=== PATIENT | female | born 1960 | race Two or more races ===

== ENCOUNTER → 2020-04-10 13:41 | Outpatient (BNVA) | payer OTHER, SELFPAY | PROVIDERS: PCP Family Medicine; Visit Provider Student in an Organized Health Care Education/Training Program | DX: Z76.89 Persons encountering health services in other specified circumstances (principal) ==

== ENCOUNTER 2020-05-01 14:16 | Outpatient (REF) | payer OTHER, SELFPAY ==
[2020-05-01 14:59] LABS: Basophils Percent Auto 0.2 % (0-2); Eosinophils Percent Auto 0.7 % (0-4); Hematocrit 28.5 % (37-47); Imm Gran Abs Auto 0.01 X10*3/uL (0.00-0.03); Imm Gran Pct Auto 0.2 % (0.0-0.4); Lymphocytes Absolute Auto 1.6 X10*3/uL (1.2-4.9); Lymphocytes Percent Auto 40.5 % (20-40); MANUAL DIFF FLAG NO; Mean Corpuscular HGB Conc 28.1 g/dl (31.0-35.0); Mean Corpuscular Hemoglobin 19.1 pg (27.0-33.0); Mean Platelet Volume 10.7 fL (9.4-12.3); Monocytes Absolute Auto 0.2 X10*3/uL (0.1-1.2); Neutrophils Absolute Auto 2.1 X10*3/uL (2.0-8.3); Neutrophils Percent Auto 52.4 % (45-73); Platelet Count 246 X10*3/uL (160-400); Red Blood Count 4.19 X10*6/uL (4.20-5.50); Red Cell Distribution Width 19.3 % (11.0-16.0)
[2020-05-01 15:06] LABS: Glucose Urine UA NEG (NEG); Leukocyte Esterase Urine NEG (NEG); Nitrite Urine NEG (NEG); PH 6.5 (5.0-8.0); Specific Gravity - Urine 1.015 (1.005-1.025); Urine Blood NEG (NEG); Urine Ketones NEG (NEG); Urine Protein NEG (NEG-TRACE)
[2020-05-01 15:12] LABS: Appearance Urine CLEAR; Color Urine YELLOW
[2020-05-01 15:22] LABS: RBC Urine 0 /HPF (0); Squamous Epithelial Cell Urine 1+ /LPF; WBC Urine 0 /HPF (0-4)
[2020-05-01 15:23] LABS: Bacteria Urine 1+ /LPF
[2020-05-01 15:27] LABS: Alanine Aminotransferase 16 U/L (0-31); Albumin Level 4.1 g/dL (3.5-5.0); Alkaline Phosphatase 62 U/L (39-117); Anion Gap 14 (12-20); Aspartate Amino Transferase 18 U/L (5-31); Bilirubin Total 0.3 mg/dL (0.0-1.0); Blood Urea Nitrogen 8 mg/dL (9-16); C Reactive Protein 0.12 mg/dL (< or = 0.50); Calcium 8.9 mg/dL (8.4-10.2); Carbon Dioxide 23 mmol/L (22-29); Chloride 107 mmol/L (96-108); Estimated Glomerular Filt Rate > 60; Glucose Random 98 mg/dL (60-115); Potassium 3.6 mmol/l (3.3-5.1); Sodium 140 mmol/L (135-145); Total Protein 7.9 g/dL (6.5-8.0)
[2020-05-01 15:58] LABS: Erythrocyte Sedimentation Rate 23 MM/HR (0-20)
[2020-05-02 14:42] LABS: Complement C3 115 mg/dL (83-193)
[2020-05-03 11:17] LABS: Anti DNA DS Antibody <1 IU/mL
== END 2020-05-01 14:17 | disposition home or self-care (01) ==
LOC: HO.LAB 14:16
PROVIDERS: PCP Family Medicine; Visit Provider Student in an Organized Health Care Education/Training Program
DX: M35.00 Sjogren syndrome, unspecified (principal)
CPT/HCPCS: 36415; 80053; 81001; 85025; 85652; 86140; 86160; 86225

== ENCOUNTER → 2020-05-16 09:19 | Outpatient (BNVA) | payer OTHER, SELFPAY | PROVIDERS: PCP Family Medicine; Visit Provider Internal Medicine Gastroenterology | DX: Z76.89 Persons encountering health services in other specified circumstances (principal) ==

== ENCOUNTER 2020-05-23 16:05 | Outpatient (REF) | payer OTHER, SELFPAY ==
[2020-05-23 17:34] LABS: MANUAL DIFF FLAG NO
[2020-05-23 17:48] LABS: Basophils Percent Auto 0.3 % (0-2); Hematocrit 30.9 % (37-47); Hemoglobin 8.6 g/dl (12.0-16.0); Lymphocytes Absolute Auto 1.7 X10*3/uL (1.2-4.9); Lymphocytes Percent Auto 43.3 % (20-40); Mean Corpuscular HGB Conc 27.8 g/dl (31.0-35.0); Mean Corpuscular Hemoglobin 19.5 pg (27.0-33.0); Mean Corpuscular Volume 69.9 fL (80-98); Mean Platelet Volume 10.4 fL (9.4-12.3); Monocytes Absolute Auto 0.2 X10*3/uL (0.1-1.2); Monocytes Percent Auto 6.3 % (2-11); Neutrophils Absolute Auto 1.9 X10*3/uL (2.0-8.3); Neutrophils Percent Auto 49.1 % (45-73); Platelet Count 287 X10*3/uL (160-400); Red Blood Count 4.42 X10*6/uL (4.20-5.50); Red Cell Distribution Width 21.6 % (11.0-16.0); White Blood Count 3.8 X10*3/uL (4.8-10.8)
[2020-05-23 17:49] LABS: Estimated Average Glucose 114 mg/dL; Hemoglobin A1c % 5.6 %
[2020-05-23 18:06] LABS: Alanine Aminotransferase 15 U/L (0-31); Albumin Level 4.2 g/dL (3.5-5.0); Alkaline Phosphatase 64 U/L (39-117); Anion Gap 12 (12-20); Aspartate Amino Transferase 18 U/L (5-31); Bilirubin Total 0.2 mg/dL (0.0-1.0); Blood Urea Nitrogen 9 mg/dL (9-16); C Reactive Protein 0.06 mg/dL (< or = 0.50); Carbon Dioxide 26 mmol/L (22-29); Chloride 106 mmol/L (96-108); Cholesterol 171 mg/dL; Estimated Glomerular Filt Rate > 60; Glucose Fasting 107 mg/dL (60-99); HDL Cholesterol 72 mg/dL; Iron 59 mcg/dL (30-160); LDL Cholesterol Calculated 89 mg/dl; Percent Iron Saturation 11 % (15-50); Potassium 4.1 mmol/l (3.3-5.1); Sodium 140 mmol/L (135-145); Total Iron Binding Capacity 544 mcg/dL (228-428); Triglycerides 52 mg/dL; Unsaturated Iron Binding 485 ug/dL
[2020-05-23 18:27] LABS: Ferritin 3 ng/mL (10-250); TSH reflex Free T4 0.37 mIU/mL (0.32-4.0); Vitamin D 25-OH Total 23.5 ng/mL (>30)
[2020-05-24 08:57] LABS: SARS COV2 IgG Negative (Negative)
[2020-05-24 11:32] LABS: Transglutaminase IgA 1 U/mL
== END 2020-05-23 16:06 | disposition home or self-care (01) ==
LOC: HO.LAB 16:05
PROVIDERS: PCP Family Medicine; Visit Provider Internal Medicine Gastroenterology
DX: D50.9 Iron deficiency anemia, unspecified (principal); K76.0 Fatty (change of) liver, not elsewhere classified; R11.0 Nausea
CPT/HCPCS: 36415; 80053; 80061; 82306; 82728; 83036; 83516; 83540; 84443; 85025; 86140; 86769

== ENCOUNTER 2020-05-29 11:23 | Day surgery (SDC) | payer OTHER, SELFPAY ==
[2020-05-23 10:27] VITALS: BMI 30.2
--- NOTE | 2020-05-28 09:48 | HO.ANESPROP2 ---
Documented by User: Daiana Ryan 05/28/20 09:49 HPI - Anesthesia Eval Consult details Narrative: 59yo F for Upper Endoscopy and Colonoscopy PMFSH Past Medical History Medical History Arthritis Back pain GERD (gastroesophageal reflux disease) Hepatic steatosis Hx of migraines Interstitial cystitis Irritable bowel syndrome with constipation Sjogrens syndrome Family History Family History Father Cirrhosis Mother Bone cancer HTN (hypertension) Migraine Diabetes mellitus Son GERD (gastroesophageal reflux disease) Daughter GERD (gastroesophageal reflux disease) Paternal Grandfather Diabetes mellitus Paternal Grandmother Emphysema lung Surgical History Surgical History History of bunionectomy of both great toes History of History of colonoscopy History of hysterectomy Hx of cystoscopy Hx of hemorrhoidectomy Social History Social History Alcohol intake: current Alcohol intake frequency: holidays/special occasions only Smoking Status: Never smoker Advance Directives: No Advance Directives Information Provided: No Advance Directives on File: No Meds Allergies Allergy/AdvReac Type Severity Reaction Status Date / Time latex [LATEX] Allergy Intermediate RASH Verified 05/23/20 10:25 omeprazole Allergy Intermediate Vomiting Verified 05/23/20 10:25 famotidine [Pepcid] Allergy Mild Vomiting Verified 05/23/20 10:25 Latex Gloves Allergy Intermediate Rash Uncoded 05/23/20 10:25 Home Medications Medication Instructions Recorded Confirmed Type amitriptyline 25 mg tablet 25 mg PO BEDTIME 04/10/20 05/23/20 History cyanocobalamin (vitamin B-12) 1,000 mcg PO DAILY 04/10/20 05/23/20 History 1,000 mcg capsule famotidine 20 mg tablet 20 mg PO BEDTIME 04/10/20 05/23/20 History magnesium oxide 420 mg tablet 420 mg PO DAILY 04/10/20 05/23/20 History meloxicam 7.5 mg tablet 7.5 mg PO DAILY 04/10/20 05/23/20 History oxybutynin chloride 15 mg 15 mg PO DAILY 04/10/20 05/23/20 History tablet,extended release 24 hr pentosan polysulfate sodium 100 mg 100 mg PO BID cap 04/10/20 05/23/20 History capsule cholecalciferol (vitamin D3) 1 cap PO DAILY 05/23/20 05/23/20 History Exam Exam Date and Time: May 28, 2020 0948 Height,Weight and Vital Signs: Height 5 ft 2 in Weight 74.843 kg Assessment and Plan Assessment Anesthesia Assessment: Chart Reviewed Documented by User: Mercedes Garcia 05/29/20 12:17 PMFSH Past Medical History Medical History Arthritis Back pain GERD (gastroesophageal reflux disease) Hepatic steatosis Hx of migraines Interstitial cystitis Irritable bowel syndrome with constipation Sjogrens syndrome Family History Family History Father Cirrhosis Mother Bone cancer HTN (hypertension) Migraine Diabetes mellitus Son GERD (gastroesophageal reflux disease) Daughter GERD (gastroesophageal reflux disease) Paternal Grandfather Diabetes mellitus Paternal Grandmother Emphysema lung Surgical History Surgical History History of bunionectomy of both great toes History of History of colonoscopy History of hysterectomy Hx of cystoscopy Hx of hemorrhoidectomy Social History Social History Alcohol intake: current Alcohol intake frequency: holidays/special occasions only Smoking Status: Never smoker Advance Directives: No Advance Directives Information Provided: No Advance Directives on File: No Meds Allergies Allergy/AdvReac Type Severity Reaction Status Date / Time latex [LATEX] Allergy Intermediate RASH Verified 05/23/20 10:25 omeprazole Allergy Intermediate Vomiting Verified 05/23/20 10:25 famotidine [Pepcid] Allergy Mild Vomiting Verified 05/23/20 10:25 Latex Gloves Allergy Intermediate Rash Uncoded 05/23/20 10:25 Home Medications Medication Instructions Recorded Confirmed Type amitriptyline 25 mg tablet 25 mg PO BEDTIME 04/10/20 05/23/20 History cyanocobalamin (vitamin B-12) 1,000 mcg PO DAILY 04/10/20 05/23/20 History 1,000 mcg capsule famotidine 20 mg tablet 20 mg PO BEDTIME 04/10/20 05/23/20 History magnesium oxide 420 mg tablet 420 mg PO DAILY 04/10/20 05/23/20 History meloxicam 7.5 mg tablet 7.5 mg PO DAILY 04/10/20 05/23/20 History oxybutynin chloride 15 mg 15 mg PO DAILY 04/10/20 05/23/20 History tablet,extended release 24 hr pentosan polysulfate sodium 100 mg 100 mg PO BID cap 04/10/20 05/23/20 History capsule cholecalciferol (vitamin D3) 1 cap PO DAILY 05/23/20 05/23/20 History Exam Airway Mallampati Class: II TM Dist: >3cm Neck ROM: Full
[2020-05-29 11:42] VITALS: BP 129/86; PULSE 83; RESP 18; TEMP 36.6; O2SAT 100
--- NOTE | 2020-05-29 11:50 | MHC.SHP ---
Pre-Procedural Eval Section B Chief Complaint: anemia Allergies: Allergies Allergy/AdvReac Type Severity Reaction Status Date / Time latex [LATEX] Allergy Intermediate RASH Verified 05/23/20 10:25 omeprazole Allergy Intermediate Vomiting Verified 05/23/20 10:25 famotidine [Pepcid] Allergy Mild Vomiting Verified 05/23/20 10:25 Latex Gloves Allergy Intermediate Rash Uncoded 05/23/20 10:25 Plan Diagnosis/Plan: Unchanged (EGD and [place]) I have reviewed the history and physical and performed a pertinent physical examination on my patient. No changes have occurred unless specified.yes.
[2020-05-29] MEDS: Lactated Ringers 1,000 ML 100 ML IVCONT (11:54)
[2020-05-29 12:55] VITALS: BP 105/60; PULSE 61; RESP 18; TEMP 36.2; O2SAT 100
--- NOTE | 2020-05-29 12:56 | PM.PROC ---
Brief Operative Note Date of procedure: 05/29/20 Pre-op diagnosis: ANEMIA, HEMATOCHEZIA; COLON CANCER SCREENING Post-op diagnosis: other (HIATAL HERNIA, SOFT CHANGES POSTPHARYNX C/ GERD; NONSPECIFIC INFLAMATION ASC. COLON AND CECUM, 3-4+ INTERNAL HEMORRHOIDS.) Procedure: EGD WITH BX; COLO WITH BX. Anesthesia: MAC (MD ANASTASIYA) Surgeon: Erica Trejo Pathology: other (RANDOM GASTRIC, RIGHT COLON, LEFT COLON, RECTO SIGMOID) Condition: stable Disposition: PACU
[2020-05-29 13:10] VITALS: BP 123/85; PULSE 69; RESP 20; O2SAT 100
--- NOTE | 2020-05-29 13:44 | HO.POSTANES ---
Post Anesthesia Evaluation Post Anesthesia Evaluation Vital Signs: Vital Signs Temp Pulse Resp BP Pulse Ox 05/29/20 13:10 97.1 F 69 20 123/85 100 05/29/20 12:55 97.1 F 61 18 105/60 100 05/29/20 11:42 97.9 F 83 18 129/86 100 Anesthesia: Monitored Mental Status: Awake Pain Control: Satisfactory Nausea/Vomiting: None Hydration: Adequate Anesthesia-Related Issues: No Anes. Related Issues
--- NOTE | 2020-05-31 21:04 | OP_ITS ---
SURGEON: Erica Trejo MD PROCEDURE PERFORMED: EGD with biopsy, colonoscopy with biopsies. ESTIMATED BLOOD LOSS: COMPLICATIONS: No complications. ANESTHESIA: Monitored. ANESTHESIOLOGIST: Dr. Garcia.Dr. Garcia. ASSISTANTS: No historian research assistant. SPECIMENS: Specimen removed; gastric biopsy, right colon and left colon biopsies, rectosigmoid biopsy. Note: The patient has a significant anemia. She now has a hemoglobin that runs between 8 and 8.6 with hematocrit in the 28 to 29 range and MCV has dropped from her previous level earlier in 2019 of 86 down to an MCV of 69, most consistent with iron-deficiency anemia. PREOPERATIVE DIAGNOSES: Anemia, hematochezia. POSTOPERATIVE DIAGNOSES: Hiatal hernia, soft changes consistent with gastroesophageal reflux disease. Colonoscopy findings; question nonspecific inflammatory changes of the right colon. Biopsies were taken. Internal hemorrhoids noted 3 to 4+ on retroflexed view. CLINIC LPN: Dr. Trejo. CONDITION: Postop, stable. FINDINGS: ESOPHAGOGASTRODUODENOSCOPY: Video endoscope was introduced without difficulty. There were some edema and erythema of the arytenoid cartilages. The esophageal mucosa was normal. GE junction was clear and distinct. There was a small 2 cm hiatal hernia present. The gastric mucosa appeared normal. Duodenal bulb and duodenum appeared endoscopically normal. Random gastric biopsies were obtained. Digital rectal exam revealed no specific lesion. Video colonoscope was introduced without difficulty. Prep overall was fair to poor. The scope slowly advanced through left colon. It was residual iron from her iron supplementation. I was able to get to the cecum. Appendiceal orifice was seen. There was debris partially covering the appendiceal orifice. Ileocecal valve was seen. There was a question of inflammatory changes on the right side of the colon, particularly involving the cecum in the most proximal portion of the ascending colon. There was somewhat of an exudative slightly friable change in that area. Biopsies were obtained. In sequential biopsies on the left side, rectosigmoid biopsies were obtained. Retroflexed view did show 4+ internal hemorrhoids. PLAN: Currently, repeat colon cancer screening in this patient would really be probably 3 years given the findings of this one in the marginality of the prep. Further decisions on this will be addressed in followup. GRAFT OR IMPLANTS: No grafts or implants. Erica Trejo MD MEN/MODL / [id number] KENDELL
== END 2020-05-29 13:40 | disposition home or self-care (01) ==
PROVIDERS: PCP Family Medicine; Visit Provider Internal Medicine Gastroenterology
PROC: (CPT 45380; principal; 2020-05-29 12:40)
DX: D50.9 Iron deficiency anemia, unspecified (principal); K52.9 Noninfective gastroenteritis and colitis, unspecified; K64.8 Other hemorrhoids; K58.1 Irritable bowel syndrome with constipation; K21.9 Gastro-esophageal reflux disease without esophagitis; R11.0 Nausea; K44.9 Diaphragmatic hernia without obstruction or gangrene; K76.0 Fatty (change of) liver, not elsewhere classified; M35.00 Sjogren syndrome, unspecified; Z79.899 Other long term (current) drug therapy; Z80.8 Family history of malignant neoplasm of other organs or systems; Z91.040 Latex allergy status; Z88.8 Allergy status to other drugs, medicaments and biological substances
CPT/HCPCS: 45380; 43239; 88305; 88342

== ENCOUNTER 2020-06-07 16:04 | Outpatient (REF) | payer OTHER, SELFPAY ==
[2020-06-07 17:02] LABS: INTERNATIONAL NORM RATIO 1.1 (0.9-1.1); Prothrombin Time 13.2 SEC (10.8-13.0)
[2020-06-07 18:09] LABS: Vitamin B12 1420 pg/mL (200-900)
[2020-06-11 17:03] LABS: Methylmalonic Acid 103 nmol/L (87-318)
[2020-06-14 06:07] LABS: Vitamin B1 8 nmol/L (8-30)
== END 2020-06-07 16:05 | disposition home or self-care (01) ==
LOC: HO.LAB 16:04
PROVIDERS: PCP Family Medicine; Visit Provider Internal Medicine Gastroenterology
DX: D50.9 Iron deficiency anemia, unspecified (principal)
CPT/HCPCS: 36415; 81479; 82397; 82607; 83520; 83921; 84425; 85610; 86140; 88346; 88350

== ENCOUNTER 2020-06-15 16:35 | Outpatient (REF) | payer OTHER, SELFPAY ==
[2020-06-22 00:16] LABS: Calprotectin, Fecal 205 mcg/g
== END 2020-06-15 16:36 | disposition home or self-care (01) ==
LOC: HO.LNP 16:35
PROVIDERS: Visit Provider Internal Medicine Gastroenterology
DX: D50.9 Iron deficiency anemia, unspecified (principal)
CPT/HCPCS: 83993

== ENCOUNTER 2020-07-10 13:35 | Outpatient (REF) | payer OTHER, SELFPAY ==
[2020-07-10 14:50] LABS: MANUAL DIFF FLAG NO
[2020-07-10 14:55] LABS: Basophils Percent Auto 0.2 % (0-2); Eosinophils Percent Auto 0.2 % (0-4); Hematocrit 23.5 % (37-47); Imm Gran Abs Auto 0.01 X10*3/uL (0.00-0.03); Imm Gran Pct Auto 0.2 % (0.0-0.4); Lymphocytes Absolute Auto 1.4 X10*3/uL (1.2-4.9); Lymphocytes Percent Auto 31.9 % (20-40); Mean Corpuscular HGB Conc 28.9 g/dl (31.0-35.0); Mean Corpuscular Hemoglobin 21.9 pg (27.0-33.0); Mean Corpuscular Volume 75.6 fL (80-98); Monocytes Absolute Auto 0.3 X10*3/uL (0.1-1.2); Monocytes Percent Auto 5.9 % (2-11); Neutrophils Absolute Auto 2.6 X10*3/uL (2.0-8.3); Neutrophils Percent Auto 61.6 % (45-73); Platelet Count 273 X10*3/uL (160-400); Red Blood Count 3.11 X10*6/uL (4.20-5.50); Red Cell Distribution Width 21.5 % (11.0-16.0); White Blood Count 4.2 X10*3/uL (4.8-10.8)
[2020-07-10 15:16] LABS: Hemoglobin 6.8 g/dl (12.0-16.0)
[2020-07-10 15:32] LABS: Alanine Aminotransferase 15 U/L (0-31); Albumin Level 4.1 g/dL (3.5-5.0); Alkaline Phosphatase 56 U/L (39-117); Anion Gap 10 (12-20); Aspartate Amino Transferase 16 U/L (5-31); Blood Urea Nitrogen 10 mg/dL (9-16); C Reactive Protein 0.07 mg/dL (< or = 0.50); Calcium 9.2 mg/dL (8.4-10.2); Carbon Dioxide 25 mmol/L (22-29); Chloride 108 mmol/L (96-108); Estimated Glomerular Filt Rate > 60; Glucose Random 93 mg/dL (60-115); Potassium 4.1 mmol/L (3.3-5.1); Sodium 139 mmol/L (135-145); Total Protein 7.6 g/dL (6.5-8.0)
[2020-07-10 15:42] LABS: Bilirubin Total < 0.2 mg/dL (0.0-1.0)
[2020-07-10 15:47] LABS: Erythrocyte Sedimentation Rate 34 MM/HR (0-20)
[2020-07-12 12:51] LABS: IgA 268 mg/dL (47-310); IgG 1574 mg/dL (600-1640); IgM 131 mg/dL (50-300)
[2020-07-12 14:02] LABS: Prot Elec - Albumin 3.8 g/dL (3.8-4.8); Prot Elec - Alpha1 0.3 g/dL (0.2-0.3); Prot Elec - Alpha2 0.6 g/dL (0.5-0.9); Prot Elec - Beta 1 0.6 g/dL (0.4-0.6); Prot Elec - Beta 2 0.4 g/dL (0.2-0.5); Prot Elec - Gamma 1.4 g/dL (0.8-1.7); Prot Elec - Total Protein 7.1 g/dL (6.1-8.1)
== END 2020-07-10 13:36 | disposition home or self-care (01) ==
LOC: HO.LAB 13:35
PROVIDERS: PCP Family Medicine; Visit Provider Student in an Organized Health Care Education/Training Program
DX: M35.00 Sjogren syndrome, unspecified (principal); D50.9 Iron deficiency anemia, unspecified; Z79.899 Other long term (current) drug therapy
CPT/HCPCS: 36415; 80053; 82784; 84155; 84165; 85025; 85652; 86140; 86334

== ENCOUNTER 2020-07-10 16:19 | Emergency (ER) | payer OTHER, SELFPAY ==
--- NOTE | ~2020-07-10 | CT_ITS ---
EXAMINATION: CT ABDOMEN AND PELVIS WITHOUT CONTRAST CLINICAL INFORMATION: Reason for Exam lower abd pn with bleeding wt loss . COMPARISON: No pertinent prior studies are available for comparison. TECHNIQUE: Multidetector volumetric imaging was performed from the superior aspect of the liver through the pubic symphysis without contrast per renal stone protocol. Sagittal and coronal reformatted images were obtained on the technologist workstation. This CT examination was performed using dose optimization techniques as appropriate, variously including the following: *Automated exposure control *Adjustment of mA and/or kV according to patient size (this includes techniques or standardized protocols for targeted exams where dose is matched to indication/reason for exam; i.e. extremities or head) *Use of iterative reconstruction technique DLP: 410 mGy-cm. FINDINGS: LUNG BASES: The visualized lung bases are unremarkable. LIVER, GALLBLADDER, BILIARY TREE: The non-contrast liver is normal in size, shape, and attenuation. No focal hepatic lesion or biliary ductal dilatation is present. The gallbladder is contracted but otherwise unremarkable with no evidence of radiopaque gallstones, gallbladder wall thickening, or obvious pericholecystic inflammatory changes. PANCREAS: Mild pancreatic fullness with the suggestion of subtle peripancreatic inflammatory changes/fluid. Mild pancreatitis cannot be excluded in this setting and correlation with amylase/lipase levels recommended. SPLEEN: Unremarkable. ADRENAL GLANDS: Unremarkable. KIDNEYS AND URETERS: The kidneys are normal in size, shape, and attenuation. No hydronephrosis, hydroureter, or calculi seen. No perinephric stranding. BLADDER: Unremarkable. GASTROINTESTINAL TRACT: Portions of the colon are decompressed which limits evaluation for wall thickness but no definitive pericolonic inflammatory changes. Large amount of stool in the cecum incidentally noted. The appendix is not clearly visualized. ABDOMINAL WALL: No significant hernia is appreciated. LYMPHOVASCULAR STRUCTURES: Scattered phleboliths in the pelvis. Aorta iliac system grossly unremarkable on this noncontrast study. No bulky adenopathy. PELVIC VISCERA: Surgically absent. OSSEUS STRUCTURES: Degenerative changes in the spine CT/CT abdomen pelvis wo con IMPRESSION: Portions of the colon are decompressed there is a moderate amount of stool within the cecum. No obstructive changes to the small bowel. I do not appreciate any acute intra-abdominal process.
[2020-07-10 16:42] VITALS: BP 140/83; PULSE 101; RESP 16; TEMP 37.1; O2SAT 100; BMI 25.2
[2020-07-10 17:08] LABS: Basophils Percent Auto 0.2 % (0-2); Eosinophils Percent Auto 0.2 % (0-4); Imm Gran Abs Auto 0.01 X10*3/uL (0.00-0.03); Imm Gran Pct Auto 0.2 % (0.0-0.4); Lymphocytes Absolute Auto 1.7 X10*3/uL (1.2-4.9); Lymphocytes Percent Auto 37.7 % (20-40); MANUAL DIFF FLAG NO; Mean Corpuscular HGB Conc 29.1 g/dl (31.0-35.0); Mean Corpuscular Volume 75.7 fL (80-98); Mean Platelet Volume 10.1 fL (9.4-12.3); Monocytes Absolute Auto 0.3 X10*3/uL (0.1-1.2); Monocytes Percent Auto 5.6 % (2-11); Neutrophils Absolute Auto 2.5 X10*3/uL (2.0-8.3); Neutrophils Percent Auto 56.1 % (45-73); Platelet Count 271 X10*3/uL (160-400); Red Blood Count 3.04 X10*6/uL (4.20-5.50); Red Cell Distribution Width 21.4 % (11.0-16.0); White Blood Count 4.4 X10*3/uL (4.8-10.8)
[2020-07-10 17:21] LABS: Glucose Urine UA NEG (NEG); Leukocyte Esterase Urine NEG (NEG); Nitrite Urine NEG (NEG); Specific Gravity - Urine 1.015 (1.005-1.025); Urine Blood NEG (NEG); Urine Ketones NEG (NEG); Urine Protein NEG (NEG-TRACE)
[2020-07-10 17:24] LABS: Hemoglobin 6.7 g/dl (12.0-16.0)
[2020-07-10 17:28] LABS: Alanine Aminotransferase 14 U/L (0-31); Albumin Level 4.1 g/dL (3.5-5.0); Alkaline Phosphatase 54 U/L (39-117); Anion Gap 12 (12-20); Aspartate Amino Transferase 15 U/L (5-31); Bilirubin Total 0.2 mg/dL (0.0-1.0); Blood Urea Nitrogen 10 mg/dL (9-16); Calcium 8.8 mg/dL (8.4-10.2); Carbon Dioxide 24 mmol/L (22-29); Chloride 109 mmol/L (96-108); Creatinine Clr Calc Pharmacy 59.2; Estimated Glomerular Filt Rate > 60; Glucose Random 109 mg/dL (60-115); Potassium 3.8 mmol/L (3.3-5.1); Sodium 141 mmol/L (135-145); Total Protein 7.4 g/dL (6.5-8.0)
[2020-07-10 17:47] LABS: Appearance Urine CLEAR; Color Urine YELLOW
[2020-07-10 18:36] VITALS: BP 131/76; PULSE 77; O2SAT 99
--- NOTE | 2020-07-10 18:37 | PC.NURSE ---
pt alert and oriented, skin pale, sclera white. pt states that she was at [facility] dr [place]ura was sent to get blood work and found her h+h was low, told to go to the ed. pt does reports weak/dizzy/right lower abd pain for a couple of weeks and rectal bleeding with bright red blood, pt states that she thought is was her hemroids. ns on the monitor.
--- NOTE | 2020-07-10 18:40 | ED.RECABL ---
HPI - Recheck/Abnormal Lab/Rx General Chief Complaint: Recheck/Abnormal Lab/Rx <Terra Mehta PA-C - Last Filed: 07/10/20 20:58> Stated Complaint: Anemia <Terra Mehta PA-C - Last Filed: 07/10/20 20:58> Time Seen by Provider: 07/10/20 17:50 <Terra Mehta PA-C - Last Filed: 07/10/20 20:58> Source: patient <SARAH Lundberg Last Filed: 07/10/20 20:58> Mode of arrival: ambulatory <Terra Mehta PA-C - Last Filed: 07/10/20 20:58> Limitations: no limitations <Terra Mehta PA-C - Last Filed: 07/10/20 20:58> History of Present Illness HPI narrative: Patient is a 60-year-old female with a history of hepatic steatosis, IBS with constipation, GERD, Sjogrens syndrome, microcytic anemia c/o dizziness low abdominal pain, shortness of breath and fatigue who was found earlier today to have a low hemoglobin and was sent to the ED by her director security risk management, Dr. Lai. Patient's dates she is also had a half a cup of the time blood loss out of her rectum. She states she thinks it is her hemorrhoids. She also admits to 25 lb unintentional weight loss over the past few months. She states she had a colonoscopy recently which was negative. She denies fevers, night sweats, cough and chest pain. <Terra Mehta PA-C - Last Filed: 07/10/20 20:58> Related Data Home Medications: Home Medications Medication Instructions Recorded Confirmed amitriptyline 25 mg tablet 25 mg PO BEDTIME 04/10/20 05/23/20 cyanocobalamin (vitamin B-12) 1,000 mcg PO DAILY 04/10/20 05/23/20 1,000 mcg capsule famotidine 20 mg tablet 20 mg PO BEDTIME 04/10/20 05/23/20 magnesium oxide 420 mg tablet 420 mg PO DAILY 04/10/20 05/23/20 pentosan polysulfate sodium 100 mg 100 mg PO BID cap 04/10/20 05/23/20 capsule cholecalciferol (vitamin D3) 1 cap PO DAILY 05/23/20 05/23/20 Previous Rx's Medication Instructions Recorded ferrous sulfate 324 mg (65 mg 324 mg PO DAILY #30 tab 05/01/20 iron) tablet,delayed release oxybutynin chloride 15 mg 15 mg PO DAILY 90 Days #90 tab 06/20/20 tablet,extended release 24 hr <Terra Mehta PA-C - Last Filed: 07/10/20 20:58> Allergies/Adverse Reactions: Allergies Allergy/AdvReac Type Severity Reaction Status Date / Time latex [LATEX] Allergy Intermediate RASH Verified 07/10/20 13:47 omeprazole Allergy Intermediate Vomiting Verified 07/10/20 13:47 famotidine [Pepcid] Allergy Mild Vomiting Verified 07/10/20 13:47 <Terra Mehta PA-C - Last Filed: 07/10/20 20:58> Review of Systems Review of Systems: Yes all other systems are reviewed and are negative <Terra Mehta PA-C - Last Filed: 07/10/20 20:58> [facility] Past Medical History Medical History: Medical History Arthritis Back pain GERD (gastroesophageal reflux disease) Hepatic steatosis Hx of migraines Interstitial cystitis Irritable bowel syndrome with constipation Sjogrens syndrome <Terra Mehta PA-C - Last Filed: 07/10/20 20:58> Surgical History: Surgical History History of bunionectomy of both great toes History of History of colonoscopy History of hysterectomy Hx of cystoscopy Hx of hemorrhoidectomy <Terra Mehta PA-C - Last Filed: 07/10/20 20:58> Family History Family History: Family History Father Cirrhosis Mother Bone cancer HTN (hypertension) Migraine Diabetes mellitus Son GERD (gastroesophageal reflux disease) Daughter GERD (gastroesophageal reflux disease) Paternal Grandfather Diabetes mellitus Paternal Grandmother Emphysema lung <Terra Mehta PA-C - Last Filed: 07/10/20 20:58> Social History Social History: Social History Alcohol intake: current Alcohol intake frequency: does not drink Smoking Status: Never smoker Use of substances other than those prescribed or required for medical reasons: No Advance Directives: No Advance Directives Information Provided: Yes <Terra Mehta PA-C - Last Filed: 07/10/20 20:58> Physical Exam Vital Signs: Vital Signs: Last Vital Signs Temp 98.6 F 07/10/20 21:39 Pulse 78 07/10/20 21:39 Resp 18 07/10/20 21:39 BP 118/63 07/10/20 21:39 Pulse Ox 98 07/10/20 21:39 Body Mass Index 25.2 <Terra Mehta PA-C - Last Filed: 07/10/20 20:58> Vital Signs: Last Vital Signs Temp 98.6 F 07/10/20 21:39 Pulse 78 07/10/20 21:39 Resp 18 07/10/20 21:39 BP 118/63 07/10/20 21:39 Pulse Ox 98 07/10/20 21:39 Body Mass Index 25.2 <Nayana Guillen NP - Last Filed: 07/10/20 23:58> Const: General: cooperative, healthy appearing, comfortable, no acute distress and well developed <Terra Mehta PA-C - Last Filed: 07/10/20 20:58> Nutritional Appearance: well nourished <Terra Mehta PA-C - Last Filed: 07/10/20 20:58> Orientation/consciousness: patient oriented x3 <Terra Mehta PA-C - Last Filed: 07/10/20 20:58> Limitations: no limitations <Terra Mehta PA-C - Last Filed: 07/10/20 20:58> HENMT: Head: Yes normal to inspection <Terra Mehta PA-C - Last Filed: 07/10/20 20:58> Eyes: General: appearance normal, both eyes and all related structures <Terra Mehta PA-C - Last Filed: 07/10/20 20:58> Conjunctivae: conjunctival abnormal bilateral pallor <Terra Mehta PA-C - Last Filed: 07/10/20 20:58> Neck: Neck: Yes normal visual inspection, Yes full ROM and Yes supple <Terra Mehta PA-C Last Filed: 07/10/20 20:58> Resp: Effort & Inspection: normal respiratory effort and able to speak in complete sentences <Terra Mehta PA-C - Last Filed: 07/10/20 20:58> Auscultation: clear to auscultation bilaterally, no crackles, no rales, no rhonchi and no wheezes <Terra Mehta PA-C Ana Last Filed: 07/10/20 20:58> Cardio: Rate: regular rate <Terra Mehta PA-C Ana Last Filed: 07/10/20 20:58> Rhythm: regular rhythm <Terra Mehta PA-C Ana Last Filed: 07/10/20 20:58> Heart sounds: normal S1 and S2 <Terra Mehta PA-C Ana Last Filed: 07/10/20 20:58> GI: Inspection: Yes normal to inspection <Terra Mehta PA-C Ana Last Filed: 07/10/20 20:58> Palpation (GI): Soft to palpation <Terra Mehta PA-C Last Filed: 07/10/20 20:58> Neuro: General: patient oriented x3 <Terra Mehta PA-C Ana Last Filed: 07/10/20 20:58> Extrem: General: Yes normal gait <Terra Mehta PA-C Ana Last Filed: 07/10/20 20:58> Course Course Course Narrative: Patient is a 60-year-old female with a history of hepatic steatosis, IBS with constipation, GERD, Sjogrens syndrome, microcytic anemia c/o dizziness low abdominal pain, shortness of breath and fatigue who was found earlier today to have a low hemoglobin and was sent to the ED by her director security risk management, Dr. Lai. Hemoglobin was 6.7, patient receiving 1 unit red blood cells and will recheck CBC when completed. Abdominal CT was negative for any acute processes and advised patient to follow-up with GI doctor regarding the bleeding as she just had an upper endoscopy and colonoscopy which were both negative for any acute issues. 07/10/2020 9pm Sign out to Nayana Guillen NP <Terra Mehta PA-C - Last Filed: 07/10/20 20:58> 10:27 p.m. repeat H&H 7.6/24.6. Patient does state to feel better, will follow-up with Rheumatology and Gastroenterology as well as primary care physician as instructed. Patient verbalized understanding of and agrees to plan of care discharge home. <Nayana Guillen NP - Last Filed: 07/10/20 23:58> MDM - Recheck/Abnormal Lab/Rx Lab Data Result diagrams: : 07/10/20 21:56 07/10/20 16:58 <Terra Mehta PA-C - Last Filed: 07/10/20 20:58> Labs: Lab Results 07/10/20 07/10/20 07/10/20 Range/Units 16:57 16:58 16:58 WBC 4.4 L (4.8-10.8) X10*3/uL RBC 3.04 L (4.20-5.50) X10*6/uL Hgb 6.7 L* (12.0-16.0) g/dl Hct 23.0 L (37-47) % MCV 75.7 L (80-98) fL MCH 22.0 L (27.0-33.0) pg MCHC 29.1 L (31.0-35.0) g/dl RDW 21.4 H (11.0-16.0) % Plt Count 271 (160-400) X10*3/uL MPV 10.1 (9.4-12.3) fL Immature Gran % (Auto) 0.2 (0.0-0.4) % Neut % (Auto) 56.1 (45-73) % Lymph % (Auto) 37.7 (20-40) % [place] % (Auto) 5.6 (2-11) % Eos % (Auto) 0.2 (0-4) % Baso % (Auto) 0.2 (0-2) % Lymph # (Auto) 1.7 (1.2-4.9) X10*3/uL [place] # (Auto) 0.3 (0.1-1.2) X10*3/uL Eos # (Auto) 0.0 (0.0-0.4) X10*3/uL Baso # (Auto) 0.0 (0.0-0.2) X10*3/uL Abs Immat Gran (auto) 0.01 (0.00-0.03) X10*3/uL Absolute Neuts (auto) 2.5 (2.0-8.3) X10*3/uL Absolute Nucleated RBC 0.000 (0.0-0.012) X10*3/uL Nucleated RBC % (auto) 0.0 (0.0-0.2) /100WBC Hold Purple Top SEE NOTE Hold Blue Top Sodium (135-145) mmol/L Potassium (3.3-5.1) mmol/L Chloride (96-108) mmol/L Carbon Dioxide (22-29) mmol/L Anion Gap (12-20) BUN (9-16) mg/dL Creatinine (0.5-1.4) mg/dL Estim Creat Clear Calc Estimated GFR Random Glucose (60-115) mg/dL Calcium (8.4-10.2) mg/dL Total Bilirubin (0.0-1.0) mg/dL AST (5-31) U/L ALT (0-31) U/L Alkaline Phosphatase (39-117) U/L Total Protein (6.5-8.0) g/dL Albumin (3.5-5.0) g/dL Urine Color Urine Appearance Urine pH (5.0-8.0) Ur Specific [place] (1.005-1.025) Urine Protein (NEG-TRACE) MG/DL Urine Glucose (UA) (NEG) MG/DL Urine Ketones (NEG) MG/DL Urine Blood (NEG) Urine Nitrite (NEG) Ur Leukocyte Esterase (NEG) Blood Type O Positive Antibody Screen NEGATIVE Crossmatch See Detail 07/10/20 07/10/20 07/10/20 Range/Units 16:58 16:58 16:58 WBC (4.8-10.8) X10*3/uL RBC (4.20-5.50) X10*6/uL Hgb (12.0-16.0) g/dl Hct (37-47) % MCV (80-98) fL MCH (27.0-33.0) pg MCHC (31.0-35.0) g/dl RDW (11.0-16.0) % Plt Count (160-400) X10*3/uL MPV (9.4-12.3) fL Immature Gran % (Auto) (0.0-0.4) % Neut % (Auto) (45-73) % Lymph % (Auto) (20-40) % [place] % (Auto) (2-11) % Eos % (Auto) (0-4) % Baso % (Auto) (0-2) % Lymph # (Auto) (1.2-4.9) X10*3/uL [place] # (Auto) (0.1-1.2) X10*3/uL Eos # (Auto) (0.0-0.4) X10*3/uL Baso # (Auto) (0.0-0.2) X10*3/uL Abs Immat Gran (auto) (0.00-0.03) X10*3/uL Absolute Neuts (auto) (2.0-8.3) X10*3/uL Absolute Nucleated RBC (0.0-0.012) X10*3/uL Nucleated RBC % (auto) (0.0-0.2) /100WBC Hold Purple Top Hold Blue Top SEE NOTE Sodium 141 (135-145) mmol/L Potassium 3.8 (3.3-5.1) mmol/L Chloride 109 H (96-108) mmol/L Carbon Dioxide 24 (22-29) mmol/L Anion Gap 12 (12-20) BUN 10 (9-16) mg/dL Creatinine 0.90 (0.5-1.4) mg/dL Estim Creat Clear Calc 59.2 Estimated GFR > 60 Random Glucose 109 (60-115) mg/dL Calcium 8.8 (8.4-10.2) mg/dL Total Bilirubin 0.2 (0.0-1.0) mg/dL AST 15 (5-31) U/L ALT 14 (0-31) U/L Alkaline Phosphatase 54 (39-117) U/L Total Protein 7.4 (6.5-8.0) g/dL Albumin 4.1 (3.5-5.0) g/dL Urine Color YELLOW Urine Appearance CLEAR Urine pH 6.0 (5.0-8.0) Ur Specific [place] 1.015 (1.005-1.025) Urine Protein NEG (NEG-TRACE) MG/DL Urine Glucose (UA) NEG (NEG) MG/DL Urine Ketones NEG (NEG) MG/DL Urine Blood NEG (NEG) Urine Nitrite NEG (NEG) Ur Leukocyte Esterase NEG (NEG) Blood Type Antibody Screen Crossmatch 07/10/20 Range/Units 21:56 WBC 5.3 (4.8-10.8) X10*3/uL RBC 3.20 L (4.20-5.50) X10*6/uL Hgb 7.6 L (12.0-16.0) g/dl Hct 24.6 L (37-47) % MCV 76.9 L (80-98) fL MCH 23.8 L (27.0-33.0) pg MCHC 30.9 L (31.0-35.0) g/dl RDW 21.3 H (11.0-16.0) % Plt Count 250 (160-400) X10*3/uL MPV 9.6 (9.4-12.3) fL Immature Gran % (Auto) (0.0-0.4) % Neut % (Auto) (45-73) % Lymph % (Auto) (20-40) % [place] % (Auto) (2-11) % Eos % (Auto) (0-4) % Baso % (Auto) (0-2) % Lymph # (Auto) (1.2-4.9) X10*3/uL [place] # (Auto) (0.1-1.2) X10*3/uL Eos # (Auto) (0.0-0.4) X10*3/uL Baso # (Auto) (0.0-0.2) X10*3/uL Abs Immat Gran (auto) (0.00-0.03) X10*3/uL Absolute Neuts (auto) (2.0-8.3) X10*3/uL Absolute Nucleated RBC 0.000 (0.0-0.012) X10*3/uL Nucleated RBC % (auto) 0.0 (0.0-0.2) /100WBC Hold Purple Top Hold Blue Top Sodium (135-145) mmol/L Potassium (3.3-5.1) mmol/L Chloride (96-108) mmol/L Carbon Dioxide (22-29) mmol/L Anion Gap (12-20) BUN (9-16) mg/dL Creatinine (0.5-1.4) mg/dL Estim Creat Clear Calc Estimated GFR Random Glucose (60-115) mg/dL Calcium (8.4-10.2) mg/dL Total Bilirubin (0.0-1.0) mg/dL AST (5-31) U/L ALT (0-31) U/L Alkaline Phosphatase (39-117) U/L Total Protein (6.5-8.0) g/dL Albumin (3.5-5.0) g/dL Urine Color Urine Appearance Urine pH (5.0-8.0) Ur Specific [place] (1.005-1.025) Urine Protein (NEG-TRACE) MG/DL Urine Glucose (UA) (NEG) MG/DL Urine Ketones (NEG) MG/DL Urine Blood (NEG) Urine Nitrite (NEG) Ur Leukocyte Esterase (NEG) Blood Type Antibody Screen Crossmatch <Terra Mehta PA-C - Last Filed: 07/10/20 20:58> Lab Results 07/10/20 07/10/20 07/10/20 Range/Units 16:57 16:58 16:58 WBC 4.4 L (4.8-10.8) X10*3/uL RBC 3.04 L (4.20-5.50) X10*6/uL Hgb 6.7 L* (12.0-16.0) g/dl Hct 23.0 L (37-47) % MCV 75.7 L (80-98) fL MCH 22.0 L (27.0-33.0) pg MCHC 29.1 L (31.0-35.0) g/dl RDW 21.4 H (11.0-16.0) % Plt Count 271 (160-400) X10*3/uL MPV 10.1 (9.4-12.3) fL Immature Gran % (Auto) 0.2 (0.0-0.4) % Neut % (Auto) 56.1 (45-73) % Lymph % (Auto) 37.7 (20-40) % [place] % (Auto) 5.6 (2-11) % Eos % (Auto) 0.2 (0-4) % Baso % (Auto) 0.2 (0-2) % Lymph # (Auto) 1.7 (1.2-4.9) X10*3/uL [place] # (Auto) 0.3 (0.1-1.2) X10*3/uL Eos # (Auto) 0.0 (0.0-0.4) X10*3/uL Baso # (Auto) 0.0 (0.0-0.2) X10*3/uL Abs Immat Gran (auto) 0.01 (0.00-0.03) X10*3/uL Absolute Neuts (auto) 2.5 (2.0-8.3) X10*3/uL Absolute Nucleated RBC 0.000 (0.0-0.012) X10*3/uL Nucleated RBC % (auto) 0.0 (0.0-0.2) /100WBC Hold Purple Top SEE NOTE Hold Blue Top Sodium (135-145) mmol/L Potassium (3.3-5.1) mmol/L Chloride (96-108) mmol/L Carbon Dioxide (22-29) mmol/L Anion Gap (12-20) BUN (9-16) mg/dL Creatinine (0.5-1.4) mg/dL Estim Creat Clear Calc Estimated GFR Random Glucose (60-115) mg/dL Calcium (8.4-10.2) mg/dL Total Bilirubin (0.0-1.0) mg/dL AST (5-31) U/L ALT (0-31) U/L Alkaline Phosphatase (39-117) U/L Total Protein (6.5-8.0) g/dL Albumin (3.5-5.0) g/dL Urine Color Urine Appearance Urine pH (5.0-8.0) Ur Specific [place] (1.005-1.025) Urine Protein (NEG-TRACE) MG/DL Urine Glucose (UA) (NEG) MG/DL Urine Ketones (NEG) MG/DL Urine Blood (NEG) Urine Nitrite (NEG) Ur Leukocyte Esterase (NEG) Blood Type O Positive Antibody Screen NEGATIVE Crossmatch See Detail 07/10/20 07/10/20 07/10/20 Range/Units 16:58 16:58 16:58 WBC (4.8-10.8) X10*3/uL RBC (4.20-5.50) X10*6/uL Hgb (12.0-16.0) g/dl Hct (37-47) % MCV (80-98) fL MCH (27.0-33.0) pg MCHC (31.0-35.0) g/dl RDW (11.0-16.0) % Plt Count (160-400) X10*3/uL MPV (9.4-12.3) fL Immature Gran % (Auto) (0.0-0.4) % Neut % (Auto) (45-73) % Lymph % (Auto) (20-40) % [place] % (Auto) (2-11) % Eos % (Auto) (0-4) % Baso % (Auto) (0-2) % Lymph # (Auto) (1.2-4.9) X10*3/uL [place] # (Auto) (0.1-1.2) X10*3/uL Eos # (Auto) (0.0-0.4) X10*3/uL Baso # (Auto) (0.0-0.2) X10*3/uL Abs Immat Gran (auto) (0.00-0.03) X10*3/uL Absolute Neuts (auto) (2.0-8.3) X10*3/uL Absolute Nucleated RBC (0.0-0.012) X10*3/uL Nucleated RBC % (auto) (0.0-0.2) /100WBC Hold Purple Top Hold Blue Top SEE NOTE Sodium 141 (135-145) mmol/L Potassium 3.8 (3.3-5.1) mmol/L Chloride 109 H (96-108) mmol/L Carbon Dioxide 24 (22-29) mmol/L Anion Gap 12 (12-20) BUN 10 (9-16) mg/dL Creatinine 0.90 (0.5-1.4) mg/dL Estim Creat Clear Calc 59.2 Estimated GFR > 60 Random Glucose 109 (60-115) mg/dL Calcium 8.8 (8.4-10.2) mg/dL Total Bilirubin 0.2 (0.0-1.0) mg/dL AST 15 (5-31) U/L ALT 14 (0-31) U/L Alkaline Phosphatase 54 (39-117) U/L Total Protein 7.4 (6.5-8.0) g/dL Albumin 4.1 (3.5-5.0) g/dL Urine Color YELLOW Urine Appearance CLEAR Urine pH 6.0 (5.0-8.0) Ur Specific [place] 1.015 (1.005-1.025) Urine Protein NEG (NEG-TRACE) MG/DL Urine Glucose (UA) NEG (NEG) MG/DL Urine Ketones NEG (NEG) MG/DL Urine Blood NEG (NEG) Urine Nitrite NEG (NEG) Ur Leukocyte Esterase NEG (NEG) Blood Type Antibody Screen Crossmatch 07/10/20 Range/Units 21:56 WBC 5.3 (4.8-10.8) X10*3/uL RBC 3.20 L (4.20-5.50) X10*6/uL Hgb 7.6 L (12.0-16.0) g/dl Hct 24.6 L (37-47) % MCV 76.9 L (80-98) fL MCH 23.8 L (27.0-33.0) pg MCHC 30.9 L (31.0-35.0) g/dl RDW 21.3 H (11.0-16.0) % Plt Count 250 (160-400) X10*3/uL MPV 9.6 (9.4-12.3) fL Immature Gran % (Auto) (0.0-0.4) % Neut % (Auto) (45-73) % Lymph % (Auto) (20-40) % [place] % (Auto) (2-11) % Eos % (Auto) (0-4) % Baso % (Auto) (0-2) % Lymph # (Auto) (1.2-4.9) X10*3/uL [place] # (Auto) (0.1-1.2) X10*3/uL Eos # (Auto) (0.0-0.4) X10*3/uL Baso # (Auto) (0.0-0.2) X10*3/uL Abs Immat Gran (auto) (0.00-0.03) X10*3/uL Absolute Neuts (auto) (2.0-8.3) X10*3/uL Absolute Nucleated RBC 0.000 (0.0-0.012) X10*3/uL Nucleated RBC % (auto) 0.0 (0.0-0.2) /100WBC Hold Purple Top Hold Blue Top Sodium (135-145) mmol/L Potassium (3.3-5.1) mmol/L Chloride (96-108) mmol/L Carbon Dioxide (22-29) mmol/L Anion Gap (12-20) BUN (9-16) mg/dL Creatinine (0.5-1.4) mg/dL Estim Creat Clear Calc Estimated GFR Random Glucose (60-115) mg/dL Calcium (8.4-10.2) mg/dL Total Bilirubin (0.0-1.0) mg/dL AST (5-31) U/L ALT (0-31) U/L Alkaline Phosphatase (39-117) U/L Total Protein (6.5-8.0) g/dL Albumin (3.5-5.0) g/dL Urine Color Urine Appearance Urine pH (5.0-8.0) Ur Specific [place] (1.005-1.025) Urine Protein (NEG-TRACE) MG/DL Urine Glucose (UA) (NEG) MG/DL Urine Ketones (NEG) MG/DL Urine Blood (NEG) Urine Nitrite (NEG) Ur Leukocyte Esterase (NEG) Blood Type Antibody Screen Crossmatch <Nayana Guillen NP - Last Filed: 07/10/20 23:58> Imaging Data CT scan - abdomen: Attestation: I personally reviewed and interpreted this imaging study as follows: <Terra Mehta PA-C - Last Filed: 07/10/20 20:58> Radiologist's impression: [address] [id number] Scan ReportSigned Patient: Rhett Quevedo#: [id number]: 1960Acct:[id number]/Sex: 60 / FADM Date: 07/10/20Loc: [address] Dr: Ordering Physician: Terra Mehta PA-C Date of Service: 07/10/20 Procedure(s): CT abdomen pelvis wo con Accession Number(s): [id number] cc: Terra Mehta PA-C~ EXAMINATION: CT ABDOMEN AND PELVIS WITHOUT CONTRAST CLINICAL INFORMATION: Reason for Exam lower abd pn with bleeding wt loss . COMPARISON: No pertinent prior studies are available for comparison. TECHNIQUE: Multidetector volumetric imaging was performed from the superior aspect of the liver through the pubic symphysis without contrast per renal stone protocol. Sagittal and coronal reformatted images were obtained on the technologist workstation. This CT examination was performed using dose optimization techniques as appropriate, variously including the following: *Automated exposure control *Adjustment of mA and/or kV according to patient size (this includes techniques or standardized protocols for targeted exams where dose is matched to indication/reason for exam; i.e. extremities or head) *Use of iterative reconstruction technique DLP: 410 mGy-cm. FINDINGS: LUNG BASES: The visualized lung bases are unremarkable. LIVER, GALLBLADDER, BILIARY TREE: The non-contrast liver is normal in size, shape, and attenuation. No focal hepatic lesion or biliary ductal dilatation is present. The gallbladder is contracted but otherwise unremarkable with no evidence of radiopaque gallstones, gallbladder wall thickening, or obvious pericholecystic inflammatory changes. PANCREAS: Mild pancreatic fullness with the suggestion of subtle peripancreatic inflammatory changes/fluid. Mild pancreatitis cannot be excluded in this setting and correlation with amylase/lipase levels recommended. SPLEEN: Unremarkable. ADRENAL GLANDS: Unremarkable. KIDNEYS AND URETERS: The kidneys are normal in size, shape, and attenuation. No hydronephrosis, hydroureter, or calculi seen. No perinephric stranding. BLADDER: Unremarkable. GASTROINTESTINAL TRACT: Portions of the colon are decompressed which limits evaluation for wall thickness but no definitive pericolonic inflammatory changes. Large amount of stool in the cecum incidentally noted. The appendix is not clearly visualized. ABDOMINAL WALL: No significant hernia is appreciated. LYMPHOVASCULAR STRUCTURES: Scattered phleboliths in the pelvis. Aorta iliac system grossly unremarkable on this noncontrast study. No bulky adenopathy. PELVIC VISCERA: Surgically absent. OSSEUS STRUCTURES: Degenerative changes in the spine CT/CT abdomen pelvis wo con IMPRESSION: Portions of the colon are decompressed there is a moderate amount of stool within the cecum. No obstructive changes to the small bowel. I do not appreciate any acute intra-abdominal process. Dictated By:YAMIL BUSBY MDSigned By:<Electronically signed by YAMIL BUSBY MD in [place]>07/10/201929 DD/ 1854TD/TT: Radiator Repairer: CAMERON <Terra Mehta PA-C - Last Filed: 07/10/20 20:58> Discharge Plan Discharge Clinical Impression: Anemia Qualifiers: Anemia type: unspecified type Qualified Code(s): D64.9 - Anemia, unspecified <Terra Mehta PA-C - Last Filed: 07/10/20 20:58> Patient Disposition: Home, Self-Care <Terra Mehta PA-C - Last Filed: 07/10/20 20:58> Instructions: Blood Transfusion Reactions (ED), Anemia (ED), Blood Transfusion (DC) <Terra Mehta PA-C - Last Filed: 07/10/20 20:58> Additional Instructions: You were referred to the emergency department for critically low hemoglobin and hematocrit. After 1 unit of bloody your hemoglobin and hematocrit are 7.6/24.6. Please continue to follow-up with your medical doctor, Gastroenterology, Rheumatology and primary care physicians as needed and as scheduled.. If you notice any symptoms of blood transfusion reaction please return to the emergency department immediately. Thank you for choosing this emergency department for evaluation. Please follow-up with primary care physician as needed. Return to the emergency department for any new, concerning, or worsening symptoms. <Terra Mehta PA-C - Last Filed: 07/10/20 20:58> Prescriptions: No Action ferrous sulfate 324 mg (65 mg iron) tablet,delayed release (DR/EC) 324 mg PO DAILY Qty: 30 RF: 3 oxybutynin chloride 15 mg tablet extended release 24 hr 15 mg PO DAILY 90 Days Qty: 90 RF: 1 cholecalciferol (vitamin D3) 25 mcg (1,000 unit) capsule 1 cap PO DAILY RF: 0 amitriptyline 25 mg tablet 25 mg PO BEDTIME RF: 0 cyanocobalamin (vitamin B-12) 1,000 mcg capsule 1,000 mcg PO DAILY RF: 0 magnesium oxide 420 mg tablet 420 mg PO DAILY RF: 0 famotidine 20 mg tablet 20 mg PO BEDTIME RF: 0 [place] 100 mg capsule 100 mg PO BID RF: 0 <Terra Mehta PA-C - Last Filed: 07/10/20 20:58> Interventions: ED Discharge Assessment Last Done: 07/10/20 23:45 <Terra Mehta PA-C - Last Filed: 07/10/20 20:58> Discharge Date/Time: 07/10/20 23:46 <Terra Mehta PA-C - Last Filed: 07/10/20 20:58>
[2020-07-10 20:04] VITALS: BP 119/66; PULSE 75; RESP 16; TEMP 36.9
[2020-07-10 20:09] VITALS: BP 144/84; PULSE 82; RESP 18; TEMP 37
[2020-07-10 21:39] VITALS: BP 118/63; PULSE 78; RESP 18; TEMP 37; O2SAT 98
[2020-07-10 22:01] LABS: Hematocrit 24.6 % (37-47); Hemoglobin 7.6 g/dl (12.0-16.0); Mean Corpuscular HGB Conc 30.9 g/dl (31.0-35.0); Mean Corpuscular Hemoglobin 23.8 pg (27.0-33.0); Mean Corpuscular Volume 76.9 fL (80-98); Mean Platelet Volume 9.6 fL (9.4-12.3); Platelet Count 250 X10*3/uL (160-400); Red Cell Distribution Width 21.3 % (11.0-16.0); White Blood Count 5.3 X10*3/uL (4.8-10.8)
[2020-07-10] MEDS: Acetaminophen 325 MG TABLET 650 MG PO (22:44)
== END 2020-07-10 23:46 | disposition home or self-care (01) ==
PROVIDERS: Physician Assistant; Emergency Provider Emergency Medicine; PCP Family Medicine
DX: D64.9 Anemia, unspecified (principal); D89.89 Other specified disorders involving the immune mechanism, not elsewhere classified; M35.00 Sjogren syndrome, unspecified
CPT/HCPCS: 36415; 36430; 74176; 80053; 81003; 85025; 85027; 86850; 86900; 86923; 99284; 99285; P9016

== ENCOUNTER → 2020-07-18 13:03 | Outpatient (BNVA) | payer OTHER, SELFPAY | PROVIDERS: PCP Family Medicine; Visit Provider Internal Medicine Gastroenterology | DX: K64.9 Unspecified hemorrhoids (principal); D50.9 Iron deficiency anemia, unspecified; R10.33 Periumbilical pain; K21.9 Gastro-esophageal reflux disease without esophagitis; K58.1 Irritable bowel syndrome with constipation | CPT/HCPCS: 46600 ==

== ENCOUNTER 2020-07-23 08:06 | Outpatient (REF) | payer OTHER, SELFPAY ==
[2020-07-23 09:00] LABS: Reticulocyte Percent 0.7 % (0.5-1.8); SCAN SMEAR FLAG 1
[2020-07-23 09:02] LABS: Basophils Percent Auto 0.4 % (0-2); Eosinophils Absolute Auto 0.1 X10*3/uL (0.0-0.4); Eosinophils Percent Auto 1.8 % (0-4); Hematocrit 31.1 % (37-47); Hemoglobin 9.3 g/dl (12.0-16.0); Imm Gran Abs Auto 0.01 X10*3/uL (0.00-0.03); Imm Gran Pct Auto 0.4 % (0.0-0.4); Immature Retic Fraction 19.2 % (3.0-15.9); MANUAL DIFF FLAG SCAN; Mean Corpuscular HGB Conc 29.9 g/dl (31.0-35.0); Mean Corpuscular Hemoglobin 23.8 pg (27.0-33.0); Mean Corpuscular Volume 79.5 fL (80-98); Mean Platelet Volume 10.4 fL (9.4-12.3); Monocytes Absolute Auto 0.3 X10*3/uL (0.1-1.2); Monocytes Percent Auto 11.3 % (2-11); Neutrophils Absolute Auto 1.3 X10*3/uL (2.0-8.3); Neutrophils Percent Auto 48.1 % (45-73); Platelet Count 267 X10*3/uL (160-400); Red Blood Count 3.91 X10*6/uL (4.20-5.50); Red Cell Distribution Width 18.7 % (11.0-16.0); Retic HGB Equivalent 21.8 pg (30.0-35.0); Reticulocytes Absolute 0.027 X10*6/uL (0.026-0.095); White Blood Count 2.7 X10*3/uL (4.8-10.8)
[2020-07-23 09:08] LABS: Estimated Average Glucose 100 mg/dL; Hemoglobin A1c % 5.1 %
[2020-07-23 09:09] LABS: INTERNATIONAL NORM RATIO 1.1 (0.9-1.1); Prothrombin Time 12.7 SEC (10.8-13.0)
[2020-07-23 09:41] LABS: Erythrocyte Sedimentation Rate 22 MM/HR (0-20)
[2020-07-23 09:43] LABS: Unsaturated Iron Binding 524 ug/dL
[2020-07-23 09:47] LABS: Ferritin 4 ng/mL (10-250); Syphilis Screen Nonreactive (Nonreactive); TSH reflex Free T4 0.41 uIU/mL (0.32-4.0)
[2020-07-23 09:59] LABS: C Reactive Protein 0.05 mg/dL (< or = 0.50); Cholesterol 191 mg/dL; HDL Cholesterol 70 mg/dL; Iron 26 mcg/dL (30-160); LDL Cholesterol Calculated 112 mg/dl; Percent Iron Saturation 5 % (15-50); Total Iron Binding Capacity 550 mcg/dL (228-428); Triglycerides 46 mg/dL
[2020-07-23 10:00] LABS: Vitamin B12 1343 pg/mL (200-900)
[2020-07-26 15:46] LABS: Transglutaminase IgA 1 U/mL
[2020-07-27 21:47] LABS: Gliadin Deamidated IgA Ab 8 Units; Gliadin Deamidated IgG Ab 2 Units
[2020-07-31 16:21] LABS: Factor VIII Activity Clotting 164 % normal (50-180); PTT, Activated 25 sec (23-32); Ristocetin Cofactor 77 % normal (42-200)
== END 2020-07-23 08:07 | disposition home or self-care (01) ==
LOC: HO.LAB 08:06
PROVIDERS: PCP Family Medicine; Visit Provider Family Medicine
DX: D50.9 Iron deficiency anemia, unspecified (principal); E53.8 Deficiency of other specified B group vitamins; R73.01 Impaired fasting glucose
CPT/HCPCS: 36415; 80061; 82607; 82728; 82746; 83036; 83516; 83540; 84443; 85025; 85045; 85240; 85245; 85246; 85247; 85610; 85652; 85730; 86140; 86780

== ENCOUNTER → 2020-10-15 08:26 | Outpatient (BNVA) | payer OTHER, SELFPAY | PROVIDERS: PCP Family Medicine; Visit Provider Physician Assistant ==

== ENCOUNTER 2020-12-03 12:01 | Outpatient (REF) | payer OTHER, SELFPAY ==
--- NOTE | ~2020-12-03 | MM_ITS ---
EXAMINATION: MM SCREENING DIGITAL BREAST TOMOSYNTHESIS, BILATERAL CLINICAL INFORMATION: Screening. Asymptomatic. The lifetime risk of breast cancer based on the Tyrer-Cuzick Model is 4%. COMPARISON: Mammography: 06/14/2019, 10/12/2017, 07/29/2016 TECHNIQUE: Digital breast tomosynthesis is performed in both the craniocaudal and mediolateral oblique views along with computer-aided detection (CAD). Synthesized 2D images are generated from the tomosynthesis. FINDINGS: There are scattered areas of fibroglandular density (ACR BI-RADS breast composition Category b). There are no significant masses, abnormal calcifications, or other abnormalities. Parenchymal pattern is similar to prior studies. There is fine fibronodular parenchymal pattern. Stable circumscribed nodule again seen right breast lower inner quadrant mid depth. No developing density. There are a few stable punctate calcifications anterior upper outer left breast. The axilla and skin contours are unremarkable. MM/MM tomosynthesis screening BI IMPRESSION: No significant changes from prior exams. ASSESSMENT: BI-RADS 2: Benign RECOMMENDATION: Routine annual mammography screening. This patient's information was entered into a reminder system with a target due date for their next mammogram.
== END 2020-12-03 12:02 | disposition home or self-care (01) ==
LOC: HO.MAMMO 12:01
PROVIDERS: Visit Provider Family Medicine
DX: Z12.31 Encounter for screening mammogram for malignant neoplasm of breast (principal)
CPT/HCPCS: 77063; 77067

== ENCOUNTER 2020-12-20 15:10 | Outpatient (REF) | payer OTHER, SELFPAY ==
[2020-12-20 16:32] LABS: MANUAL DIFF FLAG NO
[2020-12-20 16:42] LABS: Basophils Percent Auto 0.2 % (0-2); Eosinophils Absolute Auto 0.1 X10*3/uL (0.0-0.4); Eosinophils Percent Auto 1.4 % (0-4); Hematocrit 35.9 % (37-47); Hemoglobin 11.4 g/dl (12.0-16.0); Imm Gran Abs Auto 0.01 X10*3/uL (0.00-0.03); Imm Gran Pct Auto 0.2 % (0.0-0.4); Lymphocytes Absolute Auto 1.7 X10*3/uL (1.2-4.9); Lymphocytes Percent Auto 40.2 % (20-40); Mean Corpuscular HGB Conc 31.8 g/dl (31.0-35.0); Mean Corpuscular Hemoglobin 27.3 pg (27.0-33.0); Mean Corpuscular Volume 86.1 fL (80-98); Mean Platelet Volume 10.7 fL (9.4-12.3); Monocytes Absolute Auto 0.5 X10*3/uL (0.1-1.2); Monocytes Percent Auto 10.7 % (2-11); Neutrophils Percent Auto 47.3 % (45-73); Platelet Count 261 X10*3/uL (160-400); Red Blood Count 4.17 X10*6/uL (4.20-5.50); Red Cell Distribution Width 13.3 % (11.0-16.0); White Blood Count 4.3 X10*3/uL (4.8-10.8)
[2020-12-20 17:15] LABS: Alanine Aminotransferase 27 U/L (0-31); Albumin Level 4.4 g/dL (3.5-5.0); Alkaline Phosphatase 68 U/L (39-117); Anion Gap 12 (12-20); Aspartate Amino Transferase 21 U/L (5-31); Bilirubin Total 0.3 mg/dL (0.0-1.0); Blood Urea Nitrogen 10 mg/dL (9-16); C Reactive Protein 0.06 mg/dL (< or = 0.50); Calcium 10.1 mg/dL (8.4-10.2); Carbon Dioxide 27 mmol/L (22-29); Chloride 105 mmol/L (96-108); Estimated Glomerular Filt Rate > 60; Glucose Random 85 mg/dL (60-115); Potassium 4.3 mmol/L (3.3-5.1); Sodium 140 mmol/L (135-145); Total Protein 8.2 g/dL (6.5-8.0)
[2020-12-20 17:21] LABS: Erythrocyte Sedimentation Rate 20 MM/HR (0-20)
== END 2020-12-20 15:11 | disposition home or self-care (01) ==
LOC: HO.LAB 15:10
PROVIDERS: PCP Family Medicine; Visit Provider Student in an Organized Health Care Education/Training Program
DX: M35.00 Sjogren syndrome, unspecified (principal)
CPT/HCPCS: 36415; 80053; 85025; 85652; 86140

== ENCOUNTER → 2021-01-22 14:45 | Outpatient (BNVA) | payer OTHER, SELFPAY | PROVIDERS: PCP Family Medicine | DX: N30.10 Interstitial cystitis (chronic) without hematuria (principal); Z13.9 Encounter for screening, unspecified | CPT/HCPCS: 51798; 81002 ==

== ENCOUNTER 2021-02-25 09:22 | Day surgery (SDC) | payer OTHER, SELFPAY ==
--- NOTE | 2021-02-22 13:43 | P.CONAN_ITS ---
Documented by User: Daiana Ryan NP 02/22/21 13:50 HPI - Anesthesia Eval Consult details Narrative: 60yo F for Cystoscopy Hydrodistention of Bladder Last Hydrodistention 05/2019 with GA-LMA 3 PMFSH Active Problems Active Problems: All Active Problems (Updated 02/19/21 @ 12:35 by Randi Noel, YANA) Anemia (Acute) Nausea (Acute) Interstitial cystitis (Acute) Bleeding hemorrhoids (Acute) Periumbilical abdominal pain (Acute) Microcytic anemia (Acute) Hepatic steatosis (Acute) Irritable bowel syndrome with constipation (Acute) GERD (gastroesophageal reflux disease) (Acute) Sjogrens syndrome (Acute) Past Medical History Medical History Arthritis Autoimmune disorder Back pain Bleeding hemorrhoids GERD (gastroesophageal reflux disease) Hepatic steatosis Hx of endometriosis Hx of migraines Insomnia Interstitial cystitis Iron deficiency anemia Irritable bowel syndrome with constipation Microcytic anemia Periumbilical abdominal pain Pre-hypertension Sjogrens syndrome Family History Family History Father Cirrhosis Mother Bone cancer HTN (hypertension) Migraine Diabetes mellitus Son GERD (gastroesophageal reflux disease) Daughter GERD (gastroesophageal reflux disease) Paternal Grandfather Diabetes mellitus Paternal Grandmother Emphysema lung Surgical History Surgical History H/O esophagogastroduodenoscopy History of bunionectomy of both great toes History of History of colonoscopy History of hysterectomy Hx of cystoscopy Hx of hemorrhoidectomy Social History Social History Household Members: Significant Other Alcohol intake: current Alcohol intake frequency: other Patient Tobacco Use Status: Never used Tobacco e-Cigarette/Vaping Use: Never Used Use of substances other than those prescribed or required for medical reasons: No Are you DNR?: No Advance Directives: No Advance Directives Information Provided: Yes Meds Allergies Allergy/AdvReac Type Severity Reaction Status Date / Time latex [LATEX] Allergy Intermediate RASH Verified 02/25/21 09:54 omeprazole Allergy Intermediate Vomiting Verified 02/25/21 09:54 famotidine [Pepcid] Allergy Mild Vomiting Verified 02/25/21 09:54 Home Medications Medication Instructions Recorded Confirmed Last Taken Type cyanocobalamin (vitamin B-12) 1,000 mcg PO DAILY 04/10/20 02/19/21 Unknown History 1,000 mcg capsule magnesium oxide 420 mg tablet 420 mg PO DAILY 04/10/20 02/19/21 Unknown History cholecalciferol (vitamin D3) 25 1 cap PO DAILY 07/12/20 02/19/21 Unknown History mcg (1,000 unit) capsule clobetasol 0.05 % lotion TOPICAL BID 07/12/20 10/15/20 Unknown History psyllium husk 3.4 gram/5.4 gram 1 tbsp PO DAILY 07/12/20 02/19/21 Unknown History oral powder (Metamucil) acetaminophen 325 mg tablet 650 mg PO Q4H PRN 01/15/21 02/19/21 Unknown History (Tylenol) ascorbic acid (vitamin C) 500 mg 1 tab PO BID 02/19/21 02/19/21 Unknown History tablet (Vitamin C) trazodone 50 mg tablet 1 tab PO BEDTIME 02/19/21 02/19/21 Unknown History Exam Exam Date and Time: February 22, 2021 1343 Pertinent Lab Results Pertinent Lab Results: Laboratory Tests 01/15/21 01/15/21 16:22 16:22 WBC 4.0 L Hgb 10.8 L Hct 34.4 L Plt Count 224 Sodium 141 Potassium 4.0 Chloride 108 Carbon Dioxide 28 BUN 8 L Creatinine 0.85 Assessment and Plan Assessment Anesthesia Assessment: Chart Reviewed Documented by User: Mercedes Garcia MD 02/25/21 10:56 [facility] Past Medical History Medical History Arthritis Autoimmune disorder Back pain Bleeding hemorrhoids GERD (gastroesophageal reflux disease) Hepatic steatosis Hx of endometriosis Hx of migraines Insomnia Interstitial cystitis Iron deficiency anemia Irritable bowel syndrome with constipation Microcytic anemia Periumbilical abdominal pain Pre-hypertension Sjogrens syndrome Family History Family History Father Cirrhosis Mother Bone cancer HTN (hypertension) Migraine Diabetes mellitus Son GERD (gastroesophageal reflux disease) Daughter GERD (gastroesophageal reflux disease) Paternal Grandfather Diabetes mellitus Paternal Grandmother Emphysema lung Surgical History Surgical History H/O esophagogastroduodenoscopy History of bunionectomy of both great toes History of History of colonoscopy History of hysterectomy Hx of cystoscopy Hx of hemorrhoidectomy History of Problems with Anesthesia: No Social History Social History Household Members: Significant Other Alcohol intake: current Alcohol intake frequency: other Patient Tobacco Use Status: Never used Tobacco e-Cigarette/Vaping Use: Never Used Use of substances other than those prescribed or required for medical reasons: No Are you DNR?: No Advance Directives: No Advance Directives Information Provided: Yes Meds Allergies Allergy/AdvReac Type Severity Reaction Status Date / Time latex [LATEX] Allergy Intermediate RASH Verified 02/25/21 09:54 omeprazole Allergy Intermediate Vomiting Verified 02/25/21 09:54 famotidine [Pepcid] Allergy Mild Vomiting Verified 02/25/21 09:54 Home Medications Medication Instructions Recorded Confirmed Last Taken Type cyanocobalamin (vitamin B-12) 1,000 mcg PO DAILY 04/10/20 02/19/21 Unknown History 1,000 mcg capsule magnesium oxide 420 mg tablet 420 mg PO DAILY 04/10/20 02/19/21 Unknown History cholecalciferol (vitamin D3) 25 1 cap PO DAILY 07/12/20 02/19/21 Unknown History mcg (1,000 unit) capsule clobetasol 0.05 % lotion TOPICAL BID 07/12/20 10/15/20 Unknown History psyllium husk 3.4 gram/5.4 gram 1 tbsp PO DAILY 07/12/20 02/19/21 Unknown History oral powder (Metamucil) acetaminophen 325 mg tablet 650 mg PO Q4H PRN 01/15/21 02/19/21 Unknown History (Tylenol) ascorbic acid (vitamin C) 500 mg 1 tab PO BID 02/19/21 02/19/21 Unknown History tablet (Vitamin C) trazodone 50 mg tablet 1 tab PO BEDTIME 02/19/21 02/19/21 Unknown History Exam Airway Mallampati Class: II TM Dist: >3cm Neck ROM: Full Loose/Missing/Broken Teeth: No Heart: RRR Lungs: CTA Assessment and Plan Assessment Anesthesia Assessment: Anesthesia Plan Discussed Final Anesthetic Review History of Problems with Anesthesia: No NPO: Yes ASA Class: II Final Preanesthetic Review: Meds/Allgs Chart Reviewed, Consent Obtained/Reviewed and Anes Risks/Benef Reviewed Patient Risk: Low Procedure Risk: Low Anesthetic Plan Anesthetic Plan: MAC: Disposition: Standard PACU
[2021-02-25 09:55] VITALS: BP 128/79; PULSE 61; RESP 18; TEMP 36.4; O2SAT 99; BMI 25.7
[2021-02-25] MEDS: Lactated Ringers 1,000 ML 100 ML IVCONT (10:11)
[2021-02-25] MEDS: levoFLOXacin 500 MG TABLET PO (10:12)
--- NOTE | 2021-02-25 11:03 | MHC.SHP ---
Pre-Procedural Eval Section A Date of Service: 02/25/21 Section B Chief Complaint: interstital cystitis Details of Present Illness: Here for hydrodistention Present Medications: see Short Stay Collaborative assessment Medical History: Significant History History of Previous Operations: Relevant previous surgery/procedure and date(s) Allergies: Allergies Allergy/AdvReac Type Severity Reaction Status Date / Time latex [LATEX] Allergy Intermediate RASH Verified 02/25/21 09:54 omeprazole Allergy Intermediate Vomiting Verified 02/25/21 09:54 famotidine [Pepcid] Allergy Mild Vomiting Verified 02/25/21 09:54 Review of Systems Sugical H&P ROS: Negative: Constitution, Cardiovascular, Respiratory, Neurological, Psychiatric, Hem-Onc, Allergic/Immunologic, Gastrointestinal, Genitourinary, Musculoskeletal, Integumentary, Endocrine and Eyes/Ears/Nose/Throat Exam Surgical H&P Exam: Normal: HEENT, Normal: Heart, Normal: Lungs, Normal: Extremities, Normal: Abdomen, Normal: Skin and Normal: Neurological Plan Diagnosis/Plan: Unchanged (Cystoscopy hydrodistention under anesthesia) I have reviewed the history and physical and performed a pertinent physical examination on my patient. No changes have occurred unless specified.
[2021-02-25 11:49] VITALS: BP 96/45; PULSE 55; RESP 12; TEMP 36.2; O2SAT 100
--- NOTE | 2021-02-25 11:53 | P.OP_ITS ---
Operative Note Operative Note Date of Service: 02/25/21 Narrative: PreOperative Diagnosis: Interstitial cystitis with pelvic pain Post Operative Diagnosis: Interstitial cystitis with pelvic pain Procedure: Hydrodistention Surgeon: Dr Perry Ashley Anesthesia: General Indications for procedure: This is a 60-year-old female. Known interstitial cystitis. Prior hydrodist ention approximately 3 years ago. Had responded well. Had slow aggravation of pain. Recommendation for repeat hydrodistention. Procedure: After informed consent was verified the patient was brought to the operating room and placed in a supine position. Anesthesia was administered per protocol. The patient was placed in a modified dorsal lithotomy position and prepped and draped in sterile fashion. Safety pause time-out was observed. Antibiotics being given. A 22 [place] cystoscope was used to empty the bladder. A mixture of bupivacaine lidocaine gel 20 cc was instilled into the bladder and allowed to sit for 2-3 minutes. A belladonna and opiate rectal suppository was placed. Bladder had crisscrossing collagen deposition consistent with bladder stiffness. Hydrodistention of the bladder was performed. The bladder was filled and allowed to sit for 2 minutes. Filling was from a height of 1 m. On the 1st fill there was 650cc within the bladder. Cystoscopy revealed glomerulations consistent with interstitial cystitis. Second filling of the bladder was performed in similar fashion. Volume was approximately 750cc. Terminal hematuria noted. The the bladder was emptied. The patient tolerated procedure well was extubated in operating room transferred in stable condition to the recovery area. Appropriate postprocedure pain medication was provided. Pathology: None Drains: None
[2021-02-25 11:55] VITALS: BP 85/49; PULSE 56; RESP 12; O2SAT 99
[2021-02-25 12:00] VITALS: BP 91/54; PULSE 55; RESP 16; O2SAT 100
[2021-02-25 12:05] VITALS: BP 91/73; PULSE 61; RESP 16; O2SAT 98
[2021-02-25] MEDS: Phenazopyridine HCL 100 MG TABLET PO (12:07)
[2021-02-25] MEDS: Acetaminophen 325 MG TABLET 650 MG PO (12:07)
[2021-02-25 12:21] VITALS: BP 107/71; PULSE 60; RESP 16; TEMP 36.2; O2SAT 98
== END 2021-02-25 12:50 | disposition home or self-care (01) ==
PROVIDERS: PCP Family Medicine; Visit Provider Urology
PROC: 0T7B7ZZ Dilation of Bladder, Via Natural or Artificial Opening (ICD-10-PCS; CPT 52260; principal; 2021-02-25 11:00)
DX: N30.10 Interstitial cystitis (chronic) without hematuria (principal); R10.2 Pelvic and perineal pain; M35.00 Sjogren syndrome, unspecified; D50.9 Iron deficiency anemia, unspecified; K21.9 Gastro-esophageal reflux disease without esophagitis; R03.0 Elevated blood-pressure reading, without diagnosis of hypertension; Z79.899 Other long term (current) drug therapy; Z91.040 Latex allergy status; Z88.8 Allergy status to other drugs, medicaments and biological substances
CPT/HCPCS: 52260; J1100; J2250; J2405; J3010

== ENCOUNTER → 2021-03-12 13:33 | Outpatient (BNVA) | payer OTHER, SELFPAY | PROVIDERS: PCP Family Medicine ==

== ENCOUNTER 2021-11-22 13:03 | Outpatient (RCR) | payer OTHER, SELFPAY | END 2022-07-25 07:49 | disposition home or self-care (01) | LOC: HO.OT 13:03 | PROVIDERS: PCP Family Medicine; Visit Provider Internal Medicine Rheumatology | DX: M19.041 Primary osteoarthritis, right hand (principal); M19.042 Primary osteoarthritis, left hand | CPT/HCPCS: 97018; 97110; 97165 ==

== ENCOUNTER 2022-03-10 15:41 | Outpatient (REF) | payer OTHER, SELFPAY ==
--- NOTE | ~2022-03-10 | XR_ITS ---
EXAMINATION: XR CHEST CLINICAL INFORMATION: Cough and chest pain COMPARISON: Previous chest x-ray April 2015 TECHNIQUE: 2 views of the chest were obtained. FINDINGS: No significant abnormality is noted involving the heart, lungs, mediastinum, bony thorax or soft tissues. There are mild degenerative changes of the spine. XR/XR chest 2V IMPRESSION: Unremarkable examination.
== END 2022-03-10 15:42 | disposition home or self-care (01) ==
LOC: HO.XRAY 15:41
PROVIDERS: Visit Provider Emergency Medicine
DX: R68.89 Other general symptoms and signs (principal)
CPT/HCPCS: 71046

== ENCOUNTER → 2022-03-26 09:21 | Outpatient (BNVA) | payer OTHER, SELFPAY | PROVIDERS: PCP Family Medicine; Visit Provider Urology | DX: N30.10 Interstitial cystitis (chronic) without hematuria (principal); R35.0 Frequency of micturition | CPT/HCPCS: 51798 ==

== ENCOUNTER → 2022-05-16 15:06 | Outpatient (BNVA) | payer OTHER, SELFPAY | PROVIDERS: PCP Family Medicine; Referring Provider Family Medicine; Visit Provider Nurse Practitioner | DX: Z13.89 Encounter for screening for other disorder (principal) ==

== ENCOUNTER 2022-05-27 15:13 | Outpatient (REF) | payer OTHER, SELFPAY ==
--- NOTE | ~2022-05-27 | XR_ITS ---
EXAMINATION: XR CHEST CLINICAL INFORMATION: Bronchitis COMPARISON: Chest radiographs 03/10/2022, 04/10/2015 TECHNIQUE: 2 views of the chest were obtained. FINDINGS: The lungs are clear and there is no airspace consolidation, groundglass opacity, or effusion. No hyperinflation. Heart size normal. Vascularity normal. The hilar and mediastinal contours are unremarkable. No acute bony abnormality. XR/XR chest 2V IMPRESSION: Unremarkable examination.
== END 2022-05-27 15:14 | disposition home or self-care (01) ==
LOC: HO.XRAY 15:13
PROVIDERS: Absent Provider Family Medicine; PCP Family Medicine; Visit Provider Registered Nurse
DX: J40 Bronchitis, not specified as acute or chronic (principal)
CPT/HCPCS: 71046

== ENCOUNTER 2022-07-07 08:34 | Emergency (ER) | payer OTHER, SELFPAY ==
--- NOTE | ~2022-07-07 | XR_ITS ---
EXAMINATION: XR CHEST CLINICAL INFORMATION: Chest pain, resolved COMPARISON: Chest radiographs 05/27/2022, 03/10/2022 TECHNIQUE: Frontal view of the chest was obtained. FINDINGS: The lungs are clear. There is no pneumothorax or pleural reaction. No infiltrate or groundglass opacity or effusion. Heart size normal. Vascularity normal. The hilar and mediastinal contours and bony structures are unremarkable. XR/XR chest 1V IMPRESSION: Unremarkable examination.
--- NOTE | ~2022-07-07 | XR_ITS ---
EXAMINATION: XR SHOULDER, LEFT CLINICAL INFORMATION: Left shoulder pain. COMPARISON: Chest radiograph 07/07/2022 TECHNIQUE: Left shoulder is imaged in 3 views. FINDINGS: No fracture, dislocation, destructive process. The glenohumeral joint appears normal. The acromioclavicular alignment is normal. There is no arthropathy. No visible rotator cuff calcifications. XR/XR shoulder LT min 2V IMPRESSION: Normal left shoulder.
[2022-07-07 09:00] VITALS: BP 136/81; PULSE 100; RESP 20; TEMP 36.5; O2SAT 99; BMI 30.9
--- NOTE | 2022-07-07 11:34 | ECG_ITS ---
Test Reason : CP Blood Pressure : / mmHG Vent. Rate : 077 BPM Atrial Rate : 077 BPM P-R Int : 148 ms QRS Dur : 076 ms QT Int : 376 ms P-R-T Axes : 018 -07 010 degrees QTc Int : 425 ms Normal sinus rhythm Normal ECG No significant changes when compared with the previous EKG of 01 november 2011 Referred By: Jose Barrow Electronically Signed By:WALT DEUTSCH
[2022-07-07 12:15] LABS: MANUAL DIFF FLAG NO
[2022-07-07 12:17] LABS: Basophils Percent Auto 0.2 % (0-2); Eosinophils Absolute Auto 0.1 X10*3/uL (0.0-0.4); Eosinophils Percent Auto 2.6 % (0-4); Hematocrit 40.5 % (37.0-47.0); Hemoglobin 12.8 g/dl (12.0-16.0); Imm Gran Abs Auto 0.01 X10*3/uL (0.00-0.03); Imm Gran Pct Auto 0.2 % (0.0-0.4); Lymphocytes Absolute Auto 1.8 X10*3/uL (1.2-4.9); Lymphocytes Percent Auto 38.2 % (20-40); Mean Corpuscular HGB Conc 31.6 g/dl (31.0-35.0); Mean Corpuscular Hemoglobin 27.2 pg (27.0-33.0); Mean Corpuscular Volume 86.2 fL (80.0-98.0); Mean Platelet Volume 9.4 fL (9.4-12.3); Monocytes Absolute Auto 0.5 X10*3/uL (0.1-1.2); Monocytes Percent Auto 10.2 % (2-11); Neutrophils Absolute Auto 2.3 x10*3/uL (2.0-8.3); Neutrophils Percent Auto 48.6 % (45-73); Platelet Count 276 X10*3/uL (160-400); White Blood Count 4.7 X10*3/uL (4.8-10.8)
[2022-07-07 12:35] LABS: Alanine Aminotransferase 38 U/L (0-31); Albumin Level 4.3 g/dL (3.5-5.0); Alkaline Phosphatase 84 U/L (39-117); Anion Gap 10 (12-20); Aspartate Amino Transferase 27 U/L (5-31); Bilirubin Total 0.4 mg/dL (0.0-1.0); Blood Urea Nitrogen 11 mg/dL (9-16); Calcium 9.1 mg/dL (8.4-10.2); Carbon Dioxide 28 mmol/L (22-29); Chloride 107 mmol/L (96-108); Creatinine Clr Calc Pharmacy 63.7; Estimated Glomerular Filt Rate > 60; Glucose Random 100 mg/dL (60-115); Potassium 4.4 mmol/L (3.3-5.1); Sodium 141 mmol/L (135-145); Total Protein 7.6 g/dL (6.5-8.0)
[2022-07-07 12:41] LABS: B Type Natriuretic Peptide < 10 pg/mL (<100)
[2022-07-07 12:45] LABS: Troponin-I High Sensitivity < 3.5 ng/L (<3.5-17.0)
--- NOTE | 2022-07-07 13:27 | PC.NURSE ---
redraw labs collected, pt resting quietly, vistor at bedside.
[2022-07-07 13:51] LABS: Prothrombin Time 11.2 SEC (10.0-13.1)
--- NOTE | 2022-07-07 13:57 | ED.GENADULT ---
HPI - General Adult General Chief complaint: Extremity Problem Stated complaint: L arm pain no inj Time Seen by Provider: 07/07/22 11:30 Source: patient Mode of arrival: ambulatory Limitations: no limitations History of Present Illness HPI narrative: 62-year-old female presents to ED for left shoulder pain radiating down left arm since thursday. Patient states on Thursday she had chest pain that resolved on its own and then started having left shoulder pain radiating down left arm with worsening on movement. Patient states chest pain only lasted about 5 minutes and then resolved. Patient complaining the ER as left shoulder pain worse on movement. Patient denies any recent trauma, swelling of upper extremity, fever, chills, redness, pleurisy, coughing up blood, leg swelling, or calf pain. Related Data Home Medications Medication Instructions Recorded Confirmed cyanocobalamin (vitamin B-12) 1,000 mcg PO DAILY 04/10/20 03/26/22 1,000 mcg capsule cholecalciferol (vitamin D3) 25 1 cap PO DAILY 07/12/20 03/26/22 mcg (1,000 unit) capsule clobetasol 0.05 % lotion topical BID 07/12/20 03/26/22 acetaminophen 325 mg tablet 650 mg PO Q4H PRN headache 01/15/21 03/26/22 (Tylenol) ascorbic acid (vitamin C) 500 mg 1 tab PO BID 02/19/21 03/26/22 tablet (Vitamin C) amitriptyline 25 mg tablet 1 tab PO BEDTIME 11/15/21 03/26/22 estradiol 0.01% (0.1 mg/gram) g vaginal 02/25/22 03/26/22 vaginal cream minoxidil 2.5 mg tablet 2.5 mg PO DAILY alopecia 02/25/22 03/26/22 sumatriptan succinate 50 mg tablet 50 mg PO 05/16/22 Previous Rx's Medication Instructions Recorded ferrous sulfate 324 mg (65 mg 324 mg PO DAILY #30 tabs 02/06/21 iron) tablet,delayed release oxybutynin chloride 15 mg 15 mg PO DAILY 90 days #90 tabs 03/26/22 tablet,extended release 24 hr tamsulosin 0.4 mg capsule 0.4 mg PO BEDTIME 90 days #90 caps 03/26/22 famotidine 40 mg tablet (Pepcid) 40 mg PO BEDTIME #30 tabs 05/16/22 linaclotide 72 mcg capsule 72 mcg PO QAM #30 caps 05/16/22 (Linzess) ondansetron HCl 4 mg tablet 4 mg PO Q8H 30 days #60 tabs 05/16/22 psyllium husk 3.4 gram/5.4 gram 1 tbsp PO DAILY #660 grams 05/16/22 oral powder (Metamucil) naproxen 500 mg tablet 500 mg PO BID PRN pain 7 days #14 07/07/22 tabs Allergies Allergy/AdvReac Type Severity Reaction Status Date / Time latex [LATEX] Allergy Intermediate RASH Verified 05/16/22 15:45 omeprazole Allergy Intermediate Vomiting Verified 05/16/22 15:45 famotidine [Pepcid] Allergy Mild Vomiting Verified 05/16/22 15:45 Review of Systems Review of Systems: resolved chest pain. left shoulder pain worse on movement. Yes all other systems are reviewed and are negative PMFSH Past Medical History Medical History Arthritis Autoimmune disorder Back pain Bleeding hemorrhoids GERD (gastroesophageal reflux disease) Hepatic steatosis Hx of endometriosis Hx of migraines Insomnia Interstitial cystitis Iron deficiency anemia Irritable bowel syndrome with constipation Microcytic anemia Periumbilical abdominal pain Pre-hypertension Sjogrens syndrome Surgical History H/O esophagogastroduodenoscopy History of bunionectomy of both great toes History of History of colonoscopy History of hysterectomy Hx of cystoscopy Hx of hemorrhoidectomy Family History Family History Father Cirrhosis Mother Bone cancer HTN (hypertension) Migraine Diabetes mellitus Son GERD (gastroesophageal reflux disease) Daughter GERD (gastroesophageal reflux disease) Paternal Grandfather Diabetes mellitus Paternal Grandmother Emphysema lung Social History Social History Household Members: Significant Other Alcohol intake: current Alcohol intake frequency: other Patient Tobacco Use Status: Never used Tobacco e-Cigarette/Vaping Use: Never Used Advance Directives: No Advance Directives Information Provided: Yes Physical Exam ED Vital Signs: Vital Signs - 24 hr 03/06/23 09:00 Temperature 97.7 F Pulse Rate 100 Respiratory Rate 20 Blood Pressure 136/81 Pulse Oximetry 99 Oxygen Delivery Method Room Air BMI result Body Mass Index 30.9 Const General: cooperative, healthy appearing, comfortable, no acute distress, well developed, alert, awake and Physically active Orientation/consciousness: oriented to person, oriented to place, oriented to time and patient oriented x3 HENMN Head: Yes normal to inspection, Yes No palpable skull fracture present, Yes normocephalic, Yes atraumatic and No abrasion Eyes General: appearance normal, both eyes and all related structures Neck Neck: Yes normal visual inspection, Yes full ROM, Yes no lymphadenopathy, Yes no meningeal signs, Yes trachea midline, Yes supple, No anterior neck swelling and No tender Chest Chest palpation & inspection: normal inspection of the chest and normal palpation of entire chest wall Resp Effort & Inspection: normal respiratory effort and able to speak in complete sentences Auscultation: clear to auscultation bilaterally Cardio Jugular venous distension: no JVD Heart sounds: S1 normal heart sound present and S2 normal heart sound present GI Inspection: Yes normal to inspection and No abdominal wall ecchymosis Palpation (GI): Soft to palpation, not firm, nontender, no guarding and not rigid General: No CVA tenderness and Yes no CVA tenderness Back/Spine/Pelvis Back: no CVA tenderness, No CVA tenderness and No back tenderness Skin General skin exam: no rashes or lesions noted and elasticity normal Neuro General: oriented to person, oriented to place, oriented to time, patient oriented x3, gait normal, tone normal, moves all extremities, Normal light touch and pain sensation, no meningeal signs, no focal motor deficits, CN's II-XI intact bilaterally and normal sensation to monofilament Extrem Other: Bilateral lower extremities negative for swelling, pitting edema, or calf tenderness General: Yes normal to inspection and Yes full ROM Shoulder/upper arm images: 1. Negative for tenderness on palpation. Positive for pain on range of motion. Negative for swelling, redness, crepitus, bluish black discoloration, or deformity. Motor/neuro/vascular exam of upper extremity intact. Psych Appearance: grossly normal, well kempt and not disheveled Course Course Course Narrative: Patient does not have any chest pain but due to her stating she had chest pain 2 days ago and since then has had left shoulder left upper extremity pain with new cardiac evaluation. Presently patient denies any chest pain. Reevaluation(s) Reevaluation #1: EKG negative STEMI. Troponin negative. Waiting for chest x-ray and left shoulder x-ray. Time: 14:07 Reevaluation #2: Shoulder and chest x-ray normal. One troponin without any chest pain for the past 2 days suffice. Time: 14:09 Medical Decision Making Medical Decision Making MDM Narrative: 8-year-old female presents to ED for left shoulder radiating to left arm the past 2 days. Patient states 2 days ago she had chest pain for 5 minute that resolved on his own. Patient denies any shortness of breath any recent trauma. EKG negative STEMI. Troponin negative. Images normal. Patient is safe for discharge Differential Diagnosis Differential Diagnoses: The differential diagnosis associated with the presentation includes (Myocardial infarction, pneumonia, shoulder dislocation, humerus fracture,) Admission/Observation Consideration of admission/observation: Escalation of care including admission/observation considered Lab Data 07/07/22 12:11 07/07/22 12:11 Labs: Lab Results 07/07/22 07/07/22 07/07/22 Range/Units 12:11 12:11 12:11 WBC 4.7 L (4.8-10.8) X10*3/uL RBC 4.70 (4.20-5.50) X10*6/uL Hgb 12.8 (12.0-16.0) g/dl Hct 40.5 (37.0-47.0) % MCV 86.2 (80.0-98.0) fL MCH 27.2 (27.0-33.0) pg MCHC 31.6 (31.0-35.0) g/dl RDW 13.0 (11.0-16.0) % Plt Count 276 (160-400) X10*3/uL MPV 9.4 (9.4-12.3) fL Immature Gran % (Auto) 0.2 (0.0-0.4) % Neut % (Auto) 48.6 (45-73) % Lymph % (Auto) 38.2 (20-40) % [place] % (Auto) 10.2 (2-11) % Eos % (Auto) 2.6 (0-4) % Baso % (Auto) 0.2 (0-2) % Lymph # (Auto) 1.8 (1.2-4.9) X10*3/uL [place] # (Auto) 0.5 (0.1-1.2) X10*3/uL Eos # (Auto) 0.1 (0.0-0.4) X10*3/uL Baso # (Auto) 0.0 (0.0-0.2) X10*3/uL Abs Immat Gran (auto) 0.01 (0.00-0.03) X10*3/uL Absolute Neuts (auto) 2.3 (2.0-8.3) x10*3/uL Absolute Nucleated RBC 0.000 (0.0-0.012) X10*3/uL Nucleated RBC % (auto) 0.0 (0.0-0.2) /100WBC PT (10.0-13.1) SEC INR (0.9-1.1) APTT (26.0-36.4) SEC Sodium 141 (135-145) mmol/L Potassium 4.4 (3.3-5.1) mmol/L Chloride 107 (96-108) mmol/L Carbon Dioxide 28 (22-29) mmol/L Anion Gap 10 L (12-20) BUN 11 (9-16) mg/dL Creatinine 0.90 (0.5-1.4) mg/dL Estim Creat Clear Calc 63.7 Estimated GFR > 60 Random Glucose 100 (60-115) mg/dL Calcium 9.1 (8.4-10.2) mg/dL Total Bilirubin 0.4 (0.0-1.0) mg/dL AST 27 (5-31) U/L ALT 38 H (0-31) U/L Alkaline Phosphatase 84 (39-117) U/L Troponin I High Sens < 3.5 (<3.5-17.0) ng/L B-Natriuretic Peptide (<100) pg/mL Total Protein 7.6 (6.5-8.0) g/dL Albumin 4.3 (3.5-5.0) g/dL 07/07/22 07/07/22 Range/Units 12:11 13:22 WBC (4.8-10.8) X10*3/uL RBC (4.20-5.50) X10*6/uL Hgb (12.0-16.0) g/dl Hct (37.0-47.0) % MCV (80.0-98.0) fL MCH (27.0-33.0) pg MCHC (31.0-35.0) g/dl RDW (11.0-16.0) % Plt Count (160-400) X10*3/uL MPV (9.4-12.3) fL Immature Gran % (Auto) (0.0-0.4) % Neut % (Auto) (45-73) % Lymph % (Auto) (20-40) % [place] % (Auto) (2-11) % Eos % (Auto) (0-4) % Baso % (Auto) (0-2) % Lymph # (Auto) (1.2-4.9) X10*3/uL [place] # (Auto) (0.1-1.2) X10*3/uL Eos # (Auto) (0.0-0.4) X10*3/uL Baso # (Auto) (0.0-0.2) X10*3/uL Abs Immat Gran (auto) (0.00-0.03) X10*3/uL Absolute Neuts (auto) (2.0-8.3) x10*3/uL Absolute Nucleated RBC (0.0-0.012) X10*3/uL Nucleated RBC % (auto) (0.0-0.2) /100WBC PT 11.2 (10.0-13.1) SEC INR 1.0 (0.9-1.1) APTT 34.0 (26.0-36.4) SEC Sodium (135-145) mmol/L Potassium (3.3-5.1) mmol/L Chloride (96-108) mmol/L Carbon Dioxide (22-29) mmol/L Anion Gap (12-20) BUN (9-16) mg/dL Creatinine (0.5-1.4) mg/dL Estim Creat Clear Calc Estimated GFR Random Glucose (60-115) mg/dL Calcium (8.4-10.2) mg/dL Total Bilirubin (0.0-1.0) mg/dL AST (5-31) U/L ALT (0-31) U/L Alkaline Phosphatase (39-117) U/L Troponin I High Sens (<3.5-17.0) ng/L B-Natriuretic Peptide < 10 (<100) pg/mL Total Protein (6.5-8.0) g/dL Albumin (3.5-5.0) g/dL Independent Interpretation I performed an independent interpretation of an: EKG Interpretation: Normal sinus rhythm. Ventricular rate 77. Pr interval 148. QRS 78. QTC 425. Negative STEMI Radiology Impression Discussion of test interpretation with radiology: I have reviewed the radiologist's reading. Prescription Management I considered prescription management with: Pain Medication (naproxen) Discharge Plan Discharge Clinical Impression: Chest pain, atypical, Left shoulder pain Patient Disposition: Home, Self-Care Instructions: Chest Pain (ED), Shoulder Pain (ED) Additional Instructions: The EKG and blood work came back negative for heart attack. Chest x-ray is normal. His shoulder x-ray came back normal. He will be discharged with naproxen. Please follow-up with your primary care provider for further evaluation. Return to ED for any swelling of upper extremity, redness, blood black discoloration, chest pain, shortness of breath, fever, chills, coughing up blood, leg swelling, calf pain, chest pain on inspiration, or any other concerning symptoms. Prescriptions: New naproxen 500 mg tablet 500 mg PO BID PRN (Reason: pain) 7 Days Qty: 14 0RF No Action ferrous sulfate 324 mg (65 mg iron) tablet,delayed release (DR/EC) 324 mg PO DAILY Qty: 30 2RF ascorbic acid (vitamin C) [Vitamin C] 500 mg tablet 1 tab PO BID clobetasol 0.05 % lotion topical BID cholecalciferol (vitamin D3) 25 mcg (1,000 unit) capsule 1 cap PO DAILY acetaminophen [Tylenol] 325 mg Tablet 650 mg PO Q4H PRN (Reason: headache) amitriptyline 25 mg tablet 1 tab PO BEDTIME cyanocobalamin (vitamin B-12) 1,000 mcg capsule 1,000 mcg PO DAILY sumatriptan succinate 50 mg tablet 50 mg PO Metamucil 3.4 gram/5.4 gram powder 1 tbsp PO DAILY Qty: 660 6RF Linzess 72 mcg capsule 72 mcg PO QAM Qty: 30 3RF famotidine [Pepcid] 40 mg tablet 40 mg PO BEDTIME Qty: 30 6RF ondansetron HCl 4 mg tablet 4 mg PO Q8H MDD 2 30 Days Qty: 60 3RF estradiol 0.01 % (0.1 mg/gram) cream vaginal minoxidil 2.5 mg tablet 2.5 mg PO DAILY oxybutynin chloride 15 mg tablet extended release 24hr 15 mg PO DAILY 90 Days Qty: 90 2RF tamsulosin 0.4 mg capsule 0.4 mg PO BEDTIME 90 Days Qty: 90 3RF Stand Alone Forms: Work/School Release Interventions: ED Discharge Assessment Last Done: 07/07/22 14:22 Discharge Date/Time: 07/07/22 14:23 Print Language: Azeri
[2022-07-08 16:39] LABS: Iron 74 mcg/dL (30-160); Percent Iron Saturation 19 % (15-50); Total Iron Binding Capacity 383 mcg/dL (228-428); Unsaturated Iron Binding 309 ug/dL
== END 2022-07-07 14:23 | disposition home or self-care (01) ==
PROVIDERS: Internal Medicine Medical Oncology; Physician Assistant; Emergency Provider Emergency Medicine; PCP Family Medicine
DX: R07.89 Other chest pain (principal); M25.512 Pain in left shoulder; Z79.899 Other long term (current) drug therapy
CPT/HCPCS: 36415; 71045; 73030; 80053; 83540; 83880; 84484; 85025; 85610; 85730; 93005; 99283

== ENCOUNTER → 2022-07-14 15:46 | Outpatient (BNVA) | payer OTHER, SELFPAY | PROVIDERS: PCP Family Medicine; Visit Provider Advanced Practice Midwife | DX: Z13.89 Encounter for screening for other disorder (principal) ==

== ENCOUNTER 2022-10-27 14:35 | Outpatient (AMB) | payer OTHER, SELFPAY ==
--- NOTE | 2022-10-27 15:09 | MHC.OFFVIS ---
Intake Intake Visit Reasons: Interstitial cystitis- follow up Intake Note: Patient presents today for a follow-up on Interstitial Cystitis. Meds- Tamsulosin Allergies to Antibiotic- None Blood Thinner- None PVR- 0ml [place] Sewer Required: No Accompanied by: Self / Same As Patient Allergies latex [LATEX] Allergy (Intermediate, Verified 10/30/22 08:03) RASH omeprazole Allergy (Intermediate, Verified 10/30/22 08:03) Vomiting famotidine [Pepcid] Allergy (Mild, Verified 10/30/22 08:03) Vomiting Medication List - Last Reconciled 10/27/22 by Liam Diaz MD acetaminophen (Tylenol) 650 mg PO Q4H PRN amitriptyline 1 tab PO BEDTIME ascorbic acid (vitamin C) (Vitamin C) 1 tab PO BID cholecalciferol (vitamin D3) 1 cap PO DAILY clobetasol 0.05% 1 appl topical BID cyanocobalamin (vitamin B-12) 1,000 mcg PO DAILY estradiol 0.01%(0.1mg/gram) 1 g vaginal QWEEK linaclotide (Linzess) 72 mcg PO QAM minoxidil 2.5 mg PO DAILY naproxen 500 mg PO BID PRN 7 days ondansetron HCl 4 mg PO Q8H 30 days MDD 2 psyllium husk (Metamucil) 1 tbsp PO DAILY sumatriptan succinate 50 mg PO DAILY PRN tamsulosin 0.4 mg PO BEDTIME 90 days vibegron (Gemtesa) 75 mg PO DAILY HPI HPI Comments History of Present Illness Details Destini is a 62-year-old female who presents to the office for interstitial cystitis follow-up. 10/27/22-- The patient denies dysuria. The patient states that she has Sjogrens disease. States having dry month due to oxybutynin. Review of chart: LV--03/26/22--Destini is a 61-year-old female who is here for follow-up. She has been diagnosed with interstitial cystitis has lower urinary tract symptoms of urgency and frequency Prior cystoscopy hydrodistention with Dr. Ashley. Currently on oxybutynin and Flomax. Denies urinary incontinence urinary frequency every hour. Patient states 03/05/22 blood in urine and dysuria, she was treated for UTI with antibiotics with resolution UTI symptoms.. On evaluation today urinalysis negative for blood or leukocytes, bladder scan PVR is 0 mL. Will continue oxybutynin 15 mg daily and tamsulosin Imaging: reviewed 07/10/20--CT ABDOMEN AND PELVIS WITHOUT CONTRAST- kidneys WNL, no stones or masses 10/27/22--Evaluation/ UA-- Blood: negative, leukocytes: negative. Plan: Discontinue oxybutynin 15 mg. Gemtesa 75 mg was ordered. Continue tamsulosin 0.4 mg. Follow-up after a year. [facility] Medical History Arthritis Autoimmune disorder Back pain Bleeding hemorrhoids GERD (gastroesophageal reflux disease) Hepatic steatosis Hx of endometriosis Hx of migraines Insomnia Interstitial cystitis Iron deficiency anemia Irritable bowel syndrome with constipation Microcytic anemia Periumbilical abdominal pain Pre-hypertension Sjogrens syndrome Surgical History H/O esophagogastroduodenoscopy History of bunionectomy of both great toes History of History of colonoscopy History of hysterectomy Hx of cystoscopy Hx of hemorrhoidectomy Family History Father Cirrhosis Mother Bone cancer HTN (hypertension) Migraine Diabetes mellitus Son GERD (gastroesophageal reflux disease) Daughter GERD (gastroesophageal reflux disease) Paternal Grandfather Diabetes mellitus Paternal Grandmother Emphysema lung Social History Household Members: Significant Other Alcohol intake: current Alcohol intake frequency: other Patient Tobacco Use Status: Never used Tobacco e-Cigarette/Vaping Use: Never Used Review of Systems Const All systems reviewed & are unremarkable except as noted in HPI and below Reports no additional complaints Eyes Reports no additional complaints ENT Denies neck pain Card Denies leg edema Resp Denies cough GI Denies constipation Reports no additional complaints Musc Reports no additional complaints and Denies neck pain Skin/Breast Denies rash and Denies unusual bruising Neuro Reports no additional complaints Psych Reports no additional complaints Endo Reports no additional complaints Ben/Lymph Reports no additional complaints Aller/Immun Reports no additional complaints Physical Exam Const General: cooperative and no acute distress Orientation/consciousness: patient oriented x3 HEENT Head: Yes normal to inspection, Yes normocephalic and Yes atraumatic Eyes Conjunctivae: conjunctivae normal Neck Neck: Yes normal visual inspection and Yes trachea midline Chest Chest palpation & inspection: normal inspection of the chest Resp Effort & Inspection: normal respiratory effort Cardio Rate: regular rate GI Inspection: Yes normal to inspection Skin General skin exam: no rashes or lesions noted Neuro General: patient oriented x3 Extrem General: No edema Psych Appearance: grossly normal Office Procedures Post Void Residual Post Residual Void Post Void Residual (PVR): 0 [id number]-Rqyl Void Residual by ultrasound Results AMB Urinalysis, Automated UA Leukoctes 0 Peter/uL Last Edit by KELLY Barba on 10/27/22 15:26 UA Nitrite Negative Last Edit by Obdulio Alcantara Bill on 10/27/22 15:26 UA Urobilinogen 0.2 mg/dL Last Edit by Obdulio Alcantara Bill on 10/27/22 15:26 UA Protein 0 mg/dL Last Edit by Obdulio Alcantara Bill on 10/27/22 15:26 UA pH 6.0 Last Edit by Obdulio [facility]ant[facility] on 10/27/22 15:26 UA Blood 0 Velasquez/uL Last Edit by Obdulio Alcantara Bill on 10/27/22 15:26 UA Specific [place] 1.025 Last Edit by Obdulio Alcantara Bill on 10/27/22 15:26 UA Ketone Negative Last Edit by Obdulio Alcantara Bill on 10/27/22 15:26 UA Bilirubin 0 mg/dL Last Edit by Obdulio Alcant[facility] on 10/27/22 15:26 UA Glucose 0 mg/dL Last Edit by Obdulio Alcant[facility] on 10/27/22 15:26 Results Reviewed Results Reviewed: Laboratory Last Values Urine pH (Auto) 6.0 10/27/22 15:12 Specific [place] (Auto) 1.025 10/27/22 15:12 Urine Protein (Auto) 0 mg/dL 10/27/22 15:12 Glucose (UA)(Auto) 0 mg/dL 10/27/22 15:12 Urine Ketones (Auto) Negative 10/27/22 15:12 Urine Blood (Auto) 0 Velasquez/uL 10/27/22 15:12 Urine Nitrite (Auto) Negative 10/27/22 15:12 Urine Bilirubin (Auto) 0 mg/dL 10/27/22 15:12 Urine Urobilinogen (Auto) 0.2 mg/dL 10/27/22 15:12 Leukocyte Esterase (Auto) 0 Peter/uL 10/27/22 15:12 Assessment & Plan Assessment & Plan (1) Interstitial cystitis: Code(s): N30.10 - Interstitial cystitis (chronic) without hematuria (2) Urinary frequency: Code(s): R35.0 - Frequency of micturition (3) Sjogrens syndrome: Code(s): M35.00 - Sjogren syndrome, unspecified Qualifiers: Sjogren's organ involvement: unspecified organ involvement Qualified Code(s): M35.00 - Sicca syndrome, unspecified Plan Discontinue oxybutynin 15 mg. Gemtesa 75 mg was ordered. Continue tamsulosin 0.4 mg. Follow-up after a year. Orders: Orders AMB Urinalysis Automated 10/27/22 Z13.9 - Encounter for screening, unspecified AMB Post Void Residual by ultrasound 10/27/22 N39.8 - Other specified disorders of urinary system Medications: New vibegron (Gemtesa) 75 mg PO DAILY 90 tabs 0RF vibegron (Gemtesa) 75 mg PO DAILY 90 tabs 3RF Patient Instructions: The patient had an opportunity to ask questions regarding treatment plan. All questions were answered. Imaging, Laboratory studies and physical exam results were discussed and reviewed in detail. No major barriers to understanding were identified. The patient expressed understanding and agreement with the above treatment plan. The patient is aware they should contact our office by phone for worsening of their current condition or the appearance of new symptoms. Compliance is encouraged with any medications and followup testing that is ordered. It is a privilege to be allowed the opportunity to participate in the urologic care of your patient. If you have any questions or concerns regarding treatment for the above conditions please do not hesitate to contact me. The office telephone contact is [phone]. This note is constructed in part using voice recognition software. While every effort has been made to ensure accuracy outer diameter technician errors may have been included. Yours sincerely, Liam Diaz MD Coding Level of Care Code Est Pt Level 4 (56112) Diagnoses Interstitial cystitis N30.10 Urinary frequency R35.0 Sjogrens syndrome M35.00 Sjogren's organ involvement: unspecified organ involvement CPT Codes Post Residual Void - PVR CPT Code: 87271-Time Void Residual by ultrasound ([id number])
== END 2022-10-27 16:09 | disposition home or self-care (01) ==
PROVIDERS: Visit Provider Urology
DX: N30.10 Interstitial cystitis (chronic) without hematuria (principal); R35.0 Frequency of micturition; M35.00 Sjogren syndrome, unspecified
CPT/HCPCS: 99214

== ENCOUNTER → 2022-10-27 14:35 | Outpatient (BNVA) | payer OTHER, SELFPAY | PROVIDERS: Visit Provider Urology | DX: N30.10 Interstitial cystitis (chronic) without hematuria (principal); R35.0 Frequency of micturition; M35.00 Sjogren syndrome, unspecified; Z79.899 Other long term (current) drug therapy | CPT/HCPCS: 51798 ==

== ENCOUNTER 2023-04-02 11:37 | Outpatient (REF) | payer OTHER, SELFPAY ==
--- NOTE | ~2023-04-02 | XR_ITS ---
STUDY: Left hip and left knee HISTORY: History of Sjogren's, atraumatic left leg and knee pain for weeks COMPARISON: None TECHNIQUE: 2 view left hip, 5 view left knee FINDINGS: Left hip: No fracture or dislocation. No significant joint space narrowing. Visualized SI joint within normal limits. Pelvic phleboliths. Left knee: No fracture, dislocation or joint effusion. Alignment and articulations are maintained. XR/XR hip LT min 2V IMPRESSION: Unremarkable left hip and left knee.
--- NOTE | ~2023-04-02 | XR_ITS ---
STUDY: Left hip and left knee HISTORY: History of Sjogren's, atraumatic left leg and knee pain for weeks COMPARISON: None TECHNIQUE: 2 view left hip, 5 view left knee FINDINGS: Left hip: No fracture or dislocation. No significant joint space narrowing. Visualized SI joint within normal limits. Pelvic phleboliths. Left knee: No fracture, dislocation or joint effusion. Alignment and articulations are maintained. XR/XR knee LT 3V IMPRESSION: Unremarkable left hip and left knee.
== END 2023-04-02 11:38 | disposition home or self-care (01) ==
LOC: HO.HHCX 11:37
PROVIDERS: Visit Provider Family Medicine
DX: M25.562 Pain in left knee (principal); M25.552 Pain in left hip; G89.29 Other chronic pain; M79.605 Pain in left leg
CPT/HCPCS: 73502; 73562

== ENCOUNTER 2023-04-03 08:13 | Outpatient (REF) | payer OTHER, SELFPAY ==
[2023-04-03 11:18] LABS: MANUAL DIFF FLAG NO
[2023-04-03 11:39] LABS: Estimated Average Glucose 117 mg/dL; Hemoglobin A1c % 5.7 % (<6.0)
[2023-04-03 11:42] LABS: Basophils Percent Auto 0.4 % (0-2); Eosinophils Absolute Auto 0.1 X10*3/uL (0.0-0.4); Eosinophils Percent Auto 2.4 % (0-4); Hematocrit 34.1 % (37.0-47.0); Imm Gran Abs Auto 0.01 X10*3/uL (0.00-0.03); Imm Gran Pct Auto 0.2 % (0.0-0.4); Lymphocytes Absolute Auto 1.8 X10*3/uL (1.2-4.9); Mean Corpuscular HGB Conc 29.3 g/dl (31.0-35.0); Mean Corpuscular Hemoglobin 23.2 pg (27.0-33.0); Mean Corpuscular Volume 79.1 fL (80.0-98.0); Mean Platelet Volume 10.3 fL (9.4-12.3); Monocytes Absolute Auto 0.6 X10*3/uL (0.1-1.2); Monocytes Percent Auto 10.2 % (2-11); Neutrophils Percent Auto 54.8 % (45-73); Platelet Count 388 X10*3/uL (160-400); Red Blood Count 4.31 X10*6/uL (4.20-5.50); Red Cell Distribution Width 15.3 % (11.0-16.0); White Blood Count 5.5 X10*3/uL (4.8-10.8)
[2023-04-03 12:07] LABS: Cholesterol 193 mg/dL (<200); HDL Cholesterol 62 mg/dL (>40); LDL Cholesterol Calculated 121 mg/dL (<100); Triglycerides 53 mg/dL (<150)
[2023-04-03 12:08] LABS: Alanine Aminotransferase 24 U/L (0-31); Albumin Level 4.3 g/dL (3.5-5.0); Alkaline Phosphatase 97 U/L (39-117); Anion Gap 14 (12-20); Aspartate Amino Transferase 24 U/L (5-31); Bilirubin Total 0.3 mg/dL (0.0-1.0); Blood Urea Nitrogen 13 mg/dL (9-16); Calcium 9.3 mg/dL (8.4-10.2); Carbon Dioxide 23 mmol/L (22-29); Chloride 108 mmol/L (96-108); Estimated Glomerular Filt Rate > 60; Glucose Random 110 mg/dL (60-115); Iron 25 mcg/dL (30-160); Percent Iron Saturation 5 % (15-50); Potassium 4.4 mmol/L (3.3-5.1); Sodium 141 mmol/L (135-145); Total Iron Binding Capacity 468 mcg/dL (228-428); Total Protein 8.6 g/dL (6.5-8.0); Unsaturated Iron Binding 443 ug/dL
[2023-04-03 12:15] LABS: Ferritin 7 ng/mL (10-250); TSH reflex Free T4 0.31 uIU/mL (0.32-4.0)
[2023-04-03 12:26] LABS: Folate 8.1 ng/mL (> or = 4.0); Vitamin B12 1370 pg/mL (200-900)
[2023-04-03 12:39] LABS: Reflex LDLD? No
== END 2023-04-03 08:14 | disposition home or self-care (01) ==
LOC: HO.HHCL 08:13
PROVIDERS: Visit Provider Family Medicine
DX: D50.9 Iron deficiency anemia, unspecified (principal); E66.9 Obesity, unspecified; R03.0 Elevated blood-pressure reading, without diagnosis of hypertension; R73.01 Impaired fasting glucose; Z13.29 Encounter for screening for other suspected endocrine disorder
CPT/HCPCS: 36415; 80053; 80061; 82607; 82728; 82746; 83036; 83540; 84439; 84443; 85025

== ENCOUNTER 2023-07-23 13:19 | Outpatient (REF) | payer OTHER, SELFPAY ==
[2023-07-23 15:14] LABS: Appearance Urine Clear; Color Urine Yellow; Glucose Urine UA Negative (Negative); Leukocyte Esterase Urine Negative (Negative); Nitrite Urine Negative (Negative); PH 6.5 (5.0-9.0); Urine Blood Negative (Negative); Urine Ketones Negative (Negative); Urine Protein Negative (Neg-Trace)
[2023-07-23 15:16] LABS: Bacteria Urine None Seen (None Seen); Hyaline Casts Urine 0-2 /LPF (0-2); RBC Urine 0-2 /HPF (0-2); Squamous Epithelial Cell Urine 0-2 /HPF (0-2); WBC Urine 0-5 /HPF (0-5)
== END 2023-07-23 13:20 | disposition home or self-care (01) ==
LOC: HO.LAB 13:19
PROVIDERS: PCP Family Medicine; Visit Provider Urology
DX: N39.0 Urinary tract infection, site not specified (principal); R35.0 Frequency of micturition
CPT/HCPCS: 81001; 87086

== ENCOUNTER 2023-09-07 16:29 | Outpatient (REF) | payer OTHER, SELFPAY ==
[2023-09-07 17:46] LABS: MANUAL DIFF FLAG NO
[2023-09-07 17:53] LABS: Basophils Percent Auto 0.3 % (0-2); Eosinophils Percent Auto 0.3 % (0-4); Hematocrit 36.4 % (37.0-47.0); Hemoglobin 11.4 g/dl (12.0-16.0); Imm Gran Abs Auto 0.02 X10*3/uL (0.00-0.03); Imm Gran Pct Auto 0.3 % (0.0-0.4); Lymphocytes Percent Auto 33.1 % (20-40); Mean Corpuscular HGB Conc 31.3 g/dl (31.0-35.0); Mean Corpuscular Hemoglobin 25.4 pg (27.0-33.0); Mean Corpuscular Volume 81.3 fL (80.0-98.0); Mean Platelet Volume 9.6 fL (9.4-12.3); Monocytes Absolute Auto 0.3 X10*3/uL (0.1-1.2); Monocytes Percent Auto 5.4 % (2-11); Neutrophils Absolute Auto 3.7 x10*3/uL (2.0-8.3); Neutrophils Percent Auto 60.6 % (45-73); Platelet Count 347 X10*3/uL (160-400); Red Blood Count 4.48 X10*6/uL (4.20-5.50); Red Cell Distribution Width 17.3 % (11.0-16.0); White Blood Count 6.1 X10*3/uL (4.8-10.8)
[2023-09-07 19:16] LABS: Iron 35 mcg/dL (30-160); Percent Iron Saturation 8 % (15-50); Total Iron Binding Capacity 457 mcg/dL (228-428); Unsaturated Iron Binding 422 ug/dL
[2023-09-07 19:32] LABS: Ferritin 17 ng/mL (10-250); Vitamin D 25-OH Total 27.9 ng/mL (>30)
[2023-09-07 19:36] LABS: Folate 7.3 ng/mL (> or = 4.0); Vitamin B12 928 pg/mL (200-900)
[2023-09-08 05:18] LABS: Estimated Average Glucose 123 mg/dL; Hemoglobin A1c % 5.9 % (<6.0)
== END 2023-09-07 16:30 | disposition home or self-care (01) ==
LOC: HO.HHCL 16:29
PROVIDERS: Visit Provider Family Medicine
DX: E56.9 Vitamin deficiency, unspecified (principal); D50.9 Iron deficiency anemia, unspecified; Z79.52 Long term (current) use of systemic steroids
CPT/HCPCS: 36415; 82306; 82607; 82728; 82746; 83036; 83540; 85025

== ENCOUNTER 2023-10-01 13:38 | Outpatient (AMB) | payer OTHER, SELFPAY ==
--- NOTE | 2023-10-01 13:44 | A.OFFVIS_ITS ---
Vital Signs 10/01/23 13:46 Height 5 ft 2 in Weight 181 lb BMI 33.1 BP 130/80 Intake Visit Reasons: GENETICS NURSE annual exam Sound Assistant Required: No Information Interpreted: non-clinical & clinical Boring Machine Operator Horizontal: Boring Machine Operator Horizontal Present (Shashank) Allergies latex [LATEX] Allergy (Intermediate, Verified 10/01/23 13:51) RASH omeprazole Allergy (Intermediate, Verified 10/01/23 13:51) Vomiting famotidine [Pepcid] Allergy (Mild, Verified 10/01/23 13:51) Vomiting Is last menstrual period known: No Post menopausal: Yes Patient : No HPI Comments Details: She is a postmenopausal woman presenting for her annual physician gynecologist examination. She is doing well with no concerns. She report the Replens has helped in the past. Attempting to eat a healthy diet with calcium and vitamin D and stays active with exercise. Currently not sexually active. Denies any vaginal dryness or irritation. STI testing offered; she declines. Hx. of hysterectomy due to heavy menstrual bleeding. Last mammogram; 2022. Colonoscopy is UTD. Denies any family history of breast, ovarian or colon cancer. [facility] Medical History Iron deficiency anemia Bleeding hemorrhoids Periumbilical abdominal pain Hx of endometriosis Autoimmune disorder Insomnia Pre-hypertension Microcytic anemia Back pain Arthritis Hx of migraines Interstitial cystitis Hepatic steatosis Irritable bowel syndrome with constipation GERD (gastroesophageal reflux disease) Sjogrens syndrome Surgical History H/O esophagogastroduodenoscopy History of bunionectomy of both great toes Hx of cystoscopy History of History of hysterectomy History of colonoscopy Hx of hemorrhoidectomy Family History Father Cirrhosis Mother Bone cancer HTN (hypertension) Migraine Diabetes mellitus Son GERD (gastroesophageal reflux disease) Daughter GERD (gastroesophageal reflux disease) Paternal Grandfather Diabetes mellitus Paternal Grandmother Emphysema lung Social History Household Members: Significant Other Alcohol intake: current Alcohol intake frequency: other Patient Tobacco Use Status: Never used Tobacco e-Cigarette/Vaping Use: Never Used Patient : No Female Reproductive History Menstrual Age of Menarche: 14 control method: permanent sterilization Total pregnancies: 4 Full term: 3 Number of Living Children: 3 Ab induced: 1 Date of last pap smear: 01/12/08 (negative) History of abnormal pap smear: Yes (1995 LGSIL) Date of Mammogram: 12/03/20 Review of Systems Const All systems reviewed & are unremarkable except as noted in HPI and below Reports as per HPI Eyes Reports no additional complaints ENT Reports no additional complaints Card Reports no additional complaints Resp Reports no additional complaints GI Reports as per HPI and Reports no additional complaints Reports as per HPI Musc Reports no additional complaints Skin/Breast Reports as per HPI Neuro Reports no additional complaints Psych Reports no additional complaints Endo Reports no additional complaints Ben/Lymph Reports no additional complaints Aller/Immun Reports no additional complaints Physical Exam Vital Signs: Last Vital Signs BP 130/80 10/01/23 13:46 BMI result Body Mass Index 33.1 Const General: cooperative, healthy appearing, no acute distress, well developed and alert Orientation/consciousness: patient oriented x3 HEENT Head: Yes normal to inspection Eyes General: appearance normal, both eyes and all related structures Neck Neck: Yes normal visual inspection Thyroid: Thyroid normal Chest Chest palpation & inspection: normal inspection of the chest and other (no puckering, dimpling, peau de orange, retraction, discharge, masses) Breast/axilla inspection: normal inspection of the breasts Breast/axilla palpation: normal palpation of the breasts Resp Effort & Inspection: normal respiratory effort GI Inspection: Yes normal to inspection Palpation (GI): Soft to palpation Rectal Exam - Female: deferred General: Yes bladder normal to palpation External Female Exam: normal external appearance and normal appearance of the urethra Speculum Exam - Vagina: normal appearance of the vagina, normal palpation and n ormal vaginal discharge Speculum Exam - Cervix: Cervix absent (Vaginal cuff no lesions or nodules) Bimanual exam- vagina & uterus: normal bimanual exam, normal palpation, bladder normal to palpation and uterus absent Bimanual Exam- Adnexa, other: no masses Skin General skin exam: no rashes or lesions noted Rashes: no rashes Neuro General: patient oriented x3 Cognition (Neuro): normal cognition Extrem General: Yes normal to inspection Psych Attitude: cooperative Thought process: Normal thought process present Assessment & Plan Assessment & Plan (1) Encounter for well woman exam with routine gynecological exam: Code(s): Z01.419 - Encounter for gynecological examination (general) (routine) without abnormal findings Category: Medical Plan Discussed: Current recommendations for pap smears per ASCCP guidelines. Breast awareness, periodic self breast exams and yearly mammogram. Maintain a healthy lifestyle, well balanced diet including Calcium 1,200 mg and Vitamin D 600 IU daily, and routine exercise. Contact the office with any physician gynecologist concerns. Patient verbalizes understanding and agrees to the plan of care. She was given opportunity to ask questions and all questions were answered to the best of my ability. RTO in 1 year for annual physician gynecologist exam. This note is constructed using voice recognition software. While every effort has been made to ensure accuracy, wool hat sanding machine operator errors may have been included. Coding Level of Care Code Est Pt Prev Care 40-64y(97440) Diagnoses Encounter for well woman exam with routine gynecological exam Z01.419
[2023-10-01 13:46] VITALS: BP 130/80; BMI 33.1
== END 2023-10-01 14:23 | disposition home or self-care (01) ==
PROVIDERS: PCP Family Medicine; Visit Provider Advanced Practice Midwife
DX: Z01.419 Encounter for gynecological examination (general) (routine) without abnormal findings (principal)
CPT/HCPCS: 99396

== ENCOUNTER → 2023-10-01 13:38 | Outpatient (BNVA) | payer OTHER, SELFPAY | PROVIDERS: PCP Family Medicine; Visit Provider Advanced Practice Midwife ==

== ENCOUNTER 2023-12-03 10:14 | Outpatient (AMB) | payer BC, SELFPAY ==
--- NOTE | 2023-12-03 10:19 | A.OFFVIS_ITS ---
Intake Visit Reasons: 1y/PVR/MED REVIEW(GEMTESA) Intake Note: * Patient presents today for a 1y follow-up/PVR/MRD REVIEW * Meds- Tamsulosin,PYRIDIUM,URIBEL,TADALAFIL * Allergies to Antibiotic- None * Blood Thinner- None * PVR- 0ml * TODAY'S PVR:0ML'S Supervisor Electrolytic Tinning Required: No Accompanied by: Self / Same As Patient Allergies latex [LATEX] Allergy (Intermediate, Verified 12/03/23 10:21) RASH omeprazole Allergy (Intermediate, Verified 12/03/23 10:21) Vomiting famotidine [Pepcid] Allergy (Mild, Verified 12/03/23 10:21) Vomiting HPI Comments Details: 12/03/23--Destini is a 63-year-old female who presents to the office for interstitial cystitis follow-up. has lower urinary tract symptoms of urgency and frequency. Prior cystoscopy hydrodistention with Dr. Ashley. Will cont flomax, uribel prn. Discussed gemtesa for urge/frequency symptoms. Review of chart: 10/27/22-- The patient denies dysuria. The patient states that she has Sjogrens disease.States having dry month due to oxybutynin. Evaluation/ UA-- Blood: negative, leukocytes: negative. Plan chrissie Discontinue oxybutynin 15 mg. Gemtesa 75 mg was ordered. Continue tamsulosin 0.4 mg. Follow-up after a year. 03/26/22--Destini is a 61-year-old female who is here for follow-up. She has been diagnosed with interstitial cystitis has lower urinary tract symptoms of urgency and frequency. Prior cystoscopy hydrodistention with Dr. Ashley. Currently on oxybutynin and Flomax. Denies urinary incontinence urinary frequency every hour. Patient states 03/05/22 blood in urine and dysuria, she was treated for UTI with antibiotics with resolution UTI symptoms. On evaluation today urinalysis negative for blood or leukocytes, bladder scan PVR is 0 mL. Will continue oxybutynin 15 mg daily and tamsulosin Imaging: reviewed 07/10/20--CT ABDOMEN AND PELVIS WITHOUT CONTRAST- kidneys WNL, no stones or masses PFSH Medical History Iron deficiency anemia Bleeding hemorrhoids Periumbilical abdominal pain Hx of endometriosis Autoimmune disorder Insomnia Pre-hypertension Microcytic anemia Back pain Arthritis Hx of migraines Interstitial cystitis Hepatic steatosis Irritable bowel syndrome with constipation GERD (gastroesophageal reflux disease) Sjogrens syndrome Surgical History H/O esophagogastroduodenoscopy History of bunionectomy of both great toes Hx of cystoscopy History of History of hysterectomy History of colonoscopy Hx of hemorrhoidectomy Family History Father Cirrhosis Mother Bone cancer HTN (hypertension) Migraine Diabetes mellitus Son GERD (gastroesophageal reflux disease) Daughter GERD (gastroesophageal reflux disease) Paternal Grandfather Diabetes mellitus Paternal Grandmother Emphysema lung Social History Household Members: Significant Other Alcohol intake: current Alcohol intake frequency: other Patient Tobacco Use Status: Never used Tobacco e-Cigarette/Vaping Use: Never Used Female Reproductive History Menstrual Age of Menarche: 14 Review of Systems Const All systems reviewed & are unremarkable except as noted in HPI and below Reports no additional complaints Eyes Reports no additional complaints ENT Reports no additional complaints Card Reports no additional complaints Resp Reports no additional complaints GI Reports no additional complaints Reports as per HPI Musc Reports no additional complaints Skin/Breast Reports system reviewed and no additional complaints, except as documented Neuro Reports no additional complaints Psych Reports no additional complaints Endo Reports no additional complaints Ben/Lymph Reports no additional complaints Aller/Immun Reports no additional complaints Office Procedures Post Void Residual Post Residual Void Post Void Residual (PVR): 0 86626-Xier Void Residual by ultrasound Results AMB Urinalysis, Automated UA Leukoctes 0 Peter/uL Last Edit by ROMANA Christensen on 12/03/23 10:39 UA Nitrite Negative Last Edit by ROMANA Christensen on 12/03/23 10:39 UA Urobilinogen 0.2 mg/dL Last Edit by ROMANA Christensen on 12/03/23 10:3 9 UA Protein 0 mg/dL Last Edit by ROMANA Christensen on 12/03/23 10:39 UA pH 6.0 Last Edit by ROMANA Christensen on 12/03/23 10:39 UA Blood 0 Velasquez/uL Last Edit by ROMANA Christensen on 12/03/23 10:39 UA Specific [place] 1.010 Last Edit by Paddy Gray [facility] on 12/03/23 10: 39 UA Ketone Negative Last Edit by Paddy [facility] on 12/03/23 10:39 UA Bilirubin 0 mg/dL Last Edit by ROMANA Christensen on 12/03/23 10:39 UA Glucose 0 mg/dL Last Edit by Paddy Gray [facility] on 12/03/23 10:39 Results Reviewed Results Reviewed: Laboratory Last Values Urine pH (Auto) 6.0 12/03/23 10:38 Specific [place] (Auto) 1.010 12/03/23 10:38 Urine Protein (Auto) 0 mg/dL 12/03/23 10:38 Glucose (UA)(Auto) 0 mg/dL 12/03/23 10:38 Urine Ketones (Auto) Negative 12/03/23 10:38 Urine Blood (Auto) 0 Velasquez/uL 12/03/23 10:38 Urine Nitrite (Auto) Negative 12/03/23 10:38 Urine Bilirubin (Auto) 0 mg/dL 12/03/23 10:38 Urine Urobilinogen (Auto) 0.2 mg/dL 12/03/23 10:38 Leukocyte Esterase (Auto) 0 Peter/uL 12/03/23 10:38 Date of Service: 07/10/20 EXAMINATION: CT ABDOMEN AND PELVIS WITHOUT CONTRAST CLINICAL INFORMATION: Reason for Exam lower abd pn with bleeding ? wt loss COMPARISON: No pertinent prior studies are available for comparison. FINDINGS: LUNG BASES: The visualized lung bases are unremarkable. LIVER, GALLBLADDER, BILIARY TREE: The non-contrast liver is normal in size, shape, and attenuation. No focal hepatic lesion or biliary ductal dilatation is present.? The gallbladder is contracted but otherwise unremarkable with no evidence of radiopaque gallstones, gallbladder wall thickening, or obvious pericholecystic inflammatory changes. PANCREAS: Mild pancreatic fullness with the suggestion of subtle peripancreatic inflammatory changes/fluid. Mild pancreatitis cannot be excluded in this setting and correlation with amylase/lipase levels recommended. SPLEEN: Unremarkable. ADRENAL GLANDS: Unremarkable. KIDNEYS AND URETERS: The kidneys are normal in size, shape, and attenuation. No hydronephrosis, hydroureter, or calculi seen. No perinephric stranding. BLADDER: Unremarkable. GASTROINTESTINAL TRACT: Portions of the colon are decompressed which limits evaluation for wall thickness but no definitive pericolonic inflammatory changes. Large amount of stool in the cecum incidentally noted. The appendix is not clearly visualized. ABDOMINAL WALL: No significant hernia is appreciated. LYMPHOVASCULAR STRUCTURES: Scattered phleboliths in the pelvis. Aorta iliac system grossly unremarkable on this noncontrast study. No bulky adenopathy. PELVIC VISCERA: Surgically absent. OSSEUS STRUCTURES: Degenerative changes in the spine IMPRESSION: Portions of the colon are decompressed there is a moderate amount of stool within the cecum. No obstructive changes to the small bowel. I do not appreciate any acute intra-abdominal process. ? Assessment & Plan Assessment & Plan (1) Interstitial cystitis: Code(s): N30.10 - Interstitial cystitis (chronic) without hematuria Category: Medical (2) Urinary frequency: Code(s): R35.0 - Frequency of micturition Category: Medical (3) Sjogrens syndrome: Code(s): M35.00 - Sjogren syndrome, unspecified Category: Medical Qualifiers: Sjogren's organ involvement: unspecified organ involvement Qualified Code(s): M35.00 - Sicca syndrome, unspecified Plan IC diet, flomax, gemtesa, uribel prn Orders: Orders AMB Urinalysis Automated 12/03/23 Z13.9 - Encounter for screening, unspecified Medications: New vibegron (Gemtesa) 75 mg PO DAILY 90 tabs 3RF urinary urgency Changed From methen-m.blue-s.bvqt-stbye-sam 118-10-40.8-36 mg administer with plenty of fluids 1 tab PO QID 90 days PRN 360 caps 0RF IC flare up N30.10 - Interstitial cystitis (chronic) without hematuria To methen-m.blue-s.kzxj-oapkg-abw 118-10-40.8-36 mg (Uribel) administer with plenty of fluids 1 tab PO TID-QID PRN 360 caps 3RF IC flare up, bladder pain 90 days N30.10 - Interstitial cystitis (chronic) without hematuria Refilled tamsulosin 0.4 mg PO BEDTIME 90 caps 3RF 90 days Discontinued vibegron Discontinued Reason: Duplicate 75 mg PO DAILY 90 tabs 3RF Coding Level of Care Code Est Pt Level 4 (30585) Diagnoses Interstitial cystitis N30.10 Urinary frequency R35.0 Sjogren's syndrome, with unspecified organ involvement M35.00 Sjogren's organ involvement: unspecified organ involvement CPT Codes Post Residual Void - PVR CPT Code: 54592-Niac Void Residual by ultrasound ([id number])
== END 2023-12-03 11:05 | disposition home or self-care (01) ==
PROVIDERS: PCP Family Medicine; Visit Provider Urology
DX: N30.10 Interstitial cystitis (chronic) without hematuria (principal); R35.0 Frequency of micturition; M35.00 Sjogren syndrome, unspecified
CPT/HCPCS: 99214

== ENCOUNTER → 2023-12-03 10:14 | Outpatient (BNVA) | payer BC, SELFPAY | PROVIDERS: PCP Family Medicine; Visit Provider Urology | DX: N30.10 Interstitial cystitis (chronic) without hematuria (principal); R35.0 Frequency of micturition; M35.00 Sjogren syndrome, unspecified; Z79.899 Other long term (current) drug therapy | CPT/HCPCS: 51798; 81003 ==

== ENCOUNTER 2024-01-15 15:20 | Outpatient (REF) | payer BC, SELFPAY ==
--- NOTE | ~2024-01-15 | MM_ITS ---
EXAMINATION: MM SCREENING DIGITAL BREAST TOMOSYNTHESIS, BILATERAL CLINICAL INFORMATION: Screening. Asymptomatic. COMPARISON: Mammography: Comparison is made with available priors TECHNIQUE: Digital breast mammography with tomosynthesis is performed in both the craniocaudal and mediolateral oblique views along with computer-aided detection (CAD). FINDINGS: There are scattered areas of fibroglandular density (ACR BI-RADS breast composition Category b). There are no significant masses, abnormal calcifications, or other abnormalities. MM/MM tomosynthesis screening BI IMPRESSION: No mammographic evidence of malignancy. ASSESSMENT: BI-RADS BI-RADS 1 - Negative RECOMMENDATION: Routine annual mammography screening. 1 year F/U This examination should not preclude the clinical evaluation of a suspicious palpable abnormality. This patient's information was entered into a reminder system with a target due date for their next mammogram. Electronically signed by: Jaimie Nunes DO 01/29/2024 08:55 AM EDT
== END 2024-01-15 15:21 | disposition home or self-care (01) ==
LOC: HO.MAMMO 15:20
PROVIDERS: PCP Family Medicine; Visit Provider Family Medicine
DX: Z12.31 Encounter for screening mammogram for malignant neoplasm of breast (principal)
CPT/HCPCS: 77063; 77067

== ENCOUNTER → 2024-01-15 15:45 | Outpatient (BNV) | payer BC, SELFPAY | PROVIDERS: PCP Family Medicine; Visit Provider Internal Medicine | DX: Z12.31 Encounter for screening mammogram for malignant neoplasm of breast (principal) | CPT/HCPCS: 77063; 77067 ==

== ENCOUNTER 2024-04-25 11:22 | Outpatient (REF) | payer BC, SELFPAY ==
[2024-04-25 13:47] LABS: MANUAL DIFF FLAG NO
[2024-04-25 14:06] LABS: Basophils Percent Auto 0.2 % (0-2); Eosinophils Absolute Auto 0.1 X10*3/uL (0.0-0.4); Eosinophils Percent Auto 2.8 % (0-4); Hematocrit 39.4 % (37.0-47.0); Hemoglobin 12.8 g/dl (12.0-16.0); Imm Gran Abs Auto 0.01 X10*3/uL (0.00-0.03); Imm Gran Pct Auto 0.2 % (0.0-0.4); Lymphocytes Absolute Auto 1.4 X10*3/uL (1.2-4.9); Lymphocytes Percent Auto 32.2 % (20-40); Mean Corpuscular HGB Conc 32.5 g/dl (31.0-35.0); Mean Corpuscular Hemoglobin 27.6 pg (27.0-33.0); Mean Corpuscular Volume 85.1 fL (80.0-98.0); Mean Platelet Volume 10.1 fL (9.4-12.3); Monocytes Absolute Auto 0.3 X10*3/uL (0.1-1.2); Monocytes Percent Auto 7.6 % (2-11); Neutrophils Absolute Auto 2.4 x10*3/uL (2.0-8.3); Platelet Count 311 X10*3/uL (160-400); Red Blood Count 4.63 X10*6/uL (4.20-5.50); White Blood Count 4.2 X10*3/uL (4.8-10.8)
[2024-04-25 14:22] LABS: Estimated Average Glucose 120 mg/dL; Hemoglobin A1C 131.6201 umol/L; Hemoglobin A1c % 5.8 % (<6.0); Total Hemoglobin (HGBA1C) 3320.5947 umol/L
[2024-04-25 14:29] LABS: Alanine Aminotransferase 28 U/L (0-31); Albumin Level 4.2 g/dL (3.5-5.0); Alkaline Phosphatase 86 U/L (39-117); Anion Gap 7 (12-20); Aspartate Amino Transferase 30 U/L (5-31); Bilirubin Total 0.3 mg/dL (0.0-1.0); Blood Urea Nitrogen 8 mg/dL (9-16); Calcium 8.8 mg/dL (8.4-10.2); Carbon Dioxide 27 mmol/L (22-29); Chloride 110 mmol/L (96-108); Cholesterol 183 mg/dL (<200); Estimated Glomerular Filt Rate > 60; Glucose Random 94 mg/dL (60-115); HDL Cholesterol 53 mg/dL (>40); Iron 270 mcg/dL (30-160); LDL Cholesterol Calculated 115 mg/dL (<100); Percent Iron Saturation 62 % (15-50); Potassium 4.1 mmol/L (3.3-5.1); Sodium 140 mmol/L (135-145); Total Iron Binding Capacity 437 mcg/dL (228-428); Total Protein 8.1 g/dL (6.5-8.0); Triglycerides 78 mg/dL (<150); Unsaturated Iron Binding 167 ug/dL
[2024-04-25 14:41] LABS: Creatinine Urine 58.04 mg/dL; Microalbumin Urine < 5.0 mg/L
[2024-04-25 14:49] LABS: Ferritin 16 ng/mL (10-250); TSH reflex Free T4 0.24 uIU/mL (0.32-4.0); Vitamin D 25-OH Total 37.3 ng/mL (>30)
[2024-04-25 14:58] LABS: Folate 12.2 ng/mL (> or = 4.0); Vitamin B12 635 pg/mL (200-900)
[2024-04-25 21:47] LABS: Reflex LDLD? No
[2024-04-25 23:53] LABS: Free T4 (Free Thyroxine) 0.77 ng/dL (0.71-1.85)
== END 2024-04-25 11:23 | disposition home or self-care (01) ==
LOC: HO.HHCL 11:22
PROVIDERS: Visit Provider Family Medicine
DX: D50.9 Iron deficiency anemia, unspecified (principal); I10 Essential (primary) hypertension; E53.8 Deficiency of other specified B group vitamins; R73.01 Impaired fasting glucose; E55.9 Vitamin D deficiency, unspecified
CPT/HCPCS: 36415; 80053; 80061; 82043; 82306; 82570; 82607; 82728; 82746; 83036; 83540; 84439; 84443; 85025

== ENCOUNTER 2024-05-26 09:03 | Outpatient (AMB) | payer BC, SELFPAY ==
--- NOTE | 2024-05-26 09:08 | A.OFFVIS_ITS ---
Vital Signs 05/26/24 09:11 Height 5 ft 2 in Weight 182 lb 6 oz BMI 33.4 BP 128/72 Blood Pressure Location Lt brachial Position Sitting Pulse 70 Pulse Source Pulse Oximeter Pulse Oximetry (%) 99 Oxygen Delivery Method Room Air Intake Visit Reasons: ARTH/MEDICAL REC RECIEVED Intake Note: Patient presents for follow up on arthritis mainly in hands, but other parts of the body. Allergies latex [LATEX] Allergy (Intermediate, Verified 05/26/24 09:14) RASH omeprazole Allergy (Intermediate, Verified 05/26/24 09:14) Vomiting famotidine [Pepcid] Allergy (Mild, Verified 05/26/24 09:14) Vomiting HPI HPI ARTH/MEDICAL REC RECIEVED: Details: Continues to have hand pain. Left wrist brace at night, which helps. Left knee pain for at least 6 weeks with walking. She continues to take celebrex and tylenol 650mg PRN without benefit. Fingers are turning reddish purplish in the cold. Warming helps. She put her hands under a heating blanket, which helped resolve episode. Dry mouth controlled on pilocarpine 5mg TID Dry eyes is uncontrolled with OTC refresh [facility] History Iron deficiency anemia Bleeding hemorrhoids Periumbilical abdominal pain Hx of endometriosis Autoimmune disorder Insomnia Pre-hypertension Microcytic anemia Back pain Arthritis Hx of migraines Interstitial cystitis Hepatic steatosis Irritable bowel syndrome with constipation GERD (gastroesophageal reflux disease) Sjogrens syndrome Surgical History H/O esophagogastroduodenoscopy History of bunionectomy of both great toes Hx of cystoscopy History of History of hysterectomy History of colonoscopy Hx of hemorrhoidectomy Family History Father Cirrhosis Mother Bone cancer HTN (hypertension) Migraine Diabetes mellitus Son GERD (gastroesophageal reflux disease) Daughter GERD (gastroesophageal reflux disease) Paternal Grandfather Diabetes mellitus Paternal Grandmother Emphysema lung Social History Household Members: Significant Other Alcohol intake: current Alcohol intake frequency: other Patient Tobacco Use Status: Never used Tobacco e-Cigarette/Vaping Use: Never Used Female Reproductive History Menstrual Age of Menarche: 14 Physical Exam Vital Signs: Last Vital Signs Pulse 70 05/26/24 09:11 BP 128/72 05/26/24 09:11 Pulse Ox 99 05/26/24 09:11 Oxygen Delivery Method Room Air 05/26/24 09:11 BMI result Body Mass Index 33.4 Const Other: General: Comfortable CVS: RRR Respiratory: clear to auscultation bilaterally. Good respiratory effort Skin: No lesions seen MSK: Tender MCPs, PIP of bilateral hands. DIPJ knees are tender with [place] nodes present. Left 2nd PIP is swollen. Weak duct cleaner. Good range of motion of upper extremities. Knee flexion 120 degrees with valgus deformity noted. Assessment & Plan Assessment & Plan (1) Sjogrens syndrome: Comment: With sicca symptoms, PIP pain and positive KARYN 1:320, rheumatoid factor and SSA antibody. Dry mouth is controlled on pilocarpine. Dry eyes not controlled with OTC refresh. She continues to have hand pain affecting small joints MCPs, PIP knees and DIPJ knees. She required a course of prednisone due to PIP swelling in August with resolution of most of her synovitis. I am concerned she has Sjogren's related inflammatory arthritis superimposed with osteoarthritis. Code(s): M35.00 - Sjogren syndrome, unspecified Category: Medical Qualifiers: Sjogren's organ involvement: unspecified organ involvement Qualified Code(s): M35.00 - Sicca syndrome, unspecified Plan: X-ray bilateral hands ordered Change NSAIDs Celebrex a diclofenac 50 mg twice a day Labs for disease and drug monitoring ordered this visit We will consider hydroxychloroquine next visit if symptoms do not improve with changing NSAID Return to clinic in 2-3 weeks to review results (2) Hand pain: Code(s): M79.643 - Pain in unspecified hand Category: Medical Qualifiers: Laterality: bilateral Qualified Code(s): M79.641 - Pain in right hand; M79.642 - Pain in left hand Plan: See above (3) Bilateral primary osteoarthritis of knee: Comment: Clinical diagnosis with valgus deformity. We discussed conservative management. Code(s): M17.0 - Bilateral primary osteoarthritis of knee Category: Medical Plan: X-ray bilateral knees ordered PT ordered for knee strengthening Encouraged weight loss. 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 Change NSAIDs Celebrex to diclofenac 50 mg twice a day with food Return to clinic in 3 months (4) Hand weakness: Code(s): R29.898 - Other symptoms and signs involving the musculoskeletal system Category: Medical Plan: Occupational therapy ordered Return to clinic in 3 months (5) Raynaud disease without gangrene: Comment: Affecting hands managed with conservative management Code(s): I73.00 - Raynaud's syndrome without gangrene Category: Medical Plan: Continue conservative management (6) Osteoarthritis of hands, bilateral: Code(s): M19.041 - Primary osteoarthritis, right hand; M19.042 - Primary osteoarthritis, left hand Category: Medical Qualifiers: Osteoarthritis type: primary Qualified Code(s): M19.041 - Primary osteoarthritis, right hand; M19.042 - Primary osteoarthritis, left hand Plan: OT ordered Return to clinic in 3 months Orders: Orders Complement C3 Today M35.00 - Sjogren syndrome, unspecified Complement C4 Today M35.00 - Sjogren syndrome, unspecified Erythrocyte Sedimentation Rate Today M35.00 - Sjogren syndrome, unspecified Creatinine Today M35.00 - Sjogren syndrome, unspecified XR knee RT 2V Today M17.0 - Bilateral primary osteoarthritis of knee XR knee LT 2V Today M17.0 - Bilateral primary osteoarthritis of knee XR hand LT min 3V Today M79.643 - Pain in unspecified hand PT Evaluation and Treatment Today M17.0 - Bilateral primary osteoarthritis of knee OT Evaluation and Treatment Today I73.00 - Raynaud's syndrome without gangrene, M19.041 - Primary osteoarthritis, right hand, M19.042 - Primary osteoarthritis, left hand, M35.00 - Sjogren syndrome, unspecified, R29.898 - Other symptoms and signs involving the musculoskeletal system C Reactive Protein Today M35.00 - Sjogren syndrome, unspecified Hepatitis B,C Profile Today M35.00 - Sjogren syndrome, unspecified T Spot TB Today M35.00 - Sjogren syndrome, unspecified Complete Blood Count Auto Diff Today M35.00 - Sjogren syndrome, unspecified Protein Electrophoresis,Ran Ur Today M35.00 - Sjogren syndrome, unspecified XR hand RT min 3V Today M79.643 - Pain in unspecified hand Medications: New diclofenac potassium TAKE WITH FOOD 50 mg PO BID 60 tabs 2RF pilocarpine HCl 5 mg PO TID 90 tabs 11RF Discontinued naproxen Discontinued Reason: Doctor's Order 500 mg PO BID 7 days PRN 14 tabs 0RF pain Coding Level of Care Code Est Pt Level 4 (65241) Complex EM visit Add On G2211 Diagnoses Sjogren's syndrome, with unspecified organ involvement M35.00 Sjogren's organ involvement: unspecified organ involvement Pain in both hands M79.641; M79.642 Laterality: bilateral Bilateral primary osteoarthritis of knee M17.0 Hand weakness R29.898 Raynaud disease without gangrene I73.00 Primary osteoarthritis of both hands M19.041; M19.042 Osteoarthritis type: primary
[2024-05-26 09:11] VITALS: BP 128/72; PULSE 70; O2SAT 99; BMI 33.4
== END 2024-05-26 09:59 | disposition home or self-care (01) ==
PROVIDERS: PCP Family Medicine; Visit Provider Internal Medicine Rheumatology
DX: M35.00 Sjogren syndrome, unspecified (principal); M79.641 Pain in right hand; M79.642 Pain in left hand; M17.0 Bilateral primary osteoarthritis of knee; R29.898 Other symptoms and signs involving the musculoskeletal system; I73.00 Raynaud's syndrome without gangrene; M19.041 Primary osteoarthritis, right hand; M19.042 Primary osteoarthritis, left hand
CPT/HCPCS: 99214

== ENCOUNTER 2024-06-10 16:19 | Outpatient (REF) | payer BC, SELFPAY ==
--- NOTE | ~2024-06-10 | XR_ITS ---
CLINICAL HISTORY: M79.643 - Pain in unspecified hand 3 view right hand Comparison: CR - HAND RIGHT [id number] - 09/08/19 10:22 EDT Findings: No fractures or dislocations. No significant arthritic change. No erosions. No radiopaque foreign body. IMPRESSION: 1. No acute findings This document has been electronically signed by: Steve Davis MD on 06/14/2024 12:38:48
--- NOTE | ~2024-06-10 | XR_ITS ---
CLINICAL HISTORY: M79.643 - Pain in unspecified hand 3 view left hand Comparison: None Findings: Bones intact. No dislocations. No significant loss of joint space or osteophytes. No erosions. No radiopaque foreign body. IMPRESSION: 1. No acute findings This document has been electronically signed by: Steve Davis MD on 06/14/2024 12:40:32
--- NOTE | ~2024-06-10 | XR_ITS ---
CLINICAL HISTORY: M17.0 - Bilateral primary osteoarthritis of knee 3 views left knee Comparison: No comparison studies Findings: No fractures or dislocations No joint effusion No significant arthritic change. No soft tissue calcifications. No radiopaque foreign body Impression: Normal left knee. No skeletal abnormality. This document has been electronically signed by: Jean Moore MD on 06/14/2024 17:48:12
--- NOTE | ~2024-06-10 | XR_ITS ---
CLINICAL HISTORY: M17.0 - Bilateral primary osteoarthritis of knee 2. views right knee Comparison: No comparison Findings: No fractures or dislocation No joint effusion No significant arthritic change No radiopaque foreign body Impression: Normal right knee This document has been electronically signed by: Jean Moore MD on 06/14/2024 16:46:18
--- OUTSIDE RECORDS SUMMARY | 2024-06-10 16:23 | XMS_ITS | Encounter Summary ---
Author Organization [employer] Address [address] [facility] [address] [place] [address] Care Team Providers Care Cardiac Cath Lab Manager Name Role Phone Gosia Schilling MD Primary Care Provider [phone] Encounter Details Date Type Department Care Team (Late st Contact Info) Description 05/13/2024 Abstract [facility] MEDICINE [address] [place] [address] Emma Quevedo MA Social History Tobacco Use Types Packs/Day Years Used Date Smoking Tobacco: Never Passive Smoke Exposure: Never Smokeless Tobacco: Never Depression Answer Date Recorded Patient Health Questionnaire-9 Score 6 04/25/2024 Patient Health Questionnaire-9 Score 6 04/25/2024 Last PHQ-9: Questionnaire Data Not on file 1 06/26/2023 Housing Stability Answer Date Recorded What is your housing situation today? I have marah belcher 03/14/[address] you li ve. Do you have problems with any of the following? None of the above 03/14/2023 Food Insecurity Answer Date Recorded Within the past 12 months, y ou worried that your food would run out before you got money to buy more: Never True 03/14/2023 Within the past 12 months,th e food you bought just didn't last and you didn't have enough money to get more: Never True 03/2023 Transportation Answer Date Recorded In the past 12 months, has l ack of transportation kept you from medical appts, meetings, work or from getting things needed for daily living? No 03/14/2023 Utilities Answer Date Recorded In the past 12 months, has t he electric, gas, oil or water company threatened to shut off services in your home? I am not sure 03/14/2023 Depression Answer Date Recorded Patient Health Questionnaire-2 Score 1 04/25/2024 Comments Unknown Sex and Gender Information Value Date Recorded Sex Assigned at Female 03/03/2022 10:17 AM EDT Legal Sex Female 10:17 AM EDT Gender Identity Female 03/03/2022 10:17 AM EDT Sexual Orientation Straight 03/03/2022 10 :17 AM EDT documented as of this encounter Plan of Treatment Not on file documented as of this encounter Procedures Procedure Name Priority Date/Time Associated Diagnosis Comments COLONOSCOPY Routine 05/29/2020 documented in this encounter Results * (ABNORMAL) Colonoscopy (05/29/2020) Colonoscopy Abnormal(A ) Normal 05/29/2020 Historical Provider HEALTH MAINTENANCE Final Result documented in this encounter Visit Diagnoses Not on filedocumented in this encounter Additional Health Concerns Assessment Noted Time PHQ-9 Depression Total Score: 6 04/25/20 24 1:24 PM EST documented as of this encounter Care Teams Cardiac Cath Lab Manager Relationship Specialty Start Date End Date Gosia Schilling MD [address] [place] [address] PCP - General Family Medicine 05/04/18 documented as of this encounter
--- OUTSIDE RECORDS SUMMARY | 2024-06-10 16:23 | XMS_ITS | Encounter Summary ---
Author Organization [employer] Address [address] [facility] [address] [place] [address] Care Team Providers Care Shale Planer Operator Name Role Phone Gosia Schilling MD Primary Care Provider [phone] Reason for Visit * Reason Comments Med Refill Encounter Details Date Type Department Care Team (Late st Contact Info) Description 02/04/2024 Refill [facility] MEDICINE [address] [place], [place] [phone] Gosia Schilling MD [address] [place], [place] [id number] Social History Tobacco Use Types Packs/Day Years Used Date Smoking Tobacco: Never Passive Smoke Exposure: Never Smokeless Tobacco: Never Depression Answer Date Recorded Patient Health Questionnaire-9 Score 18 09/23/2022 Housing Stability Answer Date Recorded What is [...] Answer Date Recorded Patient Health Questionnaire-2 Score 6 09/23/2022 Comments Unknown Sex and Gender Information Value Date Recorded Sex Assigned at Female 03/03/2022 10:17 AM EDT Legal Sex Female 10:17 AM EDT Gender Identity Female 03/03/2022 10:17 AM EDT Sexual Orientation Straight 03/03/2022 10 :17 AM EDT documented as of this encounter Plan of Treatment Not on file documented as of this encounter Visit Diagnoses Not on filedocumented in this encounter Additional Health Concerns Assessment Noted Time PHQ-9 Depression Total Score: 18 023 3:27 PM EDT documented as of this encounter Care Teams Shale Planer Operator Relationship Specialty Start Date End Date Gosia Schilling MD [address] [place] [address] PCP - General Family Medicine 05/04/18 documented as of this encounter
--- OUTSIDE RECORDS SUMMARY | 2024-06-10 16:23 | XMS_ITS | Clinical Summary ---
Author Organization [employer] Address [address] [place] [address] [address] [place] [address] Care Team Providers Care Reproducer Name Role Phone Gosia Schilling MD Primary Care Provider [phone] Allergies Active Allergy Reactions Criticality Noted Date Comments Omeprazole 03/19/2012 Medications Spacer/Aero-Hold ing Chambers deviceIndication s:Bronchitis 1 each every 4 (four) hours if needed (use with inhaler). 1 each 3 Active loratadine (Claritin) 10 MG tabletIndication s:Bronchitis Take 1 tablet (10 mg) by mouth in the morning. 30 tablet 2 3 Active Blood Pressure Monitoring (Omron 3 Series BP Monitor) device USE TO CHECK BLOOD PRESSURE DAILY 2 Active estradiol (Estrace) 0.1 MG/GM vaginal cream APPLY TO AFFECTED AREA 2-3 TIMES A WEEK 2 Active famotidine (Pepcid) 40 MG tablet 3 Active fluticasone (Flonase Allergy Relief) 50 MCG/ACT nasal spray Administer 1-2 sprays into affected nostril(s) at bed time. 2 Active minoxidil (Loniten) 2.5 MG tablet 3 Active Methylcellulose, Laxative, 500 MG tablet Take 1 tablet by mouth every 12 (twelve) hours. 1 Active ondansetron (Zofran) 4 MG tablet 3 Active tamsulosin (Flomax) 0.4 MG 24 hr capsule TAKE 1 CAPSULE ORALLY AT BEDTIME FOR 90 DAYS 2 Active fluocinonide (Lidex) 0.05 % external solution PLEASE SEE ATTACHED FOR DETAILED DIRECTIONS 2 Active Refresh Liquigel 1 % ophthalmic solution dropperette INSTILL 1-2 DROPS IN AFFECTED EYES 3-4 X DAILY NEEDED 2 Active albuterol 108 (90 Base) MCG/ACT inhalerIndicatio ns:Bronchitis Inhale 2 puffs every 4 (four) hours if needed for wheezing (cough). 18 g 1 3 Active oxybutynin XL (Ditropan-XL) 15 MG 24 hr tablet TAKE 1 TABLET ORALLY DAILY 3 Active Diclofenac Sodium 1 % gel Apply to affected area once daily 350 g 1 3 Active bisacodyl (Dulcolax) 5 MG EC tablet Take 1 tablet (5 mg) by mouth if needed each day for constipation. Do not crush, chew, or split. 30 tablet 1 3 Active docusate sodium (Colace) 100 MG capsule Take 1 capsule (100 mg) by mouth if needed in the morning and at bedtime for constipation. 180 capsule 3 3 Active senna (Senokot) 8.6 MG tablet Take 1 tablet (8.6 mg) by mouth if needed at bedtime for constipation. 90 tablet 1 3 Active amitriptyline (Elavil) 25 MG tabletIndication s:Psychophysiolo gical insomnia Take 1 tablet (25 mg) by mouth at bedtime. 90 tablet 3 4 Active ferrous sulfate 325 (65 Fe) MG EC tablet TAKE 1 TABLET BY MOUTH TWICE A DAY WITH ORANGE JUICE 60 tablet 11 4 Active cholecalciferol (D3-1000) 25 MCG (1000 UT) capsuleIndicatio ns:Vitamin D deficiency Take 1 capsule (25 mcg) by mouth Once per day. 90 capsule 3 4 Active Ascorbic Acid (vitamin C) 500 MG tabletIndication s:Healthcare maintenance Take 1 tablet (500 mg) by mouth 2 times daily. 180 tablet 1 4 Active tadalafil (Cialis) 5 MG tablet 4 Active losartan (Cozaar) 25 MG tablet Take 1 tablet by mouth once daily. If systolic blood pressure is < 130, take 1/2 tablet once daily. If systolic blood pressure is < 120, do not take. 30 tablet 11 4 Active SUMAtriptan (Imitrex) 50 MG tabletIndication s:Migraine without status migrainosus, not intractable, unspecified migraine type TAKE 1 TABLET AT ONSET OF MIGRAINE,MAY REPEAT IN 2 HRS IF NEEDED.MAX 2 TABS/24 HOURS.TAKE W/NAPROXEN 9 tablet 2 4 Active celecoxib (CeleBREX) 200 MG capsuleIndicatio ns:Sjogren's syndrome, with unspecified organ involvement (CMS/HCC) TAKE 1 CAPSULE (200 MG) BY MOUTH IF NEEDED EACH DAY FOR MILD PAIN. 30 capsule 2 4 Active cyanocobalamin (Vitamin B-12) 1000 MCG tablet TAKE 1 TABLET BY MOUTH EVERY DAY 90 tablet 2 4 Active pilocarpine (Salagen) 5 MG tablet Take 1 tablet (5 mg) by mouth 2 times daily. 60 tablet 2 4 Active lidocaine (Lidoderm) 5 % patch Apply 1 patch topically Once per day. Remove & discard patch within 12 hours or as directed by MD. 30 patch 11 4 Active Active Problems Problem Noted Date Diagnosed Date Vitamin D deficiency 09/13/2023 Assessment & Plan (04/25/2024 4:35 PM EST): - continue vitamin D Assessment & Plan (09/13/2023 3:32 PM EDT): - continue vitamin D Raynaud disease 04/02/2023 Assessment & Plan (04/24/2024 6:53 PM EST): - if home BP is not at goal, will Dx HTN and start amlodipine for its effect on vasodilation Assessment & Plan (04/02/2023 11:02 AM EST): - if home BP is not at goal, will Dx HTN and start amlodipine for its effect on vasodilation Constipation 10/03/2022 Assessment & Plan (05/01/2024 6:07 PM EST): - previously followed by [facility], last seen in May 2022 - continue Linzess - continue fiber-rich diet - last colonoscopy by Dr. Trejo on 05/29/20. Recommended to repeat in 3 years due to marginal prep Assessment & Plan (04/03/2023 6:46 AM EST): - followed by [facility] - continue Linzess - continue fiber-rich diet Assessment & Plan (10/03/2022 5:56 PM EDT): - followed by [facility] - continue Linzess - continue fiber-rich diet Atrophic vaginitis 10/03/2022 Assessment & Plan (05/01/2024 6:07 PM EST): - following with [facility], last seen in September 2023 - s/p hysterectomy - Continue Replens for moisturizing and lubricants for intimacy as needed. Assessment & Plan (04/03/2023 6:47 AM EST): - following with [facility], last seen in July 2022 - s/p hysterectomy - Continue Replens for moisturizing and lubricants for intimacy as needed. Assessment & Plan (10/03/2022 5:58 PM EDT): - following with [facility], last seen in July 2022 - s/p hysterectomy - Continue Replens for moisturizing and lubricants for intimacy as needed. Depression 10/03/2022 Assessment & Plan (05/01/2024 6:13 PM EST): - PHQ9 score 18 in October 2022 - PHQ9 score 6 today, Apr 2024 - currently taking amitriptyline mainly for migraine and insomnia - pt perceives that she has too many medications at this time - patient is connected with behavioral health service - she is trying to apply for an apartment because she perceives that current living condition is toxic Assessment & Plan (04/03/2023 6:50 AM EST): - PHQ9 score 18 in October 2022 - currently taking amitriptyline mainly for migraine and insomnia - pt perceives that she has too many medications at this time - she is trying to apply for an apartment because she perceives that current living condition is toxic - referred to Assessment & Plan (10/03/2022 6:03 PM EDT): - PHQ9 score 18 - currently taking amitriptyline mainly for migraine and insomnia - pt perceives that she has too many medications at this time - she is trying to apply for an apartment because she perceives that current living condition is toxic - refer to Hemorrhoids 09/23/2022 Assessment & Plan (04/24/2024 6:55 PM EST): [place] [address] France. pevent constipation. avoid prolonged sitting, pressure. sitz bath Hydrocortisone rectal -evalauated by Dr. France on 07/18/20, recommended to get another surgery, and will schedule her surgery once she moves into her new apartment Assessment & Plan (04/03/2023 6:43 AM EST): s/p hemorrhoide[place] [address] France. pevent constipation. avoid prolonged sitting, pressure. sitz bath Hydrocortisone rectal -evalauated by Dr. France on 07/18/20, recommended to get another surgery, and will schedule her surgery once she moves into her new apartment Assessment & Plan (09/23/2022 4:10 PM EDT): s/p hemorrhoide[place] [address] France. avoid constipation. avoid prolonged sitting, pressure. sitz bath Hydrocortisone rectal -recently seen by Dr. France on 07/18/20, recommended to get another surgery, and will schedule her surgery once she moves into her new apartment Iron deficiency anemia 09/23/2022 Assessment & Plan (04/25/2024 4:35 PM EST): -received transfusions for Hgb 6.8, 2 units PRBC, in July 2020, likely due to excessive bleeding from hemorrhoids -Following with [facility], last seen on 07/08/22. Normal CBC in July 2022. -advised to restart ferrous sulfate 325 mg bid with vitamin C -pt seen by Dr. France on 07/18/20 for bleeding hemorrhoids, recommended to get hemorrhoidectomy, but pt has been hesitant Assessment & Plan (09/08/2023 2:57 PM EDT): -received transfusions for Hgb 6.8, 2 units PRBC, in July 2020, likely due to excessive bleeding from hemorrhoids -Following with [facility], last seen on 07/08/22. Normal CBC in July 2022. -advised to restart ferrous sulfate 325 mg bid with vitamin C -pt seen by Dr. France on 07/18/20 for bleeding hemorrhoids, recommended to get hemorrhoidectomy, but pt has been hesitant Assessment & Plan (04/03/2023 6:49 AM EST): -received transfusions for Hgb 6.8, 2 units PRBC, in July 2020, likely due to excessive bleeding from hemorrhoids -Following with [facility], last seen on 07/08/22. Normal CBC in July 2022. -advised to restart ferrous sulfate 325 mg bid with vitamin C -pt seen by Dr. France on 07/18/20 for bleeding hemorrhoids, recommended to get hemorrhoidectomy, but pt has been hesitant Assessment & Plan (10/03/2022 5:50 PM EDT): -received transfusions for Hgb 6.8, 2 units PRBC, in July 2020, likely due to excessive bleeding from hemorrhoids -Following with [facility], last seen on 07/08/22. Normal CBC in July 2022. -advised to continue ferrous sulfate 325 mg bid with vitamin C -pt seen by Dr. 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: hysterectomy 08/03/2022 Autoimmune disease 08/03/2022 Sjogren's syndrome 08/03/2022 Assessment & Plan (05/01/2024 6:10 PM EST): -previously followed by [facility] -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 -Previously taking BOBBY-2 inhitor, meloxicam 15 mg / day, held when she was having anemia secondary to bleeding hemorrhoids -Oral / dental care and biotene for dry mouth / sicca syndrome -pt is prescribed artificial tears for dry eyes -prescribed celecoxib and pilocarpine by aggregate conveyor operator; will prescribe while she is waiting for another appointment with her aggregate conveyor operator -f/u in 3 months Assessment & Plan (12/10/2023 9:50 AM EDT): -followed by [facility] -Previously taking BOBBY-2 inhitor, meloxicam 15 mg / day, held when she was having anemia secondary to bleeding hemorrhoids -Oral / dental care and biotene for dry mouth / sicca syndrome -pt is prescribed artificial tears for dry eyes -prescribed celecoxib and pilocarpine by aggregate conveyor operator; will prescribe while she is waiting for another appointment with her aggregate conveyor operator -f/u in 3 months Assessment & Plan (04/03/2023 6:50 AM EST): -followed by [facility] -Previously taking BOBBY-2 inhitor, meloxicam 15 mg / day, held when she was having anemia secondary to bleeding hemorrhoids -Oral / dental care and biotene for dry mouth / sicca syndrome -pt is prescribed artificial tears for dry eyes -recently prescribed celecoxib and pilocarpine -f/u in 3 months Assessment & Plan (10/03/2022 5:52 PM EDT): -followed by [facility], -Previously taking BOBBY-2 inhitor, meloxicam 15 mg / day, held when she was having anemia secondary to bleeding hemorrhoids -Oral / dental care and biotene for dry mouth / sicca syndrome -pt is prescribed artificial tears for dry eyes -f/u in 3 months Metabolic dysfunction-associ ated steatotic liver disease (MASLD) 12/25/2014 Assessment & Plan (04/24/2024 6:55 PM EST): - following with [facility], last seen in May 2022 - 07/10/20 CT showed no cirrhosis, mainly constipation - Consider updating with US if not ordered by GI Assessment & Plan (12/10/2023 9:44 AM EDT): - following with [facility], last seen in May 2022 - 07/10/20 CT showed no cirrhosis, mainly constipation - Consider updating with US if not ordered by GI Assessment & Plan (09/13/2023 3:29 PM EDT): - following with [facility], last seen in May 2022 - 07/10/20 CT showed no cirrhosis, mainly constipation - Consider updating with US if not ordered by GI Assessment & Plan (04/03/2023 6:46 AM EST): - following with [facility], last seen in May 2022 - 07/10/20 CT showed no cirrhosis, mainly constipation Assessment & Plan (10/03/2022 5:43 PM EDT): - following with [facility], last seen in May 2022 - 07/10/20 CT showed no cirrhosis, mainly constipation Allergic rhinitis 08/03/2014 Assessment & Plan (05/01/2024 6:13 PM EST): - continue flonase and loratadine prn Assessment & Plan (04/03/2023 6:51 AM EST): - continue flonase and loratadine prn Assessment & Plan (10/03/2022 5:55 PM EDT): - continue flonase and loratadine prn Impaired fasting glucose 01/04/2014 Assessment & Plan (05/01/2024 6:08 PM EST): - 05/23/20 A1C 5.6% - 09/07/23 A1C 5.9% - Lifestyle modifications. Assessment & Plan (09/13/2023 3:31 PM EDT): - 05/23/20 A1C 5.6% - 09/07/23 A1C 5.9% - Lifestyle modifications. Assessment & Plan (04/03/2023 6:48 AM EST): - 05/23/20 A1C 5.6% - Lifestyle modifications. -will update labs Assessment & Plan (09/23/2022 4:06 PM EDT): - 05/23/20 A1C 5.6% - Lifestyle modifications. -will update labs Chronic interstitial cystitis 12/29/2011 Assessment & Plan (05/01/2024 6:07 PM EST): - following with [facility], last seen on 12/03/23 - continue tamsulosin - previously on oxybutynin which discontinued due to dry mouth Assessment & Plan (12/10/2023 9:51 AM EDT): - following with [facility], last seen on 12/03/23 - continue tamsulosin - previously on oxybutynin which discontinued due to dry mouth Assessment & Plan (09/13/2023 3:30 PM EDT): - following with [facility], last seen in October 2022 - continue oxybutynin and tamsulosin Assessment & Plan (04/03/2023 6:47 AM EST): - following with [facility], last seen in October 2022 - continue oxybutynin and tamsulosin Assessment & Plan (10/03/2022 5:44 PM EDT): - following with [facility], last seen in Mar 2022 - continue oxybutynin and tamsulosin Gastroesophageal reflux disease 12/29/2011 Assessment & Plan (04/25/2024 4:35 PM EST): - s/p EGD on 05/29/20 at [facility], chronic inactive inflammation, H. Pylori negative - seen by Azul CLARK on 05/16/22, Rx famotidine - continue famotidine 40 mg at bedtime prn Assessment & Plan (04/03/2023 6:46 AM EST): - s/p EGD on 05/29/20 at [facility], chronic inactive inflammation, H. Pylori negative - seen by Azul CLARK on 05/16/22, Rx famotidine - continue famotidine 40 mg at bedtime prn Assessment & Plan (10/03/2022 5:41 PM EDT): - s/p EGD on 05/29/20 at [facility], chronic inactive inflammation, H. Pylori negative - seen by Azul CLARK on 05/16/22, Rx famotidine - continue famotidine 40 mg at bedtime prn Psychophysiological insomnia 12/29/2011 Assessment & Plan (04/24/2024 6:53 PM EST): - continue amitriptyline 25 mg at bedtime - previously tried trazodone. Pt preferred amitriptyline Assessment & Plan (10/03/2022 5:33 PM EDT): - continue amitriptyline 25 mg at bedtime - previously tried trazodone. Pt preferred amitriptyline Migraine 12/29/2011 Assessment & Plan (05/01/2024 6:11 PM EST): - seen in the walk-in clinic in October 2023 - Rx sumatriptan prn - already on amitriptyline for insomnia; continue for prophylaxis as well Assessment & Plan (10/20/2023 1:44 PM EDT): -symptom description suggestive of migraine headache -toradol 30 mg given in clinic today -prescription for sumitriptan and naproxen sent to pharmacy. -Pt advised to not take any other NSAIDs today or moving forward when she take naproxen -headache red flags discussed: report to ED immediately if headache characteristics intensify, persists despite toradol and 2 sumitriptan doses today, if associated with intense nausea and vomiting or confusion -follow-up with pcp as needed Assessment & Plan (04/03/2023 6:50 AM EST): - continue amitriptyline - continue sumatriptan prn Assessment & Plan (10/03/2022 5:54 PM EDT): - continue amitriptyline - continue sumatriptan prn Obesity 12/29/2011 Hypertension 12/29/2011 Assessment & Plan (04/24/2024 6:54 PM EST): -Goal BP < 140 / 90 per JNC-8 and < 130 / 80 per ACC/AHA guideline (Treatment threshold >= 140/90) - BP initially elevated, but 2nd measurement was better - Continue working on lifestyle modifications - Recommended self-monitoring BP. - Continue losartan 25 mg daily. If SBP < 120 mmHg, take 12.5 mg daily. If SBP < 110 mmHg, hold losartan. - Consider amlodipine or other vasodilator for Raynaud - Follow up with our nurse for BP check. If BP is still > 140 mmHg, increase losartan to 50mg daily. Assessment & Plan (12/10/2023 9:49 AM EDT): -Goal BP < 140 / 90 per JNC-8 and < 130 / 80 per ACC/AHA guideline (Treatment threshold >= 140/90) - BP initially elevated, but 2nd measurement was better - Continue working on lifestyle modifications - Recommended self-monitoring BP. - Start losartan 25 mg daily. If SBP < 120 mmHg, take 12.5 mg daily. If SBP < 110 mmHg, hold losartan. - Consider amlodipine or other vasodilator for Raynaud - Follow up with our nurse for BP check. If BP is still > 140 mmHg, increase losartan to 50mg daily. Assessment & Plan (10/20/2023 1:27 PM EDT): -may be contributing to headache -initial BP elevated with lower repeat readings -BP log provided for daily monitoring at home -nurse visit for BP check scheduled for 10/28/23 -return to clinic with sudden chest pain, shortness of breath -lifestyle modifications reviewed Assessment & Plan (09/13/2023 3:28 PM EDT): -Goal BP < 140 / 90 per JNC-8 and < 130 / 80 per ACC/AHA guideline (Treatment threshold >= 140/90) - BP initially elevated, but 2nd measurement was better - Continue working on lifestyle modifications - Recommended self-monitoring BP. - Consider amlodipine or other vasodilator for Raynaud -Follow up in 3-6 mo, sooner if any problem arises Assessment & Plan (04/03/2023 6:42 AM EST): -Goal BP < 140 / 90 per JNC-8 and < 130 / 80 per ACC/AHA guideline (Treatment threshold >= 140/90) - BP initially elevated, but 2nd measurement was better - Continue working on lifestyle modifications - Recommended self-monitoring BP. - Consider amlodipine or other vasodilator for Raynaud -Follow up in 3-6 mo, sooner if any problem arises Assessment & Plan (10/03/2022 5:35 PM EDT): -Goal BP < 140 / 90 per JNC-8 and < 130 / 80 per ACC/AHA guideline (Treatment threshold >= 140/90) - BP initially elevated, but 2nd measurement was normal - Continue working on lifestyle modifications - Recommended self-monitoring BP. -Follow up in 3-6 mo, sooner if any problem arises Resolved Problems Problem Noted Date Diagnosed Date Resolved Date Essential hypertension 08/03/202210/03 Arthritis 11/13/2015 10/03/2022 Encounters Date Type Department Care Team Description 06/01/[address] [id number] Vilma Lazcano RN Paperwork/Forms 05/13/[address] [id number] Emma Quevedo MA 05/02/2024 Telephone [facility] [address] [place] [address] Gosia Schilling MD 04/25/2024 10:30 AM EST Office Visit [address] [address] Gosia Schilling MD Psychophysiological insomnia (Primary Dx); Raynaud's disease without gangrene; Hypertension, unspecified type; Hemorrhoids, unspecified hemorrhoid type; Metabolic dysfunction-associated steatotic liver disease (MASLD); Gastroesophageal reflux disease, unspecified whether esophagitis present; Vitamin D deficiency; Vitamin B12 deficiency; Iron deficiency anemia, unspecified iron deficiency anemia type; Need for COVID-19 vaccine; Colon cancer screening; Chronic idiopathic constipation; Chronic interstitial cystitis; Atrophic vaginitis; Class 1 obesity due to excess calories without serious comorbidity with body mass index (BMI) of 32.0 to 32.9 in adult; Impaired fasting glucose; Sjogren's syndrome, with unspecified organ involvement (CMS/HCC); Migraine without status migrainosus, not intractable, unspecified migraine type; Major depressive disorder, remission status unspecified, unspecified whether recurrent; Allergic rhinitis, unspecified seasonality, unspecified trigger 04/25/2024 Travel 04/20/2024 Telephone [facility] [address] [place] [id number] Emma Quevedo MA chart prep 04/14/2024 Patient Outreach [facility] [address] [place] [id number] Gosia Schilling MD Pre-visit Planning (Pre-visit planning - LVM ) 03/10/2024 9:00 AM EST Office Visit [facility] [address] [place] [id number] Chris Castano MD Viral URI from Last 3 Months Immunizations Name Administration Dates Next Due Hep B, Adolescent or Pediatric 06/28/2008,2007,01/11/2008 Influenza Injectable Quadriv alant Preservative Free IIV4 MDCK 01/23/2022 Influenza injectable quadriv alent IIV4 with preservative 03/18/2019,01/25/2018,04/06/2017 Influenza injectable quadriv alent preservative free 01/23/2023,04/10/2015 Pfizer Covid-19 Vaccine 12+ 04/25/2024,1 06/02/2022,10/12/2020,2020 Pfizer Covid-19 Vaccine 12+ Bivalent 02/05/2022 TD (adult), 2 Lf tetanus tox oid, preservative free, adsorbed 01/11/2008 Tdap 09/23/2022,12/29/2011 Zoster, Recombinant 03/18/2021,01/10/2021 Social History Tobacco Use Types Packs/Day Years Used Date Smoking Tobacco: Never Passive Smoke Exposure: Never Smokeless Tobacco: Never Depression Answer Date Recorded Patient Health Questionnaire-9 Score 6 04/25/2024 Patient Health Questionnaire-9 Score 6 04/25/2024 Last PHQ-9: Questionnaire Data Not on file 1 06/26/2023 Housing Stability Answer Date Recorded What is your housing situation today? I have marahchina belcher 03/14/[address] you [...] Orientation Straight 03/03/2022 10 :17 AM EDT Last Filed Vital Signs Vital Sign Reading Time Taken Comments Blood Pressure 120/77 04/25/2024 10:25 AM EST Pulse 81 04/25/2024 10:25 AM EST Temperature 36.1 ??C (96.9 ??F) 04/25/2024 1 0:25 AM EST Respiratory Rate 12 04/25/2024 10:2 5 AM EST Oxygen Saturation 98% 04/25/2024 10: 25 AM EST Inhaled Oxygen Concentration - - Weight 83.4 kg (183 lb 12.8 oz) 024 10:25 AM EST Height 159.9 cm (5' 2.95 ) 04/25/2024 1 0:25 AM EST Body Mass Index 32.62 04/25/2024 10:25 AM EST Plan of Treatment Health Maintenance Due Date Last Done Comments CT Colonography 1962 FIT DNA/Cologuard 1962 FIT 1962 FOBT 1962 HIV Screening 1962 Sigmoidoscopy 1962 Hepatitis C Screening 1980 Hepatitis A Vaccines (1 of 2 - Risk 2-dose series) 1981 Pneumococcal Vaccine: 50+ Years (1 of 1 - PCV) 2012 Hepatitis B Vaccines (1 of 3 - Risk 3-dose series) 2022 06/28/2008, 02/10/2008, 01/11/2008 RSV Patients and Patients Aged 60 years or older (1 - Risk 60-74 years 1-dose series) 2022 Colonoscopy 05/29/2023 05/29/2020 Colorectal Cancer Screening 05/29/2023 SDOH Screening 09/24/2023 09/23/2022 Alcohol/Substance Use Screening 04/25/2025 04/25/2024 Depression Screening 04/25/2025 04/25/2024, 04/25/20 24 Diabetes: Hemoglobin A1C 04/25/2025 024, 09/07/2023, 04/03/2023, Additional history exists Tobacco Screening 04/25/2025 04/25/2024 Mammogram 01/14/2026 01/15/2024, 08/0 06/2020, 06/15/2019, Additional history exists Lipid Panel 04/25/2029 04/25/2024, 1205/2022, 09/23/2022 DTaP/Tdap/Td Vaccines (3 - Td or Tdap) 09/23/2032 09/23/2022, 12/29/2011, 01/11/2008 Zoster Vaccines Completed 03/18/2021, 01/10/2021 Influenza Vaccine Completed 02/11/2024, , 01/23/2022, Additional history exists COVID-19 Vaccine Completed 04/25/2024, , 02/05/2022, Additional history exists HIB Vaccines Aged Out No longer eligi ble based on patient's age to complete this topic HPV Vaccines Aged Out No longer eligi ble based on patient's age to complete this topic IPV Vaccines Aged Out No longer eligi ble based on patient's age to complete this topic Meningococcal Vaccine Aged Out No fifi true eligible based on patient's age to complete this topic RSV under 20 months Aged Out No longe r eligible based on patient's age to complete this topic Rotavirus Vaccines Aged Out No longer eligible based on patient's age to complete this topic Procedures Procedure Name Priority Date/Time Associated Diagnosis Comments T4, FREE Routine 04/25/2024 11:26 AM EST VITAMIN B12/FOLATE, SERUM PANEL Routine 04/25/2024 11:26 AM EST Vitamin B12 deficiency IRON AND TOTAL IRON BINDING CAPACITY Routine 04/25/2024 11:26 AM EST Iron deficiency anemia, unspecified iron deficiency anemia type FERRITIN Routine 04/25/2024 11:26 AM EST Iron deficiency anemia, unspecified iron deficiency anemia type CBC WITH AUTO DIFFERENTIAL Routine 04/25/2024 11:26 AM EST Iron deficiency anemia, unspecified iron deficiency anemia type VITAMIN D,25-OH,TOTAL,IA Routine 04/25/2024 11:26 AM EST Vitamin D deficiency LIPID PANEL WITH REFLEX TO DIRECT LDL Routine 04/25/2024 11:26 AM EST Hypertension, unspecified type ALBUMIN, RANDOM URINE W/CREATININE Routine 04/25/2024 11:26 AM EST Hypertension, unspecified type COMPREHENSIVE METABOLIC PANEL Routine 04/25/2024 11:26 AM EST Hypertension, unspecified type HEMOGLOBIN A1C Routine 04/25/2024 11:26 AM EST Impaired fasting glucose TSH W/REFLEX TO FT4 Routine 04/25/2024 1 1:26 AM EST Hypertension, unspecified type POCT INFLUENZA B (ID NOW RAPID MOLECULAR) Routine 03/10/2024 9:05 AM EST Viral URI POCT INFLUENZA A (ID NOW RAPID MOLECULAR) Routine 03/10/2024 9:05 AM EST Viral URI POCT RAPID STREP A Routine 03/10/2024 9: 05 AM EST Viral URI POCT RAPID COVID ANTIGEN Routine 03/10/2024 9:05 AM EST Viral URI BI MAMMOGRAM SCREENING TOMOSYNTHESIS BILATERAL Routine 01/15/2024 3:30 PM EDT Breast cancer screening by mammogram HM COLONOSCOPY Routine 05/29/2020 from Last 3 Months or Most Recently Relevant to Health Maintenance Results * Vitamin D, 25-Hydroxy, Total, Immunoassay (04/25/2024 11:26 AM EST) Pathologist [facility] Vitamin D 25-OH Total 37.3 >30 ng/mL [facility] Comment:Health Based Referen ce Values*< 20 ng/mL [id number] ng/mL Insufficient> 30 ng/mL Sufficient*Linda MCCALL. N Engl J Med. 2007;357:266-280Care must be taken in interpreting Vitamin D results fromdifferent laboratories and methodologies. Published datademonstrated that results from patients undergoinghemodialysis may show a negative bias when tested withvarious automated 25-OH vitamin D assays when compared toLC-MS/MS.When testing samples from patients whose predominant form ofVitamin D is Vitamin D2, such as patients receiving VitaminD2 supplementation, results that are subtherapeutic shouldbe confirmed with another method such as LC-MS/MS. Blood Venous blood specimen / Unknown 04/25/2024 11:26 AM EST 04/25/2024 1:46 PM EST us Gosia Schilling MD LAB BLOOD ORDERABLES Final Resul t Performing Organization Address City/[facility] Co de Phone Number [facility] [address] [place] [phone] * Vitamin B12 (Cobalamin) and Folate Panel, Serum (04/25/2024 11:26 AM EST) Vitamin B12 635 200 - 900 pg/mL [facility] Comment:NORMAL 200-900 PG/ML INDETERMINATE 160-199 PG/ML DEFICIENT < 160 PG/ML Folate 12.2 > or = 4.0 ng/mL [facility] Comment:Reference Values:> o r = 4.0 ng/mL< 4.0 ng/mL suggests folate deficiency Methotrexate, aminopterin and folinic acid(leucovorin) are chemotherapeutic agents whose molecularstructures are similar to folate; therefore, the Architectfolate assay cannot be used for patients using these drugs. Blood 04/25/2024 11:2 6 AM EST 04/25/2024 1:44 PM EST us Gosia Schilling MD LAB BLOOD ORDERABLES Final Resul t Performing Organization Address [facility] Co de Phone Number [facility] [address] [place] [address] [phone] * (ABNORMAL) TSH with Reflex to Free T4 (04/25/2024 11:26 AM EST) TSH reflex Free T4 0.24(L) 0.32 - 4.0 uIU/mL [facility] Blood 04/25/2024 11:2 6 AM EST 04/25/2024 1:46 PM EST us Gosia Schilling MD LAB BLOOD ORDERABLES Final Resul t Performing Organization Address [facility]/ZIP Co de Phone Number [facility] [address] [place] [address] [phone] * (ABNORMAL) Lipid Panel with Reflex to Direct LDL (04/25/2024 11:26 AM EST) Triglycerides 78 <150 mg/dL [facility] Comment:Desirable Triglyceri de: less than 150 mg/dLBorderline High Triglyceride 150-199 mg/dLHigh Triglyceride: 200-499 mg/dLVery High Triglyceride: greater than or equal to 5OO mg/dL Cholesterol 183 <200 mg/dL [facility] Comment:Desirable Cholestero l: less than 200 mg/dLBorderline High Cholesterol: 200-239 mg/dLHigh Cholesterol: greater than 239 mg/dL LDL Cholesterol Calculated 115(H) <100 mg/dL [facility] Comment:Desirable LDL: less than 100 mg/dLNear Optimal/Above Optimal LDL: 110- 129 mg/dLBorderline High LDL: 130-159 mg/dLHigh LDL: 160-189 mg/dLVery High LDL: greater than or equal to 190 mg/dL HDL Cholesterol 53 >40 mg/dL [facility] Comment:Desirable HDL: great er than 40 mg/dL Note: This HDL assay may give artificially low results in patients with liver disease. Blood 04/25/2024 11:2 6 AM EST 04/25/2024 1:46 PM EST us Gosia Schilling MD LAB BLOOD ORDERABLES Final Resul t [facility] [address] [place] [address] [phone] * Albumin, Random Urine W/Creatinine (04/25/2024 11:26 AM EST) Creatinine, Urine 58.04 mg/dL [facility] Microalbumin Urine <5.0 mg/L [facility] Microalbum Creatinine Ratio Ur TNP <30 ug/mg cr [facility] Comment:Unable to calculate albumin/creatinine ratio due to lowmicroalbumin or creatinine result. Urine 04/25/2024 11:2 6 AM EST 04/25/2024 1:31 PM EST us Gosia Schilling MD LAB URINE ORDERABLES Final Resul t [facility] [address] [place] [phone] * (ABNORMAL) CBC auto differential (04/25/2024 11:26 AM EST) White Blood Count 4.2(L) 4.8 - 10.8 X10*3/uL [facility] Red Blood Count 4.63 4.20 - 5.50 X10*6/uL [facility] Hemoglobin 12.8 12.0 - 16.0 g/dl [facility] Hematocrit 39.4 37.0 - 47.0 % [facility] Mean Corpuscular Volume 85.1 80.0 - 98.0 fL [facility] Mean Corpuscular Hemoglobin 27.6 27.0 - 33.0 pg [facility] Mean Corpuscular HGB Conc 32.5 31.0 - 35.0 g/dl [facility] Red Cell Distribution Width 13.0 11.0 - 16.0 % [facility] Platelet Count 311 160 - 400 X10*3/uL [facility] Mean Platelet Volume 10.1 9.4 - 12.3 fL [facility] Neutrophils Percent Auto 57.0 45 - 73 % [facility] Imm Gran Pct Auto 0.2 0.0 - 0.4 % [facility] Lymphocytes Percent Auto 32.2 20 - 40 % [facility] Monocytes Percent Auto 7.6 2 - 11 % [facility] Eosinophils Percent Auto 2.8 0 - 4 % [facility] Basophils Percent Auto 0.2 0 - 2 % [facility] NRBC Pct Auto 0.0 0.0 - 0.2 /100WBC [facility] Neutrophils Absolute Auto 2.4 2.0 - 8.3 x10*3/uL [facility] Imm Gran Abs Auto 0.01 0.00 - 0.03 X10*3/uL [facility] Lymphocytes Absolute Auto 1.4 1.2 - 4.9 X10*3/uL [facility] Monocytes Absolute Auto 0.3 0.1 - 1.2 X10*3/uL [facility] Eosinophils Absolute Auto 0.1 0.0 - 0.4 X10*3/uL [facility] Basophils Absolute Auto 0.0 0.0 - 0.2 X10*3/uL [facility] NRBC Abs Auto 0.000 0.0 - 0.012 X10*3/uL [facility] Blood Venous blood specimen / Unknown 04/25/2024 11:26 AM EST 04/25/2024 1:44 PM EST Gosia Schilling MD LAB BLOOD ORDERABLES Final Resul t Performing Organization Address [facility] de Phone Number [facility] [address] [place] [phone] * (ABNORMAL) Iron And Total Iron Binding Capacity (04/25/2024 11:26 AM EST) Iron 270(H) 30 - 160 mcg/dL [facility] Total Iron Binding Capacity 437(H) 228 - 428 mcg/dL [facility] Percent Iron Saturation 62(H) 15 - 50 % [facility] Unsaturated Iron Binding 167 ug/dL [facility] Blood Venous blood specimen / Unknown 04/25/2024 11:26 AM EST 04/25/2024 1:46 PM EST Gosia Schilling MD LAB BLOOD ORDERABLES Final Resul t Performing Organization Address [facility] de Phone Number [facility] [address] [place] [address] [phone] * T4, Free (04/25/2024 11:26 AM EST) Free T4 (Free Thyroxine) 0.77 0.71 - 1.85 ng/dL [facility] 04/25/2024 11:2 6 AM EST 04/25/2024 1:46 PM EST us Gosia Schilling MD LAB BLOOD ORDERABLES Final Resul t Performing Organization Address [facility] Co de Phone Number [facility] [address] [place] [address] [phone] * Hemoglobin A1c (04/25/2024 11:26 AM EST) Hemoglobin A1c 5.8 <6.0 % [facility] Comment:Hemoglobin A1C Refer ence Range Adults: 4.8 - 6.0 % Non diabetic: < 6.0 % Goal: < 7.0 %Additional Action Suggested: > 8.0 %Note: Hemoglobin A1c results are invalid for patients with abnormal amounts of HbF. Blood transfusions may impact the HbA1c concentration in the patient sample. Estimated Average Glucose 120 mg/dL [facility] Comment:eAG = Estimated ave rage glucose which is %A1C expressed asaverage glucose, using the formula of the S6N-PgubskyMqsuttn Glucose study (ADAG), Diabetes Care, Vol.31,#8,2007 Blood Venous blood specimen / Unknown 04/25/2024 11:26 AM EST 04/25/2024 1:46 PM EST us Gosia Schilling MD LAB BLOOD ORDERABLES Final Resul t Performing Organization Address [facility] Co de Phone Number [facility] [address] [place] [address] [phone] * Ferritin (04/25/2024 11:26 AM EST) Ferritin 16 10 - 250 ng/mL [facility] Blood Venous blood specimen / Unknown 04/25/2024 11:26 AM EST 04/25/2024 1:46 PM EST Gosai Schilling MD LAB BLOOD ORDERABLES Final Resul t Performing Organization Address City/[facility] Co de Phone Number [facility] [address] [place] [phone] * (ABNORMAL) Comprehensive Metabolic Panel (04/25/2024 11:26 AM EST) Sodium 140 135 - 145 mmol/L [facility] Potassium 4.1 3.3 - 5.1 mmol/L [facility] Chloride 110(H) 96 - 108 mmol/L [facility] Carbon Dioxide 27 22 - 29 mmol/L [facility] Anion Gap 7(L) 12 - 20 [facility] Urea Nitrogen (BUN) 8(L) 9 - 16 mg/dL [facility] Creatinine, Serum 0.88 0.5 - 1.4 mg/dL [facility] Estimated Glomerular Filt Rate >60 [facility] Comment:Chronic Kidney Disea se: Estimated GFR < 60 mL/min/[id number] Kidney Disease: Estimated GFR < 15 mL/min/1.73m2 Glucose 94 60 - 115 mg/dL [facility] Calcium 8.8 8.4 - 10.2 mg/dL [facility] Bilirubin, Total 0.3 0.0 - 1.0 mg/dL [facility] Aspartate Amino Transferase 30 5 - 31 U/L [facility] Alanine Aminotransferase 28 0 - 31 U/L [facility] Total Protein 8.1(H) 6.5 - 8.0 g/dL [facility] Albumin Level 4.2 3.5 - 5.0 g/dL [facility] Alkaline Phosphatase 86 39 - 117 U/L [facility] Blood Venous blood specimen / Unknown 04/25/2024 11:26 AM EST 04/25/2024 1:46 PM EST us Gosia Schilling MD LAB BLOOD ORDERABLES Final Resul t [facility] [address] [place] [phone] * Influenza B (ID NOW Rapid Molecular) (03/10/2024 9:05 AM EST) Influenza B Negative Negative, Indeterminate [facility] Swab 03/10/2024 9:05 AM EST us Chris Castano MD POINT OF CARE TEST ENTER/EDIT OR DERABLES Final Result Performing Organization Address [facility] Co de Phone Number [facility] [address] [place] [address] [phone] * Influenza A (ID NOW Rapid Molecular) (03/10/2024 9:05 AM EST) Pathologist [facility] Influenza A Negative Negative, Indeterminate [facility] Swab 03/10/2024 9:05 AM EST us Chris Castano MD POINT OF CARE TEST ENTER/EDIT OR DERABLES Final Result Performing Organization Address [facility] de Phone Number [facility] [address] [place] [address] [phone] * POCT Rapid COVID Ag (03/10/2024 9:05 AM EST) Pathologist [facility] Rapid COVID Ag Negative [facility] Swab 03/10/2024 9:05 AM EST us Chris Castano MD POINT OF CARE TEST ENTER/EDIT OR DERABLES Final Result Performing Organization Address [facility] de Phone Number [facility] [address] [place] [address] [phone] * POCT rapid strep A manually resulted (03/10/2024 9:05 AM EST) Pathologist [facility] Rapid Strep A Screen Negative Negative, None Detected [facility] Swab 03/10/2024 9:05 AM EST us Chris Castano MD POINT OF CARE TEST ENTER/EDIT OR DERABLES Final Result Performing Organization Address [facility] de Phone Number [facility] [address] [place] [phone] * BI Mammogram Screening Tomosynthesis Bilateral (01/15/2024 3:30 PM EDT) Anatomical Region Laterality Modality Breast Bilateral Mammography 01/15/2024 3:30 PM EDT Narrative 01/29/2024 8:58 AM EDT ? [facility] ? [address] ?[place] [address] ? Mammography Report ? Signed ? Patient: Destini Melchor ?MR#: MM ?? [id number] ? : 1960 ?Acct:[id number] ? Age/Sex: 63 / F ?ADM Date: 01/15/24 ? Loc: HO.MAMMO ? Attending Dr: Gosia Schilling MD ? Ordering Physician: Gosia Schilling MD ?Results: 1Negative ? Date of Service: 01/15/24 ?Follow Up: 1 Year From Orig ?? inal Mammogram ? Procedure(s): MM tomosynthesis screening BI ?? Accession Number(s): [id number] ? cc: Gosia Schilling MD ? EXAMINATION: ?? MM SCREENING DIGITAL BREAST TOMOSYNTHESIS, BILATERAL ? CLINICAL INFORMATION: ? Screening. Asymptomatic. ? COMPARISON: ?? Mammography: Comparison is made with available priors ? TECHNIQUE: ?? Digital breast mammography with tomosynthesis is performed in both the ?? craniocaudal and mediolateral oblique views along with computer-aided ?? detection (CAD). ? FINDINGS: ?? There are scattered areas of fibroglandular density (ACR BI-RADS breast ?? composition Category b). ? There are no significant masses, abnormal calcifications, or other ?? abnormalities. ? MM/MM tomosynthesis screening BI ?? IMPRESSION: ?? No mammographic evidence of malignancy. ? ASSESSMENT: ? BI-RADS BI-RADS 1 - Negative ? RECOMMENDATION: ?? Routine annual mammography screening. ? 1 year F/U ? This examination should not preclude the clinical evaluation of a ?? suspicious palpable abnormality. ? This patient's information was entered into a reminder system with a ?? target due date for their next mammogram. ? Electronically signed by: ??Jaimie Nunes DO ??01/29/2024 08:55 AM EDT ? Dictated By: ?Jaimie Nunes DO ? Signed By: ?<Electronically signed by Jaimie Nunes, DO in OV> ? 01/29/24 0855 ? DD/ 1530 ? TD/TT: 01/15/24 1544 ? Archivist: ? Procedure Note Abigail, Image - 01/29/2024 [place] [address] [place], [place] [address] Mammography Report Signed Patient: Destini Melchor#: [id number] : 1960Acct:[id number] Age/Sex: 63 / FADM Date: 01/15/24 Loc: [facility]ANC[facility] Attending Dr: Gosia Schilling MD Ordering Physician: Gosia Schillingesults: 1Negative Date of Service: 01/15/24Follow Up: 1 Year From Orig inal Mammogram Procedure(s): MM tomosynthesis screening BI Accession Number(s): [id number] cc: Gosia Schilling MD EXAMINATION: MM SCREENING DIGITAL BREAST TOMOSYNTHESIS, BILATERAL CLINICAL INFORMATION: Screening. Asymptomatic. COMPARISON: Mammography: Comparison is made with available priors TECHNIQUE: Digital breast mammography with tomosynthesis is performed in both the craniocaudal and mediolateral oblique views along with computer-aided detection (CAD). FINDINGS: There are scattered areas of fibroglandular density (ACR BI-RADS breast composition Category b). There are no significant masses, abnormal calcifications, or other abnormalities. MM/MM tomosynthesis screening BI IMPRESSION: No mammographic evidence of malignancy. ASSESSMENT: BI-RADS BI-RADS 1 - Negative RECOMMENDATION: Routine annual mammography screening. 1 year F/U This examination should not preclude the clinical evaluation of a suspicious palpable abnormality. This patient's information was entered into a reminder system with a target due date for their next mammogram. Electronically signed by: Jaimie Nunes DO 01/29/2024 08:55 AM EDT RP Dictated By: Jaimie Nunes DO Signed By: <Electronically signed by Jaimie Nunes DO in OV> 01/29/24 0855 DD/ 1530 TD/TT: 01/15/24 1544 Archivist: Gosia Schilling MD IMG BI PROCEDURES Final Result * (ABNORMAL) Hm Colonoscopy (05/29/2020) Colonoscopy Abnormal(A ) Normal 05/29/2020 Historical Provider HEALTH MAINTENANCE Final Result from Last 3 Months or Most Recently Relevant to Health Maintenance Insurance [facility] [facility] H[facility] Care Teams Reproducer Relationship Specialty Start Date End Date Gosia Schilling MD [address] [place] [phone] PCP - General Family Medicine 05/04/18
--- OUTSIDE RECORDS SUMMARY | 2024-06-10 16:23 | XMS_ITS | Encounter Summary ---
Author Organization [employer] Address [address] [place] [address] [address] [place] [address] Care Team Providers Care Ring Spinner Name Role Phone Gosia Schilling MD Primary Care Provider [phone] Reason for Visit * Reason Onset Date Comments Paperwork/Forms 06/01/2024 Encounter Details Date Type Department Care Team ([facility] st Contact Info) Description 06/01/[address] [facility] MEDICINE [address] [place], [place] [phone] Vilma Lazcano RN [address] [place] [address] Paperwork/Forms Social History Tobacco Use Types Packs/Day Years [...] AM EDT documented as of this encounter Miscellaneous Notes * Telephone Encounter - Vilma Lazcano RN - 2024 9:28 AM EST Faxed signed form back as below * Telephone Encounter - Vilma Lazcano RN - 06/01/2024 2:31 PM EST Received fax from [facility] informing PCP of possible med interaction between celecoxib and diclofenac. Form placed on PCP's desk. Pending review. documented in this encounter Plan of Treatment Not on file documented as of this encounter Visit Diagnoses Not on filedocumented in this encounter Additional Health Concerns Assessment Noted Time PHQ-9 Depression Total Score: 6 04/25/20 24 1:24 PM EST documented as of this encounter Care Teams Ring Spinner Relationship Specialty Start Date End Date Gosia Schilling MD [address] [place] [phone] PCP - General Family Medicine 05/04/18 documented as of this encounter
--- OUTSIDE RECORDS SUMMARY | 2024-06-10 16:23 | XMS_ITS | Encounter Summary ---
Author Organization [employer] Address [address] [place] [address] 7t [place] [address] Care Team Providers Care Trimmer Machine Name Role Phone Gosia Schillnig MD Primary Care Provider [phone] Encounter Details Date Type Department Care Team (Late st Contact Info) Description 06/27/2022 Orders Only [facility] MEDICINE [address] [place], [place] [phone] Gosia Schilling MD [address] [place], [place] [phone] Nail lesion (Primary Dx); Sjogren syndrome, unspecified (CMS/HCC) Social History Tobacco Use Types Packs/Day Years Used Date Smoking Tobacco: Never Smokeless Tobacco: Never Comments Unknown Sex and Gender Information Value [...] Date/Time Associated Diagnosis Comments T4, FREE Routine 04/03/2023 8:15 AM EST Nail lesion APTT Routine 07/07/2022 1:22 PM EST Nail lesion PROTHROMBIN TIME-INR Routine 07/07/2022 1:22 PM EST Nail lesion HIGH SENSITIVITY TROPONIN I Routine 07/07/2022 12:11 PM EST Nail lesion CBC WITH AUTO DIFFERENTIAL Routine 07/07/2022 12:11 PM EST Nail lesion IRON AND TOTAL IRON BINDING CAPACITY Routine 07/07/2022 12:11 PM EST Nail lesion B TYPE NATRIURETIC PEPTIDE (BNP) Routine 07/07/2022 12:11 PM EST Nail lesion COMPREHENSIVE METABOLIC PANEL Routine 07/07/2022 12:11 PM EST Nail lesion documented in this encounter Results * T4, Free (04/03/2023 8:15 AM EST) Free T4 (Free Thyroxine) 0.90 0.71 - 1.85 ng/dL [facility] 04/03/2023 8:15 AM EST 04/03/2023 11:12 AM EST Gosia Schilling MD LAB BLOOD ORDERABLES Final Resul t Performing Organization Address City/[facility]/ZIP Co de Phone Number [facility] [address] [place] [address] [phone] * APTT (07/07/2022 1:22 PM EST) Partial Thromboplastin Time 34.0 26.0 - 36.4 SEC [facility] 07/07/2022 1:22 PM EST 07/07/2022 1:24 PM EST Narrative [facility] - 07/07/2022 1:53 PM EST QNS;SHORT DRAW [facility] External Provider LAB BLO OD ORDERABLES Final Result Performing Organization Address City/[facility]/ZIP Co de Phone Number [facility] [address] [place] [phone] * Prothrombin Time-INR (07/07/2022 1:22 PM EST) Prothrombin Time 11.2 10.0 - 13.1 SEC [facility] INTERNATIONAL NORM RATIO 1.0 0.9 - 1.1 [facility] Comment:INTERNATIONAL NORMAL IZED RATIO (INR) REFERENCE RANGES Reference RangeFor patients not on anticoagulant therapy: 0.9 - 1.1INR ranges for oral anticoagulanttherapy:For prevention and treatment of venous thrombosis and pulmonary embolism: 2.0 - 3.0For acute myocardial infarction with aspirin therapy: 2.0 - 3.0For acute myocardial infarction without aspirin therapy: 3.0 - 4.0For patients with mechanical prosthetic heart valves: 2.5 - 3.5 07/07/2022 1:22 PM EST 07/07/2022 1:24 PM EST Narrative [facility] - 07/07/2022 1:53 PM EST QNS;SHORT DRAW [facility] External Provider LAB BLO OD ORDERABLES Final Result Performing Organization Address [facility]/ZIP Co de Phone Number [facility] [address] [place] [phone] * Iron And Total Iron Binding Capacity (07/07/2022 12:11 PM EST) Pathologist [facility] Iron 74 30 - 160 mcg/dL [facility] Total Iron Binding Capacity 383 228 - 428 mcg/dL [facility] Percent Iron Saturation 19 15 - 50 % [facility] Unsaturated Iron Binding 309 ug/dL [facility] 07/07/2022 12:1 1 PM EST 07/08/2022 4:18 PM EST [facility] External Provider LAB BLO OD ORDERABLES Final Result Performing Organization Address [facility] Co de Phone Number [facility] [address] [place] [phone] * HIGH SENSITIVITY TROPONIN I (07/07/2022 12:11 PM EST) TROPONIN I HIGH SENSITIVITY <3.5 <3.5 - 17.0 ng/L [facility] Comment:The [place] high sens itivity Troponin-I results should beused in conjunction with other diagnostic information suchas ECG, clinical observations and information, and patientsymptoms to aid in the diagnosis of [place]. 07/07/2022 12:1 1 PM EST 07/07/2022 12:14 PM EST [facility] External Provider LAB BLO OD ORDERABLES Final Result Performing Organization Address [facility] Co de Phone Number [facility] [address] [place] [phone] * B Type Natriuretic Peptide (BNP) (07/07/2022 12:11 PM EST) [facility] B Type Natriuretic Peptide <10 <100 pg/mL [facility] Comment:For those patients w ho are being treated with Natrecor(nesiritide, recombinant BNP), BNP testing should beperformed at least two hours post treatment in order toensure that only endogenous levels of BNP are detected. 07/07/2022 12:1 1 PM EST 07/07/2022 12:14 PM EST [facility] External Provider LAB BLO OD ORDERABLES Final Result Performing Organization Address [facility] de Phone Number [facility] [address] [place] [phone] * (ABNORMAL) Comprehensive Metabolic Panel (07/07/2022 12:11 PM EST) Pathologist [facility] Sodium 141 135 - 145 mmol/L [facility] Potassium 4.4 3.3 - 5.1 mmol/L [facility] Chloride 107 96 - 108 mmol/L [facility] Carbon Dioxide 28 22 - 29 mmol/L [facility] Anion Gap 10(L) 12 - 20 [facility] Urea Nitrogen (BUN) 11 9 - 16 mg/dL [facility] Creatinine, Serum 0.90 0.5 - 1.4 mg/dL [facility] Creatinine Clr Calc Pharmacy 63.7 [facility] Comment:Provided height and weight: 157.48 cm,76.657 kg.eGFR (calculated from the MDRD study equation) and eCrCl(calculated from the Cockcroft-Gault equation) are based ondifferent parameters and may not yield comparable results.If eCrCl result is absurd, please check patient'sheight/weight. Estimated Glomerular Filt Rate >60 [facility] Comment:NOTE: For -Am erican individuals, multiply the result by 1.210.Chronic Kidney Disease: Estimated GFR < 60 mL/min/1.03g6Vwyieg Kidney Disease: Estimated GFR < 15 mL/min/1.73m2 Glucose 100 60 - 115 mg/dL [facility] Calcium 9.1 8.4 - 10.2 mg/dL [facility] Bilirubin, Total 0.4 0.0 - 1.0 mg/dL [facility] Aspartate Amino Transferase 27 5 - 31 U/L [facility] Alanine Aminotransferase 38(H) 0 - 31 U/L [facility] Total Protein 7.6 6.5 - 8.0 g/dL [facility] Albumin Level 4.3 3.5 - 5.0 g/dL [facility] Alkaline Phosphatase 84 39 - 117 U/L [facility] 07/07/2022 12:1 1 PM EST 07/07/2022 12:14 PM EST [facility] External Provider LAB BLO OD ORDERABLES Final Result [facility] [address] [place] [phone] * (ABNORMAL) CBC auto differential (07/07/2022 12:11 PM EST) White Blood Count 4.7(L) 4.8 - 10.8 X10*3/uL [facility] Red Blood Count 4.70 4.20 - 5.50 X10*6/uL [facility] Hemoglobin 12.8 12.0 - 16.0 g/dl [facility] Hematocrit 40.5 37.0 - 47.0 % [facility] Mean Corpuscular Volume 86.2 80.0 - 98.0 fL [facility] Mean Corpuscular Hemoglobin 27.2 27.0 - 33.0 pg [facility] Mean Corpuscular HGB Conc 31.6 31.0 - 35.0 g/dl [facility] Red Cell Distribution Width 13.0 11.0 - 16.0 % [facility] Platelet Count 276 160 - 400 X10*3/uL [facility] Mean Platelet Volume 9.4 9.4 - 12.3 fL [facility] Neutrophils Percent Auto 48.6 45 - 73 % [facility] Imm Gran Pct Auto 0.2 0.0 - 0.4 % [facility] Lymphocytes Percent Auto 38.2 20 - 40 % [facility] Monocytes Percent Auto 10.2 2 - 11 % [facility] Eosinophils Percent Auto 2.6 0 - 4 % [facility] Basophils Percent Auto 0.2 0 - 2 % [facility] NRBC Pct Auto 0.0 0.0 - 0.2 /100WBC [facility] Neutrophils Absolute Auto 2.3 2.0 - 8.3 x10*3/uL [facility] Imm Gran Abs Auto 0.01 0.00 - 0.03 X10*3/uL [facility] Lymphocytes Absolute Auto 1.8 1.2 - 4.9 X10*3/uL [facility] Monocytes Absolute Auto 0.5 0.1 - 1.2 X10*3/uL [facility] Eosinophils Absolute Auto 0.1 0.0 - 0.4 X10*3/uL [facility] Basophils Absolute Auto 0.0 0.0 - 0.2 X10*3/uL [facility] NRBC Abs Auto 0.000 0.0 - 0.012 X10*3/uL [facility] 07/07/2022 12:1 1 PM EST 07/07/2022 12:14 PM EST us [facility] External Provider LAB BLO OD ORDERABLES Final Result [facility] [address] [place] [phone] documented in this encounter Visit Diagnoses Diagnosis Nail lesion- Primary Sjogren syndrome, unspecified (CMS/HCC) documented in this encounter Care Teams Trimmer Machine Relationship Specialty Start Date End Date Gosia Schilling MD [address] [place] [phone] PCP - General Family Medicine 05/04/18 documented as of this encounter
--- OUTSIDE RECORDS SUMMARY | 2024-06-10 16:23 | XMS_ITS | Encounter Summary ---
Author Organization [employer] Address [address] [facility] 7t [place] [address] Care Team Providers Care Network Planner Name Role Phone Gosia Schilling MD Primary Care Provider [phone] Encounter Details Date Type Department Care Team ([facility] st Contact Info) Description 02/12/2023 Telephone [facility] MEDICINE [address] [place], [place] [phone] Gosia Schilling MD [address] [place], [place] [phone] Social History Tobacco Use Types Packs/Day Years Used Date Smoking Tobacco: Never Passive Smoke Exposure: Never Smokeless Tobacco: Never Depression Answer Date Recorded Patient Health Questionnaire-9 Score 18 09/23/2022 Housing Stability Answer Date Recorded What is your housing situation today? I have marah belcher 02/08/[address] you li ve. Do you have problems with any of the following? None of the above 02/08/2023 Food Insecurity Answer Date Recorded Within the past 12 months, y ou worried that your food would run out before you got money to buy more: Never True 02/08/2023 Within the past 12 months,th e food you bought just didn't last and you didn't have enough money to get more: Never True 12/2022 Transportation Answer Date Recorded In the past 12 months, has l ack of transportation kept you from medical appts, meetings, work or from getting things needed for daily living? No 02/08/2023 Utilities Answer Date Recorded In the past 12 months, has t he electric, gas, oil or water company threatened to shut off services in your home? I am not sure 02/08/2023 Depression Answer Date Recorded Patient Health Questionnaire-2 [...] documented as of this encounter Care Teams Network Planner Relationship Specialty Start Date End Date Gosia Schilling MD [address] [place] [phone] PCP - General Family Medicine 05/04/18 documented as of this encounter
[2024-06-10 16:52] LABS: MANUAL DIFF FLAG NO
[2024-06-10 17:04] LABS: Basophils Percent Auto 0.4 % (0-2); Eosinophils Absolute Auto 0.1 X10*3/uL (0.0-0.4); Eosinophils Percent Auto 2.6 % (0-4); Hematocrit 37.6 % (37.0-47.0); Imm Gran Abs Auto 0.01 X10*3/uL (0.00-0.03); Imm Gran Pct Auto 0.2 % (0.0-0.4); Lymphocytes Absolute Auto 1.8 X10*3/uL (1.2-4.9); Mean Corpuscular HGB Conc 31.9 g/dl (31.0-35.0); Mean Corpuscular Hemoglobin 26.9 pg (27.0-33.0); Mean Corpuscular Volume 84.3 fL (80.0-98.0); Mean Platelet Volume 9.7 fL (9.4-12.3); Monocytes Absolute Auto 0.3 X10*3/uL (0.1-1.2); Monocytes Percent Auto 6.4 % (2-11); Neutrophils Absolute Auto 2.8 x10*3/uL (2.0-8.3); Neutrophils Percent Auto 55.4 % (45-73); Platelet Count 270 X10*3/uL (160-400); Red Blood Count 4.46 X10*6/uL (4.20-5.50); Red Cell Distribution Width 13.2 % (11.0-16.0)
[2024-06-10 17:35] LABS: Cholesterol 191 mg/dL (<200); HDL Cholesterol 51 mg/dL (>40); LDL Cholesterol Calculated 103 mg/dL (<100); Triglycerides 187 mg/dL (<150)
[2024-06-10 18:22] LABS: Reflex LDLD? No
[2024-06-10 18:37] LABS: Creatinine Urine 32.56 mg/dL; Microalbumin Urine < 5.0 mg/L
[2024-06-10 18:41] LABS: Erythrocyte Sedimentation Rate 10 MM/HR (0-20)
[2024-06-10 20:02] LABS: Alanine Aminotransferase 26 U/L (0-31); Albumin Level 4.1 g/dL (3.5-5.0); Alkaline Phosphatase 97 U/L (39-117); Anion Gap 17 (12-20); Aspartate Amino Transferase 25 U/L (5-31); Bilirubin Total 0.2 mg/dL (0.0-1.0); Blood Urea Nitrogen 13 mg/dL (9-16); C Reactive Protein < 0.10 mg/dL (< or = 0.50); Calcium 9.1 mg/dL (8.4-10.2); Carbon Dioxide 23 mmol/L (22-29); Chloride 104 mmol/L (96-108); Estimated Glomerular Filt Rate > 60; Glucose Random 107 mg/dL (60-115); Sodium 140 mmol/L (135-145); Total Protein 8.1 g/dL (6.5-8.0)
[2024-06-11 08:46] LABS: HBS Num1 > 1000.00 mIU/mL (0-7.99); HBc Num1 0.84 S/CO (0.00-0.79); HBsAGNum1 0.38 S/CO (0.00-0.99); Hepatitis B Surface Antigen Negative (Negative); ~HepC Num1 0.18 S/CO (0.00-0.79); ~Hepatitis B Surface Antibody REACTIVE (Nonreactive); ~Hepatitis C Antibody Nonreactive (Nonreactive)
[2024-06-11 13:55] LABS: HBc Num2 0.13 S/CO; HBc Num3 0.13 S/CO; Hepatitis B Core Antibody Nonreactive (Nonreactive)
[2024-06-13 10:18] LABS: Complement C3 149 mg/dL (83-193)
[2024-06-13 16:38] LABS: TS Negative Control Passed; TS Panel A 0; TS Panel B 1; TS Positive Control Passed; TSpotTB Negative (Negative)
== END 2024-06-10 16:20 | disposition home or self-care (01) ==
LOC: HO.XRAY 16:19
PROVIDERS: PCP Family Medicine; Visit Provider Internal Medicine Rheumatology
DX: M35.00 Sjogren syndrome, unspecified (principal); I10 Essential (primary) hypertension; K76.0 Fatty (change of) liver, not elsewhere classified; M17.0 Bilateral primary osteoarthritis of knee; M79.643 Pain in unspecified hand
CPT/HCPCS: 36415; 73130; 73560; 80053; 80061; 82570; 85025; 85652; 86140; 86160; 86481; 86704; 86706; 86803; 87340

== ENCOUNTER → 2024-06-10 16:56 | Outpatient (BNV) | payer BC, SELFPAY | PROVIDERS: PCP Family Medicine; Visit Provider Radiology Diagnostic Radiology | DX: M79.642 Pain in left hand (principal); M79.641 Pain in right hand; M17.0 Bilateral primary osteoarthritis of knee | CPT/HCPCS: 73130; 73560 ==

== ENCOUNTER 2024-06-22 09:59 | Outpatient (AMB) | payer BC, SELFPAY ==
--- NOTE | 2024-06-22 10:14 | A.OFFVIS_ITS ---
Vital Signs 06/22/24 10:15 Height 5 ft 2 in Weight 180 lb 6 oz BMI 33.0 BP 110/80 Blood Pressure Location Lt brachial Position Sitting Pulse 97 Pulse Source Pulse Oximeter Pulse Oximetry (%) 98 Oxygen Delivery Method Room Air Intake Visit Reasons: follow up Intake Note: Pt present today Arthritis. Accompanied by: Self / Same As Patient Allergies latex [LATEX] Allergy (Intermediate, Verified 06/22/24 10:15) RASH omeprazole Allergy (Intermediate, Verified 06/22/24 10:15) Vomiting famotidine [Pepcid] Allergy (Mild, Verified 06/22/24 10:15) Vomiting HPI HPI follow up: Details: MS kar. Needs assistance with ADLs having difficulty using hands. Knee pain improved on diclofenac. PFSH Medical History Iron deficiency anemia Bleeding hemorrhoids Periumbilical abdominal pain Hx of endometriosis Autoimmune disorder Insomnia Pre-hypertension Microcytic anemia Back pain Arthritis Hx of migraines Interstitial cystitis Hepatic steatosis Irritable bowel syndrome with constipation GERD (gastroesophageal reflux disease) Sjogrens syndrome Surgical History H/O esophagogastroduodenoscopy History of bunionectomy of both great toes Hx of cystoscopy History of History of hysterectomy History of colonoscopy Hx of hemorrhoidectomy Family History Father Cirrhosis Mother Bone cancer HTN (hypertension) Migraine Diabetes mellitus Son GERD (gastroesophageal reflux disease) Daughter GERD (gastroesophageal reflux disease) Paternal Grandfather Diabetes mellitus Paternal Grandmother Emphysema lung Social History Household Members: Significant Other Alcohol intake: current Alcohol intake frequency: other Patient Tobacco Use Status: Never used Tobacco e-Cigarette/Vaping Use: Never Used Female Reproductive History Menstrual Age of Menarche: 14 Review of Systems Const All systems reviewed & are unremarkable except as noted in HPI and below Physical Exam Vital Signs: Last Vital Signs Pulse 97 06/22/24 10:15 BP 110/80 06/22/24 10:15 Pulse Ox 98 06/22/24 10:15 Oxygen Delivery Method Room Air 06/22/24 10:15 BMI result Body Mass Index 33.0 Const Other: General: Comfortable CVS: RRR Respiratory: clear to auscultation bilaterally. Good respiratory effort Skin: No lesions seen MSK: PIP knees bilateral hands. Synovitis left 2nd MCP and PIP. [place] nodes present. Left 2nd PIP is swollen. 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 Good range of motion of upper extremities. Knee flexion 120 degrees with valgus deformity noted. Assessment & Plan Assessment & Plan (1) Sjogrens syndrome: Comment: With sicca symptoms, inflammatory arthritis KARYN 1:320, rheumatoid factor and SSA antibody. Dry mouth is controlled on pilocarpine. Dry eyes not controlled with OTC refresh. She has had minimal benefit with controlling inflammatory arthritis with diclofenac. X-rays of bilateral hands were normal. I will prescribe short course of prednisone. Code(s): M35.00 - Sjogren syndrome, unspecified Category: Medical Qualifiers: Sjogren's organ involvement: unspecified organ involvement Qualified Code(s): M35.00 - Sicca syndrome, unspecified Plan: Hold diclofenac 50 mg twice a day while on prednisone. She is aware that if she needs diclofenac after prednisone course has been completed to help control knee pain she can resume it SPEP ordered for Sjogren's syndrome disease monitor I will consider hydroxychloroquine next visit if symptoms do not improve with changing NSAID OT ordered to help increase hand strength. Patient has list from insurance and we will try to arrange OT Return to clinic in 3 months (2) Bilateral primary osteoarthritis of knee: Comment: Clinical diagnosis with valgus deformity. X-rays normal. We discussed conservative management. Code(s): M17.0 - Bilateral primary osteoarthritis of knee Category: Medical Plan: PT ordered for knee strengthening. Patient would like to have PT locally. Encouraged patient to schedule PT. Encouraged weight loss. Recommend contacting PCP for online affiliate marketing manager evaluation and to consider weight loss medications she can resume diclofenac 50 mg twice a day after completing prednisone course if knee pain returns Return to clinic in 3 months (3) Hand weakness: Code(s): R29.898 - Other symptoms and signs involving the musculoskeletal system Category: Medical Plan: Occupational therapy ordered Return to clinic in 3 months (4) Raynaud disease without gangrene: Comment: Affecting hands managed with conservative management Code(s): I73.00 - Raynaud's syndrome without gangrene Category: Medical Plan: Continue conservative management (5) Osteoarthritis of hands, bilateral: Code(s): M19.041 - Primary osteoarthritis, right hand; M19.042 - Primary osteoarthritis, left hand Category: Medical Qualifiers: Osteoarthritis type: primary Qualified Code(s): M19.041 - Primary osteoarthritis, right hand; M19.042 - Primary osteoarthritis, left hand Plan: OT ordered Return to clinic in 3 months Medications: New prednisone Take 3 tablets daily 1 week, 2 tablets daily 1 week, 1 tablet daily 1 week then stop. Take prednisone with food. Hold diclofenac while on prednisone. 5 mg PO DIRECTED 42 tabs 0RF Coding Level of Care Code Est Pt Level 4 (39074) Complex EM visit Add On G2211 Diagnoses Sjogren's syndrome, with unspecified organ involvement M35.00 Sjogren's organ involvement: unspecified organ involvement Bilateral primary osteoarthritis of knee M17.0 Hand weakness R29.898 Raynaud disease without gangrene I73.00 Primary osteoarthritis of both hands M19.041; M19.042 Osteoarthritis type: primary
[2024-06-22 10:15] VITALS: BP 110/80; PULSE 97; O2SAT 98; BMI 33.0
--- OUTSIDE RECORDS SUMMARY | 2024-06-22 10:30 | XMS_ITS | Encounter Summary ---
Author Organization [employer] Address [address] [facility] 7[address] [place] [address] Care Team Providers Care Mental Health Aides Teacher Name Role Phone Gosia Schilling MD Primary Care Provider [phone] Reason for Visit * Reason Comments Med Refill Encounter Details Date Type Department Care Team (Late st Contact Info) Description 02/04/2024 Refill [facility] MEDICINE [address] [place], [place] [phone] Gosia Schilling MD [address] [place], [place] [phone] Social History Tobacco Use Types Packs/Day Years [...] documented as of this encounter Care Teams Mental Health Aides Teacher Relationship Specialty Start Date End Date Gosia Schilling MD [address] [place] [phone] PCP - General Family Medicine 05/04/18 documented as of this encounter
--- OUTSIDE RECORDS SUMMARY | 2024-06-22 10:30 | XMS_ITS | Encounter Summary ---
Author Organization [employer] Address [address] [place] [address] [address] [place] [address] Care Team Providers Care Biological Chemist Name Role Phone Gosia Schilling MD Primary Care Provider [phone] Encounter Details Date Type Department Care Team (Late st Contact Info) Description 06/27/[address] [facility] [address] [place], [place] [phone] Gosia Schilling MD [address] [place], [place] [phone] Nail lesion (Primary Dx); Sjogren syndrome, unspecified [...] (Free Thyroxine) 0.90 0.71 - 1.85 ng/dL [facility] 04/03/2023 8:15 AM EST 04/03/2023 11:12 AM EST Gosia Schilling MD LAB BLOOD ORDERABLES Final Resul t Performing Organization Address City/[facility]/ZIP Co de Phone Number [facility] [address] [place] [address] [phone] * APTT (07/07/2022 1:22 PM EST) Partial Thromboplastin Time 34.0 26.0 - 36.4 SEC [facility] 07/07/2022 1:22 PM EST 07/07/2022 1:24 PM EST Narrative [facility] - 07/07/2022 1:53 PM EST QNS;SHORT DRAW [facility] External Provider LAB BLO OD ORDERABLES Final Result Performing Organization Address City/[facility]/ZIP Co de Phone Number [facility] [address] [place] [phone] * Prothrombin Time-INR (07/07/2022 1:22 PM EST) Prothrombin Time 11.2 10.0 - 13.1 SEC [facility] INTERNATIONAL NORM RATIO 1.0 0.9 - 1.1 [facility] Comment:INTERNATIONAL NORMAL IZED RATIO (INR) REFERENCE [...] PM EST 07/07/2022 1:24 PM EST Narrative [facility] - 07/07/2022 1:53 PM EST QNS;SHORT DRAW [facility] External Provider LAB BLO OD ORDERABLES Final Result Performing Organization Address [facility]/ZIP Co de Phone Number [facility] [address] [place] [phone] * Iron And Total Iron Binding Capacity (07/07/2022 12:11 PM EST) Pathologist [facility] Iron 74 30 - 160 mcg/dL [facility] Total Iron Binding Capacity 383 228 - 428 mcg/dL [facility] Percent Iron Saturation 19 15 - 50 % [facility] Unsaturated Iron Binding 309 ug/dL [facility] 07/07/2022 12:1 1 PM EST 07/08/2022 4:18 PM EST [facility] External Provider LAB BLO OD ORDERABLES Final Result Performing Organization Address [facility] Co de Phone Number [facility] [address] [place] [phone] * HIGH SENSITIVITY TROPONIN I (07/07/2022 12:11 PM EST) TROPONIN I HIGH SENSITIVITY <3.5 <3.5 - 17.0 ng/L [facility] Comment:The [place] high sens itivity Troponin-I results should beused in conjunction with other diagnostic information suchas ECG, clinical observations and information, and patientsymptoms to aid in the diagnosis of [place]. 07/07/2022 12:1 1 PM EST 07/07/2022 12:14 PM EST [facility] External Provider LAB BLO OD ORDERABLES Final Result Performing Organization Address [facility] Co de Phone Number [facility] [address] [place] [phone] * B Type Natriuretic Peptide (BNP) (07/07/2022 12:11 PM EST) [facility] B Type Natriuretic Peptide <10 <100 pg/mL [facility] Comment:For those patients w ho are being treated with Natrecor(nesiritide, recombinant BNP), BNP testing should beperformed at least two hours post treatment in order toensure that only endogenous levels of BNP are detected. 07/07/2022 12:1 1 PM EST 07/07/2022 12:14 PM EST [facility] External Provider LAB BLO OD ORDERABLES Final Result Performing Organization Address [facility] de Phone Number [facility] [address] [place] [phone] * (ABNORMAL) Comprehensive Metabolic Panel (07/07/2022 12:11 PM EST) Pathologist [facility] Sodium 141 135 - 145 mmol/L [facility] Potassium 4.4 3.3 - 5.1 mmol/L [facility] Chloride 107 96 - 108 mmol/L [facility] Carbon Dioxide 28 22 - 29 mmol/L [facility] Anion Gap 10(L) 12 - 20 [facility] Urea Nitrogen (BUN) 11 9 - 16 mg/dL [facility] Creatinine, Serum 0.90 0.5 - 1.4 mg/dL [facility] Creatinine Clr Calc Pharmacy 63.7 [facility] Comment:Provided height and weight: 157.48 cm,76.657 kg.eGFR (calculated from the MDRD study equation) and eCrCl(calculated from the Cockcroft-Gault equation) are based ondifferent parameters and may not yield comparable results.If eCrCl result is absurd, please check patient'sheight/weight. Estimated Glomerular Filt Rate >60 [facility] Comment:NOTE: For -Am erican individuals, multiply the result by 1.210.Chronic Kidney Disease: Estimated GFR < 60 mL/min/1.14w0Pegpry Kidney Disease: Estimated GFR < 15 mL/min/1.73m2 Glucose 100 60 - 115 mg/dL [facility] Calcium 9.1 8.4 - 10.2 mg/dL [facility] Bilirubin, Total 0.4 0.0 - 1.0 mg/dL [facility] Aspartate Amino Transferase 27 5 - 31 U/L [facility] Alanine Aminotransferase 38(H) 0 - 31 U/L [facility] Total Protein 7.6 6.5 - 8.0 g/dL [facility] Albumin Level 4.3 3.5 - 5.0 g/dL [facility] Alkaline Phosphatase 84 39 - 117 U/L [facility] 07/07/2022 12:1 1 PM EST 07/07/2022 12:14 PM EST [facility] External Provider LAB BLO OD ORDERABLES Final Result [facility] [address] [place] [phone] * (ABNORMAL) CBC auto differential (07/07/2022 12:11 PM EST) White Blood Count 4.7(L) 4.8 - 10.8 X10*3/uL [facility] Red Blood Count 4.70 4.20 - 5.50 X10*6/uL [facility] Hemoglobin 12.8 12.0 - 16.0 g/dl [facility] Hematocrit 40.5 37.0 - 47.0 % [facility] Mean Corpuscular Volume 86.2 80.0 - 98.0 fL [facility] Mean Corpuscular Hemoglobin 27.2 27.0 - 33.0 pg [facility] Mean Corpuscular HGB Conc 31.6 31.0 - 35.0 g/dl [facility] Red Cell Distribution Width 13.0 11.0 - 16.0 % [facility] Platelet Count 276 160 - 400 X10*3/uL [facility] Mean Platelet Volume 9.4 9.4 - 12.3 fL [facility] Neutrophils Percent Auto 48.6 45 - 73 % [facility] Imm Gran Pct Auto 0.2 0.0 - 0.4 % [facility] Lymphocytes Percent Auto 38.2 20 - 40 % [facility] Monocytes Percent Auto 10.2 2 - 11 % [facility] Eosinophils Percent Auto 2.6 0 - 4 % [facility] Basophils Percent Auto 0.2 0 - 2 % [facility] NRBC Pct Auto 0.0 0.0 - 0.2 /100WBC [facility] Neutrophils Absolute Auto 2.3 2.0 - 8.3 x10*3/uL [facility] Imm Gran Abs Auto 0.01 0.00 - 0.03 X10*3/uL [facility] Lymphocytes Absolute Auto 1.8 1.2 - 4.9 X10*3/uL [facility] Monocytes Absolute Auto 0.5 0.1 - 1.2 X10*3/uL [facility] Eosinophils Absolute Auto 0.1 0.0 - 0.4 X10*3/uL [facility] Basophils Absolute Auto 0.0 0.0 - 0.2 X10*3/uL [facility] NRBC Abs Auto 0.000 0.0 - 0.012 X10*3/uL [facility] 07/07/2022 12:1 1 PM EST 07/07/2022 12:14 PM EST [facility] External Provider LAB BLO OD ORDERABLES Final Result [facility] [address] [place] [phone] documented in this encounter Visit Diagnoses Diagnosis Nail lesion- Primary Sjogren syndrome, unspecified (CMS/HCC) documented in this encounter Care Teams Biological Chemist Relationship Specialty Start Date End Date Gosia Schilling MD [address] [place] [phone] PCP - General Family Medicine 05/04/18 documented as of this encounter
--- OUTSIDE RECORDS SUMMARY | 2024-06-22 10:30 | XMS_ITS | Clinical Summary ---
Author Organization [employer] Address [address] [place] [address] [address] [place] [address] Care Team Providers Care Technical Project Lead Name Role Phone Gosia Schilling MD Primary Care Provider [phone] Allergies Active Allergy Reactions Criticality Noted Date [...] 6:07 PM EST): - previously followed by [facility], last seen in May 2022 - continue Linzess - continue fiber-rich diet - last colonoscopy by Dr. Trejo on 05/29/20. Recommended to repeat in 3 years due to marginal prep Assessment & Plan (04/03/2023 6:46 AM EST): - followed by [facility] - continue Linzess - continue fiber-rich diet Assessment & Plan (10/03/2022 5:56 PM EDT): - followed by [facility] - continue Linzess - continue fiber-rich diet Atrophic vaginitis 10/03/2022 Assessment & Plan (05/01/2024 6:07 PM EST): - following with [facility], last seen in September 2023 - s/p hysterectomy - Continue Replens for moisturizing and lubricants for intimacy as needed. Assessment & Plan (04/03/2023 6:47 AM EST): - following with [facility], last seen in July 2022 - s/p hysterectomy - Continue Replens for moisturizing and lubricants for intimacy as needed. Assessment & Plan (10/03/2022 5:58 PM EDT): - following with [facility], last seen in July 2022 - s/p [...] to excessive bleeding from hemorrhoids -Following with [facility], last seen on 07/08/22. Normal [...] to excessive bleeding from hemorrhoids -Following with [facility], last seen on 07/08/22. Normal [...] to excessive bleeding from hemorrhoids -Following with [facility], last seen on 07/08/22. Normal [...] to excessive bleeding from hemorrhoids -Following with [facility], last seen on 07/08/22. 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 previous mortgage analyst at the provider's new office -Previously taking BOBBY-2 inhitor, meloxicam 15 mg / day, held when she was having anemia secondary to bleeding hemorrhoids -Oral / dental care and biotene for dry mouth / sicca syndrome -pt is prescribed artificial tears for dry eyes -prescribed celecoxib and pilocarpine by mortgage analyst; will prescribe while she is waiting for another appointment with her mortgage analyst -f/u in 3 months Assessment & Plan (12/10/2023 9:50 AM EDT): -followed by [facility] -Previously taking BOBBY-2 inhitor, meloxicam 15 mg / day, held when she was having anemia secondary to bleeding hemorrhoids -Oral / dental care and biotene for dry mouth / sicca syndrome -pt is prescribed artificial tears for dry eyes -prescribed celecoxib and pilocarpine by mortgage analyst; will prescribe while she is waiting for another appointment with her mortgage analyst -f/u in 3 months Assessment & Plan [...] Plan (10/03/2022 5:52 PM EDT): -followed by [facility], -Previously taking BOBBY-2 inhitor, meloxicam 15 [...] (05/01/2024 6:07 PM EST): - following with [facility], last seen on 12/03/23 - continue tamsulosin - previously on oxybutynin which discontinued due to dry mouth Assessment & Plan (12/10/2023 9:51 AM EDT): - following with [facility], last seen on 12/03/23 - continue tamsulosin - previously on oxybutynin which discontinued due to dry mouth Assessment & Plan (09/13/2023 3:30 PM EDT): - following with [facility], last seen in October 2022 - continue oxybutynin and tamsulosin Assessment & Plan (04/03/2023 6:47 AM EST): - following with [facility], last seen in October 2022 - continue oxybutynin and tamsulosin Assessment & Plan (10/03/2022 5:44 PM EDT): - following with [facility], last seen in Mar 2022 - continue oxybutynin and tamsulosin Gastroesophageal reflux disease 12/29/2011 Assessment & Plan (04/25/2024 4:35 PM EST): - s/p EGD on 05/29/20 at [facility], chronic inactive inflammation, H. Pylori negative - seen by Azul CLARK on 05/16/22, Rx famotidine - continue famotidine 40 mg at bedtime prn Assessment & Plan (04/03/2023 6:46 AM EST): - s/p EGD on 05/29/20 at [facility], chronic inactive inflammation, H. Pylori negative - seen by Azul CLARK on 05/16/22, Rx famotidine - continue famotidine 40 mg at bedtime prn Assessment & Plan (10/03/2022 5:41 PM EDT): - s/p EGD on 05/29/20 at [facility], chronic inactive inflammation, H. Pylori negative - [...] Encounters Date Type Department Care Team Description 06/17/2024 Telephone [facility] [address] [place] [address] Emma Quevedo MA august06/10/2024 Orders Only [facility] External Provider, [facility] 06/01/[address] [facility] [address] [place] [address] Vilma Lazcano RN Paperwork/Forms 05/13/[address] [facility] [address] [place] [address] Emma Quevedo MA 05/02/[address] [address] Gosia Schilling MD 04/25/2024 10:30 AM EST Office Visit [address] [address] Gosia Schilling MD Psychophysiological insomnia (Primary Dx); [...] seasonality, unspecified trigger 04/25/2024 Travel 04/20/[address] [address] Emma Quevedo MA chart prep 04/14/2024 Patient Outreach [address] [address] Gosia Schilling MD Pre-visit Planning (Pre-visit planning - LVM ) from Last 3 Months Immunizations Name Administration [...] 1960 HIV Screening 1960 Sigmoidoscopy 1960 Hepatitis A Vaccines (1 of 2 - [...] 06/2020, 06/15/2019, Additional history exists Lipid Panel 06/10/2029 06/10/2024, 04/04, 04/03/2023, Additional history exists DTaP/Tdap/Td Vaccines (3 - Td or Tdap) 09/23/2032 09/23/2022, 12/29/2011, 01/11/2008 Zoster Vaccines Completed 03/18/2021, 01/10/2021 Influenza Vaccine Completed 02/11/2024, , 01/23/2022, Additional history exists COVID-19 Vaccine Completed 04/25/2024, , 02/05/2022, Additional history exists Hepatitis C Screening Completed 06/10/2024 HIB Vaccines Aged Out No longer eligi [...] Procedure Name Priority Date/Time Associated Diagnosis Comments XR KNEE 1-2 VIEWS LEFT Routine 5 5:48 PM EST XR KNEE 1-2 VIEWS RIGHT Routine 06/14/2024 4:46 PM EST XR HAND 3+ VIEWS LEFT Routine 06/14/2024 12:40 PM EST XR HAND 3+ VIEWS RIGHT Routine 5 12:38 PM EST T-SPOT(R).TB Routine 06/10/2024 4:51 PM EST COMPLEMENT COMPONENT C4C Routine 06/10/2024 4:51 PM EST COMPLEMENT COMPONENT C3C Routine 06/10/2024 4:51 PM EST HEPATITIS B, C PROFILE Routine 4:51 PM EST C-REACTIVE PROTEIN Routine 06/10/2024 4: 51 PM EST SED RATE BY MODIFIED WESTERGREN Routine 06/10/2024 4:51 PM EST LIPID PANEL WITH REFLEX TO DIRECT LDL Routine 06/10/2024 4:51 PM EST CBC WITH AUTO DIFFERENTIAL Routine 06/10/2024 4:51 PM EST COMPREHENSIVE METABOLIC PANEL Routine 06/10/2024 4:51 PM EST Hypertension, unspecified type Metabolic dysfunction-associa rafaela steatotic liver disease (MASLD) ALBUMIN, RANDOM URINE W/CREATININE Routine 06/10/2024 4:42 PM EST Hypertension, unspecified type T4, FREE Routine 04/25/2024 11:26 AM EST [...] 1 1:26 AM EST Hypertension, unspecified type BI MAMMOGRAM SCREENING TOMOSYNTHESIS BILATERAL Routine 01/15/2024 3:30 PM EDT Breast cancer screening by mammogram HM COLONOSCOPY Routine 05/29/2020 from Last 3 Months or Most Recently Relevant to Health Maintenance Results * XR Knee 1-2 Views Left (06/14/2024 5:48 PM EST) Anatomical Region Laterality Modality Lower Extremities, Knee Left Radiogra phic Imaging 06/14/2024 5:48 PM EST Narrative 06/14/2024 5:49 PM EST ? [facility] ?[address] ?[place] [address] ?XRay Report ? Signed ? Patient: Destini Melchor ?MR#: MM ?? [id number] ? : 1960 ?Acct:[id number] ? Age/Sex: 64 / F ?ADM Date: 06/10/24 ? Loc: HO.XRAY ? Attending Dr: Yuriy Jeong MD ? Ordering Physician: Yuriy Jeong MD ?? Date of Service: 06/10/24 ?? Procedure(s): XR knee LT 2V ?? Accession Number(s): [id number] ? cc: Gosia Schilling MD; Yuriy Jeong MD ? CLINICAL HISTORY: M17.0 - Bilateral primary osteoarthritis of knee ? 3 views left knee ? Comparison: No comparison studies ? Findings: ? No fractures or dislocations No joint effusion ?? No significant arthritic change. No soft tissue calcifications. ?? No radiopaque foreign body ? Impression: ? Normal left knee. No skeletal abnormality. ? This document has been electronically signed by: Jean Moore MD on ?? 06/14/2024 17:48:12 ? Dictated By: ?Jean Moore MD ? Signed By: ?<Electronically signed by Jean Moore MD in OV> ?06/14/24 1749 ? DD/ 1748 ? TD/TT: 06/14/24 1748 ? Siderographist: ? Procedure Note Abigail, Image - 06/14/2024 [facility] [address] [place] [address] XRay Report Signed Patient: Rhett Melchor#: [id number] : 1960Acct:[id number] Age/Sex: 64 / FADM Date: 06/10/24 Loc: HO.XRAY Attending Dr: Yuriy Jeong MD Ordering Physician: Yuriy Jeong MD Date of Service: 06/10/24 Procedure(s): XR knee LT 2V Accession Number(s): [id number] cc: Gosia Schilling MD; Yuriy Jeong MD CLINICAL HISTORY: M17.0 - Bilateral primary osteoarthritis of knee 3 views left knee Comparison: No comparison studies Findings: No fractures or dislocations No joint effusion No significant arthritic change. No soft tissue calcifications. No radiopaque foreign body Impression: Normal left knee. No skeletal abnormality. This document has been electronically signed by: Jean Moore MD on 06/14/2024 17:48:12 Dictated By: Jean Moore MD Signed By: <Electronically signed by Jean Moore MD in OV> 06/14/24 1749 DD/ 47 TD/TT: 06/14/241747 Siderographist: [facility] External Provider IMG XR PROCEDURES Final Result * XR Knee 1-2 Views Right (06/14/2024 4:46 PM EST) Anatomical Region Laterality Modality Lower Extremities, Knee Right Radiogra phic Imaging 06/14/2024 4:46 PM EST Narrative 06/14/2024 4:47 PM EST ? [facility] ?[address] ?[place] [address] ?XRay Report ? Signed ? Patient: Sae Coyle,Destini ?MR#: MM ?? [id number] ? : 1960 ?Acct:[id number] ? Age/Sex: 64 / F ?ADM Date: 02//25 ? Loc: HO.XRAY ? Attending Dr: Yuriy Jeong MD ? Ordering Physician: Yuriy Jeong MD ?? Date of Service: 06/10/24 ?? Procedure(s): XR knee RT 2V ?? Accession Number(s): [id number] ? cc: Gosia Schilling MD; Yuriy Jeong MD ? CLINICAL HISTORY: M17.0 - Bilateral primary osteoarthritis of knee ? 2. views right knee ? Comparison: No comparison ? Findings: ?? No fractures or dislocation ?? No joint effusion ?? No significant arthritic change ?? No radiopaque foreign body ? Impression: ?? Normal right knee ? This document has been electronically signed by: Jean Moore MD on ?? 06/14/2024 16:46:18 ? Dictated By: ?Jean Moore MD ? Signed By: ?<Electronically signed by Jean Moore MD in OV> ?06/14/247 ? DD/ 1646 ? TD/TT: 06/14/241645 ? Siderographist: ? Procedure Note Dongeovannysebastianter, Image - 06/14/2024 [place] [address] XRay Report Signed Patient: Destini Melchor#: [id number] : 1960Acct:[id number] Age/Sex: 64 / FADM Date: 06/10/24 Loc: ANITA Attending Dr: Yuriy Jeong MD Ordering Physician: Yuriy Jeong MD Date of Service: 06/10/24 Procedure(s): XR knee RT 2V Accession Number(s): [id number] cc: Gosia Schilling MD; Yuriy Jeong MD CLINICAL HISTORY: M17.0 - Bilateral primary osteoarthritis of knee 2. views right knee Comparison: No comparison Findings: No fractures or dislocation No joint effusion No significant arthritic change No radiopaque foreign body Impression: Normal right knee This document has been electronically signed by: Jean Moore MD on 06/14/2024 16:46:18 Dictated By: Jean Moore MD Signed By: <Electronically signed by Jean Moore MD in OV> 06/14/241646 DD/ 45 TD/TT: 02/11/25 1646 Siderographist: us [facility] External Provider IMG XR PROCEDURES Final Result * XR Hand 3+ Views Left (06/14/2024 12:40 PM EST) Anatomical Region Laterality Modality Upper Extremities, Hand Left Radiogra phic Imaging 06/14/2024 12:4 0 PM EST Narrative 06/14/2024 12:41 PM EST ? [facility] ?[address] ?[place] [address] ?XRay Report ? Signed ? Patient: Destini Melchor ?MR#: MM ?? [id number] ? : 1960 ?Acct:[id number] ? Age/Sex: 64 / F ?ADM Date: 06/10/24 ? Loc: HO.XRAY ? Attending Dr: Yuriy Jeong MD ? Ordering Physician: Yuriy Jeong MD ?? Date of Service: 06/10/24 ?? Procedure(s): XR hand LT min 3V ?? Accession Number(s): [id number] ? cc: Gosia Schilling MD; Yuriy Jeong MD ? CLINICAL HISTORY: M79.643 - Pain in unspecified hand ? 3 view left hand ? Comparison: None ? Findings: ?? Bones intact. No dislocations. ?? No significant loss of joint space or osteophytes. ?? No erosions. No radiopaque foreign body. ? IMPRESSION: ?? 1. No acute findings ? This document has been electronically signed by: Steve Davis MD on ?? 06/14/2024 12:40:32 ? Dictated By: ?Davis,Steve MD ? Signed By: ?<Electronically signed by Steve Davis MD in OV> ? 06/14/24 1241 ? DD/ 1240 ? TD/TT: 06/14/24 1240 ? Siderographist: ? Procedure Note Yazmin Hayes - 06/14/[address] [address] XRay Report Signed Patient: Destini Melchor#: [id number] : 1960Acct:[id number] Age/Sex: 64 / FADM Date: 06/10/24 Loc: HOMiguelXRAY Attending Dr: Yuriy Jeong MD Ordering Physician: Yuriy Jeong MD Date of Service: 06/10/24 Procedure(s): XR hand LT min 3V Accession Number(s): [id number] cc: Gosia Schilling MD; Yuriy Jeong MD CLINICAL HISTORY: M79.643 - Pain in unspecified hand 3 view left hand Comparison: None Findings: Bones intact. No dislocations. No significant loss of joint space or osteophytes. No erosions. No radiopaque foreign body. IMPRESSION: 1. No acute findings This document has been electronically signed by: Steve Davis MD on 06/14/2024 12:40:32 Dictated By: Steve Davis MD Signed By: <Electronically signed by Steve Davis MD in OV> 06/14/24 1241 DD/ 1240 TD/TT: 06/14/24 1240 Siderographist: [facility] External Provider IMG XR PROCEDURES Final Result * XR Hand 3+ Views Right (06/14/2024 12:38 PM EST) Anatomical Region Laterality Modality Upper Extremities, Hand Right Radiogra phic Imaging 06/14/2024 12:3 8 PM EST Narrative 06/14/2024 12:39 PM EST ? [facility] ?[address] ?[place] [address] ?XRay Report ? Signed ? Patient: Destini Melchor ?MR#: MM ?? [id number] ? : 1960 ?Acct:[id number] ? Age/Sex: 64 / F ?ADM Date: //25 ? Loc: HO.XRAY ? Attending Dr: Yuriy Jeong MD ? Ordering Physician: Yuriy Jeong MD ?? Date of Service: 06/10/24 ?? Procedure(s): XR hand RT min 3V ?? Accession Number(s): [id number] ? cc: Gosia Schilling MD; Yuriy Jeong MD ? CLINICAL HISTORY: M79.643 - Pain in unspecified hand ? 3 view right hand ? Comparison: CR - HAND RIGHT [id number] - 09/08/19 10:22 EDT ? Findings: ?? No fractures or dislocations. ?? No significant arthritic change. ?? No erosions. No radiopaque foreign body. ? IMPRESSION: ?? 1. No acute findings ? This document has been electronically signed by: Steve Davis MD on ?? 06/14/2024 12:38:48 ? Dictated By: ?Steve Dvais MD ? Signed By: ?<Electronically signed by Steve Davis MD in OV> ? 06/14/24 1239 ? DD/ 1238 ? TD/TT: 06/14/24 1238 ? Siderographist: ? Procedure Note Donkeithter, Image - 06/14/2024 [place] [address] XRay Report Signed Patient: Rhett Melchor#: [id number] : 1960Acct:[id number] Age/Sex: 64 / FADM Date: 06/10/24 Loc: ANITA Attending Dr: Yuriy Jeong MD Ordering Physician: Yuriy Jeong MD Date of Service: 06/10/24 Procedure(s): XR hand RT min 3V Accession Number(s): [id number] cc: Gosia Schilling MD; Yuriy Jeong MD CLINICAL HISTORY: M79.643 - Pain in unspecified hand 3 view right hand Comparison: CR - HAND RIGHT [id number] - 09/08/19 10:22 EDT Findings: No fractures or dislocations. No significant arthritic change. No erosions. No radiopaque foreign body. IMPRESSION: 1. No acute findings This document has been electronically signed by: Steve Davis MD on 06/14/2024 12:38:48 Dictated By: Steve Davis MD Signed By: <Electronically signed by Steve Davis MD in OV> 06/14/24 1239 DD/ 1238 TD/TT: 06/14/24 1238 Siderographist: [facility] External Provider IMG XR PROCEDURES Final Result * Hepatitis B, C Profile (06/10/2024 4:51 PM EST) Pathologist [facility] ~Hepatitis B Surface Antibody REACTIVE Nonreactive [facility] Comment:REACTIVE: > 11.99 mI U/mL Hepatitis B Core Antibody Nonreactive Nonreactive [facility] Hepatitis C Antibody Nonreactive Nonreactive [facility] Comment:Antibodies to HCV no t detected; does not exclude early acuteHCV infection. Hepatitis B Surface Ag Negative Negative [facility] 06/10/2024 4:51 PM EST 06/10/2024 4:51 PM EST us Generic External Data Provider LAB BLOOD ORDERAB LES Final Result [facility] [address] [place] [phone] * T-SPOT??.TB (06/10/2024 4:51 PM EST) [facility] T Spot TB Negative Negative [facility] Comment:A negative test resu lt does not exclude the possibilityof exposure to or infection with Mycobacteriumtuberculosis (M. tuberculosis). Patients with recentexposure to TB infected individuals exhibiting anegative T-SPOT.TB result should be considered forretesting within 6 weeks or if other relevant clinicalsymptoms indicate. Results from T-SPOT.TB testing mustbe used in conjunction with each individual'sepidemiological history, current medical status,and results of other diagnostic evaluations.The T-SPOT.TB test is qualitative and results arereported as positive, borderline, or negative, giventhat the test controls perform as expected. In linewith the Centers for Disease Control and Prevention's2010 recommendation to report quantitative measurementsalongside the qualitative result, the laboratoryprovides spot counts for informational purposes only.The T-SPOT.TB test should not be interpreted as aquantitative test. TS PANEL A 0 [facility] TS PANEL B 1 [facility] Negative Control Passed [facility] Positive Control Passed [facility] Comment:For additional infor elvie, please refer tohttp://education.[employer]/faq/WKT407(This link is being provided for informational/educational purposes only.)THIS TEST WAS PERFORMED AT:[id number] [place], [place] [address]ABINA BLAIR MD,PHD 06/10/2024 4:51 PM EST 06/10/2024 4:51 PM EST us Generic External Data Provider LAB BLOOD ORDERAB LES Final Result [facility] [address] [place] [address] [phone] * (ABNORMAL) Lipid Panel with Reflex to Direct LDL (06/10/2024 4:51 PM EST) Only the most recent of2 resultswithin the time period is included. Triglycerides 187(H) <150 mg/dL [facility] Comment:Desirable Triglyceri de: less than 150 mg/dLBorderline High Triglyceride 150-199 mg/dLHigh Triglyceride: 200-499 mg/dLVery High Triglyceride: greater than or equal to 5OO mg/dL Cholesterol 191 <200 mg/dL [facility] Comment:Desirable Cholestero l: less than 200 mg/dLBorderline High Cholesterol: 200-239 mg/dLHigh Cholesterol: greater than 239 mg/dL LDL Cholesterol Calculated 103(H) <100 mg/dL [facility] Comment:Desirable LDL: less than 100 mg/dLNear Optimal/Above Optimal LDL: 110- 129 mg/dLBorderline High LDL: 130-159 mg/dLHigh LDL: 160-189 mg/dLVery High LDL: greater than or equal to 190 mg/dL HDL Cholesterol 51 >40 mg/dL [facility] Comment:Desirable HDL: great er than 40 mg/dL Note: This HDL assay may give artificially low results in patients with liver disease. 06/10/2024 4:51 PM EST 06/10/2024 4:51 PM EST us Gosia Schilling MD LAB BLOOD ORDERABLES Final Resul t [facility] [address] [place], [place] [phone] * (ABNORMAL) CBC auto differential (06/10/2024 4:51 PM EST) Only the most recent of2 resultswithin the time period is included. White Blood Count 5.0 4.8 - 10.8 X10*3/uL [facility] Red Blood Count 4.46 4.20 - 5.50 X10*6/uL [facility] Hemoglobin 12.0 12.0 - 16.0 g/dl [facility] Hematocrit 37.6 37.0 - 47.0 % [facility] Mean Corpuscular Volume 84.3 80.0 - 98.0 fL [facility] Mean Corpuscular Hemoglobin 26.9(L) 27.0 - 33.0 pg [facility] Mean Corpuscular HGB Conc 31.9 31.0 - 35.0 g/dl [facility] Red Cell Distribution Width 13.2 11.0 - 16.0 % [facility] Platelet Count 270 160 - 400 X10*3/uL [facility] Mean Platelet Volume 9.7 9.4 - 12.3 fL [facility] Neutrophils Percent Auto 55.4 45 - 73 % [facility] Imm Gran Pct Auto 0.2 0.0 - 0.4 % [facility] Lymphocytes Percent Auto 35.0 20 - 40 % [facility] Monocytes Percent Auto 6.4 2 - 11 % [facility] Eosinophils Percent Auto 2.6 0 - 4 % [facility] Basophils Percent Auto 0.4 0 - 2 % [facility] NRBC Pct Auto 0.0 0.0 - 0.2 /100WBC [facility] Neutrophils Absolute Auto 2.8 2.0 - 8.3 x10*3/uL [facility] Imm Gran Abs Auto 0.01 0.00 - 0.03 X10*3/uL [facility] Lymphocytes Absolute Auto 1.8 1.2 - 4.9 X10*3/uL [facility] Monocytes Absolute Auto 0.3 0.1 - 1.2 X10*3/uL [facility] Eosinophils Absolute Auto 0.1 0.0 - 0.4 X10*3/uL [facility] Basophils Absolute Auto 0.0 0.0 - 0.2 X10*3/uL [facility] NRBC Abs Auto 0.000 0.0 - 0.012 X10*3/uL [facility] 06/10/2024 4:51 PM EST 06/10/2024 4:51 PM EST Generic External Data Provider LAB BLOOD ORDERAB LES Final Result Performing Organization Address [facility] Co de Phone Number [facility] [address] [place] [phone] * Sed Rate by Modified Radhikaren (06/10/2024 4:51 PM EST) Pathologist [facility] Erythrocyte Sedimentation Rate 10 0 - 20 MM/HR [facility] Comment:Patients with polycy themia and many hemoglobin abnormalitiesmay have depressed sed rates whereas patients with anemiamay have elevated sed rates. 06/10/2024 4:51 PM EST 06/10/2024 4:51 PM EST Generic External Data Provider LAB BLOOD ORDERAB LES Final Result Performing Organization Address [facility] Co de Phone Number [facility] [address] [place] [phone] * Complement Component C3c (06/10/2024 4:51 PM EST) Complement C3 149 83 - 193 mg/dL [facility] Comment:THIS TEST WAS PERFOR MED AT:[address] [place] [phone] DICKENS MD 06/10/2024 4:51 PM EST 06/10/2024 4:51 PM EST Generic External Data Provider LAB BLOOD ORDERAB LES Final Result Performing Organization Address [facility] de Phone Number [facility] [address] [place] [phone] * Complement Component C4c (06/10/2024 4:51 PM EST) Pathologist [facility] Complement C4 23 15 - 57 mg/dL [facility] Comment:THIS TEST WAS PERFOR MED AT:[address] [place] [phone] DICKENS MD 06/10/2024 4:51 PM EST 06/10/2024 4:51 PM EST Generic External Data Provider LAB BLOOD ORDERAB LES Final Result Performing Organization Address [facility] Phone Number [facility] [address] [place] [phone] * C-reactive Protein (06/10/2024 4:51 PM EST) Pathologist [facility] C Reactive Protein <0.10 < or = 0.50 mg/dL [facility] 06/10/2024 4:51 PM EST 06/10/2024 4:51 PM EST Generic External Data Provider LAB BLOOD ORDERAB LES Final Result Performing Organization Address [facility] de Phone Number [facility] [address] [place] [phone] * (ABNORMAL) Comprehensive Metabolic Panel (06/10/2024 4:51 PM EST) Only the most recent of2 resultswithin the time period is included. Pathologist [facility] Sodium 140 135 - 145 mmol/L [facility] Potassium 4.0 3.3 - 5.1 mmol/L [facility] Chloride 104 96 - 108 mmol/L [facility] Carbon Dioxide 23 22 - 29 mmol/L [facility] Anion Gap 17 12 - 20 [facility] Urea Nitrogen (BUN) 13 9 - 16 mg/dL [facility] Creatinine, Serum 0.81 0.5 - 1.4 mg/dL [facility] Estimated Glomerular Filt Rate >60 [facility] Comment:Chronic Kidney Disea se: Estimated GFR < 60 mL/min/1.58n8Wlggic Kidney Disease: Estimated GFR < 15 mL/min/1.73m2 Glucose 107 60 - 115 mg/dL [facility] Calcium 9.1 8.4 - 10.2 mg/dL [facility] Bilirubin, Total 0.2 0.0 - 1.0 mg/dL [facility] Aspartate Amino Transferase 25 5 - 31 U/L [facility] Alanine Aminotransferase 26 0 - 31 U/L [facility] Total Protein 8.1(H) 6.5 - 8.0 g/dL [facility] Albumin Level 4.1 3.5 - 5.0 g/dL [facility] Alkaline Phosphatase 97 39 - 117 U/L [facility] Blood Venous blood specimen / Unknown 06/10/2024 4:51 PM EST 06/10/2024 4:51 PM EST us Gosia Schilling MD LAB BLOOD ORDERABLES Final Resul t [facility] [address] [place] [phone] * Albumin, Random Urine W/Creatinine (06/10/2024 4:42 PM EST) Only the most recent of2 resultswithin the time period is included. Creatinine, Urine 32.56 mg/dL [facility] Microalbumin Urine <5.0 mg/L [facility] Microalbum Creatinine Ratio Ur TNP <30 ug/mg cr [facility] Comment:Unable to calculate albumin/creatinine ratio due to lowmicroalbumin or creatinine result. Urine 06/10/2024 4:42 PM EST 06/10/2024 5:01 PM EST us Gosia Schilling MD LAB URINE ORDERABLES Final Resul t Performing Organization Address [facility]/ZIP Co de Phone Number [facility] [address] [place] [address] [phone] * Vitamin D, 25-Hydroxy, Total, Immunoassay (04/25/2024 11:26 AM EST) Vitamin D 25-OH Total 37.3 >30 ng/mL [facility] Comment:Health Based Referen ce Values*< 20 ng/mL Qghoqgexk20-84 ng/mL Insufficient> 30 ng/mL Sufficient*Linda MCCALL. N [...] ORDERABLES Final Resul t Performing Organization Address City/[facility]/ZIP Co de Phone Number [facility] [address] [place] [phone] * Vitamin B12 (Cobalamin) and Folate Panel, Serum (04/25/2024 11:26 AM EST) Vitamin B12 635 200 - 900 pg/mL [facility] Comment:NORMAL 200-900 PG/ML INDETERMINATE 160-199 PG/ML DEFICIENT < 160 PG/ML Folate 12.2 > or = 4.0 ng/mL [facility] Comment:Reference Values:> o r = 4.0 ng/mL< 4.0 ng/mL suggests folate deficiency Methotrexate, aminopterin and folinic acid(leucovorin) are chemotherapeutic agents whose molecularstructures are similar to folate; therefore, the Architectfolate assay cannot be used for patients using these drugs. Blood 04/25/2024 11:2 6 AM EST 04/25/2024 1:44 PM EST Gosia Schilling MD LAB BLOOD ORDERABLES Final Resul t Performing Organization Address [facility] Co de Phone Number [facility] [address] [place] [address] [phone] * (ABNORMAL) TSH with Reflex to Free T4 (04/25/2024 11:26 AM EST) TSH reflex Free T4 0.24(L) 0.32 - 4.0 uIU/mL [facility] Blood 04/25/2024 11:2 6 AM EST 04/25/2024 1:46 PM EST us Gosia Schilling MD LAB BLOOD ORDERABLES Final Resul t Performing Organization Address [facility] Co de Phone Number [facility] [address] [place] [phone] * (ABNORMAL) Iron And Total Iron Binding Capacity (04/25/2024 11:26 AM EST) Iron 270(H) 30 - 160 mcg/dL [facility] Total Iron Binding Capacity 437(H) 228 - 428 mcg/dL [facility] Percent Iron Saturation 62(H) 15 - 50 % [facility] Unsaturated Iron Binding 167 ug/dL [facility] Blood Venous blood specimen / Unknown 04/25/2024 11:26 AM EST 04/25/2024 1:46 PM EST us Gosia Schilling MD LAB BLOOD ORDERABLES Final Resul t Performing Organization Address [facility] Co de Phone Number [facility] [address] [place] [phone] * T4, Free (04/25/2024 11:26 AM EST) Free T4 (Free Thyroxine) 0.77 0.71 - 1.85 ng/dL [facility] 04/25/2024 11:2 6 AM EST 04/25/2024 1:46 PM EST Gosia Schilling MD LAB BLOOD ORDERABLES Final Resul t Performing Organization Address City/[facility]/ZIP Co de Phone Number [facility] [address] [place] [phone] * Hemoglobin A1c (04/25/2024 11:26 AM EST) Hemoglobin A1c 5.8 <6.0 % [facility] Comment:Hemoglobin A1C Refer ence Range Adults: 4.8 - 6.0 % Non diabetic: < 6.0 % Goal: < 7.0 %Additional Action Suggested: > 8.0 %Note: Hemoglobin A1c results are invalid for patients with abnormal amounts of HbF. Blood transfusions may impact the HbA1c concentration in the patient sample. Estimated Average Glucose 120 mg/dL [facility] Comment:eAG = Estimated ave rage glucose which is %A1C expressed asaverage glucose, using the formula of the Q8V-BhrltmiKnassjx Glucose study (ADAG), Diabetes Care, Vol.31,#8,2007 Blood Venous blood specimen / Unknown 04/25/2024 11:26 AM EST 04/25/2024 1:46 PM EST Gosia Schilling MD LAB BLOOD ORDERABLES Final Resul t Performing Organization Address City/[facility]/ZIP Co de Phone Number [facility] [address] [place] [phone] * Ferritin (04/25/2024 11:26 AM EST) Ferritin 16 10 - 250 ng/mL [facility] Blood Venous blood specimen / Unknown 04/25/2024 11:26 AM EST 04/25/2024 1:46 PM EST us Gosia Schilling MD LAB BLOOD ORDERABLES Final Resul t Performing Organization Address [facility]/State/ZIP Co de Phone Number [facility] [address] [facility] [place] [phone] * BI Mammogram Screening Tomosynthesis Bilateral (01/15/2024 3:30 PM EDT) Anatomical Region Laterality Modality Breast Bilateral Mammography 01/15/2024 3:30 PM EDT Narrative 01/29/2024 8:58 AM EDT ? [facility] ? [address] ?[place] [address] ? Mammography Report ? Signed ? Patient: Destini Melchor ?MR#: MM ?? [id number] ? : 1960 ?Acct:[id number] ? Age/Sex: 63 / F ?ADM Date: 01/15/24 ? Loc: HO.MAMMO ? Attending Dr: Gosia Schilling MD ? Ordering Physician: Gosia Schilling MD ?Results: 1Negative ? Date of Service: 01/15/24 ?Follow Up: 1 Year From Orig ?? inal Mammogram ? Procedure(s): MM tomosynthesis screening BI ?? Accession Number(s): [id number] ? cc: Gosia Schilling MD ? EXAMINATION: [...] DD/ 1530 ? TD/TT: 01/15/24 1544 ? Siderographist: ? Procedure Note Juanter, Image - 01/29/2024 [facility] [address] [place] [address] Dr. [place], [place] [address] Mammography Report Signed Patient: Destini Melchor#: [id number] : 1960Acct:[id number] Age/Sex: 63 / FADM Date: 01/15/24 Loc: YANCY Attending Dr: Gosia Schilling MD Ordering Physician: Gosia Schillingesults: 1Negative Date of Service: 01/15/24Follow Up: 1 Year From Orig inal Mammogram Procedure(s): MM tomosynthesis screening BI Accession Number(s): [id number] cc: Gosia Schilling MD EXAMINATION: MM SCREENING [...] Jaimie Nunes DO 01/29/2024 08:55 AM EDT Dictated By: Jaimie Nunes DO Signed By: <Electronically signed by Jaimie Nunes DO in OV> 01/29/24 0855 DD/ 1530 TD/TT: 01/15/24 1544 Siderographist: Gosia Schilling MD IM BI PROCEDURES Final Result * (ABNORMAL) Colonoscopy (05/29/2020) Colonoscopy Abnormal(A ) Normal 05/29/2020 Historical Provider HEALTH MAINTENANCE Final Result from Last 3 Months or Most Recently Relevant to Health Maintenance Insurance HSN PARTIAL BCBS HMO Care Teams Technical Project Lead Relationship Specialty Start Date End Date Gosia Schilling MD [address] [place] [phone] PCP - General Family Medicine 05/04/18
--- OUTSIDE RECORDS SUMMARY | 2024-06-22 10:30 | XMS_ITS | Encounter Summary ---
Author Organization [employer] Address [address] [facility] 7t [place] [address] Care Team Providers Care Early Childhood Lead Teacher Name Role Phone Gosia Schilling MD Primary Care Provider [phone] Encounter Details Date Type Department Care Team ([facility] st Contact Info) Description 02/12/2023 Telephone [facility] [address] [place], [place] [phone] Gosia Schilling MD [address] [place], [place] [phone] Social History Tobacco Use Types Packs/Day Years [...] documented as of this encounter Care Teams Early Childhood Lead Teacher Relationship Specialty Start Date End Date Gosia Schilling MD [address] [place] [phone] PCP - General Family Medicine 05/04/18 documented as of this encounter
--- OUTSIDE RECORDS SUMMARY | 2024-06-22 10:30 | XMS_ITS | Encounter Summary ---
Author Organization [employer] Address [address] [place] [address] 7t [place] [address] Care Team Providers Care Cement Worker Name Role Phone Gosia Schilling MD Primary Care Provider [phone] Encounter Details Date Type Department Care Team (Late st Contact Info) Description 06/10/2024 Orders Only [facility] External Provider, [facility] Social History Tobacco Use Types Packs/Day Years [...] Comments XR KNEE 1-2 VIEWS LEFT Routine 06/14/2024 5:48 PM EST XR KNEE 1-2 VIEWS RIGHT Routine 06/14/2024 4:46 PM EST XR HAND 3+ VIEWS LEFT Routine 06/14/2024 12:40 PM EST XR HAND 3+ VIEWS RIGHT Routine 06/14/2024 12:38 PM EST documented in this encounter Results * XR Knee 1-2 Views Left (06/14/2024 5:48 PM EST) Anatomical Region Laterality Modality Lower Extremities, Knee Left [facility] [facility] 06/14/2024 5:48 PM EST Narrative 06/14/2024 5:49 PM EST ? [facility] ?[address] [place] [address] ?XRay Report ? Signed ? Patient: Sae CoyleNazaninDestini ?MR#: MM ?? [id number] ? : 1960 ?Acct:[id number] ? Age/Sex: 64 / F ?ADM Date: 06/10/24 ? Loc: HO.XRAY ? Attending Dr: Yuriy Jeong MD ? Ordering Physician: Yuriy Jeong MD ?? Date of Service: 06/10/24 ?? Procedure(s): XR knee LT 2V ?? Accession Number(s): [id number] ? cc: Gosia Schilling MD; Yuriy Jeong [...] signed by Jean Moore MD in OV> ?06/14/241748 ? DD/ 47 ? TD/TT: 06/14/241747 ? Sock Turner: ? Procedure Note Abigail, Yazmin - 06/14/[address] [address] XRay Report Signed Patient: Rhett Melchor#: [id number] : 1960Acct:[id number] Age/Sex: 64 / FADM Date: 06/10/24 Loc: ANITA Attending Dr: Yuriy Jeong MD Ordering Physician: Yuriy Jeong MD Date of Service: 06/10/24 Procedure(s): XR knee LT 2V Accession Number(s): [id number] cc: Gosia Schilling MD; Yuriy Jeong MD [...] signed by Jean Moore MD in OV> 06/14/241748 DD/ 47 TD/TT: 06/14/241747 Sock Turner: [facility] External Provider IMG XR PROCEDURES Final Result * XR Knee 1-2 Views Right (06/14/2024 4:46 PM EST) Anatomical Region Laterality Modality Lower Extremities, Knee Right Radiogra phic Imaging 06/14/2024 4:46 PM EST Narrative 06/14/2024 4:47 PM EST ? [facility] ?[address] ?[place] [address] ?XRay Report ? Signed ? Patient: Sae Coyle,Destini ?MR#: MM ?? [id number] ? : 1960 ?Acct:[id number] ? Age/Sex: 64 / F ?ADM Date: 06/10/24 ? Loc: HO.XRAY ? Attending Dr: Yuriy Jeong MD ? Ordering Physician: Yuriy Jeong MD ?? Date of Service: 06/10/24 ?? Procedure(s): XR knee RT 2V ?? Accession Number(s): [id number] ? cc: Gosia Schilling MD; Yuriy Jeong [...] signed by Jean Moore MD in OV> ?06/14/241646 ? DD/ 45 ? TD/TT: 06/14/241645 ? Sock Turner: ? Procedure Note Abigail, Image - 06/14/[address] [address] XRay Report Signed Patient: Destini Melchor#: [id number] : 1960Acct:[id number] Age/Sex: 64 / FADM Date: 06/10/24 Loc: ANITA Attending Dr: Yuriy Jeong MD Ordering Physician: Yuriy Jeong MD Date of Service: 06/10/24 Procedure(s): XR knee RT 2V Accession Number(s): [id number] cc: Gosia Schilling MD; Yuriy Jeong MD [...] by Jean Moore MD in OV> 06/14/24 1647 DD/ 1646 TD/TT: 06/14/24 164 Sock Turner: us [facility] External Provider IMG XR PROCEDURES Final Result * XR Hand 3+ Views Left (06/14/2024 12:40 PM EST) Anatomical Region Laterality Modality Upper Extremities, Hand Left Radiogra phic Imaging 06/14/2024 12:4 0 PM EST Narrative 06/14/2024 12:41 PM EST ? [facility] ?[address] ?[place] [address] ?XRay Report ? Signed ? Patient: Destini Melchor ?MR#: MM ?? [id number] ? : 1960 ?Acct:[id number] ? Age/Sex: 64 / F ?ADM Date: 06/10/24 ? Loc: HO.XRAY ? Attending Dr: Yuriy Jeong MD ? Ordering Physician: Yuriy Jeong MD ?? Date of Service: 06/10/24 ?? Procedure(s): XR hand LT min 3V ?? Accession Number(s): [id number] ? cc: Gosia Schilling MD; Yuriy Jeong [...] on ?? 06/14/2024 12:40:32 ? Dictated By: ?Steve Davis MD ? Signed By: ?<Electronically signed by Setve Davis MD in OV> ? 06/14/24 1241 ? DD/ 1240 ? TD/TT: 06/14/24 1240 ? Sock Turner: ? Procedure Note Donkeithter, Image - 06/14/[address] [address] XRay Report Signed Patient: Rhett Melchor#: [id number] : 1960Acct:[id number] Age/Sex: 64 / FADM Date: 06/10/24 Loc: HO.XRAY Attending Dr: Yuriy Jeong MD Ordering Physician: Yuriy Jeong MD Date of Service: 06/10/24 Procedure(s): XR hand LT min 3V Accession Number(s): [id number] cc: Gosia Schilling MD; Yuriy Jeong MD [...] 06/14/24 1241 DD/ 1240 TD/TT: 06/14/24 1240 Sock Turner: [facility] External Provider IMG XR PROCEDURES Final Result * XR Hand 3+ Views Right (06/14/2024 12:38 PM EST) Anatomical Region Laterality Modality Upper Extremities, Hand Right Radiogra phic Imaging 06/14/2024 12:3 8 PM EST Narrative 06/14/2024 12:39 PM EST ? [facility] [place] [facility] ?[address] ?[place] [address] ?XRay Report ? Signed ? Patient: Sae Coyle,Destini ?MR#: MM ?? [id number] ? : 1960 ?Acct:[id number] ? Age/Sex: 64 / F ?ADM Date: 06/10/24 ? Loc: HO.XRAY ? Attending Dr: Yuriy Jeong MD ? Ordering Physician: Yuriy Jeong MD ?? Date of Service: 06/10/24 ?? Procedure(s): XR hand RT min 3V ?? Accession Number(s): [id number] ? cc: Gosia Schilling MD; Yuriy Jeong MD ? CLINICAL HISTORY: M79.643 - Pain in unspecified hand ? 3 view right hand ? Comparison: CR - HAND RIGHT [id number] - 09/08/19 10:22 EDT ? Findings: ?? No fractures or dislocations. ?? No significant arthritic change. ?? No erosions. No radiopaque foreign body. ? IMPRESSION: ?? 1. No acute findings ? This document has been electronically signed by: Steve Davis MD on ?? 06/14/2024 12:38:48 ? Dictated By: ?Steve Davis MD ? Signed By: ?<Electronically signed by Steve Davis MD in OV> ? 06/14/24 1239 ? DD/ 1238 ? TD/TT: 06/14/24 1238 ? Sock Turner: ? Procedure Note Abigail, Yazmin - 06/14/[address] [address] XRay Report Signed Patient: Rhett Melchor#: [id number] : 1960Acct:[id number] Age/Sex: 64 / FADM Date: 06/10/24 Loc: ANITA Attending Dr: Yuriy Jeong MD Ordering Physician: Yuriy Jeong MD Date of Service: 06/10/24 Procedure(s): XR hand RT min 3V Accession Number(s): [id number] cc: Gosia Schilling MD; Yuriy Jeong MD CLINICAL HISTORY: M79.643 - Pain in unspecified hand 3 view right hand Comparison: CR - HAND RIGHT [id number] - 09/08/19 10:22 EDT Findings: No fractures or dislocations. No significant arthritic change. No erosions. No radiopaque foreign body. IMPRESSION: 1. No acute findings This document has been electronically signed by: Steve Davis MD on 06/14/2024 12:38:48 Dictated By: Steve Davis MD Signed By: <Electronically signed by Steve Davis MD in OV> 06/14/24 1239 DD/ 1238 TD/TT: 06/14/24 1238 Sock Turner: [facility] External Provider IMG XR PROCEDURES Final Result documented in this encounter Visit Diagnoses Not on filedocumented in this encounter Additional Health Concerns Assessment Noted Time PHQ-9 Depression Total Score: 6 04/25/20 24 1:24 PM EST documented as of this encounter Care Teams Cement Worker Relationship Specialty Start Date End Date Gosia Schilling MD [address] [place] [address] PCP - General Family Medicine 05/04/18 documented as of this encounter
--- OUTSIDE RECORDS SUMMARY | 2024-06-22 10:30 | XMS_ITS | Encounter Summary ---
Author Organization [employer] Address [address] [place] [address] 7[address] [place] [address] Care Team Providers Care Fashion Consultant Name Role Phone Gosia Schilling MD Primary Care Provider [phone] Reason for Visit * Reason Onset Date Comments Paperwork/Forms 06/01/2024 Encounter Details Date Type Department Care Team ([facility] st Contact Info) Description 06/01/2024 Telephone [facility] [address] [place], [place] [phone] Vilma Lazcano RN [address] [place] [address] Paperwork/Forms Social History Tobacco Use Types Packs/Day [...] 06/01/2024 2:31 PM EST Received fax from [facility] informing PCP of possible med interaction between celecoxib and diclofenac. Form placed on PCP's desk. Pending review. documented in this encounter Plan of Treatment Not on file documented as of this encounter Visit Diagnoses Not on filedocumented in this encounter Additional Health Concerns Assessment Noted Time PHQ-9 Depression Total Score: 6 04/25/20 24 1:24 PM EST documented as of this encounter Care Teams Fashion Consultant Relationship Specialty Start Date End Date Gosia Schilling MD [address] [place] [address] PCP - General Family Medicine 05/04/18 documented as of this encounter
--- OUTSIDE RECORDS SUMMARY | 2024-06-22 10:30 | XMS_ITS | Encounter Summary ---
Author Organization [employer] Address [address] [facility] 7t [place] [address] Care Team Providers Care Environmental Lawyer Name Role Phone Gosia Schilling MD Primary Care Provider [phone] Reason for Visit * Reason Onset Date Comments august06/17/2024 Encounter Details Date Type Department Care Team (Late st Contact Info) Description 06/17/2024 Telephone [facility] [address] [place] [address] Emma Quevedo MA august recall Social History Tobacco Use Types Packs/Day Years [...] encounter Miscellaneous Notes * Telephone Encounter - Emma Quevedo MA - 06/17/2024 2:56 PM EST ..T/C- Prover Left Voice Mail to return call to schedule an appointment. Recall letter sent. Appointment: Office Visit Note: RV htn / Sjogren / anemia / IC Month: August With: Shakir Please schedule appointment if Patient calls Back. documented in this encounter Plan of Treatment Not on file documented as of this encounter Visit Diagnoses Not on filedocumented in this encounter Additional Health Concerns Assessment Noted Time PHQ-9 Depression Total Score: 6 04/25/20 24 1:24 PM EST documented as of this encounter Care Teams Environmental Lawyer Relationship Specialty Start Date End Date Gosia Schilling MD [address] [place] [address] PCP - General Family Medicine 05/04/18 documented as of this encounter
== END 2024-06-22 11:01 | disposition home or self-care (01) ==
PROVIDERS: PCP Family Medicine; Visit Provider Internal Medicine Rheumatology
DX: M35.00 Sjogren syndrome, unspecified (principal); M17.0 Bilateral primary osteoarthritis of knee; R29.898 Other symptoms and signs involving the musculoskeletal system; I73.00 Raynaud's syndrome without gangrene; M19.041 Primary osteoarthritis, right hand; M19.042 Primary osteoarthritis, left hand
CPT/HCPCS: 99214

== ENCOUNTER 2024-06-22 09:59 | Outpatient (REF) | payer BC, SELFPAY ==
--- OUTSIDE RECORDS SUMMARY | 2024-06-22 11:57 | XMS_ITS | Encounter Summary ---
Author Organization [employer] Address [address] [place] [address] [address] [place] [address] Care Team Providers Care Cook Room Supervisor Name Role Phone Gosia Schilling MD Primary Care Provider [phone] Reason for Visit * Reason Onset Date Comments Paperwork/Forms 06/01/2024 Encounter Details Date Type Department Care Team ([facility] st Contact Info) Description 06/01/2024 Telephone [facility] [address] [place], [place] [phone] Vilma Lazcano RN [address] [place] [address] Paperwork/Forms Social History Tobacco Use Types Packs/Day [...] 06/01/2024 2:31 PM EST Received fax from [facility] informing PCP of possible med interaction between celecoxib and diclofenac. Form placed on PCP's desk. Pending review. documented in this encounter Plan of Treatment Not on file documented as of this encounter Visit Diagnoses Not on filedocumented in this encounter Additional Health Concerns Assessment Noted Time PHQ-9 Depression Total Score: 6 04/25/20 24 1:24 PM EST documented as of this encounter Care Teams Cook Room Supervisor Relationship Specialty Start Date End Date Gosia Schilling MD [address] [place] [phone] PCP - General Family Medicine 05/04/18 documented as of this encounter
--- OUTSIDE RECORDS SUMMARY | 2024-06-22 11:57 | XMS_ITS | Encounter Summary ---
Author Organization [employer] Address [address] [place] [address] [address] [place] [address] Care Team Providers Care Life Insurance Sales Name Role Phone Gosia Schilling MD Primary Care Provider [phone] Encounter Details Date Type Department Care Team (Late st Contact Info) Description 06/10/2024 Orders Only [facility] External Provider, [facility] Social History Tobacco Use Types Packs/Day [...] Region Laterality Modality Lower Extremities, Knee Left [facility] 06/14/2024 5:48 PM EST Narrative 06/14/2024 5:49 PM EST ? [facility] ?[address] ?[place] [address] ?XRay Report ? Signed ? Patient: Sae CoyleNazaninDestini ?MR#: MM ?? [id number] ? : 1960 ?Acct:[id number] ? Age/Sex: 64 / F ?ADM Date: 06/10/24 ? Loc: HO.XRAY ? Attending Dr: Yuriy Jeong MD ? Ordering Physician: Yuriy Jeong MD ?? Date of Service: 06/10/24 ?? Procedure(s): XR knee LT 2V ?? Accession Number(s): [id number] ? cc: Gosia Schilling MD; Yuriy Jeong [...] ? DD/ 47 ? TD/TT: 06/14/241747 ? [employer] Customer Experience Specialist: ? Procedure Note Abigail, Yazmin - 06/14/[address] [address] XRay Report Signed Patient: Rhett Melchor#: [id number] : 1960Acct:[id number] Age/Sex: 64 / FADM Date: 06/10/24 Loc: ANITA Attending Dr: Yuriy Jeong MD Ordering Physician: Yuriy Jeong MD Date of Service: 06/10/24 Procedure(s): XR knee LT 2V Accession Number(s): [id number] cc: Gosia Schilling MD; Yuriy Jeong MD [...] in OV> 06/14/241748 DD/ 47 TD/TT: 06/14/241747 [employer] Customer Experience Specialist: [facility] External Provider IMG XR PROCEDURES Final Result * XR Knee 1-2 Views Right (06/14/2024 4:46 PM EST) Anatomical Region Laterality Modality Lower Extremities, Knee Right Radiogra phic Imaging 06/14/2024 4:46 PM EST Narrative 06/14/2024 4:47 PM EST ? [facility] ?[address] ?[place] [address] ?XRay Report ? Signed ? Patient: Sae Coyle,Destini ?MR#: MM ?? [id number] ? : 1960 ?Acct:[id number] ? Age/Sex: 64 / F ?ADM Date: 06/10/24 ? Loc: HO.XRAY ? Attending Dr: Yuriy Jeong MD ? Ordering Physician: Yuriy Jeong MD ?? Date of Service: 06/10/24 ?? Procedure(s): XR knee RT 2V ?? Accession Number(s): [id number] ? cc: Gosia Schilling MD; Yuriy Jeong [...] ? DD/ 45 ? TD/TT: 06/14/241645 ? [employer] Customer Experience Specialist: ? Procedure Note Abigail, Image - 06/14/[address] [address] XRay Report Signed Patient: Destini Melchor#: [id number] : 1960Acct:[id number] Age/Sex: 64 / FADM Date: 06/10/24 Loc: ANITA Attending Dr: Yuriy Jeong MD Ordering Physician: Yuriy Jeong MD Date of Service: 06/10/24 Procedure(s): XR knee RT 2V Accession Number(s): [id number] cc: Gosia Schilling MD; Yuriy Jeong MD [...] 06/14/24 1647 DD/ 1646 TD/TT: 06/14/24 164 [employer] Customer Experience Specialist: us [facility] External Provider IMG XR PROCEDURES Final Result * XR Hand 3+ Views Left (06/14/2024 12:40 PM EST) Anatomical Region Laterality Modality Upper Extremities, Hand Left Radiogra phic Imaging 06/14/2024 12:4 0 PM EST Narrative 06/14/2024 12:41 PM EST ? [facility] ?[address] ?[place] [address] ?XRay Report ? Signed ? Patient: Destini Melchor ?MR#: MM ?? [id number] ? : 1960 ?Acct:[id number] ? Age/Sex: 64 / F ?ADM Date: 06/10/24 ? Loc: HO.XRAY ? Attending Dr: Yuriy Jeong MD ? Ordering Physician: Yuriy Jeong MD ?? Date of Service: 06/10/24 ?? Procedure(s): XR hand LT min 3V ?? Accession Number(s): [id number] ? cc: Gosia Schilling MD; Yruiy Jeong MD ? CLINICAL HISTORY: M79.643 - [...] DD/ 1240 ? TD/TT: 06/14/24 1240 ? [employer] Customer Experience Specialist: ? Procedure Note Donkeithter, Image - 06/14/[address] [address] XRay Report Signed Patient: Rhett Melchor#: [id number] : 1960Acct:[id number] Age/Sex: 64 / FADM Date: 06/10/24 Loc: HO.XRAY Attending Dr: Yuriy Jeong MD Ordering Physician: Yuriy Jeong MD Date of Service: 06/10/24 Procedure(s): XR hand LT min 3V Accession Number(s): [id number] cc: Gosia Schilling MD; Yuriy Jeong MD [...] 06/14/24 1241 DD/ 1240 TD/TT: 06/14/24 1240 [employer] Customer Experience Specialist: [facility] External Provider IMG XR PROCEDURES Final Result * XR Hand 3+ Views Right (06/14/2024 12:38 PM EST) Anatomical Region Laterality Modality Upper Extremities, Hand Right Radiogra phic Imaging 06/14/2024 12:3 8 PM EST Narrative 06/14/2024 12:39 PM EST ? [place] [facility] ?[address] ?[place] [address] ?XRay Report ? Signed ? Patient: Sae Coyle,Destini ?MR#: MM ?? [id number] ? : 1960 ?Acct:[id number] ? Age/Sex: 64 / F ?ADM Date: 06/10/24 ? Loc: HO.XRAY ? Attending Dr: Yuriy Jeong MD ? Ordering Physician: Yuriy Jeong MD ?? Date of Service: 06/10/24 ?? Procedure(s): XR hand RT min 3V ?? Accession Number(s): [id number] ? cc: Gosia Schilling MD; Yuriy Jeong MD ? CLINICAL HISTORY: M79.643 - Pain in unspecified hand ? 3 view right hand ? Comparison: CR - HAND RIGHT [id number] - 09/08/19 10:22 EDT ? Findings: ?? [...] DD/ 1238 ? TD/TT: 06/14/24 1238 ? [employer] Customer Experience Specialist: ? Procedure Note Abigail, Yazmin - 06/14/[address] [address] XRay Report Signed Patient: Rhett Melchor#: MM [id number] : 1960Acct:[id number] Age/Sex: 64 / FADM Date: 06/10/24 Loc: ANITA Attending Dr: Yuriy Jeong MD Ordering Physician: Yuriy Jeong MD Date of Service: 06/10/24 Procedure(s): XR hand RT min 3V Accession Number(s): [id number] cc: Gosia Schilling MD; Yuriy Jeong MD CLINICAL HISTORY: M79.643 - Pain in unspecified hand 3 view right hand Comparison: CR - HAND RIGHT [id number] - 09/08/19 10:22 EDT Findings: No fractures or dislocations. No significant arthritic change. No erosions. No radiopaque foreign body. IMPRESSION: 1. No acute findings This document has been electronically signed by: Steve Davis MD on 06/14/2024 12:38:48 Dictated By: Steve Davis MD Signed By: <Electronically signed by Steve Davis MD in OV> 06/14/24 1239 DD/ 1238 TD/TT: 06/14/24 1238 Salon Customer Experience Specialist: [facility] External Provider IMG XR PROCEDURES Final Result documented in this encounter Visit Diagnoses Not on filedocumented in this encounter Additional Health Concerns Assessment Noted Time PHQ-9 Depression Total Score: 6 04/25/20 24 1:24 PM EST documented as of this encounter Care Teams Life Insurance Sales Relationship Specialty Start Date End Date Gosia Schilling MD [address] [place] [address] PCP - General Family Medicine 05/04/18 documented as of this encounter
--- OUTSIDE RECORDS SUMMARY | 2024-06-22 11:57 | XMS_ITS | Clinical Summary ---
Author Organization [employer] Address [address] [place] [address] [address] [place] [address] Care Team Providers Care Real Estate Agent/Broker Name Role Phone Gosia Schilling MD Primary Care Provider [phone] Allergies Active Allergy Reactions Criticality Noted Date [...] 6:07 PM EST): - previously followed by [facility], last seen in May 2022 - continue Linzess - continue fiber-rich diet - last colonoscopy by Dr. Trejo on 05/29/20. Recommended to repeat in 3 years due to marginal prep Assessment & Plan (04/03/2023 6:46 AM EST): - followed by [facility] - continue Linzess - continue fiber-rich diet Assessment & Plan (10/03/2022 5:56 PM EDT): - followed by [facility] - continue Linzess - continue fiber-rich diet Atrophic vaginitis 10/03/2022 Assessment & Plan (05/01/2024 6:07 PM EST): - following with [facility] GRADUATE RN, last seen in September 2023 - s/p hysterectomy - Continue Replens for moisturizing and lubricants for intimacy as needed. Assessment & Plan (04/03/2023 6:47 AM EST): - following with [facility] GRADUATE RN, last seen in July 2022 - s/p hysterectomy - Continue Replens for moisturizing and lubricants for intimacy as needed. Assessment & Plan (10/03/2022 5:58 PM EDT): - following with [facility] GRADUATE RN, last seen in July 2022 - s/p [...] to excessive bleeding from hemorrhoids -Following with [facility] Hematology service, last seen on 07/08/22. Normal [...] to excessive bleeding from hemorrhoids -Following with [facility] Hematology service, last seen on 07/08/22. Normal [...] to excessive bleeding from hemorrhoids -Following with [facility] Hematology service, last seen on 07/08/22. Normal [...] to excessive bleeding from hemorrhoids -Following with [facility] Hematology service, last seen on 07/08/22. 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 -Previously taking BOBBY-2 inhitor, meloxicam 15 mg / day, held when she was having anemia secondary to bleeding hemorrhoids -Oral / dental care and biotene for dry mouth / sicca syndrome -pt is prescribed artificial tears for dry eyes -prescribed celecoxib and pilocarpine by mainframe programmer; will prescribe while she is waiting for another appointment with her mainframe programmer -f/u in 3 months Assessment & Plan (12/10/2023 9:50 AM EDT): -followed by [facility] -Previously taking BOBBY-2 inhitor, meloxicam 15 mg / day, held when she was having anemia secondary to bleeding hemorrhoids -Oral / dental care and biotene for dry mouth / sicca syndrome -pt is prescribed artificial tears for dry eyes -prescribed celecoxib and pilocarpine by mainframe programmer; will prescribe while she is waiting for another appointment with her mainframe programmer -f/u in 3 months Assessment & Plan [...] Plan (10/03/2022 5:52 PM EDT): -followed by [facility] Rheumatology, -Previously taking BOBBY-2 inhitor, meloxicam 15 [...] (05/01/2024 6:07 PM EST): - following with [facility] Urology, last seen on 12/03/23 - continue tamsulosin - previously on oxybutynin which discontinued due to dry mouth Assessment & Plan (12/10/2023 9:51 AM EDT): - following with [facility], last seen on 12/03/23 - continue tamsulosin - previously on oxybutynin which discontinued due to dry mouth Assessment & Plan (09/13/2023 3:30 PM EDT): - following with [facility], last seen in October 2022 - continue oxybutynin and tamsulosin Assessment & Plan (04/03/2023 6:47 AM EST): - following with [facility], last seen in October 2022 - continue oxybutynin and tamsulosin Assessment & Plan (10/03/2022 5:44 PM EDT): - following with [facility], last seen in Mar 2022 - continue oxybutynin and tamsulosin Gastroesophageal reflux disease 12/29/2011 Assessment & Plan (04/25/2024 4:35 PM EST): - s/p EGD on 05/29/20 at [facility], chronic inactive inflammation, H. Pylori negative - seen by Azul CLARK on 05/16/22, Rx famotidine - continue famotidine 40 mg at bedtime prn Assessment & Plan (04/03/2023 6:46 AM EST): - s/p EGD on 05/29/20 at [facility], chronic inactive inflammation, H. Pylori negative - seen by Azul CLARK on 05/16/22, Rx famotidine - continue famotidine 40 mg at bedtime prn Assessment & Plan (10/03/2022 5:41 PM EDT): - s/p EGD on 05/29/20 at [facility], chronic inactive inflammation, H. Pylori negative - [...] Department Care Team Description 06/17/2024 Telephone [facility] [address] [place] [address] Emma Quevedo MA august06/10/2024 Orders Only [facility] External Provider, [facility] 06/01/2024 Telephone [facility] [address] [place] [address] Vilma Lazcano RN Paperwork/Forms 05/13/2024 Abstract [facility] [address] [place] [address] Emma Quevedo MA 05/02/[address] [address] Gosia Schilling MD 04/25/2024 10:30 AM EST Office Visit [address] [address] Gosia Schilling MD Psychophysiological insomnia (Primary Dx); [...] seasonality, unspecified trigger 04/25/2024 Travel 04/20/[address] [address] Emma Quevedo MA chart prep 04/14/2024 Patient Outreach [address] [address] Gosia Schilling MD Pre-visit Planning (Pre-visit planning [...] EST Narrative 06/14/2024 5:49 PM EST ? [facility] ?[address] ?[place] [address] ?XRay Report ? Signed ? Patient: Destini Melchor ?MR#: MM ?? [id number] ? : 1960 ?Acct:[id number] ? Age/Sex: 64 / F ?ADM Date: 06/10/24 ? Loc: HO.XRAY ? Attending Dr: Yuriy Jeong MD ? Ordering Physician: Yuriy Jeong MD ?? Date of Service: 06/10/24 ?? Procedure(s): XR knee LT 2V ?? Accession Number(s): [id number] ? cc: Gosia Schilling MD; Yuriy Jeong [...] DD/ 1748 ? TD/TT: 06/14/24 1748 ? Detail Drafter: ? Procedure Note Abigail, Image - 06/14/2024 [facility] [address] [place] [address] XRay Report Signed Patient: Rhett Melchor#: [id number] : 1960Acct:[id number] Age/Sex: 64 / FADM Date: 06/10/24 Loc: HO.XRAY Attending Dr: Yuriy Jeong MD Ordering Physician: Yuriy Jeong MD Date of Service: 06/10/24 Procedure(s): XR knee LT 2V Accession Number(s): [id number] cc: Gosia Schilling MD; Yuriy Jeong MD [...] OV> 06/14/24 1749 DD/ 47 TD/TT: 06/14/241747 Detail Drafter: [facility] External Provider IMG XR PROCEDURES Final Result * XR Knee 1-2 Views Right (06/14/2024 4:46 PM EST) Anatomical Region Laterality Modality Lower Extremities, Knee Right Radiogra phic Imaging 06/14/2024 4:46 PM EST Narrative 06/14/2024 4:47 PM EST ? [facility] ?[address] ?[place] [address] ?XRay Report ? Signed ? Patient: Sae Coyle,Destini ?MR#: MM ?? [id number] ? : 1960 ?Acct:[id number] ? Age/Sex: 64 / F ?ADM Date: 02//25 ? Loc: HO.XRAY ? Attending Dr: Yuriy Jeong MD ? Ordering Physician: Yuriy Jeong MD ?? Date of Service: 06/10/24 ?? Procedure(s): XR knee RT 2V ?? Accession Number(s): [id number] ? cc: Gosia Schilling MD; Yuriy Jeong [...] ? DD/ 1646 ? TD/TT: 06/14/241645 ? Detail Drafter: ? Procedure Note Dongeovannysebastianter, Image - 06/14/2024 [place] [address] XRay Report Signed Patient: Destini Melchor#: [id number] : 1960Acct:[id number] Age/Sex: 64 / FADM Date: 06/10/24 Loc: ANITA Attending Dr: Yuriy Jeong MD Ordering Physician: Yuriy Jeong MD Date of Service: 06/10/24 Procedure(s): XR knee RT 2V Accession Number(s): [id number] cc: Gosia Schilling MD; Yuriy Jeong MD [...] OV> 06/14/241646 DD/ 45 TD/TT: 02/11/25 1646 Detail Drafter: us [facility] External Provider IMG XR PROCEDURES Final Result * XR Hand 3+ Views Left (06/14/2024 12:40 PM EST) Anatomical Region Laterality Modality Upper Extremities, Hand Left Radiogra phic Imaging 06/14/2024 12:4 0 PM EST Narrative 06/14/2024 12:41 PM EST ? [facility] ?[address] ?[place] [address] ?XRay Report ? Signed ? Patient: Destini Melchor ?MR#: MM ?? [id number] ? : 1960 ?Acct:[id number] ? Age/Sex: 64 / F ?ADM Date: 06/10/24 ? Loc: HO.XRAY ? Attending Dr: Yuryi Jeong MD ? Ordering Physician: Yuriy Jeong MD ?? Date of Service: 06/10/24 ?? Procedure(s): XR hand LT min 3V ?? Accession Number(s): [id number] ? cc: Gosia Schilling MD; Yuriy Jeong [...] DD/ 1240 ? TD/TT: 06/14/24 1240 ? Detail Drafter: ? Procedure Note Yazmin Hayes - 06/14/[address] [address] XRay Report Signed Patient: Destini Melchor#: [id number] : 1960Acct:[id number] Age/Sex: 64 / FADM Date: 06/10/24 Loc: HOMiguelXRAY Attending Dr: Yuriy Jeong MD Ordering Physician: Yuriy Jeong MD Date of Service: 06/10/24 Procedure(s): XR hand LT min 3V Accession Number(s): [id number] cc: Gosia Schilling MD; Yuriy Jeong MD [...] 06/14/24 1241 DD/ 1240 TD/TT: 06/14/24 1240 Detail Drafter: [facility] External Provider IMG XR PROCEDURES Final Result * XR Hand 3+ Views Right (06/14/2024 12:38 PM EST) Anatomical Region Laterality Modality Upper Extremities, Hand Right Radiogra phic Imaging 06/14/2024 12:3 8 PM EST Narrative 06/14/2024 12:39 PM EST ? [facility] ?[address] ?[place] [address] ?XRay Report ? Signed ? Patient: Destini Melchor ?MR#: MM ?? [id number] ? : 1960 ?Acct:[id number] ? Age/Sex: 64 / F ?ADM Date: //25 ? Loc: HO.XRAY ? Attending Dr: Yuriy Jeong MD ? Ordering Physician: Yuriy Jeong MD ?? Date of Service: 06/10/24 ?? Procedure(s): XR hand RT min 3V ?? Accession Number(s): [id number] ? cc: Gosia Schliling MD; Yuriy Jeong MD ? CLINICAL HISTORY: M79.643 - Pain in unspecified hand ? 3 view right hand ? Comparison: CR - HAND RIGHT [id number] - 09/08/19 10:22 EDT ? Findings: ?? [...] DD/ 1238 ? TD/TT: 06/14/24 1238 ? Detail Drafter: ? Procedure Note Donkeithter, Image - 06/14/2024 [place] [address] XRay Report Signed Patient: Rhett Melchor#: [id number] : 1960Acct:[id number] Age/Sex: 64 / FADM Date: 06/10/24 Loc: ANITA Attending Dr: Yuriy Jeong MD Ordering Physician: Yuriy Jeong MD Date of Service: 06/10/24 Procedure(s): XR hand RT min 3V Accession Number(s): [id number] cc: Gosia Schilling MD; Yuriy Jeong MD CLINICAL HISTORY: M79.643 - Pain in unspecified hand 3 view right hand Comparison: CR - HAND RIGHT [id number] - 09/08/19 10:22 EDT Findings: No fractures or dislocations. No significant arthritic change. No erosions. No radiopaque foreign body. IMPRESSION: 1. No acute findings This document has been electronically signed by: Steve Davis MD on 06/14/2024 12:38:48 Dictated By: Steve Davis MD Signed By: <Electronically signed by Steve Davis MD in OV> 06/14/24 1239 DD/ 1238 TD/TT: 06/14/24 1238 Detail Drafter: [facility] External Provider IMG XR PROCEDURES Final Result * Hepatitis B, C Profile (06/10/2024 4:51 PM EST) Pathologist [facility] ~Hepatitis B Surface Antibody REACTIVE Nonreactive [facility] Comment:REACTIVE: > 11.99 mI U/mL Hepatitis B Core Antibody Nonreactive Nonreactive [facility] Hepatitis C Antibody Nonreactive Nonreactive [facility] Comment:Antibodies to HCV no t detected; does not exclude early acuteHCV infection. Hepatitis B Surface Ag Negative Negative [facility] 06/10/2024 4:51 PM EST 06/10/2024 4:51 PM EST us Generic External Data Provider LAB BLOOD ORDERAB LES Final Result [facility] [address] [place] [phone] * T-SPOT??.TB (06/10/2024 4:51 PM EST) [facility] T Spot TB Negative Negative [facility] Comment:A negative test resu lt [...] as aquantitative test. TS PANEL A 0 [facility] TS PANEL B 1 [facility] Negative Control Passed [facility] Positive Control Passed [facility] Comment:For additional infor elvie, please refer [email or web address].[email or web address]/faq/[email or web address](This link is being provided for informational/educational purposes only.)THIS TEST WAS PERFORMED AT:[employer] [place], [place] [address]SABINA BLAIR MD,PHD 06/10/2024 4:51 PM EST 06/10/2024 4:51 PM EST us Generic External Data Provider LAB BLOOD ORDERAB LES Final Result [facility] [address] [place] [address] [phone] * (ABNORMAL) Lipid Panel with Reflex to Direct LDL (06/10/2024 4:51 PM EST) Only the most recent of2 resultswithin the time period is included. Triglycerides 187(H) <150 mg/dL [facility] Comment:Desirable Triglyceri de: less than 150 mg/dLBorderline High Triglyceride 150-199 mg/dLHigh Triglyceride: 200-499 mg/dLVery High Triglyceride: greater than or equal to 5OO mg/dL Cholesterol 191 <200 mg/dL [facility] Comment:Desirable Cholestero l: less than 200 mg/dLBorderline High Cholesterol: 200-239 mg/dLHigh Cholesterol: greater than 239 mg/dL LDL Cholesterol Calculated 103(H) <100 mg/dL [facility] Comment:Desirable LDL: less than 100 mg/dLNear Optimal/Above Optimal LDL: 110- 129 mg/dLBorderline High LDL: 130-159 mg/dLHigh LDL: 160-189 mg/dLVery High LDL: greater than or equal to 190 mg/dL HDL Cholesterol 51 >40 mg/dL [facility] Comment:Desirable HDL: great er than 40 mg/dL Note: This HDL assay may give artificially low results in patients with liver disease. 06/10/2024 4:51 PM EST 06/10/2024 4:51 PM EST us Gosia Schilling MD LAB BLOOD ORDERABLES Final Resul t [facility] [address] [place], [place] [phone] * (ABNORMAL) CBC auto differential (06/10/2024 4:51 PM EST) Only the most recent of2 resultswithin the time period is included. White Blood Count 5.0 4.8 - 10.8 X10*3/uL [facility] Red Blood Count 4.46 4.20 - 5.50 X10*6/uL [facility] Hemoglobin 12.0 12.0 - 16.0 g/dl [facility] Hematocrit 37.6 37.0 - 47.0 % [facility] Mean Corpuscular Volume 84.3 80.0 - 98.0 fL [facility] Mean Corpuscular Hemoglobin 26.9(L) 27.0 - 33.0 pg [facility] Mean Corpuscular HGB Conc 31.9 31.0 - 35.0 g/dl [facility] Red Cell Distribution Width 13.2 11.0 - 16.0 % [facility] Platelet Count 270 160 - 400 X10*3/uL [facility] Mean Platelet Volume 9.7 9.4 - 12.3 fL [facility] Neutrophils Percent Auto 55.4 45 - 73 % [facility] Imm Gran Pct Auto 0.2 0.0 - 0.4 % [facility] Lymphocytes Percent Auto 35.0 20 - 40 % [facility] Monocytes Percent Auto 6.4 2 - 11 % [facility] Eosinophils Percent Auto 2.6 0 - 4 % [facility] Basophils Percent Auto 0.4 0 - 2 % [facility] NRBC Pct Auto 0.0 0.0 - 0.2 /100WBC [facility] Neutrophils Absolute Auto 2.8 2.0 - 8.3 x10*3/uL [facility] Imm Gran Abs Auto 0.01 0.00 - 0.03 X10*3/uL [facility] Lymphocytes Absolute Auto 1.8 1.2 - 4.9 X10*3/uL [facility] Monocytes Absolute Auto 0.3 0.1 - 1.2 X10*3/uL [facility] Eosinophils Absolute Auto 0.1 0.0 - 0.4 X10*3/uL [facility] Basophils Absolute Auto 0.0 0.0 - 0.2 X10*3/uL [facility] NRBC Abs Auto 0.000 0.0 - 0.012 X10*3/uL [facility] 06/10/2024 4:51 PM EST 06/10/2024 4:51 PM EST Generic External Data Provider LAB BLOOD ORDERAB LES Final Result Performing Organization Address [facility] Co de Phone Number [facility] [address] [place] [phone] * Sed Rate by Modified Radhikaren (06/10/2024 4:51 PM EST) Pathologist [facility] Erythrocyte Sedimentation Rate 10 0 - 20 MM/HR [facility] Comment:Patients with polycy themia and many hemoglobin abnormalitiesmay have depressed sed rates whereas patients with anemiamay have elevated sed rates. 06/10/2024 4:51 PM EST 06/10/2024 4:51 PM EST Generic External Data Provider LAB BLOOD ORDERAB LES Final Result Performing Organization Address [facility] Co de Phone Number [facility] [address] [place] [phone] * Complement Component C3c (06/10/2024 4:51 PM EST) Complement C3 149 83 - 193 mg/dL [facility] Comment:THIS TEST WAS PERFOR MED AT:[employer] [place] [phone] DICKENS MD 06/10/2024 4:51 PM EST 06/10/2024 4:51 PM EST Generic External Data Provider LAB BLOOD ORDERAB LES Final Result Performing Organization Address [facility] de Phone Number [facility] [address] [place] [phone] * Complement Component C4c (06/10/2024 4:51 PM EST) Pathologist [facility] Complement C4 23 15 - 57 mg/dL [facility] Comment:THIS TEST WAS PERFOR MED AT:[employer] [place] [phone] DICKENS MD 06/10/2024 4:51 PM EST 06/10/2024 4:51 PM EST Generic External Data Provider LAB BLOOD ORDERAB LES Final Result Performing Organization Address [facility] Phone Number [facility] [address] [place] [phone] * C-reactive Protein (06/10/2024 4:51 PM EST) Pathologist [facility] C Reactive Protein <0.10 < or = 0.50 mg/dL [facility] 06/10/2024 4:51 PM EST 06/10/2024 4:51 PM EST Generic External Data Provider LAB BLOOD ORDERAB LES Final Result Performing Organization Address [facility] de Phone Number [facility] [address] [place] [phone] * (ABNORMAL) Comprehensive Metabolic Panel (06/10/2024 4:51 PM EST) Only the most recent of2 resultswithin the time period is included. Pathologist [facility] Sodium 140 135 - 145 mmol/L [facility] Potassium 4.0 3.3 - 5.1 mmol/L [facility] Chloride 104 96 - 108 mmol/L [facility] Carbon Dioxide 23 22 - 29 mmol/L [facility] Anion Gap 17 12 - 20 [facility] Urea Nitrogen (BUN) 13 9 - 16 mg/dL [facility] Creatinine, Serum 0.81 0.5 - 1.4 mg/dL [facility] Estimated Glomerular Filt Rate >60 [facility] Comment:Chronic Kidney Disea se: Estimated GFR < 60 mL/min/1.08r0Iybggg Kidney Disease: Estimated GFR < 15 mL/min/1.73m2 Glucose 107 60 - 115 mg/dL [facility] Calcium 9.1 8.4 - 10.2 mg/dL [facility] Bilirubin, Total 0.2 0.0 - 1.0 mg/dL [facility] Aspartate Amino Transferase 25 5 - 31 U/L [facility] Alanine Aminotransferase 26 0 - 31 U/L [facility] Total Protein 8.1(H) 6.5 - 8.0 g/dL [facility] Albumin Level 4.1 3.5 - 5.0 g/dL [facility] Alkaline Phosphatase 97 39 - 117 U/L [facility] Blood Venous blood specimen / Unknown 06/10/2024 4:51 PM EST 06/10/2024 4:51 PM EST us Gosia Schilling MD LAB BLOOD ORDERABLES Final Resul t [facility] [address] [place] [phone] * Albumin, Random Urine W/Creatinine (06/10/2024 4:42 PM EST) Only the most recent of2 resultswithin the time period is included. Creatinine, Urine 32.56 mg/dL [facility] Microalbumin Urine <5.0 mg/L [facility] Microalbum Creatinine Ratio Ur TNP <30 ug/mg cr [facility] Comment:Unable to calculate albumin/creatinine ratio due to lowmicroalbumin or creatinine result. Urine 06/10/2024 4:42 PM EST 06/10/2024 5:01 PM EST us Gosia Schilling MD LAB URINE ORDERABLES Final Resul t Performing Organization Address [facility]/ZIP Co de Phone Number [facility] [address] [place] [phone] * Vitamin D, 25-Hydroxy, Total, Immunoassay (04/25/2024 11:26 AM EST) Vitamin D 25-OH Total 37.3 >30 ng/mL [facility] Comment:Health Based Referen ce Values*< 20 ng/mL Ftbxeuhzm54-77 ng/mL Insufficient> 30 ng/mL Sufficient*Linda MCCALL. N [...] ORDERABLES Final Resul t Performing Organization Address City/[facility]/ZIP Co de Phone Number [facility] [address] [place] [phone] * Vitamin B12 (Cobalamin) and Folate Panel, Serum (04/25/2024 11:26 AM EST) Vitamin B12 635 200 - 900 pg/mL [facility] Comment:NORMAL 200-900 PG/ML INDETERMINATE 160-199 PG/ML DEFICIENT < 160 PG/ML Folate 12.2 > or = 4.0 ng/mL [facility] Comment:Reference Values:> o r = 4.0 ng/mL< 4.0 ng/mL suggests folate deficiency Methotrexate, aminopterin and folinic acid(leucovorin) are chemotherapeutic agents whose molecularstructures are similar to folate; therefore, the Architectfolate assay cannot be used for patients using these drugs. Blood 04/25/2024 11:2 6 AM EST 04/25/2024 1:44 PM EST Gosia Schililng MD LAB BLOOD ORDERABLES Final Resul t Performing Organization Address [facility] Co de Phone Number [facility] [address] [place] [phone] * (ABNORMAL) TSH with Reflex to Free T4 (04/25/2024 11:26 AM EST) TSH reflex Free T4 0.24(L) 0.32 - 4.0 uIU/mL [facility] Blood 04/25/2024 11:2 6 AM EST 04/25/2024 1:46 PM EST us Gosia Schilling MD LAB BLOOD ORDERABLES Final Resul t Performing Organization Address [facility] Co de Phone Number [facility] [address] [place] [phone] * (ABNORMAL) Iron And Total Iron Binding Capacity (04/25/2024 11:26 AM EST) Iron 270(H) 30 - 160 mcg/dL [facility] Total Iron Binding Capacity 437(H) 228 - 428 mcg/dL [facility] Percent Iron Saturation 62(H) 15 - 50 % [facility] Unsaturated Iron Binding 167 ug/dL [facility] Blood Venous blood specimen / Unknown 04/25/2024 11:26 AM EST 04/25/2024 1:46 PM EST us Gosia Schilling MD LAB BLOOD ORDERABLES Final Resul t Performing Organization Address [facility] Co de Phone Number [facility] [address] [place] [phone] * T4, Free (04/25/2024 11:26 AM EST) Free T4 (Free Thyroxine) 0.77 0.71 - 1.85 ng/dL [facility] 04/25/2024 11:2 6 AM EST 04/25/2024 1:46 PM EST Gosia Schilling MD LAB BLOOD ORDERABLES Final Resul t Performing Organization Address City/[facility]/ZIP Co de Phone Number [facility] [address] [place] [phone] * Hemoglobin A1c (04/25/2024 11:26 AM EST) Hemoglobin A1c 5.8 <6.0 % [facility] Comment:Hemoglobin A1C Refer ence Range Adults: 4.8 - 6.0 % Non diabetic: < 6.0 % Goal: < 7.0 %Additional Action Suggested: > 8.0 %Note: Hemoglobin A1c results are invalid for patients with abnormal amounts of HbF. Blood transfusions may impact the HbA1c concentration in the patient sample. Estimated Average Glucose 120 mg/dL [facility] Comment:eAG = Estimated ave rage glucose which is %A1C expressed asaverage glucose, using the formula of the E2T-NxehfbpJqzboma Glucose study (ADAG), Diabetes Care, Vol.31,#8,2007 Blood Venous blood specimen / Unknown 04/25/2024 11:26 AM EST 04/25/2024 1:46 PM EST Gosia Schilling MD LAB BLOOD ORDERABLES Final Resul t Performing Organization Address City/[facility]/ZIP Co de Phone Number [facility] [address] [place] [phone] * Ferritin (04/25/2024 11:26 AM EST) Ferritin 16 10 - 250 ng/mL [facility] Blood Venous blood specimen / Unknown 04/25/2024 11:26 AM EST 04/25/2024 1:46 PM EST us Gosia Schilling MD LAB BLOOD ORDERABLES Final Resul t Performing Organization Address [facility]/State/ZIP Co de Phone Number [facility] [address] [facility] [place] [phone] * BI Mammogram Screening Tomosynthesis Bilateral (01/15/2024 3:30 PM EDT) Anatomical Region Laterality Modality Breast Bilateral Mammography 01/15/2024 3:30 PM EDT Narrative 01/29/2024 8:58 AM EDT ? [facility] ? [address] ?[place] [address] ? Mammography Report ? Signed ? Patient: Destini Melchor ?MR#: MM ?? [id number] ? : 1960 ?Acct:[id number] ? Age/Sex: 63 / F ?ADM Date: 01/15/24 ? Loc: HO.MAMMO ? Attending Dr: Gosia Schilling MD ? Ordering Physician: Gosia Schilling MD ?Results: 1Negative ? Date of Service: 01/15/24 ?Follow Up: 1 Year From Orig ?? inal Mammogram ? Procedure(s): MM tomosynthesis screening BI ?? Accession Number(s): [id number] ? cc: Gosia Schilling MD ? EXAMINATION: [...] DD/ 1530 ? TD/TT: 01/15/24 1544 ? Detail Drafter: ? Procedure Note Juanter, Image - 01/29/2024 [facility] [address] [place] [address] Dr. [place], [place] [address] Mammography Report Signed Patient: Destini Melchor#: [id number] : 1960Acct:[id number] Age/Sex: 63 / FADM Date: 01/15/24 Loc: YANCY Attending Dr: Gosia Schilling MD Ordering Physician: Gosia Schillingesults: 1Negative Date of Service: 01/15/24Follow Up: 1 Year From Orig inal Mammogram Procedure(s): MM tomosynthesis screening BI Accession Number(s): [id number] cc: Gosia Schilling MD EXAMINATION: MM SCREENING [...] 01/29/24 0855 DD/ 1530 TD/TT: 01/15/24 1544 Detail Drafter: Gosia Schilling MD IM BI PROCEDURES Final Result * (ABNORMAL) Colonoscopy (05/29/2020) Colonoscopy Abnormal(A ) Normal 05/29/2020 Historical Provider HEALTH MAINTENANCE Final Result from Last 3 Months or Most Recently Relevant to Health Maintenance Insurance HSN PARTIAL BCBS HMO Care Teams Real Estate Agent/Broker Relationship Specialty Start Date End Date Gosia Schilling MD [address] [place] [phone] PCP - General Family Medicine 05/04/18
--- OUTSIDE RECORDS SUMMARY | 2024-06-22 11:57 | XMS_ITS | Encounter Summary ---
Author Organization [employer] Address [address] [facility] 7t [place] [address] Care Team Providers Care Drying Supervisor Name Role Phone Gosia Schilling MD Primary Care Provider [phone] Encounter Details Date Type Department Care Team ([facility] st Contact Info) Description 02/12/2023 Telephone [facility] MEDICINE [address] [place], [place] [phone] Gosia Schilling MD [address] [place], [place] [phone] Social History Tobacco Use Types Packs/Day Years [...] documented as of this encounter Care Teams Drying Supervisor Relationship Specialty Start Date End Date Gosia Schilling MD [address] [place] [phone] PCP - General Family Medicine 05/04/18 documented as of this encounter
--- OUTSIDE RECORDS SUMMARY | 2024-06-22 11:57 | XMS_ITS | Encounter Summary ---
Author Organization [employer] Address [address] [facility] 7t [place] [address] Care Team Providers Care Refinery Superintendent Name Role Phone Gosia Schilling MD Primary Care Provider [phone] Reason for Visit * Reason Onset Date Comments august06/17/2024 Encounter Details Date Type Department Care Team (Late st Contact Info) Description 06/17/2024 Telephone [facility] MEDICINE [address] [place] [address] Emma Quevedo [place] august recall Social History [...] [place] - 06/17/2024 2:56 PM EST ..T/C- Egg Tester Left Voice Mail to return call to [...] documented as of this encounter Care Teams Refinery Superintendent Relationship Specialty Start Date End Date Gosia Schilling MD [address] [place] [address] PCP - General Family Medicine 05/04/18 documented as of this encounter
--- OUTSIDE RECORDS SUMMARY | 2024-06-22 11:57 | XMS_ITS | Encounter Summary ---
Author Organization [employer] Address [address] [place] [address] 7t [place] [address] Care Team Providers Care Psychiatric Attendant Name Role Phone Gosia Schilling MD Primary Care Provider Encounter Details Date Type Department Care Team (Late st Contact Info) Description 06/27/2022 Orders Only [facility] MEDICINE [address] [place], [place] [phone] Gosia Schilling MD [address] [place], [place] [phone] Nail lesion (Primary Dx); Sjogren syndrome, unspecified [...] (Free Thyroxine) 0.90 0.71 - 1.85 ng/dL [facility] 04/03/2023 8:15 AM EST 04/03/2023 11:12 AM EST Gosia Schilling MD LAB BLOOD ORDERABLES Final Resul t Performing Organization Address City/[facility]/ZIP Co de Phone Number [facility] [address] [place] [address] [phone] * APTT (07/07/2022 1:22 PM EST) Partial Thromboplastin Time 34.0 26.0 - 36.4 SEC [facility] 07/07/2022 1:22 PM EST 07/07/2022 1:24 PM EST Narrative [facility] - 07/07/2022 1:53 PM EST QNS;SHORT DRAW [facility] External Provider LAB BLO OD ORDERABLES Final Result Performing Organization Address City/[facility]/ZIP Co de Phone Number [facility] [address] [place] [phone] * Prothrombin Time-INR (07/07/2022 1:22 PM EST) Prothrombin Time 11.2 10.0 - 13.1 SEC [facility] INTERNATIONAL NORM RATIO 1.0 0.9 - 1.1 [facility] Comment:INTERNATIONAL NORMAL IZED RATIO (INR) [...] PM EST 07/07/2022 1:24 PM EST Narrative [facility] - 07/07/2022 1:53 PM EST QNS;SHORT DRAW [facility] External Provider LAB BLO OD ORDERABLES Final Result Performing Organization Address [facility]/ZIP Co de Phone Number [facility] [address] [place] [phone] * Iron And Total Iron Binding Capacity (07/07/2022 12:11 PM EST) Pathologist [facility] Iron 74 30 - 160 mcg/dL [facility] Total Iron Binding Capacity 383 228 - 428 mcg/dL [facility] Percent Iron Saturation 19 15 - 50 % [facility] Unsaturated Iron Binding 309 ug/dL [facility] 07/07/2022 12:1 1 PM EST 07/08/2022 4:18 PM EST [facility] External Provider LAB BLO OD ORDERABLES Final Result Performing Organization Address [facility] Co de Phone Number [facility] [address] [place] [phone] * HIGH SENSITIVITY TROPONIN I (07/07/2022 12:11 PM EST) TROPONIN I HIGH SENSITIVITY <3.5 <3.5 - 17.0 ng/L [facility] Comment:The [place] Cruz high sens itivity Troponin-I results should beused in conjunction with other diagnostic information suchas ECG, clinical observations and information, and patientsymptoms to aid in the diagnosis of [place]. 07/07/2022 12:1 1 PM EST 07/07/2022 12:14 PM EST [facility] External Provider LAB BLO OD ORDERABLES Final Result Performing Organization Address [facility] Co de Phone Number [facility] [address] [place] [phone] * B Type Natriuretic Peptide (BNP) (07/07/2022 12:11 PM EST) [facility] B Type Natriuretic Peptide <10 <100 pg/mL [facility] Comment:For those patients w ho are being treated with Natrecor(nesiritide, recombinant BNP), BNP testing should beperformed at least two hours post treatment in order toensure that only endogenous levels of BNP are detected. 07/07/2022 12:1 1 PM EST 07/07/2022 12:14 PM EST [facility] External Provider LAB BLO OD ORDERABLES Final Result Performing Organization Address [facility] de Phone Number [facility] [address] [place] [phone] * (ABNORMAL) Comprehensive Metabolic Panel (07/07/2022 12:11 PM EST) Pathologist [facility] Sodium 141 135 - 145 mmol/L [facility] Potassium 4.4 3.3 - 5.1 mmol/L [facility] Chloride 107 96 - 108 mmol/L [facility] Carbon Dioxide 28 22 - 29 mmol/L [facility] Anion Gap 10(L) 12 - 20 [facility] Urea Nitrogen (BUN) 11 9 - 16 mg/dL [facility] Creatinine, Serum 0.90 0.5 - 1.4 mg/dL [facility] Creatinine Clr Calc Pharmacy 63.7 [facility] Comment:Provided height and weight: 157.48 cm,76.657 kg.eGFR (calculated from the MDRD study equation) and eCrCl(calculated from the Cockcroft-Gault equation) are based ondifferent parameters and may not yield comparable results.If eCrCl result is absurd, please check patient'sheight/weight. Estimated Glomerular Filt Rate >60 [facility] Comment:NOTE: For -Am erican individuals, multiply the result by 1.210.Chronic Kidney Disease: Estimated GFR < 60 mL/min/1.96m6Lsjljr Kidney Disease: Estimated GFR < 15 mL/min/1.73m2 Glucose 100 60 - 115 mg/dL [facility] Calcium 9.1 8.4 - 10.2 mg/dL [facility] Bilirubin, Total 0.4 0.0 - 1.0 mg/dL [facility] Aspartate Amino Transferase 27 5 - 31 U/L [facility] Alanine Aminotransferase 38(H) 0 - 31 U/L [facility] Total Protein 7.6 6.5 - 8.0 g/dL [facility] Albumin Level 4.3 3.5 - 5.0 g/dL [facility] Alkaline Phosphatase 84 39 - 117 U/L [facility] 07/07/2022 12:1 1 PM EST 07/07/2022 12:14 PM EST [facility] External Provider LAB BLO OD ORDERABLES Final Result [facility] [address] [place] [phone] * (ABNORMAL) CBC auto differential (07/07/2022 12:11 PM EST) White Blood Count 4.7(L) 4.8 - 10.8 X10*3/uL [facility] Red Blood Count 4.70 4.20 - 5.50 X10*6/uL [facility] Hemoglobin 12.8 12.0 - 16.0 g/dl [facility] Hematocrit 40.5 37.0 - 47.0 % [facility] Mean Corpuscular Volume 86.2 80.0 - 98.0 fL [facility] Mean Corpuscular Hemoglobin 27.2 27.0 - 33.0 pg [facility] Mean Corpuscular HGB Conc 31.6 31.0 - 35.0 g/dl [facility] Red Cell Distribution Width 13.0 11.0 - 16.0 % [facility] Platelet Count 276 160 - 400 X10*3/uL [facility] Mean Platelet Volume 9.4 9.4 - 12.3 fL [facility] Neutrophils Percent Auto 48.6 45 - 73 % [facility] Imm Gran Pct Auto 0.2 0.0 - 0.4 % [facility] Lymphocytes Percent Auto 38.2 20 - 40 % [facility] Monocytes Percent Auto 10.2 2 - 11 % [facility] Eosinophils Percent Auto 2.6 0 - 4 % [facility] Basophils Percent Auto 0.2 0 - 2 % [facility] NRBC Pct Auto 0.0 0.0 - 0.2 /100WBC [facility] Neutrophils Absolute Auto 2.3 2.0 - 8.3 x10*3/uL [facility] Imm Gran Abs Auto 0.01 0.00 - 0.03 X10*3/uL [facility] Lymphocytes Absolute Auto 1.8 1.2 - 4.9 X10*3/uL [facility] Monocytes Absolute Auto 0.5 0.1 - 1.2 X10*3/uL [facility] Eosinophils Absolute Auto 0.1 0.0 - 0.4 X10*3/uL [facility] Basophils Absolute Auto 0.0 0.0 - 0.2 X10*3/uL [facility] NRBC Abs Auto 0.000 0.0 - 0.012 X10*3/uL [facility] 07/07/2022 12:1 1 PM EST 07/07/2022 12:14 PM EST us [facility] External Provider LAB BLO OD ORDERABLES Final Result [facility] [address] [place] [phone] documented in this encounter Visit Diagnoses Diagnosis Nail lesion- Primary Sjogren syndrome, unspecified (CMS/HCC) documented in this encounter Care Teams Psychiatric Attendant Relationship Specialty Start Date End Date Gosia Schilling MD [address] [place] [phone] PCP - General Family Medicine 05/04/18 documented as of this encounter
--- OUTSIDE RECORDS SUMMARY | 2024-06-22 11:57 | XMS_ITS | Encounter Summary ---
Author Organization [employer] Address [address] [facility] 7t [place] [address] Care Team Providers Care Multifocal Button Grinder Name Role Phone Gosia Schilling MD Primary Care Provider [phone] Reason for Visit * Reason Comments Med Refill Encounter Details Date Type Department Care Team (Late st Contact Info) Description 02/04/2024 Refill [facility] MEDICINE [address] [place], [place] [phone] Gosia Schilling MD [address] [place], [place] [phone] Social History Tobacco Use Types Packs/Day Years [...] documented as of this encounter Care Teams Multifocal Button Grinder Relationship Specialty Start Date End Date Gosia Schilling MD [address] [place] [address] PCP - General Family Medicine 05/04/18 documented as of this encounter
[2024-06-27 10:22] LABS: PEU-Rand. Prot/Creat Ratio 70 mg/g creat (24-184); PEU-Random Ur. Gamma Globulin 0 %; PEU-Random Urine A1 Globulin 0 %; PEU-Random Urine A2 Globulin 0 %; PEU-Random Urine Albumin 100 %; PEU-Random Urine Beta Globulin 0 %; PEU-Random Urine Creatinine 57 mg/dL (20-275); PEU-Random Urine Protein 4 mg/dL (5-24)
== END 2024-06-22 10:00 | disposition home or self-care (01) ==
LOC: HO.HKASLDS 09:59
PROVIDERS: PCP Family Medicine; Visit Provider Internal Medicine Rheumatology
DX: M35.00 Sjogren syndrome, unspecified (principal); M17.0 Bilateral primary osteoarthritis of knee; R29.898 Other symptoms and signs involving the musculoskeletal system; I73.00 Raynaud's syndrome without gangrene; M19.041 Primary osteoarthritis, right hand; M19.042 Primary osteoarthritis, left hand
CPT/HCPCS: 82570; 84156; 84166

== ENCOUNTER 2024-10-31 16:00 | Outpatient (REF) | payer BC, SELFPAY ==
--- OUTSIDE RECORDS SUMMARY | 2024-10-31 16:04 | XMS_ITS | Encounter Summary ---
Author Organization [employer] Address [address] [facility] [address] [place] [address] Care Team Providers Care Pharmaceutical Operator Name Role Phone Gosia Schilling MD Primary Care Provider [phone] Encounter Details Date Type Department Care Team (Latest Contact Info) Description 10/31/2024 Travel Social History Tobacco Use Types Packs/Day Years Used Date Smoking Tobacco: Never Passive Smoke Exposure: Never Smokeless Tobacco: Never Depression Answer Date Recorded Patient Health Questionnaire-9 Score 6 04/25/2024 Patient Health Questionnaire-9 Score 6 04/25/2024 Last PHQ-9: Questionnaire Data Not on file 1 06/26/2023 Housing Stability Answer Date Recorded What is your housing situation today? I have marah belcher 08/24/[address] you li ve. Do you have problems with any of the following? None of the above 08/24/2024 Food Insecurity Answer Date Recorded Within the past 12 months, y ou worried that your food would run out before you got money to buy more: Never True 08/24/2024 Within the past 12 months,th e food you bought just didn't last and you didn't have enough money to get more: Never True Transportation Answer Date Recorded In the past 12 months, has l ack of transportation kept you from medical appts, meetings, work or from getting things needed for daily living? No 08/24/2024 Utilities Answer Date Recorded In the past 12 months, has t he electric, gas, oil or water company threatened to shut off services in your home? No 08/24/2024 Depression Answer Date Recorded Patient Health Questionnaire-2 Score 1 04/25/2024 Internet Access Answer Date Recorded Internet Access Q1 Yes 08/24/2024 Internet Access Q2 Not on file 08/24/2024 Comments Unknown Sex and Gender Information Value [...] documented as of this encounter Care Teams Pharmaceutical Operator Relationship Specialty Start Date End Date Gosia Schilling MD [address] [place] [address] PCP - General Family Medicine 05/04/18 documented as of this encounter
[2024-10-31 17:52] LABS: MANUAL DIFF FLAG NO
[2024-10-31 17:59] LABS: Basophils Percent Auto 0.6 % (0-2); Eosinophils Absolute Auto 0.1 X10*3/uL (0.0-0.4); Eosinophils Percent Auto 2.1 % (0-4); Hematocrit 36.3 % (37.0-47.0); Hemoglobin 11.3 g/dl (12.0-16.0); Imm Gran Abs Auto 0.01 X10*3/uL (0.00-0.03); Imm Gran Pct Auto 0.2 % (0.0-0.4); Lymphocytes Absolute Auto 1.9 X10*3/uL (1.2-4.9); Lymphocytes Percent Auto 36.5 % (20-40); Mean Corpuscular HGB Conc 31.1 g/dl (31.0-35.0); Mean Corpuscular Hemoglobin 26.2 pg (27.0-33.0); Mean Platelet Volume 10.2 fL (9.4-12.3); Monocytes Absolute Auto 0.4 X10*3/uL (0.1-1.2); Monocytes Percent Auto 8.6 % (2-11); Neutrophils Absolute Auto 2.7 x10*3/uL (2.0-8.3); Platelet Count 321 X10*3/uL (160-400); Red Blood Count 4.32 X10*6/uL (4.20-5.50); Red Cell Distribution Width 13.5 % (11.0-16.0); White Blood Count 5.1 X10*3/uL (4.8-10.8)
[2024-10-31 18:38] LABS: TSH reflex Free T4 0.25 uIU/mL (0.32-4.0); Vitamin D 25-OH Total 27.8 ng/mL (>30)
[2024-10-31 18:53] LABS: Vitamin B12 1069 pg/mL (200-900)
[2024-10-31 19:26] LABS: Free T4 (Free Thyroxine) 0.85 ng/dL (0.71-1.85)
== END 2024-10-31 16:01 | disposition home or self-care (01) ==
LOC: HO.HHCL 16:00
PROVIDERS: PCP Family Medicine; Visit Provider Family Medicine
DX: E53.8 Deficiency of other specified B group vitamins (principal); R53.83 Other fatigue; E55.9 Vitamin D deficiency, unspecified
CPT/HCPCS: 36415; 82306; 82607; 82746; 84439; 84443; 85025

== ENCOUNTER 2025-01-03 08:16 | Outpatient (AMB) | payer BC, SELFPAY ==
[2025-01-03 08:18] VITALS: BP 124/78; PULSE 103; O2SAT 99; BMI 32.6
--- NOTE | 2025-01-03 08:18 | A.OFFVIS_ITS ---
Vital Signs 01/03/25 08:18 Height 5 ft 2 in Weight 178 lb BMI 32.6 BP 124/78 Blood Pressure Location Lt brachial Position Sitting Pulse 103 H Pulse Source Pulse Oximeter Pulse Oximetry (%) 99 Oxygen Delivery Method Room Air Intake Visit Reasons: follow up Intake Note: Pt present today Arthritis. Patient complains pain got worse over a month, especially in her hands. Allergies latex (LATEX) Allergy (Intermediate, Verified 01/03/25 08:21) RASH omeprazole Allergy (Intermediate, Verified 01/03/25 08:21) Vomiting famotidine (Pepcid) Allergy (Mild, Verified 01/03/25 08:21) Vomiting Medication List - Last Reconciled 01/03/25 by Yuriy Jeong MD acetaminophen (Tylenol) 650 mg PO Q4H PRN amitriptyline 1 tab PO BEDTIME ascorbic acid (vitamin C) (Vitamin C) 1 tab PO BID cholecalciferol (vitamin D3) 1 cap PO DAILY clobetasol 0.05% 1 appl topical BID cyanocobalamin (vitamin B-12) 1,000 mcg PO DAILY estradiol 0.01%(0.1mg/gram) 1 g vaginal QWEEK reglaygiw-akbwa-hov 118-10-40.8-36 mg (Uribel) 1 tab PO TID-QID PRN 90 days minoxidil 2.5 mg PO DAILY ondansetron HCl 4 mg PO Q8H 30 days MDD 2 phenazopyridine (Pyridium) 200 mg PO TID PRN pilocarpine HCl 5 mg PO TID prednisone 5 mg PO DIRECTED psyllium husk (Metamucil) 1 tbsp PO DAILY sumatriptan succinate 50 mg PO DAILY PRN tadalafil 5 mg PO DAILY 90 days tamsulosin 0.4 mg PO BEDTIME 90 days vibegron (Gemtesa) 75 mg PO DAILY HPI HPI follow up: Details: Prednisone exacerbated GERD. Pain is extending to both arms including elbows and hands. She has pain in legs. MS min 10 minutes- 30 minutes She did not have time to do PT. PFSH Medical History Iron deficiency anemia Bleeding hemorrhoids Periumbilical abdominal pain Hx of endometriosis Autoimmune disorder Insomnia Pre-hypertension Microcytic anemia Back pain Arthritis Hx of migraines Interstitial cystitis Hepatic steatosis Irritable bowel syndrome with constipation GERD (gastroesophageal reflux disease) Sjogrens syndrome Surgical History H/O esophagogastroduodenoscopy History of bunionectomy of both great toes Hx of cystoscopy History of History of hysterectomy History of colonoscopy Hx of hemorrhoidectomy Family History Father Cirrhosis Mother Bone cancer HTN (hypertension) Migraine Diabetes mellitus Son GERD (gastroesophageal reflux disease) Daughter GERD (gastroesophageal reflux disease) Paternal Grandfather Diabetes mellitus Paternal Grandmother Emphysema lung Social History Household Members: Significant Other Alcohol intake: current Alcohol intake frequency: other Patient Tobacco Use Status: Never used Tobacco e-Cigarette/Vaping Use: Never Used Female Reproductive History Menstrual Age of Menarche: 14 Physical Exam Vital Signs: Last Vital Signs Pulse 103 H 01/03/25 08:18 BP 124/78 01/03/25 08:18 Pulse Ox 99 01/03/25 08:18 Oxygen Delivery Method Room Air 01/03/25 08:18 BMI result Body Mass Index 32.6 Const Other: General: Comfortable CVS: RRR Respiratory: clear to auscultation bilaterally. Good respiratory effort Skin: No lesions seen MSK: MCPs and PIP tenderness on palpation. No synovitis. Heberden nodes present. 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 Good range of motion of upper extremities. Knee flexion 120 degrees with valgus deformity noted. Assessment & Plan Assessment & Plan (1) Sjogrens syndrome: Comment: Inflammatory arthritis is uncontrolled. Prednisone results synovitis but it exacerbated her underlying uncontrolled GERD. We discussed next steps in management with hydroxychloroquine. Discussed side effects, benefits syndrome monitoring. Rheumatology history: With sicca symptoms, inflammatory arthritis KARYN 1:320, rheumatoid factor and SSA antibody. Dry mouth is controlled on pilocarpine. Dry eyes not controlled with OTC refresh. She has had minimal benefit with controlling inflammatory arthritis with diclofenac. X-rays of bilateral hands were normal. I will prescribe short course of prednisone. Code(s): M35.00 - Sjogren syndrome, unspecified Category: Medical Qualifiers: Sjogren's organ involvement: unspecified organ involvement Qualified Code(s): M35.00 - Sicca syndrome, unspecified Plan: Labs to assess disease activity ordered I will consider starting hydroxychloroquine after lab results are back. Information on hydroxychloroquine given to patient OT ordered to help increase hand strength PCP follow-up for GERD management Return to clinic in 3 months (2) Bilateral primary osteoarthritis of knee: Comment: Clinical diagnosis with valgus deformity. X-rays normal. Unable to do PT due to busy schedule Code(s): M17.0 - Bilateral primary osteoarthritis of knee Category: Medical Plan: AAOS knee strengthening exercises given to patient Encouraged weight loss. Recommend contacting PCP for application development specialist evaluation and to consider weight loss medications Avoiding oral NSAIDs due to uncontrolled GERD. Recommend that she follow up with PCP for GERD management Return to clinic in 3 months (3) Hand weakness: Code(s): R29.898 - Other symptoms and signs involving the musculoskeletal system Category: Medical Plan: Occupational therapy ordered Return to clinic in 3 months (4) Raynaud disease without gangrene: Comment: Affecting hands managed with conservative management Code(s): I73.00 - Raynaud's syndrome without gangrene Category: Medical Plan: Continue conservative management (5) Osteoarthritis of hands, bilateral: Code(s): M19.041 - Primary osteoarthritis, right hand; M19.042 - Primary osteoarthritis, left hand Category: Medical Qualifiers: Osteoarthritis type: primary Qualified Code(s): M19.041 - Primary osteoarthritis, right hand; M19.042 - Primary osteoarthritis, left hand Plan: OT ordered Return to clinic in 3 months Orders: Orders Complete Blood Count Auto Diff Today M35.00 - Sjogren syndrome, unspecified Erythrocyte Sedimentation Rate Today M35.00 - Sjogren syndrome, unspecified Protein Electrophoresis, Serum Today M35.00 - Sjogren syndrome, unspecified Complement C3 Today M35.00 - Sjogren syndrome, unspecified Complement C4 Today M35.00 - Sjogren syndrome, unspecified Alanine Aminotransferase Today M35.00 - Sjogren syndrome, unspecified C Reactive Protein Today M35.00 - Sjogren syndrome, unspecified Rheumatoid Factor Today M35.00 - Sjogren syndrome, unspecified Aspartate Amino Transferase Today M35.00 - Sjogren syndrome, unspecified Creatinine Today M35.00 - Sjogren syndrome, unspecified Dnebvel-1-Sgkakfwbu Dehydrogen Today M35.00 - Sjogren syndrome, unspecified Coding Level of Care Code Est Pt Level 4 (88609) Complex EM visit Add On G2211 Diagnoses Sjogren's syndrome, with unspecified organ involvement M35.00 Sjogren's organ involvement: unspecified organ involvement Bilateral primary osteoarthritis of knee M17.0 Hand weakness R29.898 Raynaud disease without gangrene I73.00 Primary osteoarthritis of both hands M19.041; M19.042 Osteoarthritis type: primary
--- OUTSIDE RECORDS SUMMARY | 2025-01-03 08:53 | XMS_ITS | Clinical Summary ---
Author Organization [employer] Address [address] [facility] [address] [place] [address] Care Team Providers Care Wrapper Hand Name Role Phone Gosia Schilling MD Primary Care Provider [phone] Allergies Active Allergy Reactions Criticality Noted Date Comments Omeprazole 03/19/2012 Medications Spacer/Aero-Hol ding Chambers deviceIndicatio ns:Bronchitis 1 each every 4 (four) hours if needed (use with inhaler). 1 each 05/22/19 23 Active Blood Pressure Monitoring (Omron 3 Series BP Monitor) device USE TO CHECK BLOOD PRESSURE DAILY 03/05/20 22 Active estradiol (Estrace) 0.1 MG/GM vaginal cream APPLY TO AFFECTED AREA 2-3 TIMES A WEEK 05/30/19 22 Active famotidine (Pepcid) 40 MG tablet 05/16/19 23 Active minoxidil (Loniten) 2.5 MG tablet 05/10/19 23 Active Methylcellulose , Laxative, 500 MG tablet Take 1 tablet by mouth every 12 (twelve) hours. 05/29/19 21 Active tamsulosin (Flomax) 0.4 MG 24 hr capsule TAKE 1 CAPSULE ORALLY AT BEDTIME FOR 90 DAYS 03/29/20 22 Active fluocinonide (Lidex) 0.05 % external solution PLEASE SEE ATTACHED FOR DETAILED DIRECTIONS 03/31/20 22 Active Refresh Liquigel 1 % ophthalmic solution dropperette INSTILL 1-2 DROPS IN AFFECTED EYES 3-4 X DAILY NEEDED 11/15/19 22 Active albuterol 108 (90 Base) MCG/ACT inhalerIndicati ons:Bronchitis Inhale 2 puffs every 4 (four) hours if needed for wheezing (cough). 18 g 1 05/22/19 23 Active oxybutynin XL (Ditropan-XL) 15 MG 24 hr tablet TAKE 1 TABLET ORALLY DAILY 07/07/19 23 Active Diclofenac Sodium 1 % gel Apply to affected area once daily 350 g 1 04/02/20 23 Active bisacodyl (Dulcolax) 5 MG EC tablet Take 1 tablet (5 mg) by mouth if needed each day for constipation. Do not crush, chew, or split. 30 tablet 1 04/08/20 23 Active docusate sodium (Colace) 100 MG capsule Take 1 capsule (100 mg) by mouth if needed in the morning and at bedtime for constipation. 180 capsule 3 04/08/20 23 Active senna (Senokot) 8.6 MG tablet Take 1 tablet (8.6 mg) by mouth if needed at bedtime for constipation. 90 tablet 1 04/08/20 23 Active ferrous sulfate 325 (65 Fe) MG EC tablet TAKE 1 TABLET BY MOUTH TWICE A DAY WITH ORANGE JUICE 60 tablet 11 09/07/19 24 Active Ascorbic Acid (vitamin C) 500 MG tabletIndicatio ns:Healthcare maintenance Take 1 tablet (500 mg) by mouth 2 times daily. 180 tablet 1 09/07/19 24 Active tadalafil (Cialis) 5 MG tablet 12/03/19 24 Active cyanocobalamin (Vitamin B-12) 1000 MCG tablet TAKE 1 TABLET BY MOUTH EVERY DAY 90 tablet 2 04/25/20 24 Active lidocaine (Lidoderm) 5 % patch Apply 1 patch topically Once per day. Remove & discard patch within 12 hours or as directed by MD. 30 patch 11 04/25/20 24 Active amitriptyline (Elavil) 25 MG tabletIndicatio ns:Psychophysio logical insomnia Take 1 tablet (25 mg) by mouth at bedtime. 90 tablet 3 11/01/19 25 Active cholecalciferol (D3-1000) 25 MCG (1000 UT) capsuleIndicati ons:Vitamin D deficiency Take 1 capsule (25 mcg) by mouth Once per day. 90 capsule 3 11/01/19 25 Active SUMAtriptan (Imitrex) 50 MG tabletIndicatio ns:Migraine without status migrainosus, not intractable, unspecified migraine type May repeat dose once in 2 hours if no relief. Do not exceed 2 doses in 24 hours.TAKE 1 TABLET AT ONSET OF MIGRAINE,MAY REPEAT IN 2 HRS IF NEEDED.MAX 2 TABS/24 HOURS.TAKE W/NAPROXEN 9 tablet 2 11/01/19 25 Active ondansetron (Zofran) 4 MG tablet Take 1 tablet (4 mg) by mouth every 8 (eight) hours if needed for nausea or vomiting. 20 tablet 2 11/01/19 25 Active cetirizine (ZyrTEC) 10 MG tablet Take 1 tablet (10 mg) by mouth Once per day. 90 tablet 3 11/01/19 25 026 Active fluticasone (Flonase Allergy Relief) 50 MCG/ACT nasal spray Administer 1-2 sprays into each nostril Once per day. 16 g 3 11/01/19 25 Active Gemtesa 75 MG tablet Take 1 tablet by mouth Once per day. 10/15/19 25 Active pilocarpine (Salagen) 5 MG tablet TAKE 1 TABLET BY MOUTH TWICE A DAY 60 tablet 2 11/15/19 25 Active losartan (Cozaar) 25 MG tablet TAKE 1 TABLET BY MOUTH EVERY DAY IF BLOOD PRESSURE <130 TAKE A 1/2 TAB ONCE DAILY, IF <120 DO NOT TAKE 90 tablet 3 12/13/19 25 Active naproxen (Naprosyn) 500 MG tablet TAKE 1 TABLET (500 MG) BY MOUTH IN THE MORNING AND AT BEDTIME NEEDED FOR MILD PAIN 60 tablet 1 12/23/19 25 Active losartan (Cozaar) 25 MG tablet Take 1 tablet by mouth once daily. If systolic blood pressure is < 130, take 1/2 tablet once daily. If systolic blood pressure is < 120, do not take. 30 tablet 11 12/09/19 24 025 Discontinued naproxen (Naprosyn) 500 MG tablet Take 1 tablet (500 mg) by mouth if needed in the morning and at bedtime for mild pain. 60 tablet 1 11/01/19 25 025 Discontinued Active Problems Problem Noted Date Diagnosed Date Chronic cough 11/12/2024 Assessment & Plan (11/12/2024 7:41 AM EDT): - evaluate for possible asthma - Optimize treatment for allergy Vitamin D deficiency 09/13/2023 Assessment & Plan (11/02/2024 11:20 PM EDT): - continue vitamin D Assessment & Plan (04/25/2024 4:35 PM EST): - continue vitamin D Assessment & Plan (09/13/2023 3:32 PM EDT): - continue vitamin D Raynaud disease 04/02/2023 Assessment & Plan (10/31/2024 11:18 AM EDT): - if home BP is not at goal, will Dx HTN and start amlodipine for its effect on vasodilation Assessment & Plan (04/24/2024 6:53 PM EST): [...] 6:07 PM EST): - previously followed by [facility], last seen in May 2022 - continue Linzess - continue fiber-rich diet - last colonoscopy by Dr. Trejo on 05/29/20. Recommended to repeat in 3 years due to marginal prep Assessment & Plan (04/03/2023 6:46 AM EST): - followed by [facility] - continue Linzess - continue fiber-rich diet Assessment & Plan (10/03/2022 5:56 PM EDT): - followed by [facility] - continue Linzess - continue fiber-rich diet Atrophic vaginitis 10/03/2022 Assessment & Plan (05/01/2024 6:07 PM EST): - following with [facility]ER[facility]ER TENDER, last seen in September 2023 - s/p hysterectomy - Continue Replens for moisturizing and lubricants for intimacy as needed. Assessment & Plan (04/03/2023 6:47 AM EST): - following with [facility], last seen in July 2022 - s/p hysterectomy - Continue Replens for moisturizing and lubricants for intimacy as needed. Assessment & Plan (10/03/2022 5:58 PM EDT): - following with [facility], last seen in July 2022 - s/p [...] refer to Hemorrhoids 09/23/2022 Assessment & Plan (10/31/2024 11:19 AM EDT): [place] [address] [place]. pevent constipation. avoid prolonged sitting, pressure. sitz bath Hydrocortisone rectal -evalauated by Dr. France on 07/18/20, recommended to get another surgery, and will schedule her surgery once she moves into her new apartment Assessment & Plan (04/24/2024 6:55 PM EST): [...] Iron deficiency anemia 09/23/2022 Assessment & Plan (10/31/2024 11:19 AM EDT): -received transfusions for Hgb 6.8, 2 units PRBC, in July 2020, likely due to excessive bleeding from hemorrhoids -Following with [facility]ematology service, last seen on 07/08/22. Normal CBC in July 2022. -advised to restart ferrous sulfate 325 mg bid with vitamin C -pt seen by Dr. France on 07/18/20 for bleeding hemorrhoids, recommended to get hemorrhoidectomy, but pt has been hesitant Assessment & Plan (04/25/2024 4:35 PM EST): -received transfusions for Hgb 6.8, 2 units PRBC, in July 2020, likely due to excessive bleeding from hemorrhoids -Following with [facility]ology service, last seen on 07/08/22. Normal [...] to excessive bleeding from hemorrhoids -Following with [facility]ology service, last seen on 07/08/22. Normal [...] to excessive bleeding from hemorrhoids -Following with [facility] service, last seen on 07/08/22. Normal [...] to excessive bleeding from hemorrhoids -Following with [facility] service, last seen on 07/08/22. Normal CBC in July 2022. -advised to continue ferrous sulfate 325 mg bid with vitamin C -pt seen by Dr. France on 07/18/20 for bleeding hemorrhoids, recommended to get hemorrhoidectomy, but pt has been hesitant Vitamin B12 deficiency 08/03/2022 Assessment & Plan (11/02/2024 11:19 PM EDT): Continue Vitamin B12 supplementation Assessment & Plan (04/25/2024 4:35 PM EST): Continue Vitamin B12 supplementation Assessment & Plan (04/03/2023 6:47 AM EST): Continue Vitamin B12 supplementation Assessment & Plan (09/23/2022 4:09 PM EDT): Continue Vitamin B12 supplementation Deficiency of gastric intrinsic factor H/O: hysterectomy 08/03/2022 Autoimmune disease 08/03/2022 Sjogren's syndrome 08/03/2022 Assessment & Plan (11/12/2024 7:45 AM EDT): -previously followed by [facility] -currently following with Dr. Jeong, last seen in June 2024. Dr. Jeong was considering hydroxychloroquine. Referred to OT and PT. -Previously taking BOBBY-2 inhitor, meloxicam 15 mg / day, held when she was having anemia secondary to bleeding hemorrhoids -Oral / dental care and biotene for dry mouth / sicca syndrome -pt is prescribed artificial tears for dry eyes -prescribed celecoxib and pilocarpine by pipeline engineer Assessment & Plan (05/01/2024 6:10 PM EST): -previously followed by [facility] -following her previous pipeline engineer at the provider's new office -Previously taking BOBBY-2 inhitor, meloxicam 15 mg / day, held when she was having anemia secondary to bleeding hemorrhoids -Oral / dental care and biotene for dry mouth / sicca syndrome -pt is prescribed artificial tears for dry eyes -prescribed celecoxib and pilocarpine by pipeline engineer; will prescribe while she is waiting for another appointment with her pipeline engineer -f/u in 3 months Assessment & Plan (12/10/2023 9:50 AM EDT): -followed by [facility] -Previously taking BOBBY-2 inhitor, meloxicam 15 mg / day, held when she was having anemia secondary to bleeding hemorrhoids -Oral / dental care and biotene for dry mouth / sicca syndrome -pt is prescribed artificial tears for dry eyes -prescribed celecoxib and pilocarpine by pipeline engineer; will prescribe while she is waiting for another appointment with her pipeline engineer -f/u in 3 months Assessment & Plan [...] Plan (10/03/2022 5:52 PM EDT): -followed by [facility]umatology, -Previously taking BOBBY-2 inhitor, meloxicam 15 mg / day, held when she was having anemia secondary to bleeding hemorrhoids -Oral / dental care and biotene for dry mouth / sicca syndrome -pt is prescribed artificial tears for dry eyes -f/u in 3 months Metabolic dysfunction-associ ated steatotic liver disease (MASLD) 12/25/2014 Assessment & Plan (04/24/2024 6:55 PM EST): - following with [facility], last seen in May 2022 - 07/10/20 CT showed no cirrhosis, mainly constipation - Consider updating with US if not ordered by GI Assessment & Plan (12/10/2023 9:44 AM EDT): - following with [facility], last seen in May 2022 - 07/10/20 CT showed no cirrhosis, mainly constipation - Consider updating with US if not ordered by GI Assessment & Plan (09/13/2023 3:29 PM EDT): - following with [facility], last seen in May 2022 - 07/10/20 CT showed no cirrhosis, mainly constipation - Consider updating with US if not ordered by GI Assessment & Plan (04/03/2023 6:46 AM EST): - following with [facility], last seen in May 2022 - 07/10/20 CT showed no cirrhosis, mainly constipation Assessment & Plan (10/03/2022 5:43 PM EDT): - following with [facility], last seen in May 2022 - 07/10/20 CT showed no cirrhosis, mainly constipation Allergic rhinitis 08/03/2014 Assessment & Plan (11/12/2024 7:41 AM EDT): - continue flonase and loratadine prn Assessment & Plan (05/01/2024 6:13 PM EST): [...] (05/01/2024 6:07 PM EST): - following with [facility], last seen on 12/03/23 - continue tamsulosin - previously on oxybutynin which discontinued due to dry mouth Assessment & Plan (12/10/2023 9:51 AM EDT): - following with [facility], last seen on 12/03/23 - continue tamsulosin - previously on oxybutynin which discontinued due to dry mouth Assessment & Plan (09/13/2023 3:30 PM EDT): - following with [facility], last seen in October 2022 - continue oxybutynin and tamsulosin Assessment & Plan (04/03/2023 6:47 AM EST): - following with [facility], last seen in October 2022 - continue oxybutynin and tamsulosin Assessment & Plan (10/03/2022 5:44 PM EDT): - following with [facility], last seen in Mar 2022 - continue oxybutynin and tamsulosin Gastroesophageal reflux disease 12/29/2011 Assessment & Plan (04/25/2024 4:35 PM EST): - s/p EGD on 05/29/20 at [facility], chronic inactive inflammation, H. Pylori negative - seen by Azul CLARK on 05/16/22, Rx famotidine - continue famotidine 40 mg at bedtime prn Assessment & Plan (04/03/2023 6:46 AM EST): - s/p EGD on 05/29/20 at [facility], chronic inactive inflammation, H. Pylori negative - seen by Azul CLARK on 05/16/22, Rx famotidine - continue famotidine 40 mg at bedtime prn Assessment & Plan (10/03/2022 5:41 PM EDT): - s/p EGD on 05/29/20 at [facility], chronic inactive inflammation, H. Pylori negative - seen by Azul Cyr ANP on 05/16/22, Rx famotidine - continue famotidine 40 mg at bedtime prn Psychophysiological insomnia 12/29/2011 Assessment & Plan (11/02/2024 11:20 PM EDT): - continue amitriptyline 25 mg at bedtime - previously tried trazodone. Pt preferred amitriptyline Assessment & Plan (04/24/2024 6:53 PM EST): - continue amitriptyline 25 mg at bedtime - previously tried trazodone. Pt preferred amitriptyline Assessment & Plan (10/03/2022 5:33 PM EDT): - continue amitriptyline 25 mg at bedtime - previously tried trazodone. Pt preferred amitriptyline Migraine 12/29/2011 Assessment & Plan (11/02/2024 11:20 PM EDT): - seen in the walk-in clinic in October 2023 - Rx sumatriptan prn - already on amitriptyline for insomnia; continue for prophylaxis as well Assessment & Plan (05/01/2024 6:11 PM EST): [...] Obesity 12/29/2011 Hypertension 12/29/2011 Assessment & Plan (11/12/2024 7:43 AM EDT): -Goal BP < 130 / 80 per ACC/AHA guideline [...] with our nurse for BP check. If clinic BP is still > 140 mmHg or home BP > 130/80, increase losartan to 50mg daily. Assessment & Plan (04/24/2024 6:54 PM EST): [...] Encounters Date Type Department Care Team Description 12/22/2024 Refill [facility] [address] [facility] [place] [address] Gosia Schilling MD 12/12/2024 Refill [facility] [address] [address] Gosia Schilling MD 11/12/2024 Refill [facility] [address] [place] [address] Gosia Schilling MD 10/31/2024 3:30 PM EDT Office Visit [facility] [address] [address] Gosia Schilling MD Hypertension, unspecified type (Primary Dx); Raynaud's disease without gangrene; Hemorrhoids, unspecified hemorrhoid type; Sjogren's syndrome, with unspecified organ involvement (CMS/HCC); Iron deficiency anemia, unspecified iron deficiency anemia type; Psychophysiological insomnia; Vitamin D deficiency; Migraine without status migrainosus, not intractable, unspecified migraine type; Fatigue, unspecified type; Vitamin B12 deficiency; Chronic cough; Allergic rhinitis, unspecified seasonality, unspecified trigger 10/31/2024 Orders Only [facility] [address] [place] [phone] Gosia Schilling MD 10/31/2024 Travel 10/28/[address] [phone] Gosia Schilling MD chart prep 10/05/[address] [phone] Gosia Schilling MD Appointment Request from Last 3 Months Immunizations Immunization Administration Dates Next Due Hep B, Adolescent or Pediatric 06/28/2008,2007,01/11/2008 Influenza Injectable Quadriv alant Preservative Free IIV4 MDCK 01/23/2022 Influenza injectable quadriv alent IIV4 with preservative 03/18/2019,01/25/2018,04/06/2017 Influenza injectable quadriv alent preservative free 01/23/2023,04/10/2015 Influenza, seasonal, injecta ble, preservative free 02/11/2024 Pfizer Covid-19 Vaccine 12+ 04/25/2024,1 06/02/2022,10/12/2020,2020 Pfizer [...] Sign Reading Time Taken Comments Blood Pressure 124/89 10/31/2024 3:28 PM EDT Pulse 95 10/31/2024 3:14 PM EDT Temperature 36 C (96.8 F) 10/31/2024 3:14 PM EDT Respiratory Rate 16 10/31/2024 3:14 PM EDT Oxygen Saturation 99% 10/31/2024 3:14 PM EDT Inhaled Oxygen Concentration - - Weight 79.6 kg (175 lb 6.4 oz) 10/31/2024 3:14 P M EDT Height 157.5 cm (5' 2 ) 10/31/2024 3:14 PM EDT Body Mass Index 32.08 10/31/2024 3:14 PM EDT Plan of Treatment Health Maintenance Due Date [...] Colonoscopy 05/29/2023 05/29/2020 Colorectal Cancer Screening 05/29/2023 Influenza Vaccine (#1) 2025 , 01/23/2023, 01/23/2022, Additional history exists Alcohol/Substance Use Screening 04/25/2025 04/25/2024 Depression Screening 04/25/2025 04/25/2024, 04/25/20 24 Diabetes: Hemoglobin A1C 04/25/2025 024, 09/07/2023, 04/03/2023, Additional history exists SDOH Screening 08/24/2025 08/24/2024 Disability Screening 10/31/2025 10/31/2024 Tobacco Screening 10/31/2025 10/31/2024 Mammogram 01/14/2026 01/15/2024, 08/0 06/2020, 06/15/2019, Additional history exists Lipid Panel 06/10/2029 06/10/2024, 04/04, 04/03/2023, Additional history exists DTaP/Tdap/Td Vaccines (3 - Td or Tdap) 09/23/2032 09/23/2022, 12/29/2011, 01/11/2008 Zoster Vaccines Completed 03/18/2021, 01/10/2021 COVID-19 Vaccine Completed 04/25/2024, , 02/05/2022, Additional history exists Hepatitis C Screening Completed 06/10/2024 HIB Vaccines Aged Out No longer eligi ble based on patient's age to complete this topic HPV Vaccines Aged Out No longer eligi ble based on patient's age to complete this topic IPV Vaccines Aged Out No longer eligi ble based on patient's age to complete this topic Meningococcal B Vaccine Aged Out No l onger eligible based on patient's age to complete [...] Date/Time Associated Diagnosis Comments T4, FREE Routine 10/31/2024 4:05 PM EDT VITAMIN B12/FOLATE, SERUM PANEL Routine 10/31/2024 4:05 PM EDT Vitamin B12 deficiency VITAMIN D,25-OH,TOTAL,IA Routine 10/31/2024 4:05 PM EDT Vitamin D deficiency TSH W/REFLEX TO FT4 Routine 10/31/2024 4 :05 PM EDT Fatigue, unspecified type CBC WITH AUTO DIFFERENTIAL Routine 10/31/2024 4:05 PM EDT Fatigue, unspecified type HEPATITIS B, C PROFILE Routine 4:51 PM EST LIPID PANEL WITH REFLEX TO DIRECT LDL Routine 06/10/2024 4:51 PM EST HEMOGLOBIN A1C Routine 04/25/2024 11:26 AM EST Impaired fasting glucose BI MAMMOGRAM SCREENING TOMOSYNTHESIS BILATERAL Routine 01/15/2024 3:30 PM EDT Breast cancer screening by mammogram HM COLONOSCOPY Routine 05/29/2020 from Last 3 Months or Most Recently Relevant to Health Maintenance Results * (ABNORMAL) Vitamin D, 25-Hydroxy, Total, Immunoassay (10/31/2024 4:05 PM EDT) Vitamin D 25-OH Total 27.8(L) >30 ng/mL [facility] Comment: Health Based Reference Values*< 20 ng/mL [id number] ng/mL Insufficient> 30 ng/mL Sufficient*Linda MCCALL. N Engl J Med. 2007;357:[id number] is no well-established upper level of normal vitamin Dlevels. Some laboratories use 50 ng/mL as an upper limit ofnormal. However, toxicity is patient-dependent and may occurat any level. Careful correlation with the patient'spresentation is necessary and, if there is concern forvitamin D toxicity, treatment should be consideredirrespective of the serum level.Care must be taken in interpreting Vitamin D [...] LC-MS/MS. Blood Venous blood specimen / Unknown 10/31/2024 4:05 PM EDT 10/31/2024 5:49 PM EDT us Gosia Schilling MD LAB BLOOD ORDERABLES Final Resul t [facility] [address] [place] [address] [phone] * (ABNORMAL) Vitamin B12/Folate, Serum Panel (10/31/2024 4:05 PM EDT) Vitamin B12 1,069(H) 200 - 900 pg/mL [facility] Comment:NORMAL 200-900 PG/ML INDETERMINATE 160-199 PG/ML DEFICIENT < 160 PG/ML Folate 9.0 > or = 4.0 ng/mL [facility] Comment:Reference Values:> o r = 4.0 ng/mL< 4.0 ng/mL suggests folate deficiency Methotrexate, aminopterin and folinic acid(leucovorin) are chemotherapeutic agents whose molecularstructures are similar to folate; therefore, the Architectfolate assay cannot be used for patients using these drugs. Blood Venous blood specimen / Unknown 10/31/2024 4:05 PM EDT 10/31/2024 5:49 PM EDT us Gosia Schilling MD LAB BLOOD ORDERABLES Final Resul t Performing Organization Address City/[facility] Co de Phone Number [facility] [address] [place] [phone] * (ABNORMAL) TSH with Reflex to Free T4 (10/31/2024 4:05 PM EDT) Pathologist [facility] TSH reflex Free T4 0.25(L) 0.32 - 4.0 uIU/mL [facility] Blood 10/31/2024 4:05 PM EDT 10/31/2024 5:49 PM EDT us Gosia Schilling MD LAB BLOOD ORDERABLES Final Resul t Performing Organization Address [facility] Co de Phone Number [facility] [address] [place] [phone] * (ABNORMAL) CBC auto differential (10/31/2024 4:05 PM EDT) White Blood Count 5.1 4.8 - 10.8 X10*3/uL [facility] Red Blood Count 4.32 4.20 - 5.50 X10*6/uL [facility] Hemoglobin 11.3(L) 12.0 - 16.0 g/dl [facility] Hematocrit 36.3(L) 37.0 - 47.0 % [facility] Mean Corpuscular Volume 84.0 80.0 - 98.0 fL [facility] Mean Corpuscular Hemoglobin 26.2(L) 27.0 - 33.0 pg [facility] Mean Corpuscular HGB Conc 31.1 31.0 - 35.0 g/dl [facility] Red Cell Distribution Width 13.5 11.0 - 16.0 % [facility] Platelet Count 321 160 - 400 X10*3/uL [facility] Mean Platelet Volume 10.2 9.4 - 12.3 fL [facility] Neutrophils Percent Auto 52.0 45 - 73 % [facility] Imm Gran Pct Auto 0.2 0.0 - 0.4 % [facility] Lymphocytes Percent Auto 36.5 20 - 40 % [facility] Monocytes Percent Auto 8.6 2 - 11 % [facility] Eosinophils Percent Auto 2.1 0 - 4 % [facility] Basophils Percent Auto 0.6 0 - 2 % [facility] NRBC Pct Auto 0.0 0.0 - 0.2 /100WBC [facility] Neutrophils Absolute Auto 2.7 2.0 - 8.3 x10*3/uL [facility] Imm Gran Abs Auto 0.01 0.00 - 0.03 X10*3/uL [facility] Lymphocytes Absolute Auto 1.9 1.2 - 4.9 X10*3/uL [facility] Monocytes Absolute Auto 0.4 0.1 - 1.2 X10*3/uL [facility] Eosinophils Absolute Auto 0.1 0.0 - 0.4 X10*3/uL [facility] Basophils Absolute Auto 0.0 0.0 - 0.2 X10*3/uL [facility] NRBC Abs Auto 0.000 0.0 - 0.012 X10*3/uL [facility] Blood Venous blood specimen / Unknown 10/31/2024 4:05 PM EDT 10/31/2024 5:49 PM EDT us Gosia Schilling MD LAB BLOOD ORDERABLES Final Resul t [facility] [address] [place] [phone] * T4, Free (10/31/2024 4:05 PM EDT) [facility] Free T4 (Free Thyroxine) 0.85 0.71 - 1.85 ng/dL [facility] 10/31/2024 4:05 PM EDT 10/31/2024 5:49 PM EDT us Gosia Schilling MD LAB BLOOD ORDERABLES Final Resul t Performing Organization Address [facility] Phone Number [facility] [address] [place] [phone] * Hepatitis B, C Profile (06/10/2024 4:51 PM EST) [facility] ~Hepatitis B Surface Antibody REACTIVE Nonreactive [facility] Comment:REACTIVE: > 11.99 mI U/mL Hepatitis B Core Antibody Nonreactive Nonreactive [facility] Hepatitis C Antibody Nonreactive Nonreactive [facility] Comment:Antibodies to HCV no t detected; does not exclude early acuteHCV infection. Hepatitis B Surface Ag Negative Negative [facility] 06/10/2024 4:51 PM EST 06/10/2024 4:51 PM EST us Generic External Data Provider LAB BLOOD ORDERAB LES Final Result Performing Organization Address [facility] Phone Number [facility] [address] [place] [phone] * (ABNORMAL) Lipid Panel with Reflex to Direct LDL (06/10/2024 4:51 PM EST) [facility] Triglycerides 187(H) <150 mg/dL [facility] Comment:Desirable Triglyceri de: less than 150 mg/dLBorderline High Triglyceride 150-199 mg/dLHigh Triglyceride: 200-499 mg/dLVery High Triglyceride: greater than or equal to 5OO mg/dL Cholesterol 191 <200 mg/dL [facility] Comment:Desirable Cholestero l: less than 200 mg/dLBorderline High Cholesterol: 200-239 mg/dLHigh Cholesterol: greater than 239 mg/dL LDL Cholesterol Calculated 103(H) <100 mg/dL [facility] Comment:Desirable LDL: less than 100 mg/dLNear Optimal/Above Optimal LDL: 110- 129 mg/dLBorderline High LDL: 130-159 mg/dLHigh LDL: 160-189 mg/dLVery High LDL: greater than or equal to 190 mg/dL HDL Cholesterol 51 >40 mg/dL [facility] Comment:Desirable HDL: great er than 40 mg/dL Note: This HDL assay may give artificially low results in patients with liver disease. 06/10/2024 4:51 PM EST 06/10/2024 4:51 PM EST Gosia Schilling MD LAB BLOOD ORDERABLES Final Resul t Performing Organization Address [facility] Co de Phone Number [facility] [address] [place] [phone] * Hemoglobin A1c (04/25/2024 11:26 AM EST) Hemoglobin A1c 5.8 <6.0 % [facility] Comment:Hemoglobin A1C Refer ence Range Adults: 4.8 - 6.0 % Non diabetic: < 6.0 % Goal: < 7.0 %Additional Action Suggested: > 8.0 %Note: Hemoglobin A1c results are invalid for patients with abnormal amounts of HbF. Blood transfusions may impact the HbA1c concentration in the patient sample. Estimated Average Glucose 120 mg/dL [facility] Comment:eAG = Estimated ave rage glucose which is %A1C expressed asaverage glucose, using the formula of the N3W-RlrlonpTitoubm Glucose study (ADAG), Diabetes Care, Vol.31,#8,Dec. 2007 Blood Venous blood specimen / Unknown 04/25/2024 11:26 AM EST 04/25/2024 1:46 PM EST Gosia Schilling MD LAB BLOOD ORDERABLES Final Resul t Performing Organization Address [facility] Co de Phone Number [facility] [address] [place] [phone] * BI Mammogram Screening Tomosynthesis Bilateral (01/15/2024 3:30 PM EDT) Anatomical Region Laterality Modality Breast Bilateral Mammography 01/15/2024 3:30 PM EDT Narrative 01/29/2024 8:58 AM EDT [facility] [address] [place], [place] [address] Mammography Report Signed Patient: Destini Melchor MR#: [id number] : 1960 Acct:[id number] Age/Sex: 63 / F ADM Date: 01/15/24 Loc: HO.MAMMO Attending Dr: Gosia Schilling MD Ordering Physician: Gosia Schilling MD Results: 1Negative Date of Service: 01/15/24 Follow Up: 1 Year From Orig inal Mammogram Procedure(s): MM tomosynthesis screening BI Accession Number(s): [id number] cc: Gosia Schilling MD EXAMINATION: MM SCREENING [...] 01/29/24 0855 DD/ 1530 TD/TT: 01/15/24 1544 Cardiovascular Specialist: Procedure Note Donotuseinterpreter, Image - 01/29/2024 [facility] [address] [place], [place] [address] Mammography Report Signed Patient: Rhett Melchor#: [id number] : 1960Acct:[id number] Age/Sex: 63 / FADM Date: 01/15/24 Loc: HO.MAMMO Attending Dr: Gosia Schilling MD Ordering Physician: Gosia Schilling MDResults: 1Negative Date of Service: 01/15/24Follow Up: 1 Year From Orig inal Mammogram Procedure(s): MM tomosynthesis screening BI Accession Number(s): [id number] cc: Gosia Schilling MD EXAMINATION: MM SCREENING [...] 01/29/24 0855 DD/ 1530 TD/TT: 01/15/24 1544 Cardiovascular Specialist: Gosia Schilling MD IMG BI PROCEDURES Final Result * (ABNORMAL) Hm Colonoscopy (05/29/2020) Colonoscopy Abnormal(A ) Normal 05/29/2020 us Historical Provider HEALTH MAINTENANCE Final Result from Last 3 Months or Most Recently Relevant to Health Maintenance Insurance [facility] HMO Care Teams Wrapper Hand Relationship Specialty Start Date End Date Gosia Schilling MD [address] [place] [phone] PCP - General Family Medicine 05/04/18
--- OUTSIDE RECORDS SUMMARY | 2025-01-03 08:53 | XMS_ITS | Encounter Summary ---
Author Organization [employer] Address [address] [place] [address] Care Team Providers Care Type Caster Name Role Phone Gosia Schilling MD Primary Care Provider [phone] Encounter Details Date Type Department Care Team ([facility] Contact Info) Description 02/12/2023 Telephone [facility] [address] [place], [place] [phone] Gosia Schilling MD [address] [place], [place] [phone] Social History Tobacco Use Types Packs/Day Years [...] documented as of this encounter Care Teams Type Caster Relationship Specialty Start Date End Date Gosia Schilling MD [address] [place] [address] PCP - General Family Medicine 05/04/18 documented as of this encounter
--- OUTSIDE RECORDS SUMMARY | 2025-01-03 08:53 | XMS_ITS | Encounter Summary ---
Author Organization [employer] Address [address] [facility] [address] [place] [address] Care Team Providers Care Loss Prevention Consultant Name Role Phone Gosia Schilling MD Primary Care Provider [phone] Reason for Visit * Reason Onset Date Comments Appointment Request 10/05/2024 Encounter Details Date Type Department Care Team ([facility] Contact Info) Description 10/05/2024 Telephone [facility] [address] [place], [place] [phone] Gosia Schilling MD [address] [place], [place] [phone] Appointment Request Social History Tobacco Use Types Packs/Day Years [...] encounter Miscellaneous Notes * Telephone Encounter - Maria Antonia Coleman - 10/05/2024 3:45 PM EDT Tc from pt requesting appointment for office visit due to past appointment being cancelled documented in this encounter Plan of Treatment Not on file documented as of this encounter Visit Diagnoses Not on filedocumented in this encounter Additional Health Concerns Assessment Noted Time PHQ-9 Depression Total Score: 6 04/25/20 24 1:24 PM EST documented as of this encounter Care Teams Loss Prevention Consultant Relationship Specialty Start Date End Date Gosia Schilling MD [address] [place] [phone] PCP - General Family Medicine 05/04/18 documented as of this encounter
--- OUTSIDE RECORDS SUMMARY | 2025-01-03 08:53 | XMS_ITS | Encounter Summary ---
Author Organization [employer] Address [address] [facility] [address] [place] [address] Care Team Providers Care Flanging Operator Name Role Phone Gosia Schilling MD Primary Care Provider Reason for Visit * Reason Comments Med Refill Encounter Details Date Type Department Care Team ([facility] st Contact Info) Description 02/04/2024 Refill [facility]INE [address] [place], [place] [phone] Gosia Schilling MD [address] [place], [place] [phone] Social History Tobacco Use Types Packs/Day Years [...] documented as of this encounter Care Teams Flanging Operator Relationship Specialty Start Date End Date Gosia Schilling MD [address] [place] [phone] PCP - General Family Medicine 05/04/18 documented as of this encounter
--- OUTSIDE RECORDS SUMMARY | 2025-01-03 08:53 | XMS_ITS | Encounter Summary ---
Author Organization [employer] Address [address] [facility] 7t [place] [address] Care Team Providers Care Blocker Hand Name Role Phone Gosia Schilling MD Primary Care Provider [phone] Encounter Details Date Type Department Care Team ([facility] st Contact Info) Description 06/27/2022 Orders Only [facility] MEDICINE [address] [place] [phone] Gosia Schilling MD [address] [place] [address] Nail lesion (Primary Dx); Sjogren syndrome, unspecified [...] (Free Thyroxine) 0.90 0.71 - 1.85 ng/dL [facility] 04/03/2023 8:15 AM EST 04/03/2023 11:12 AM EST Gosia Schilling MD LAB BLOOD ORDERABLES Final Resul t Performing Organization Address City/[facility]/ZIP Co de Phone Number [facility] [address] [place] [address] [phone] * APTT (07/07/2022 1:22 PM EST) Partial Thromboplastin Time 34.0 26.0 - 36.4 SEC [facility] 07/07/2022 1:22 PM EST 07/07/2022 1:24 PM EST Narrative [facility] - 07/07/2022 1:53 PM EST QNS;SHORT DRAW [facility] External Provider LAB BLO OD ORDERABLES Final Result Performing Organization Address City/[facility]/ZIP Co de Phone Number [facility] [address] [place] [phone] * Prothrombin Time-INR (07/07/2022 1:22 PM EST) Prothrombin Time 11.2 10.0 - 13.1 SEC [facility] INTERNATIONAL NORM RATIO 1.0 0.9 - 1.1 [facility] Comment:INTERNATIONAL NORMAL IZED RATIO (INR) [...] PM EST 07/07/2022 1:24 PM EST Narrative [facility] - 07/07/2022 1:53 PM EST QNS;SHORT DRAW [facility] External Provider LAB BLO OD ORDERABLES Final Result Performing Organization Address [facility] Co de Phone Number [facility] [address] [place] [phone] * Iron And Total Iron Binding Capacity (07/07/2022 12:11 PM EST) Pathologist [facility] Iron 74 30 - 160 mcg/dL [facility] Total Iron Binding Capacity 383 228 - 428 mcg/dL [facility] Percent Iron Saturation 19 15 - 50 % [facility] Unsaturated Iron Binding 309 ug/dL [facility] 07/07/2022 12:1 1 PM EST 07/08/2022 4:18 PM EST [facility] External Provider LAB BLO OD ORDERABLES Final Result Performing Organization Address [facility] Co de Phone Number [facility] [address] [place] [phone] * HIGH SENSITIVITY TROPONIN I (07/07/2022 12:11 PM EST) TROPONIN I HIGH SENSITIVITY <3.5 <3.5 - 17.0 ng/L [facility] Comment:The De La Cruz high sens itivity Troponin-I results should beused in conjunction with other diagnostic information suchas ECG, clinical observations and information, and patientsymptoms to aid in the diagnosis of AK. 07/07/2022 12:1 1 PM EST 07/07/2022 12:14 PM EST [facility] External Provider LAB BLO OD ORDERABLES Final Result Performing Organization Address [facility] Co de Phone Number [facility] [address] [place] [phone] * B Type Natriuretic Peptide (BNP) (07/07/2022 12:11 PM EST) [facility] B Type Natriuretic Peptide <10 <100 pg/mL [facility] Comment:For those patients w ho are being treated with Natrecor(nesiritide, recombinant BNP), BNP testing should beperformed at least two hours post treatment in order toensure that only endogenous levels of BNP are detected. 07/07/2022 12:1 1 PM EST 07/07/2022 12:14 PM EST [facility] External Provider LAB BLO OD ORDERABLES Final Result Performing Organization Address [facility] Phone Number [facility] [address] [place] [phone] * (ABNORMAL) Comprehensive Metabolic Panel (07/07/2022 12:11 PM EST) [facility] Sodium 141 135 - 145 mmol/L [facility] Potassium 4.4 3.3 - 5.1 mmol/L [facility] Chloride 107 96 - 108 mmol/L [facility] Carbon Dioxide 28 22 - 29 mmol/L [facility] Anion Gap 10(L) 12 - 20 [facility] Urea Nitrogen (BUN) 11 9 - 16 mg/dL [facility] Creatinine, Serum 0.90 0.5 - 1.4 mg/dL [facility] Creatinine Clr Calc Pharmacy 63.7 [facility] Comment:Provided height and weight: 157.48 cm,76.657 kg.eGFR (calculated from the MDRD study equation) and eCrCl(calculated from the Cockcroft-Gault equation) are based ondifferent parameters and may not yield comparable results.If eCrCl result is absurd, please check patient'sheight/weight. Estimated Glomerular Filt Rate >60 [facility] Comment:NOTE: For -Am erican individuals, multiply the result by 1.210.Chronic Kidney Disease: Estimated GFR < 60 mL/min/1.80s3Mamywn Kidney Disease: Estimated GFR < 15 mL/min/1.73m2 Glucose 100 60 - 115 mg/dL [facility] Calcium 9.1 8.4 - 10.2 mg/dL [facility] Bilirubin, Total 0.4 0.0 - 1.0 mg/dL [facility] Aspartate Amino Transferase 27 5 - 31 U/L [facility] Alanine Aminotransferase 38(H) 0 - 31 U/L [facility] Total Protein 7.6 6.5 - 8.0 g/dL [facility] Albumin Level 4.3 3.5 - 5.0 g/dL [facility] Alkaline Phosphatase 84 39 - 117 U/L [facility] 07/07/2022 12:1 1 PM EST 07/07/2022 12:14 PM EST us [facility] External Provider LAB BLO OD ORDERABLES Final Result [facility] [address] [place] [phone] * (ABNORMAL) CBC auto differential (07/07/2022 12:11 PM EST) White Blood Count 4.7(L) 4.8 - 10.8 X10*3/uL [facility] Red Blood Count 4.70 4.20 - 5.50 X10*6/uL [facility] Hemoglobin 12.8 12.0 - 16.0 g/dl [facility] Hematocrit 40.5 37.0 - 47.0 % [facility] Mean Corpuscular Volume 86.2 80.0 - 98.0 fL [facility] Mean Corpuscular Hemoglobin 27.2 27.0 - 33.0 pg [facility] Mean Corpuscular HGB Conc 31.6 31.0 - 35.0 g/dl [facility] Red Cell Distribution Width 13.0 11.0 - 16.0 % [facility] Platelet Count 276 160 - 400 X10*3/uL [facility] Mean Platelet Volume 9.4 9.4 - 12.3 fL [facility] Neutrophils Percent Auto 48.6 45 - 73 % [facility] Imm Gran Pct Auto 0.2 0.0 - 0.4 % [facility] Lymphocytes Percent Auto 38.2 20 - 40 % [facility] Monocytes Percent Auto 10.2 2 - 11 % [facility] Eosinophils Percent Auto 2.6 0 - 4 % [facility] Basophils Percent Auto 0.2 0 - 2 % [facility] NRBC Pct Auto 0.0 0.0 - 0.2 /100WBC [facility] Neutrophils Absolute Auto 2.3 2.0 - 8.3 x10*3/uL [facility] Imm Gran Abs Auto 0.01 0.00 - 0.03 X10*3/uL [facility] Lymphocytes Absolute Auto 1.8 1.2 - 4.9 X10*3/uL [facility] Monocytes Absolute Auto 0.5 0.1 - 1.2 X10*3/uL [facility] Eosinophils Absolute Auto 0.1 0.0 - 0.4 X10*3/uL [facility] Basophils Absolute Auto 0.0 0.0 - 0.2 X10*3/uL [facility] NRBC Abs Auto 0.000 0.0 - 0.012 X10*3/uL [facility] 07/07/2022 12:1 1 PM EST 07/07/2022 12:14 PM EST us [facility] External Provider LAB BLO OD ORDERABLES Final Result [facility] [address] [place] [phone] [phone] documented in this encounter Visit Diagnoses Diagnosis Nail lesion- Primary Sjogren syndrome, unspecified (CMS/HCC) documented in this encounter Care Teams Blocker Hand Relationship Specialty Start Date End Date Gosia Schilling MD [address] [place] [phone] PCP - General Family Medicine 05/04/18 documented as of this encounter
== END 2025-01-03 08:52 | disposition home or self-care (01) ==
LOC: HO.RHES 08:17
PROVIDERS: PCP Family Medicine; Visit Provider Internal Medicine Rheumatology
DX: M35.00 Sjogren syndrome, unspecified (principal); M17.0 Bilateral primary osteoarthritis of knee; R29.898 Other symptoms and signs involving the musculoskeletal system; I73.00 Raynaud's syndrome without gangrene; M19.041 Primary osteoarthritis, right hand; M19.042 Primary osteoarthritis, left hand
CPT/HCPCS: 99214

== ENCOUNTER 2025-03-06 15:27 | Outpatient (AMB) | payer BC, SELFPAY ==
--- NOTE | 2025-03-06 15:30 | MHC.OFFVIS ---
Intake Visit Reasons: 1Y/ PVR Intake Note: Patient presents today for 1yr/PVR Urology Medication:Estradiol, Amitriptyline, Gemtesa, Pyridium, Tadalafil, Tamsulosin, Vitamin B12 Blood Thinner:None Antibiotic Allergies:None PVR: Ceiling Cleaner Required: No Accompanied by: Self / Same As Patient Allergies latex (LATEX) Allergy (Intermediate, Verified 03/06/25 15:31) RASH omeprazole Allergy (Intermediate, Verified 03/06/25 15:31) Vomiting famotidine (Pepcid) Allergy (Mild, Verified 03/06/25 15:31) Vomiting Medication List - Last Reconciled 03/06/25 by Liam Diaz MD acetaminophen (Tylenol) 650 mg PO Q4H PRN amitriptyline 1 tab PO BEDTIME ascorbic acid (vitamin C) (Vitamin C) 1 tab PO BID cholecalciferol (vitamin D3) 1 cap PO DAILY cyanocobalamin (vitamin B-12) 1,000 mcg PO DAILY minoxidil 2.5 mg PO DAILY ondansetron HCl 4 mg PO Q8H 30 days MDD 2 pilocarpine HCl 5 mg PO TID prednisone 5 mg PO DIRECTED psyllium husk (Metamucil) 1 tbsp PO DAILY sumatriptan succinate 50 mg PO DAILY PRN tamsulosin 0.4 mg PO BEDTIME 90 days vibegron (Gemtesa) 75 mg PO DAILY HPI Comments Details: 03/06/25--Destini is a 64-year-old female followed for interstitial cystitis. Currently she is on medications for lower urinary tract symptoms of urgency and bladder pain Gemtesa and tamsulosin. History of Present Illness The patient is a 64-year-old female presenting for management of interstitial cystitis. She has been experiencing lower urinary tract symptoms, including urgency and bladder pain, for which she is currently on Gemtesa and Tamsulosin. The patient reports frequent urination, approximately five times during the day and twice at night, which is exacerbated by increased water intake. Her urinalysis results were normal, and she reports no current bladder pain, indicating stability in her condition. She has not been using Uribel due to insurance issues but reports that her pain is manageable without it. The patient uses Replens for vaginal moisture, which she applies once or twice a week. Results - Urinalysis: Normal results Plan 1. Interstitial Cystitis - Continue current medications: Gemtesa and Tamsulosin. - Refill prescriptions as needed and monitor symptoms. - Follow-up in one year unless symptoms worsen. 12/03/23--Destini is a 63-year-old female who presents to the office for interstitial cystitis follow-up. has lower urinary tract symptoms of urgency and frequency. Prior cystoscopy hydrodistention with Dr. Ashley. Will cont flomax, uribel prn. Discussed gemtesa for urge/frequency symptoms. 10/27/22--The patient denies dysuria. The patient states that she has Sjogrens disease.States having dry month due to oxybutynin. Evaluation/ UA-- Blood: negative, leukocytes: negative. Plan chrissie Discontinue oxybutynin 15 mg. Gemtesa 75 mg was ordered. Continue tamsulosin 0.4 mg. Follow-up after a year. 03/26/22--Destini is a 61-year-old female who is here for follow-up. She has been diagnosed with interstitial cystitis has lower urinary tract symptoms of urgency and frequency. Prior cystoscopy hydrodistention with Dr. Ashley. Currently on oxybutynin and Flomax. Denies urinary incontinence urinary frequency every hour. Patient states 03/05/22 blood in urine and dysuria, she was treated for UTI with antibiotics with resolution UTI symptoms. On evaluation today urinalysis negative for blood or leukocytes, bladder scan PVR is 0 mL. Will continue oxybutynin 15 mg daily and tamsulosin Imaging: reviewed 07/10/20--CT ABDOMEN AND PELVIS WITHOUT CONTRAST- kidneys WNL, no stones or masses PFSH Medical History Iron deficiency anemia Bleeding hemorrhoids Periumbilical abdominal pain Hx of endometriosis Autoimmune disorder Insomnia Pre-hypertension Microcytic anemia Back pain Arthritis Hx of migraines Interstitial cystitis Hepatic steatosis Irritable bowel syndrome with constipation GERD (gastroesophageal reflux disease) Sjogrens syndrome Surgical History H/O esophagogastroduodenoscopy History of bunionectomy of both great toes Hx of cystoscopy History of History of hysterectomy History of colonoscopy Hx of hemorrhoidectomy Family History Father Cirrhosis Mother Bone cancer HTN (hypertension) Migraine Diabetes mellitus Son GERD (gastroesophageal reflux disease) Daughter GERD (gastroesophageal reflux disease) Paternal Grandfather Diabetes mellitus Paternal Grandmother Emphysema lung Social History Household Members: Significant Other Alcohol intake: current Alcohol intake frequency: other Patient Tobacco Use Status: Never used Tobacco e-Cigarette/Vaping Use: Never Used Female Reproductive History Menstrual Age of Menarche: 14 Review of Systems Const All systems reviewed & are unremarkable except as noted in HPI and below Reports no additional complaints Eyes Reports no additional complaints ENT Reports no additional complaints Card Reports no additional complaints Resp Reports no additional complaints GI Reports no additional complaints Reports as per HPI Musc Reports no additional complaints Skin/Breast Reports system reviewed and no additional complaints, except as documented Neuro Reports no additional complaints Psych Reports no additional complaints Endo Reports no additional complaints Ben/Lymph Reports no additional complaints Aller/Immun Reports no additional complaints Assessment & Plan Assessment & Plan (1) Interstitial cystitis: Code(s): N30.10 - Interstitial cystitis (chronic) without hematuria Category: Medical (2) Urinary frequency: Code(s): R35.0 - Frequency of micturition Category: Medical (3) Sjogrens syndrome: Code(s): M35.00 - Sjogren syndrome, unspecified Category: Medical Qualifiers: Sjogren's organ involvement: unspecified organ involvement Qualified Code(s): M35.00 - Sicca syndrome, unspecified Plan Plan Interstitial Cystitis - Continue current medications: Gemtesa and Tamsulosin. - Refill prescriptions as needed and monitor symptoms. - Follow-up in one year unless symptoms worsen. Patient Instructions: The patient had an opportunity to ask questions regarding treatment plan. The patient expressed understanding and agreement with the above treatment plan. The patient is aware they should contact our office by phone for worsening of their current condition or the appearance of new symptoms. Compliance is encouraged with any medications and followup testing that is ordered. It is a privilege to be allowed the opportunity to participate in the urologic care of your patient. If you have any questions or concerns regarding treatment for the above conditions please do not hesitate to contact me. The office telephone contact is [phone]. This note is constructed in part using voice recognition software. While every effort has been made to ensure accuracy customer management specialist errors may have been included. Yours sincerely, Liam Diaz MD Scribe Plan - Not visible on output: Patient was informed and verbally consented to the use of an ambient scribe for clinic note documentation during this visit. Coding Level of Care Code Est Pt Level 3 (65423) Complex EM visit Add On G2211 Diagnoses Interstitial cystitis N30.10 Urinary frequency R35.0 Sjogren's syndrome, with unspecified organ involvement M35.00 Sjogren's organ involvement: unspecified organ involvement
--- OUTSIDE RECORDS SUMMARY | 2025-03-06 16:41 | XMS_ITS | Encounter Summary ---
Author Organization [employer] Address 75 [facility] [address] [place] [address] Care Team Providers Care Cost Engineer Name Role Phone Gosia Schilling MD Primary Care Provider [phone] Reason for Visit * Reason Comments Med Refill Encounter Details Date Type Department Care Team ([facility] st Contact Info) Description 01/22/2025 Refill [facility] [address] [place] [address] Gosia Schilling MD [address] [place] [address] Social History Tobacco Use Types Packs/Day Years [...] documented as of this encounter Care Teams Cost Engineer Relationship Specialty Start Date End Date Gosia Schilling MD [address] [place] [phone] PCP - General Family Medicine 05/04/18 documented as of this encounter
--- OUTSIDE RECORDS SUMMARY | 2025-03-06 16:41 | XMS_ITS | Encounter Summary ---
Author Organization [employer] Address 75 [facility] [address] [address] Care Team Providers Care Bow Rehairer Name Role Phone Gosia Schilling MD Primary Care Provider [phone] Reason for Visit * Reason Onset Date Comments Appointment Request 10/05/2024 Encounter Details Date Type Department Care Team ([facility] st Contact Info) Description 10/05/2024 Telephone [facility] MED[facility]INE [address] [place] [address] Gosia Schilling MD [address] [place] [address] Appointment Request Social History Tobacco Use Types [...] documented as of this encounter Care Teams Bow Rehairer Relationship Specialty Start Date End Date Gosia Schilling MD [address] [place] [address] PCP - General Family Medicine 05/04/18 documented as of this encounter
--- OUTSIDE RECORDS SUMMARY | 2025-03-06 16:41 | XMS_ITS | Encounter Summary ---
Author Organization [employer] Address 75 [facility] [address] [place] [address] Care Team Providers Care Industrial Safety And Health Technician Name Role Phone Gosia Schilling MD Primary Care Provider [phone] Reason for Visit * Reason Comments Med Refill Encounter Details Date Type Department Care Team ([facility] st Contact Info) Description 02/04/[address] [facility] [address] [place] [address] Gosia Schilling MD [address] [place], [place] [phone] Social History Tobacco Use Types Packs/Day Years [...] documented as of this encounter Care Teams Industrial Safety And Health Technician Relationship Specialty Start Date End Date Gosia Schilling MD [address] [place] [address] PCP - General Family Medicine 05/04/18 documented as of this encounter
--- OUTSIDE RECORDS SUMMARY | 2025-03-06 16:41 | XMS_ITS | Encounter Summary ---
Author Organization [employer] Address 75 [facility] [address], [place] [address] Care Team Providers Care Resource Teacher Name Role Phone Gosia Schilling MD Primary Care Provider Reason for Visit * Reason Onset Date Comments Referral 03/01/2025 Encounter Details Date Type Department Care Team ([facility] st Contact Info) Description 03/01/2025 Telephone [facility] MEDICINE [address] [place] [address] Gosia Schilling MD [address] [place] [address] Referral Social History Tobacco Use Types Packs/Day Years [...] encounter Miscellaneous Notes * Telephone Encounter - Caroline Hudson RN - 03/03/2025 2:32 PM EDT Telephone call to pt regarding below request, no answer, left voicemail to call back [facility] PRN. * Telephone Encounter - Alfa Fabian - 03/01/2025 2:30 PM EDT Patient walked in requesting a Dermatology referral renewal. documented in this encounter Plan of Treatment Not on file documented as of this encounter Visit Diagnoses Not on filedocumented in this encounter Additional Health Concerns Assessment Noted Time PHQ-9 Depression Total Score: 6 04/25/20 24 1:24 PM EST documented as of this encounter Care Teams Resource Teacher Relationship Specialty Start Date End Date Gosia Schilling MD [address] [place] [address] PCP - General Family Medicine 05/04/18 documented as of this encounter
--- OUTSIDE RECORDS SUMMARY | 2025-03-06 16:41 | XMS_ITS | Clinical Summary ---
Author Organization [employer] Address 75 [facility] [address] [place] [address] Care Team Providers Care Millinery Designer Name Role Phone Gosia Schilling MD Primary Care Provider [phone] Allergies Active Allergy Reactions Criticality Noted Date Comments Omeprazole 03/19/2012 Medications Spacer/Aero-Hold ing Chambers deviceIndication s:Bronchitis 1 each every 4 (four) hours if needed (use with inhaler). 1 each 3 Active Blood Pressure Monitoring (Omron 3 Series BP Monitor) device USE TO CHECK BLOOD PRESSURE DAILY 2 Active estradiol (Estrace) 0.1 MG/GM vaginal cream APPLY TO AFFECTED AREA 2-3 TIMES A WEEK 2 Active famotidine (Pepcid) 40 MG tablet 3 Active minoxidil (Loniten) 2.5 MG tablet 3 Active Methylcellulose, Laxative, 500 MG tablet Take 1 tablet by mouth every 12 (twelve) hours. 1 Active tamsulosin (Flomax) 0.4 MG 24 hr [...] for constipation. 90 tablet 1 3 Active ferrous sulfate 325 (65 Fe) MG EC tablet TAKE 1 TABLET BY MOUTH TWICE A DAY WITH ORANGE JUICE 60 tablet 11 4 Active Ascorbic Acid (vitamin C) 500 MG tabletIndication s:Healthcare maintenance Take 1 tablet (500 mg) by mouth 2 times daily. 180 tablet 1 4 Active tadalafil (Cialis) 5 MG tablet 4 Active cyanocobalamin (Vitamin B-12) 1000 MCG tablet TAKE 1 TABLET BY MOUTH EVERY DAY 90 tablet 2 4 Active lidocaine (Lidoderm) 5 % patch Apply 1 patch topically Once per day. Remove & discard patch within 12 hours or as directed by MD. 30 patch 11 4 Active amitriptyline (Elavil) 25 MG tabletIndication s:Psychophysiolo gical insomnia Take 1 tablet (25 mg) by mouth at bedtime. 90 tablet 3 5 Active cholecalciferol (D3-1000) 25 MCG (1000 UT) capsuleIndicatio ns:Vitamin D deficiency Take 1 capsule (25 mcg) by mouth Once per day. 90 capsule 3 5 Active SUMAtriptan (Imitrex) 50 MG tabletIndication s:Migraine without status migrainosus, not intractable, unspecified migraine type May repeat dose once in 2 hours if no relief. Do not exceed 2 doses in 24 hours.TAKE 1 TABLET AT ONSET OF MIGRAINE,MAY REPEAT IN 2 HRS IF NEEDED.MAX 2 TABS/24 HOURS.TAKE W/NAPROXEN 9 tablet 2 5 Active ondansetron (Zofran) 4 MG tablet Take 1 tablet (4 mg) by mouth every 8 (eight) hours if needed for nausea or vomiting. 20 tablet 2 5 Active cetirizine (ZyrTEC) 10 MG tablet Take 1 tablet (10 mg) by mouth Once per day. 90 tablet 3 5 11/01/19 26 Active fluticasone (Flonase Allergy Relief) 50 MCG/ACT nasal spray Administer 1-2 sprays into each nostril Once per day. 16 g 3 5 Active Gemtesa 75 MG tablet Take 1 tablet by mouth Once per day. 5 Active pilocarpine (Salagen) 5 MG tablet TAKE 1 TABLET BY MOUTH TWICE A DAY 60 tablet 2 5 Active losartan (Cozaar) 25 MG tablet TAKE 1 TABLET BY MOUTH EVERY DAY IF BLOOD PRESSURE <130 TAKE A 1/2 TAB ONCE DAILY, IF <120 DO NOT TAKE 90 tablet 3 5 Active naproxen (Naprosyn) 500 MG tablet TAKE 1 TABLET (500 MG) BY MOUTH IN THE MORNING AND AT BEDTIME NEEDED FOR MILD PAIN 60 tablet 1 5 Active Active Problems Problem Noted Date Diagnosed [...] 6:07 PM EST): - previously followed by [facility], last seen in May 2022 - continue Linzess - continue fiber-rich diet - last colonoscopy by Dr. Trejo on 05/29/20. Recommended to repeat in 3 years due to marginal prep Assessment & Plan (04/03/2023 6:46 AM EST): - followed by [facility] - continue Linzess - continue fiber-rich diet Assessment & Plan (10/03/2022 5:56 PM EDT): - followed by [facility] - continue Linzess - continue fiber-rich diet Atrophic vaginitis 10/03/2022 Assessment & Plan (05/01/2024 6:07 PM EST): - following with [facility], last seen in September 2023 - s/p hysterectomy - Continue Replens for moisturizing and lubricants for intimacy as needed. Assessment & Plan (04/03/2023 6:47 AM EST): - following with [facility], last seen in July 2022 - s/p hysterectomy - Continue Replens for moisturizing and lubricants for intimacy as needed. Assessment & Plan (10/03/2022 5:58 PM EDT): - following with [facility], last seen in July 2022 - s/p [...] [place] [address] [place]. debravent constipation. avoid prolonged sitting, pressure. sitz bath Hydrocortisone rectal -evalauated by Dr. France on 07/18/20, recommended to get another surgery, and will schedule her surgery once she moves into her new apartment Assessment & Plan (04/24/2024 6:55 PM EST): [place] [address] [place]. debravent constipation. avoid prolonged sitting, pressure. sitz bath [...] to excessive bleeding from hemorrhoids -Following with [facility], last seen on 07/08/22. Normal [...] to excessive bleeding from hemorrhoids -Following with [facility], last seen on 07/08/22. Normal [...] to excessive bleeding from hemorrhoids -Following with [facility], last seen on 07/08/22. Normal [...] to excessive bleeding from hemorrhoids -Following with [facility], last seen on 07/08/22. Normal [...] to excessive bleeding from hemorrhoids -Following with [facility] service, last seen on 07/08/22. Normal [...] dry eyes -prescribed celecoxib and pilocarpine by air bag stripper Assessment & Plan (05/01/2024 6:10 PM EST): -previously followed by [facility] -following her previous air bag stripper at the provider's new office -Previously taking BOBBY-2 inhitor, meloxicam 15 mg / day, held when she was having anemia secondary to bleeding hemorrhoids -Oral / dental care and biotene for dry mouth / sicca syndrome -pt is prescribed artificial tears for dry eyes -prescribed celecoxib and pilocarpine by air bag stripper; will prescribe while she is waiting for another appointment with her air bag stripper -f/u in 3 months Assessment & Plan (12/10/2023 9:50 AM EDT): -followed by [facility] -Previously taking BOBBY-2 inhitor, meloxicam 15 mg / day, held when she was having anemia secondary to bleeding hemorrhoids -Oral / dental care and biotene for dry mouth / sicca syndrome -pt is prescribed artificial tears for dry eyes -prescribed celecoxib and pilocarpine by air bag stripper; will prescribe while she is waiting for another appointment with her air bag stripper -f/u in 3 months Assessment & Plan [...] Plan (10/03/2022 5:52 PM EDT): -followed by [facility] Rheumatology, -Previously taking BOBBY-2 inhitor, meloxicam 15 [...] (05/01/2024 6:07 PM EST): - following with [facility] Urology, last seen on 12/03/23 - continue tamsulosin - previously on oxybutynin which discontinued due to dry mouth Assessment & Plan (12/10/2023 9:51 AM EDT): - following with [facility], last seen on 12/03/23 - continue tamsulosin - previously on oxybutynin which discontinued due to dry mouth Assessment & Plan (09/13/2023 3:30 PM EDT): - following with [facility], last seen in October 2022 - continue oxybutynin and tamsulosin Assessment & Plan (04/03/2023 6:47 AM EST): - following with [facility], last seen in October 2022 - continue oxybutynin and tamsulosin Assessment & Plan (10/03/2022 5:44 PM EDT): - following with [facility], last seen in Mar 2022 - continue oxybutynin and tamsulosin Gastroesophageal reflux disease 12/29/2011 Assessment & Plan (04/25/2024 4:35 PM EST): - s/p EGD on 05/29/20 at [facility], chronic inactive inflammation, H. Pylori negative - seen by Azul Cyr ANP on 05/16/22, Rx famotidine - continue famotidine 40 mg at bedtime prn Assessment & Plan (04/03/2023 6:46 AM EST): - s/p EGD on 05/29/20 at [facility], chronic inactive inflammation, H. Pylori negative - seen by Azul Cyr ANP on 05/16/22, Rx famotidine - continue famotidine 40 mg at bedtime prn Assessment & Plan (10/03/2022 5:41 PM EDT): - s/p EGD on 05/29/20 at [facility], chronic inactive inflammation, H. Pylori negative - [...] Encounters Date Type Department Care Team Description 03/01/2025 Telephone [facility] [address] [place] [address] Gosia Schilling MD Referral 02/17/2025 Telephone [facility] [address] [place] [address] Gosia Schilling MD chart prep 01/22/2025 Refill [facility] [address] [place] [address] Gosia Schilling MD 12/22/2024 Refill [facility] [address] [place] [address] Gosia Schilling MD 12/12/2024 Refill [facility] [address] [place] [address] Gosia Schilling MD from Last 3 Months Immunizations Immunization Administration [...] kg (175 lb 6.4 oz) 10/31/2024 3:14 PM EDT Height 157.5 cm (5' 2 ) [...] Procedure Name Priority Date/Time Associated Diagnosis Comments HEPATITIS B, C PROFILE Routine 4:51 PM EST LIPID PANEL WITH REFLEX TO DIRECT LDL Routine 06/10/2024 4:51 PM EST HEMOGLOBIN A1C Routine 04/25/2024 11:26 AM EST Impaired fasting glucose BI MAMMOGRAM SCREENING TOMOSYNTHESIS BILATERAL Routine 01/15/2024 3:30 PM EDT Breast cancer screening by mammogram HM COLONOSCOPY Routine 05/29/2020 from Last 3 Months or Most Recently Relevant to Health Maintenance Results * Hepatitis B, C Profile (06/10/2024 4:51 PM EST) ~Hepatitis B Surface Antibody REACTIVE Nonreactive [facility] Comment:REACTIVE: > 11.99 mI U/mL Hepatitis B Core Antibody Nonreactive Nonreactive [facility] Hepatitis C Antibody Nonreactive Nonreactive [facility] Comment:Antibodies to HCV no t detected; does not exclude early acuteHCV infection. Hepatitis B Surface Ag Negative Negative [facility] 06/10/2024 4:51 PM EST 06/10/2024 4:51 PM EST us Generic External Data Provider LAB BLOOD ORDERAB LES Final Result [facility] [address] [place] [phone] * (ABNORMAL) Lipid Panel with Reflex to Direct LDL (06/10/2024 4:51 PM EST) Triglycerides 187(H) <150 mg/dL [facility] Comment:Desirable Triglyceri de: less than 150 mg/dLBorderline High Triglyceride 150-199 mg/dLHigh Triglyceride: 200-499 mg/dLVery High Triglyceride: greater than or equal to 5OO mg/dL Cholesterol 191 <200 mg/dL [facility] Comment:Desirable Cholestero l: less than 200 mg/dLBorderline High Cholesterol: 200-239 mg/dLHigh Cholesterol: greater than 239 mg/dL LDL Cholesterol Calculated 103(H) <100 mg/dL [facility] Comment:Desirable LDL: less than 100 mg/dLNear Optimal/Above Optimal LDL: 110- 129 mg/dLBorderline High LDL: 130-159 mg/dLHigh LDL: 160-189 mg/dLVery High LDL: greater than or equal to 190 mg/dL HDL Cholesterol 51 >40 mg/dL [facility] Comment:Desirable HDL: great er than 40 mg/dL Note: This HDL assay may give artificially low results in patients with liver disease. 06/10/2024 4:51 PM EST 06/10/2024 4:51 PM EST us Gosia Schilling MD LAB BLOOD ORDERABLES Final Resul t Performing Organization Address [facility] Co de Phone Number [facility] [address] [place] [phone] * Hemoglobin A1c (04/25/2024 11:26 AM EST) Hemoglobin A1c 5.8 <6.0 % [facility] Comment:Hemoglobin A1C Refer ence Range Adults: 4.8 - 6.0 % Non diabetic: < 6.0 % Goal: < 7.0 %Additional Action Suggested: > 8.0 %Note: Hemoglobin A1c results are invalid for patients with abnormal amounts of HbF. Blood transfusions may impact the HbA1c concentration in the patient sample. Estimated Average Glucose 120 mg/dL [facility] Comment:eAG = Estimated ave rage glucose which is %A1C expressed asaverage glucose, using the formula of the G5H-DmublswJkeqqpy Glucose study (ADAG), Diabetes Care, Vol.31,#8,Dec. 2007 Blood Venous blood specimen / Unknown 04/25/2024 11:26 AM EST 04/25/2024 1:46 PM EST Gosia Schilling MD LAB BLOOD ORDERABLES Final Resul t Performing Organization Address [facility] Co de Phone Number [facility] [address] [place] [phone] * BI Mammogram Screening Tomosynthesis Bilateral (01/15/2024 3:30 PM EDT) Anatomical Region Laterality Modality Breast Bilateral Mammography 01/15/2024 3:30 PM EDT Narrative 01/29/2024 8:58 AM EDT [facility] [address] [place] [address] Mammography Report Signed Patient: Destini Melchor MR#: [id number] : 1960 Acct:[id number] Age/Sex: 63 / F ADM Date: 01/15/24 Loc: [facility] Attending Dr: Gosia Schilling MD Ordering Physician: Gosia Schilling MD Results: 1Negative Date of Service: 01/15/24 Follow Up: 1 Year From Orig inal Mammogram Procedure(s): MM tomosynthesis screening BI Accession Number(s): [id number] cc: Gosia Schilling MD EXAMINATION: MM SCREENING [...] 01/29/24 0855 DD/ 1530 TD/TT: 01/15/24 1544 Analysis Engineer: Procedure Note Donotuseinterpreter, Image - 01/29/2024 [facility] [address] [place] [address] [place] [address] Mammography Report Signed Patient: Rhett Melchor#: [id number] : 1960Acct:[id number] Age/Sex: 63 / FADM Date: 01/15/24 Loc: [facility] Attending Dr: Gosia Schilling MD Ordering Physician: Gosia Schilling MDResults: 1Negative Date of Service: 01/15/24Follow Up: 1 Year From Orig inal Mammogram Procedure(s): MM tomosynthesis screening BI Accession Number(s): [id number] cc: Gosia Schilling MD EXAMINATION: MM SCREENING [...] 01/29/24 0855 DD/ 1530 TD/TT: 01/15/24 1544 Analysis Engineer: Gosia Schilling MD IMG BI PROCEDURES Final Result * (ABNORMAL) Hm Colonoscopy (05/29/2020) Colonoscopy Abnormal(A ) Normal 05/29/2020 Historical Provider HEALTH MAINTENANCE Final Result from Last 3 Months or Most Recently Relevant to Health Maintenance Insurance [facility] [facility] HMO Care Teams Millinery Designer Relationship Specialty Start Date End Date Gosia Schilling MD [address] [place] [phone] PCP - General Family Medicine 05/04/18
--- OUTSIDE RECORDS SUMMARY | 2025-03-06 16:41 | XMS_ITS | Encounter Summary ---
Author Organization [employer] Address [address] [facility] [address] [place] [address] Care Team Providers Care Riprap Placing Supervisor Name Role Phone Gosia Schilling MD Primary Care Provider [phone] Encounter Details Date Type Department Care Team (Late st Contact Info) Description 06/27/2022 Orders Only [facility] [address] [place] [address] Gosia Schilling MD [address] [place] [address] Nail lesion (Primary Dx); Sjogren syndrome, unspecified [...] (Free Thyroxine) 0.90 0.71 - 1.85 ng/dL [facility] 04/03/2023 8:15 AM EST 04/03/2023 11:12 AM EST Gosia Shcilling MD LAB BLOOD ORDERABLES Final Resul t Performing Organization Address City/[facility]/ZIP Co de Phone Number [facility] [address] [place] [address] [phone] * APTT (07/07/2022 1:22 PM EST) Partial Thromboplastin Time 34.0 26.0 - 36.4 SEC [facility] 07/07/2022 1:22 PM EST 07/07/2022 1:24 PM EST Narrative [facility] - 07/07/2022 1:53 PM EST QNS;SHORT DRAW [facility] External Provider LAB BLO OD ORDERABLES Final Result Performing Organization Address City/[facility]/ZIP Co de Phone Number [facility] [address] [place] [phone] * Prothrombin Time-INR (07/07/2022 1:22 PM EST) Prothrombin Time 11.2 10.0 - 13.1 SEC [facility] INTERNATIONAL NORM RATIO 1.0 0.9 - 1.1 [facility] Comment:INTERNATIONAL NORMAL IZED RATIO (INR) REFERENCE [...] PM EST 07/07/2022 1:24 PM EST Narrative [facility] - 07/07/2022 1:53 PM EST QNS;SHORT DRAW [facility] External Provider LAB BLO OD ORDERABLES Final Result Performing Organization Address [facility]/ZIP Co de Phone Number [facility] [address] [place] [phone] * Iron And Total Iron Binding Capacity (07/07/2022 12:11 PM EST) Pathologist [facility] Iron 74 30 - 160 mcg/dL [facility] Total Iron Binding Capacity 383 228 - 428 mcg/dL [facility] Percent Iron Saturation 19 15 - 50 % [facility] Unsaturated Iron Binding 309 ug/dL [facility] 07/07/2022 12:1 1 PM EST 07/08/2022 4:18 PM EST [facility] External Provider LAB BLO OD ORDERABLES Final Result Performing Organization Address [facility]/ZIP Co de Phone Number [facility] [address] [place] [phone] * HIGH SENSITIVITY TROPONIN I (07/07/2022 12:11 PM EST) Pathologist [facility] TROPONIN I HIGH SENSITIVITY <3.5 <3.5 - 17.0 ng/L [facility] Comment:The [place] high sens itivity Troponin-I results should beused in conjunction with other diagnostic information suchas ECG, clinical observations and information, and patientsymptoms to aid in the diagnosis of IL. 07/07/2022 12:1 1 PM EST 07/07/2022 12:14 PM EST [facility] External Provider LAB BLO OD ORDERABLES Final Result Performing Organization Address City/[facility]/ZIP Co de Phone Number [facility] [address] [place] [phone] * B Type Natriuretic Peptide (BNP) (07/07/2022 12:11 PM EST) Pathologist [facility] B Type Natriuretic Peptide <10 <100 pg/mL [facility] Comment:For those patients w ho are being treated with Natrecor(nesiritide, recombinant BNP), BNP testing should beperformed at least two hours post treatment in order toensure that only endogenous levels of BNP are detected. 07/07/2022 12:1 1 PM EST 07/07/2022 12:14 PM EST [facility] External Provider LAB BLO OD ORDERABLES Final Result Performing Organization Address [facility] Co de Phone Number [facility] [address] [place] [phone] * (ABNORMAL) Comprehensive Metabolic Panel (07/07/2022 12:11 PM EST) Pathologist [facility] Sodium 141 135 - 145 mmol/L [facility] Potassium 4.4 3.3 - 5.1 mmol/L [facility] Chloride 107 96 - 108 mmol/L [facility] Carbon Dioxide 28 22 - 29 mmol/L [facility] Anion Gap 10(L) 12 - 20 [facility] Urea Nitrogen (BUN) 11 9 - 16 mg/dL [facility] Creatinine, Serum 0.90 0.5 - 1.4 mg/dL [facility] Creatinine Clr Calc Pharmacy 63.7 [facility] Comment:Provided height and weight: 157.48 cm,76.657 kg.eGFR (calculated from the MDRD study equation) and eCrCl(calculated from the Cockcroft-Gault equation) are based ondifferent parameters and may not yield comparable results.If eCrCl result is absurd, please check patient'sheight/weight. Estimated Glomerular Filt Rate >60 [facility] Comment:NOTE: For -Am erican individuals, multiply the result by 1.210.Chronic Kidney Disease: Estimated GFR < 60 mL/min/[id number] Kidney Disease: Estimated GFR < 15 mL/min/1.73m2 Glucose 100 60 - 115 mg/dL [facility] Calcium 9.1 8.4 - 10.2 mg/dL [facility] Bilirubin, Total 0.4 0.0 - 1.0 mg/dL [facility] Aspartate Amino Transferase 27 5 - 31 U/L [facility] Alanine Aminotransferase 38(H) 0 - 31 U/L [facility] Total Protein 7.6 6.5 - 8.0 g/dL [facility] Albumin Level 4.3 3.5 - 5.0 g/dL [facility] Alkaline Phosphatase 84 39 - 117 U/L [facility] 07/07/2022 12:1 1 PM EST 07/07/2022 12:14 PM EST [facility] External Provider LAB BLO OD ORDERABLES Final Result [facility] [address] [place] [phone] * (ABNORMAL) CBC auto differential (07/07/2022 12:11 PM EST) White Blood Count 4.7(L) 4.8 - 10.8 X10*3/uL [facility] Red Blood Count 4.70 4.20 - 5.50 X10*6/uL [facility] Hemoglobin 12.8 12.0 - 16.0 g/dl [facility] Hematocrit 40.5 37.0 - 47.0 % [facility] Mean Corpuscular Volume 86.2 80.0 - 98.0 fL [facility] Mean Corpuscular Hemoglobin 27.2 27.0 - 33.0 pg [facility] Mean Corpuscular HGB Conc 31.6 31.0 - 35.0 g/dl [facility] Red Cell Distribution Width 13.0 11.0 - 16.0 % [facility] Platelet Count 276 160 - 400 X10*3/uL [facility] Mean Platelet Volume 9.4 9.4 - 12.3 fL [facility] Neutrophils Percent Auto 48.6 45 - 73 % [facility] Imm Gran Pct Auto 0.2 0.0 - 0.4 % [facility] Lymphocytes Percent Auto 38.2 20 - 40 % [facility] Monocytes Percent Auto 10.2 2 - 11 % [facility] Eosinophils Percent Auto 2.6 0 - 4 % [facility] Basophils Percent Auto 0.2 0 - 2 % [facility] NRBC Pct Auto 0.0 0.0 - 0.2 /100WBC [facility] Neutrophils Absolute Auto 2.3 2.0 - 8.3 x10*3/uL [facility] Imm Gran Abs Auto 0.01 0.00 - 0.03 X10*3/uL [facility] Lymphocytes Absolute Auto 1.8 1.2 - 4.9 X10*3/uL [facility] Monocytes Absolute Auto 0.5 0.1 - 1.2 X10*3/uL [facility] Eosinophils Absolute Auto 0.1 0.0 - 0.4 X10*3/uL [facility] Basophils Absolute Auto 0.0 0.0 - 0.2 X10*3/uL [facility] NRBC Abs Auto 0.000 0.0 - 0.012 X10*3/uL [facility] 07/07/2022 12:1 1 PM EST 07/07/2022 12:14 PM EST [facility] External Provider LAB BLO OD ORDERABLES Final Result Performing Organization Address City/State/[facility] Co de Phone Number [facility] [address] [place] [phone] documented in this encounter Visit Diagnoses Diagnosis Nail lesion- Primary Sjogren syndrome, unspecified (CMS/HCC) documented in this encounter Care Teams Riprap Placing Supervisor Relationship Specialty Start Date End Date Gosia Schilling MD [address] [place] [phone] PCP - General Family Medicine 05/04/18 documented as of this encounter
== END 2025-03-06 16:08 | disposition home or self-care (01) ==
LOC: HO.HUSH 15:27
PROVIDERS: PCP Family Medicine; Visit Provider Urology
DX: N30.10 Interstitial cystitis (chronic) without hematuria (principal); R35.0 Frequency of micturition; M35.00 Sjogren syndrome, unspecified
CPT/HCPCS: 99213

== ENCOUNTER → 2025-03-06 15:27 | Outpatient (BNVA) | payer BC, SELFPAY | PROVIDERS: PCP Family Medicine; Visit Provider Urology | DX: N30.10 Interstitial cystitis (chronic) without hematuria (principal); R35.0 Frequency of micturition; M35.00 Sjogren syndrome, unspecified | CPT/HCPCS: 51798; 81003 ==